=== PATIENT | female | born 1955 | race Hispanic/Latino ===

== ENCOUNTER 2019-11-13 19:33 | Inpatient (IN) | payer OTHER ==
[2019-11-13] MEDS ORDERED: Azithromycin 500 MG VIAL ONE (20:01)
[2019-11-13] MEDS ORDERED: cefTRIAXone\\ROCEPHIN 2 GM VIAL ONE (20:01)
[2019-11-13] MEDS ORDERED: Albuterol 200 PUFF (6.7GM INHALER) ONE (20:23)
--- NOTE | 2019-11-13 20:27 | RAD ---
Exam: Chest one view HISTORY:Cough. Positive COVID 19 patient. Comparison: 10/12/2017 FINDINGS: Cardiac silhouette:Cardiomegaly Aorta: Unremarkable Pulmonary vessels: Normal Costophrenic angles: Clear LUNGS: Diminished lung volumes. Diffuse interstitial and alveolar opacities. Pneumothorax: None Osseous abnormalities: None IMPRESSION: Multifocal interstitial and alveolar opacities. Evidence for multi lobar pneumonia due to COVID 19.
[2019-11-13 20:28] LABS: #Lymphocytes 1.6 thou/uL (1.20-3.40); #Monocytes 0.4 thou/uL (0.11-0.59); #Neutrophils 7.4 thou/uL (1.40-6.50); %Basophils 0.2 % (0.0-1.0); %Eosinophils 0.1 % (0.0-10.0); %Lymphocytes 16.9 % (21.0-51.0); %Monocytes 4.4 % (0.0-10.0); %Neutrophils 78.5 % (42.0-75.0); Hemoglobin 14.8 g/dL (12.0-16.0); Mean Corpuscular HGB CONC 32.1 g/dL (32.0-36.0); Mean Corpuscular Hemoglobin 29.1 pg (27.0-31.0); Mean Corpuscular Volume 90.6 fL (78.0-98.0); Mean Platelet Volume 9.4 fL (7.4-10.4); Platelet Count 221 thou/uL (130-400); RBC Distribution Width 13.2 % (11.5-14.5); Red Blood Cell (RBC) Count 5.08 mill/uL (4.20-5.40); White Blood Cell (WBC) Count 9.4 thou/uL (4.8-10.8)
[2019-11-13 20:55] LABS: ALT (SGPT) 37 U/L (8-55); AST (SGOT) 49 U/L (5-34); Albumin 3.9 g/dL (3.4-4.8); Alkaline Phosphatase 123 U/L (40-110); Anion Gap 18 mmol/L (10-20); BUN (Urea Nitrogen) 12 mg/dL (9.8-20.1); Bilirubin, Total 0.2 mg/dL (0.2-1.2); CK (CPK) 23 U/L (29-168); Calc. Creatinine Clearance 0 mL/min (70-130); Calcium 9.8 mg/dL (7.8-10.44); Carbon Dioxide 23 mmol/L (23-31); Chloride 99 mmol/L (98-107); Estimated GFR-MDRD 71; Globulin 4.2 g/dL (2.4-3.5); Glucose 374 mg/dL (80-115); Magnesium 1.9 mg/dL (1.6-2.6); Potassium 4.7 mmol/L (3.5-5.1); Protein, Total 8.1 g/dL (6.0-8.3); Sodium 135 mmol/L (136-145)
[2019-11-13] MEDS ORDERED: HYDROcodone/Acetaminophen 5/325 mg Tablet PO PRN (22:50)
[2019-11-13] MEDS ORDERED: Guaifenesin DM 100-10/5 ML UDCUP PO PRN (22:50)
[2019-11-13] MEDS ORDERED: Promethazine HCl 12.5 MG in Sodium Chloride 0.9% 50 ML IVPB PRN (22:50)
[2019-11-13] MEDS ORDERED: Labetalol HCl 100 MG/20 ML VIAL SLOW IVP PRN (22:50)
[2019-11-13] MEDS ORDERED: Ondansetron PF 4 MG/2 ML Vial IVP PRN (22:50)
[2019-11-13] MEDS ORDERED: cloNIDine 0.1 MG TAB PO PRN (22:50)
[2019-11-13] MEDS ORDERED: Dextrose 5% in Water 1,000 ML IV PRN (22:53)
[2019-11-13] MEDS ORDERED: HumaLOG 300 UNITS/3 ML VIAL SC PRN (22:53)
[2019-11-13] MEDS ORDERED: Dextrose 50% Abboject 50 ML SYRINGE SLOW IVP PRN (22:53)
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
[2019-11-13] MEDS ORDERED: Dexamethasone 4 mg/ml Vial SLOW IVP SCH (23:00)
[2019-11-13] MEDS ORDERED: Sodium Chloride 0.9% 1,000 ML IV SCH (23:00)
[2019-11-13] MEDS ORDERED: Dexamethasone 10 MG/ML VIAL ONE (23:05)
[2019-11-13 23:44] LABS: Lactic Acid 2.2 mmol/L (0.5-2.2)
[2019-11-14 01:07] LABS: Actual Bicarbonate (HCO3a) 21.5 mEq/L (22-28); Base Excess (BEa) -2.6 mEq/L (-2.0 to +3.0); CO2 Tension 35.5 mmHg (35.0-45.0); Calcium, Ionized (arterial) 1.18 mmol/L (1.12-1.30); Carboxyhemoglobin (COHb) 0.6 gm% (0.0-3.0); Hemoglobin (Hb) 14.4 g/dL (12.0-16.0); O2 Tension (PaO2), arterial 68.6 mmHg (> 80.0); Potassium - ABG Lab 3.89 mmol/L (3.70-5.30)
[2019-11-14 01:10] LABS: ALV-art Gradient 143.705 (0-20); Puncture Site L RADIAL
[2019-11-14] MEDS ORDERED: Dextrose 50% Abboject 50 ML SYRINGE SLOW IVP PRN (01:26)
[2019-11-14] MEDS ORDERED: Dextrose 5% in Water 1,000 ML IV PRN (01:26)
[2019-11-14] MEDS ORDERED: Insulin Glargine 5 UNITS in Pre-Filled Syringe 1 EACH SC SCH ×2 (01:30→21:00)
[2019-11-14] MEDS: Albuterol Sulfate 2.5 mg/3 ml Neb EZPAP SCH ×3 (02:43→11:45)
[2019-11-14] MEDS ORDERED: Lorazepam 2 MG/ML VIAL SLOW IVP SCH (03:00)
[2019-11-14] MEDS: HumaLOG 300 UNITS/3 ML VIAL SC PRN ×5 (03:08→22:44)
[2019-11-14 03:38] LABS: #Lymphocytes 1.2 thou/uL (1.20-3.40); #Monocytes 0.3 thou/uL (0.11-0.59); %Basophils 0.1 % (0.0-1.0); %Monocytes 3.1 % (0.0-10.0); %Neutrophils 82.7 % (42.0-75.0); Mean Corpuscular HGB CONC 30.6 g/dL (32.0-36.0); Mean Corpuscular Hemoglobin 27.7 pg (27.0-31.0); Mean Corpuscular Volume 90.5 fL (78.0-98.0); Mean Platelet Volume 9.2 fL (7.4-10.4); Platelet Count 237 thou/uL (130-400); RBC Distribution Width 13.2 % (11.5-14.5); Red Blood Cell (RBC) Count 5.03 mill/uL (4.20-5.40); White Blood Cell (WBC) Count 8.5 thou/uL (4.8-10.8)
[2019-11-14 03:46] LABS: Hemoglobin A1c 9.8 % (4.0-6.0)
[2019-11-14 03:58] LABS: Lactic Acid 1.8 mmol/L (0.5-2.2)
[2019-11-14 04:01] LABS: Anion Gap 15 mmol/L (10-20); BUN (Urea Nitrogen) 7 mg/dL (9.8-20.1); Calc. Creatinine Clearance 85 mL/min (70-130); Calcium 8.6 mg/dL (7.8-10.44); Carbon Dioxide 22 mmol/L (23-31); Chloride 105 mmol/L (98-107); Estimated GFR-MDRD Greater than 90; Glucose 275 mg/dL (80-115); Magnesium 1.6 mg/dL (1.6-2.6); Potassium 3.9 mmol/L (3.5-5.1); Sodium 138 mmol/L (136-145)
[2019-11-14] MEDS: Enoxaparin Sodium 40 MG/0.4 ML SYRINGE SC SCH (08:34)
[2019-11-14] MEDS ORDERED: Electrolyte Replacement Protoc 1 EACH EACH FS ONE (08:50)
[2019-11-14] MEDS ORDERED: Famotidine 20 MG TAB PO SCH (09:00)
[2019-11-14] MEDS ORDERED: Electrolyte Replacement Protocol FS PRN (09:45)
[2019-11-14] MEDS ORDERED: Magnesium 2 GM/50 ML 2 GM in Premix Bag 1 BAG IVPB SCH ×2 (09:45→13:00)
[2019-11-14] MEDS ORDERED: Lorazepam 2 MG/ML VIAL ONE ×2 (10:22→16:12)
[2019-11-14] MEDS ORDERED: Furosemide 40 MG/4 ML VIAL ONE (10:38)
[2019-11-14] MEDS: Famotidine/PF 20 mg/2ml Vial SLOW IVP SCH ×2 (10:50→21:13)
[2019-11-14] MEDS ORDERED: Dexamethasone 4 mg/ml Vial SLOW IVP SCH (11:15)
[2019-11-14 12:16] LABS: Actual Bicarbonate (HCO3a) 26.8 mEq/L (22-28); Base Excess (BEa) 1.9 mEq/L (-2.0 to +3.0); CO2 Tension 42.7 mmHg (35.0-45.0); Calcium, Ionized (arterial) 1.15 mmol/L (1.12-1.30); Carboxyhemoglobin (COHb) 0.4 gm% (0.0-3.0); Hemoglobin (Hb) 14.4 g/dL (12.0-16.0); Potassium - ABG Lab 3.49 mmol/L (3.70-5.30); pH, Arterial 7.42 (7.35-7.45)
[2019-11-14 12:18] LABS: ALV-art Gradient 321.125 (0-20); O2 Tension (PaO2), arterial 53.3 mmHg (> 80.0); Puncture Site LRA
[2019-11-14] MEDS ORDERED: Benzonatate 100 MG CAP PO PRN (12:21)
[2019-11-14] MEDS ORDERED: Loperamide HCl 2 MG CAP PO PRN (12:21)
[2019-11-14] MEDS ORDERED: Calcium Carbonate 500 MG ChewTAB PO PRN (12:21)
[2019-11-14] MEDS ORDERED: Diabetic Tussin 200 MG/10 ML UDCUP PO PRN (12:21)
[2019-11-14] MEDS ORDERED: Bisacodyl 10 MG SUPP PR PRN (12:21)
[2019-11-14] MEDS ORDERED: Sodium Chloride 0.65% Nasal 44 ML BOT EA NARE PRN (12:21)
[2019-11-14] MEDS ORDERED: Cepastat Lozenges 1 LOZ PO PRN (12:21)
[2019-11-14] MEDS ORDERED: Loratadine 10 MG TAB PO PRN (12:21)
--- NOTE | 2019-11-14 12:24 | PDOC.HOSPP ---
- Subjective Encounter Date: 11/14/19 Encounter Time: 10:00 Subjective: Patient is tachypneic, patient has anxiety, patient is on BiPAP, - Objective Vital Signs & Weight: Vital Signs (12 hours) Temp Pulse Pulse Ox 11/14/19 09:00 97.8 F 11/14/19 06:00 96.9 F L 11/14/19 02:43 92 L 11/14/19 02:40 96 11/14/19 02:30 98 11/14/19 02:00 98.0 F Weight Weight 120 lb 13.013 oz Most Recent Monitor Data Heart Rate from ECG 89 NIBP 110/71 NIBP BP-Mean 84 Respiration from ECG 21 SpO2 99 I&O: 11/13/19 11/14/19 11/15/19 06:59 06:59 06:59 Intake Total 337 Output Total 650 300 Balance -313 -300 Result Diagrams: 11/14/19 03:25 11/14/19 03:25 Additional Labs: Accuchecks 11/14/19 11/14/19 11/13/19 06:14 01:57 20:05 POC Glucose 255 H 226 H 337 H Radiology Reviewed by me: Yes EKG Reviewed by me: Yes Hospitalist ROS - Review of Systems Constitutional: reports: weakness, malaise. denies: fever, chills, sweats, other ENT: denies: ear pain, ear discharge, nose pain, nose discharge, nose congestion , mouth pain, mouth swelling, throat pain, throat swelling, other Respiratory: reports: cough, shortness of breath, SOB with excertion. denies: dry, hemoptysis, pleuritic pain, sputum, wheezing, other Cardiovascular: denies: chest pain, palpitations, orthopnea, paroxysmal noc. dyspnea, edema, light headedness, other Gastrointestinal: denies: nausea, vomiting, abdominal pain, diarrhea, constipation, melena, hematochezia, other Genitourinary: denies: dysuria, frequency, incontinence, hematuria, retention, other Musculoskeletal: denies: neck pain, shoulder pain, arm pain, back pain, hand pain, leg pain, foot pain, other - Medication Medications: Active Medications Generic Name Dose Route Start Last Admin Trade Name Freq PRN Reason Stop Dose Admin Albuterol Sulfate 2.5 mg 11/14/19 02:30 11/14/19 11:45 Ventolin EZPAP 2.5 mg [id number] MARK Administration Enoxaparin Sodium 40 mg 11/14/19 09:00 11/14/19 08:34 Lovenox SC 40 mg 0900 MARK Administration Famotidine 20 mg 11/14/19 09:00 11/14/19 10:50 Pepcid SLOW IVP 20 mg BID MARK Administration Insulin Human Lispro 0 units 11/14/19 01:26 11/14/19 06:32 Humalog SC 6 units .MODERATE SLIDING SC PRN Administration Moderate Correctional Scale Ondansetron HCl 4 mg 11/13/19 22:50 11/14/19 03:07 Zofran IVP 4 mg Q6H PRN Administration Nausea/Vomiting use 1st Sodium Chloride 10 ml 11/14/19 09:00 11/14/19 08:34 Flush - Normal Saline IVF Not Given Q12HR MARK - Exam General Appearance: NAD, awake alert Eye: PERRL, anicteric sclera ENT: normocephalic atraumatic, no oropharyngeal lesions Neck: supple, symmetric, no JVD Heart: no murmur, no gallops Respiratory: no wheezes, no rales, tachypneic Gastrointestinal: soft, non-tender, non-distended, normal bowel sounds Extremities: no cyanosis, no clubbing, no edema Skin: normal turgor, no lesions Neurological: no focal deficits Musculoskeletal: normal tone, normal strength Psychiatric: normal affect, normal behavior Hosp A/P - Plan old records reviewed/req, continue antibiotics, respiratory therapy, DVT proph w /lovenox Assessment Acute respiratory failure with hypoxia Bilateral interstitial pneumonia suspected for COVID-19 infection Suspected COVID-19 infection Diabetes type 2 Lactic acidosis Plan We will discontinue IV fluid which was ordered last night Give her Ativan 0.5 mg IV one-time dose for her anxiety and will give her Lasix 20 mg IV one-time dose Continue BiPAP as tolerated Add vitamin supplementation Follow-up on COVID-19 test result Based on test result COVID , evaluate for Remdesivir Continue Decadron Pulmonary has been consulted Closely monitor for any deterioration
[2019-11-14] MEDS ORDERED: Cefepime 1 GM in Sodium Chloride 0.9% 100 ML IVPB SCH (12:45)
--- NOTE | 2019-11-14 12:49 | PQF ---
Q53 2018 [facility] Updated: January 2019 CLINICAL DOCUMENTATION CLARIFICATION FORM: Dear Dr. Buenrostro Date 11/15/19 Please exercise your independent, professional judgment in responding to the clarification form. Clinical indicators are provided on the bottom of this form for your review. Please check appropriate box(es): [ ] Acute Respiratory Failure: [ ] with Hypoxia [ ] with Hypercapnia [ ] Acute On Chronic Respiratory Failure: [ ] with Hypoxia [ ] with Hypercapnia [ ] Acute Respiratory Failure due to: (etiology) [ ] ARDS (Acute Respiratory Distress Syndrome) [ ] Chronic Respiratory Failure only [ ] with Hypoxia [ ] with Hypercapnia [ ] Respiratory Insufficiency [ ] Hypoxia [ ] Other diagnosis [ ] Unable to determine In addition, please specify: Present on Admission (POA): [ ] Yes [ ] No [ ] Unable to determine For continuity of documentation, please document condition throughout progress notes and discharge summary. Thank You. NURSE'S NOTE: "GRUNTING RESPIRATIONS AT 65-70 MIN. RESP VERY SHALLOW, PT UNABLE TO SPEAK IN FULL SENTENCES." RISKS: COVID 19 + (H&P ATERNO) TREATMENT: ABGs IVP DECADRON (ORDERED 11/13 NOW) ALBUTEROL NEBS Q4 HR (STARTED 11/13) IV AZITHROMYCIN (ORDERED 11/13) IV ROCEPHIN (ORDERED 11/13 TRANSFER TO CCU 11/13 FOR BIPAP CDS/[employer] Furn[employer]er Signature: Thea Lambert RN Phone #: [phone] Date: 11/15/19 Acute Respiratory Failure: ABG pH < 7.35 or > 7.45; Decreased oxygen saturation (<90% room air or < 95% on oxygen); PCO2 > 50 mm Hg; PO2 < 60 mm Hg; Labored or rapid respirations ARDS: Dx Criteria [[place] ARDS]: Respiratory symptoms within one week of a known clinical insult (e.g. shock, infection, surgery, trauma) Bilateral opacities in CXR/Chest CT not due to CHF or fluid This is a permanent part of the Medical Record MTDD
[2019-11-14] MEDS ORDERED: Ketamine 50 MG/ML (10ML VIAL) ONE (15:03)
[2019-11-14] MEDS ORDERED: Rocuronium Bromide 50 MG/5 ML VIAL ONE (15:04)
[2019-11-14 16:14] LABS: Actual Bicarbonate (HCO3a) 24.5 mEq/L (22-28); Base Excess (BEa) 1.1 mEq/L (-2.0 to +3.0); CO2 Tension 35.5 mmHg (35.0-45.0); Calcium, Ionized (arterial) 1.14 mmol/L (1.12-1.30); Carboxyhemoglobin (COHb) 0.3 gm% (0.0-3.0); Hemoglobin (Hb) 14.9 g/dL (12.0-16.0); O2 Tension (PaO2), arterial 63.2 mmHg (> 80.0); pH, Arterial 7.46 (7.35-7.45)
[2019-11-14 16:16] LABS: ALV-art Gradient 320.225 (0-20); Puncture Site LRA
[2019-11-14] MEDS ORDERED: Propofol 1,000 MG/100 ML VIAL IV ONE (16:35)
[2019-11-14] MEDS ORDERED: Fentanyl BOLUS 250 ML IVPB PRN (17:05)
[2019-11-14] MEDS ORDERED: DISCONTINUE PREVIOUS NARCOTIC PAIN MEDICATIONS AND BENZODIAZEPINES FS SCH (17:05)
[2019-11-14] MEDS ORDERED: Propofol BOLUS 1,000 MG/100 ML VIAL IV PRN (17:05)
[2019-11-14] MEDS ORDERED: Morphine 2 MG/ML VIAL SLOW IVP PRN (17:05)
[2019-11-14] MEDS: fentaNYL Citrate/PF 2,000 MCG in Sodium Chloride 0.9% 60 ML IV SCH (17:36)
--- NOTE | 2019-11-14 17:46 | RAD ---
Exam: Chest one view HISTORY:Intubated patient. Respiratory distress. Comparison: 11/13/2019 at 8:20 PM FINDINGS: Cardiac silhouette:Stable cardiac silhouette. Lines and tubes: Interval placement of endotracheal and nasogastric tube. Nasogastric tube terminates in the left upper quadrant. Endotracheal tube appears to have a right mainstem bronchus intubation. Aorta: Unremarkable Pulmonary vessels: Normal Costophrenic angles: Small bilateral pleural effusions are suspected LUNGS: Persistent multi focal interstitial and alveolar opacities. Pneumothorax: None Osseous abnormalities: None IMPRESSION: 1. Persistent multi focal interstitial and alveolar opacities. 2. Nasogastric tube terminating in the epigastric region 3. Endotracheal tube terminating in the right mainstem bronchus. Repositioning is recommended. Result s of study discussed with Ashly higgins in the ICU 11/14/2019 at 5:46 PM Code CR Transcribed Date/Time: 11/14/2019 5:53 PM
[2019-11-14] MEDS: Budesonide 0.5 MG/2 ML NEB NEB SCH (18:18)
[2019-11-14] MEDS ORDERED: Norepinephrine 8 MG/0.9% NS 250 ML ONE (18:33)
[2019-11-14] MEDS ORDERED: cefTRIAXone\\ROCEPHIN 1 GM in Sodium Chloride 0.9% 100 ML IVPB SCH (21:00)
[2019-11-14] MEDS: Azithromycin 500 MG in Sodium Chloride 0.9% 250 ML 250 ML IVPB SCH (21:09)
[2019-11-14] MEDS: Cefepime 1 GM in Sodium Chloride 0.9% 100 ML IVPB SCH (21:10)
[2019-11-15 04:51] LABS: #Lymphocytes 0.9 thou/uL (1.20-3.40); #Monocytes 0.9 thou/uL (0.11-0.59); #Neutrophils 10.4 thou/uL (1.40-6.50); %Basophils 0.2 % (0.0-1.0); %Eosinophils 0.1 % (0.0-10.0); %Lymphocytes 7.2 % (21.0-51.0); %Monocytes 7.1 % (0.0-10.0); %Neutrophils 85.5 % (42.0-75.0); Hemoglobin 12.7 g/dL (12.0-16.0); Mean Corpuscular HGB CONC 31.3 g/dL (32.0-36.0); Mean Corpuscular Hemoglobin 27.8 pg (27.0-31.0); Mean Corpuscular Volume 88.7 fL (78.0-98.0); Mean Platelet Volume 8.3 fL (7.4-10.4); Platelet Count 296 thou/uL (130-400); RBC Distribution Width 12.9 % (11.5-14.5); Red Blood Cell (RBC) Count 4.58 mill/uL (4.20-5.40); White Blood Cell (WBC) Count 12.2 thou/uL (4.8-10.8)
[2019-11-15 05:10] LABS: ALT (SGPT) 24 U/L (8-55); AST (SGOT) 29 U/L (5-34); Albumin 3.5 g/dL (3.4-4.8); Alkaline Phosphatase 98 U/L (40-110); Anion Gap 19 mmol/L (10-20); BUN (Urea Nitrogen) 7 mg/dL (9.8-20.1); Bilirubin, Total 0.2 mg/dL (0.2-1.2); Calc. Creatinine Clearance 76 mL/min (70-130); Calcium 8.4 mg/dL (7.8-10.44); Carbon Dioxide 21 mmol/L (23-31); Chloride 102 mmol/L (98-107); Estimated GFR-MDRD 89; Globulin 3.4 g/dL (2.4-3.5); Glucose 372 mg/dL (80-115); Protein, Total 6.9 g/dL (6.0-8.3); Sodium 139 mmol/L (136-145)
[2019-11-15] MEDS: Propofol 1,000 MG/100 ML VIAL IV PRN (05:34)
[2019-11-15] MEDS: Norepinephrine 8 MG/0.9% NS 250 ML IVPB SCH (05:35)
[2019-11-15] MEDS: HumaLOG 300 UNITS/3 ML VIAL SC PRN ×2 (05:54→11:38)
[2019-11-15] MEDS ORDERED: Magnesium 2 GM/50 ML 2 GM in Premix Bag 1 BAG IVPB SCH (06:30)
[2019-11-15] MEDS ORDERED: Potassium Chloride 20 MEQ TAB PO SCH (06:30)
[2019-11-15] MEDS: Dexamethasone 4 mg/ml Vial SLOW IVP SCH (07:32)
[2019-11-15] MEDS: Enoxaparin Sodium 40 MG/0.4 ML SYRINGE SC SCH (07:32)
[2019-11-15] MEDS: Famotidine/PF 20 mg/2ml Vial SLOW IVP SCH ×2 (07:33→21:29)
[2019-11-15] MEDS: Zinc Sulfate 220 MG CAP PO SCH (07:33)
[2019-11-15] MEDS: Cefepime 1 GM in Sodium Chloride 0.9% 100 ML IVPB SCH ×2 (07:33→21:29)
[2019-11-15] MEDS: Ascorbic Acid 500 mg Chewable Tablet PO SCH (07:33)
--- NOTE | 2019-11-15 07:52 | RAD ---
EXAM: Single view of the chest HISTORY: Covid positive pneumonia COMPARISON: 11/14/2019 FINDINGS: Single view of the chest shows a normal sized cardiomediastinal silhouette. The endotrache al tube and NG tube are unchanged in position. There are stable multifocal next infiltrates in the lungs. The bones are unremarkable IMPRESSION: Stable exam
--- NOTE | 2019-11-15 08:05 | OP ---
DATE OF PROCEDURE: 11/14/2019 Reyna Frias was intubated by Anesthesia today. I was asked to place a central line. Right groin was prepped with chlorhexidine. Right femoral vein was easily cannulated with an introducer needle. J-wire was passed. Vein dilator was inserted. Triple-lumen catheter was sewn in place. After insertion, removal of the wire. Sterile dressing was applied. Catheter was flushed. Good blood return in all three ports. Job ID: [id number]
[2019-11-15] MEDS: Budesonide 0.5 MG/2 ML NEB NEB SCH ×2 (08:35→19:05)
[2019-11-15 08:48] LABS: Actual Bicarbonate (HCO3a) 22.6 mEq/L (22-28); Base Excess (BEa) 0.2 mEq/L (-2.0 to +3.0); CO2 Tension 30.3 mmHg (35.0-45.0); Calcium, Ionized (arterial) 1.07 mmol/L (1.12-1.30); Carboxyhemoglobin (COHb) 0.1 gm% (0.0-3.0); Hemoglobin (Hb) 13.4 g/dL (12.0-16.0); O2 Tension (PaO2), arterial 138.4 mmHg (> 80.0); Potassium - ABG Lab 3.03 mmol/L (3.70-5.30); pH, Arterial 7.49 (7.35-7.45)
[2019-11-15 16:03] LABS: Puncture Site L.R.
[2019-11-15 16:04] LABS: ALV-art Gradient 180.225 (0-20)
--- NOTE | 2019-11-15 16:28 | PDOC.HOSPP ---
- Subjective Encounter Date: 11/15/19 Subjective: Intubated and nonverbal - Objective Vital Signs & Weight: Vital Signs (12 hours) Pulse Resp BP Pulse Ox 11/15/19 16:00 16 11/15/19 14:26 72 20 100 11/15/19 14:19 78 154/79 H 11/15/19 14:00 16 11/15/19 12:00 20 11/15/19 11:20 82 16 100 11/15/19 10:00 23 H 11/15/19 08:35 69 23 H 100 11/15/19 08:00 24 H 100 11/15/19 06:00 16 Weight Admit Weight 120 lb 12.8 oz Weight 119 lb 14.903 oz Most Recent Monitor Data Heart Rate from ECG 81 NIBP 159/72 NIBP BP-Mean 101 Respiration from ECG 30 SpO2 100 I&O: 11/14/19 11/15/19 11/16/19 06:59 06:59 06:59 Intake Total 337 1324.0 60 Output Total 650 2185 930 Balance -313 -861.0 -870 Result Diagrams: 11/15/19 04:15 11/15/19 04:15 Additional Labs: Accuchecks 11/15/19 11/15/19 11/14/19 11:25 05:54 21:32 POC Glucose 269 H 325 H 294 H 11/14/19 18:02 POC Glucose 225 H Hospitalist ROS - Medication Medications: Active Medications Generic Name Dose Route Start Last Admin Trade Name Freq PRN Reason Stop Dose Admin Albuterol/Ipratropium 3 ml 11/14/19 14:30 11/15/19 14:26 Duoneb NEB 3 ml [id number] MARK Administration Ascorbic Acid 1,000 mg 11/15/19 09:00 11/15/19 07:33 Vitamin C PO 1,000 mg DAILY MARK Administration Budesonide 0.5 mg 11/14/19 18:30 11/15/19 08:35 Pulmicort Neb Solution NEB 0.5 mg BID-RT MARK Administration Dexamethasone 6 mg 11/15/19 09:00 11/15/19 07:32 Decadron SLOW IVP 6 mg 0900 MARK Administration Enoxaparin Sodium 40 mg 11/14/19 09:00 11/15/19 07:32 Lovenox SC 40 mg 0900 MARK Administration Famotidine 20 mg 11/14/19 09:00 11/15/19 07:33 Pepcid SLOW IVP 20 mg BID MARK Administration Azithromycin 500 mg/ Sodium 250 mls @ 250 mls/hr 11/14/19 21:00 11/14/19 21: 09 Chloride IVPB 250 mls 2100 MARK Administration Insulin Glargine 5 units/ 0.05 mls @ 0 mls/hr 11/14/19 21:00 11/14/19 21:10 Miscellaneous Medication SC 0.05 mls HS MARK Administration Cefepime HCl 1 gm/ Sodium 100 mls @ 200 mls/hr 11/14/19 21:00 11/15/19 07:33 Chloride IVPB 100 mls Q12HR MARK Administration Fentanyl Citrate 2,000 mcg/ 100 mls @ 0 mls/hr 11/14/19 17:05 11/14/19 17:36 Sodium Chloride IV 12/14/19 17:05 100 mls INF MARK Administration Protocol Per Protocol Norepinephrine Bitartrate 250 mls @ 0 mls/hr 11/14/19 18:43 11/15/19 05:35 Levophed IVPB 250 mls INF MARK Administration Protocol Titrate Insulin Human Lispro 0 units 11/14/19 01:26 11/15/19 11:38 Humalog SC 6 units .MODERATE SLIDING SC PRN Administration Moderate Correctional Scale Ondansetron HCl 4 mg 11/13/19 22:50 11/14/19 03:07 Zofran IVP 4 mg Q6H PRN Administration Nausea/Vomiting use 1st Propofol 1,000 mg 11/14/19 17:05 11/15/19 05:34 Diprivan IV 12/14/19 17:05 1,000 mg INF PRN Administration TO ACHIEVE GOAL RASS Protocol Sodium Chloride 10 ml 11/14/19 09:00 11/15/19 07:33 Flush - Normal Saline IVF 10 ml Q12HR MARK Administration Vitamin E 200 units 11/15/19 09:00 11/15/19 09:39 Vitamin E PO 200 units DAILY MARK Administration Zinc Sulfate 220 mg 11/15/19 09:00 11/15/19 07:33 Zinc Sulfate PO 220 mg DAILY MARK Administration - Exam General Appearance: NAD General - other findings: Intubated and sedated Heart: RRR, no murmur, no gallops, no rubs, normal peripheral pulses Respiratory: CTAB, no wheezes, no rales, no ronchi, normal chest expansion, no tachypnea, normal percussion Gastrointestinal: soft, non-distended, normal bowel sounds, no palpable masses, no hepatomegaly, no splenomegaly, no bruit Extremities: no cyanosis, no clubbing, no edema Skin: normal turgor Neurological - other findings: Sedated Musculoskeletal - other findings: Sedated Psychiatric - other findings: Sedated Hosp A/P (1) Acute respiratory failure with hypoxia Code(s): J96.01 - ACUTE RESPIRATORY FAILURE WITH HYPOXIA Status: Acute (2) COVID-19 virus infection Code(s): U07.1 - COVID-19 Status: Acute (3) Viral pneumonia Code(s): J12.9 - VIRAL PNEUMONIA, UNSPECIFIED Status: Acute (4) Diabetes mellitus Code(s): E11.9 - TYPE 2 DIABETES MELLITUS WITHOUT COMPLICATIONS Status: Acute (5) Lactic acidosis Code(s): E87.2 - ACIDOSIS Status: Acute - Plan DVT proph w/lovenox, GI proph (Pepcid) Acute hypoxic respiratory failure: Patient required intubation at some point. She is followed by pulmonology. Covered with broad-spectrum empiric antibiotics. COVID pneumonia: Patient is receiving IV Decadron. Pulmonology following. Will defer to pulmonology regarding use of antiviral therapy. Ferritin is 407. CRP is 7. Diabetes mellitus: Blood sugars are running high. Continue Accu-Cheks and adjust sliding scale insulin as needed. Lactic acidosis: Resolved.
[2019-11-15] MEDS: Azithromycin 500 MG in Sodium Chloride 0.9% 250 ML 250 ML IVPB SCH (21:29)
[2019-11-15] MEDS: Lorazepam 2 MG/ML VIAL SLOW IVP PRN (21:30)
[2019-11-15] MEDS: Insulin Glargine 12 UNITS in Pre-Filled Syringe 1 EACH SC SCH (21:31)
[2019-11-16] MEDS: HumaLOG 300 UNITS/3 ML VIAL SC PRN ×2 (00:30→06:20)
[2019-11-16] MEDS: fentaNYL Citrate/PF 2,000 MCG in Sodium Chloride 0.9% 60 ML IV SCH (01:15)
[2019-11-16 06:25] LABS: #Lymphocytes 1.3 thou/uL (1.20-3.40); #Monocytes 0.6 thou/uL (0.11-0.59); #Neutrophils 7.5 thou/uL (1.40-6.50); %Basophils 0.2 % (0.0-1.0); %Eosinophils 0.1 % (0.0-10.0); %Lymphocytes 13.7 % (21.0-51.0); %Monocytes 6.5 % (0.0-10.0); %Neutrophils 79.5 % (42.0-75.0); Hemoglobin 11.3 g/dL (12.0-16.0); Mean Corpuscular HGB CONC 33.4 g/dL (32.0-36.0); Mean Corpuscular Hemoglobin 29.4 pg (27.0-31.0); Mean Platelet Volume 8.5 fL (7.4-10.4); Platelet Count 257 thou/uL (130-400); Red Blood Cell (RBC) Count 3.86 mill/uL (4.20-5.40); White Blood Cell (WBC) Count 9.4 thou/uL (4.8-10.8)
[2019-11-16 06:46] LABS: ALT (SGPT) 19 U/L (8-55); AST (SGOT) 24 U/L (5-34); Alkaline Phosphatase 77 U/L (40-110); Anion Gap 12 mmol/L (10-20); BUN (Urea Nitrogen) 10 mg/dL (9.8-20.1); Bilirubin, Total 0.2 mg/dL (0.2-1.2); Calc. Creatinine Clearance 92 mL/min (70-130); Calcium 8.5 mg/dL (7.8-10.44); Carbon Dioxide 27 mmol/L (23-31); Chloride 105 mmol/L (98-107); Estimated GFR-MDRD Greater than 90; Glucose 169 mg/dL (80-115); Magnesium 2.1 mg/dL (1.6-2.6); Sodium 141 mmol/L (136-145)
[2019-11-16] MEDS: Budesonide 0.5 MG/2 ML NEB NEB SCH ×2 (07:13→18:30)
[2019-11-16] MEDS ORDERED: Potassium Chloride 40 MEQ in Premix Bag 1 BAG IVPB SCH (08:30)
[2019-11-16] MEDS: Enoxaparin Sodium 40 MG/0.4 ML SYRINGE SC SCH (09:52)
[2019-11-16] MEDS: Propofol 1,000 MG/100 ML VIAL IV PRN ×2 (09:52→17:48)
[2019-11-16] MEDS: Ascorbic Acid 500 mg Chewable Tablet PO SCH (09:53)
[2019-11-16] MEDS: Lorazepam 2 MG/ML VIAL SLOW IVP PRN (09:53)
[2019-11-16] MEDS: Zinc Sulfate 220 MG CAP PO SCH (09:53)
[2019-11-16] MEDS: Dexamethasone 4 mg/ml Vial SLOW IVP SCH (09:53)
[2019-11-16] MEDS: Famotidine/PF 20 mg/2ml Vial SLOW IVP SCH ×2 (09:53→20:50)
[2019-11-16] MEDS: Cefepime 1 GM in Sodium Chloride 0.9% 100 ML IVPB SCH ×2 (09:57→20:50)
--- NOTE | 2019-11-16 19:34 | PDOC.HOSPP ---
- Subjective Encounter Date: 11/16/19 non-verbal - Objective Vital Signs & Weight: Vital Signs (12 hours) Pulse Resp BP Pulse Ox 11/16/19 18:30 66 16 100 11/16/19 18:00 16 11/16/19 16:21 60 132/65 11/16/19 16:00 16 11/16/19 14:00 16 11/16/19 13:16 65 11/16/19 12:00 16 11/16/19 10:51 58 L 11/16/19 10:50 56 L 16 100 11/16/19 10:00 16 11/16/19 08:00 16 100 Weight Admit Weight 120 lb 12.8 oz Weight 1.711 oz Most Recent Monitor Data Heart Rate from ECG 68 NIBP 112/58 NIBP BP-Mean 76 Respiration from ECG 16 SpO2 100 I&O: 11/15/19 11/16/19 11/17/19 06:59 06:59 06:59 Intake Total 1324.0 1019.00 235 Output Total 2185 1565 460 Balance -861.0 -546.00 -225 Result Diagrams: 11/16/19 05:39 11/16/19 14:50 Additional Labs: Accuchecks 11/16/19 11/16/19 11/16/19 16:33 11:31 06:09 POC Glucose 197 H 126 H 165 H 11/16/19 00:11 POC Glucose 199 H Hospitalist ROS - Medication Medications: Active Medications Generic Name Dose Route Start Last Admin Trade Name Scarq PRN Reason Stop Dose Admin Albuterol/Ipratropium 3 ml 11/14/19 14:30 11/16/19 18:30 Duoneb NEB 3 ml [id number] MARK Administration Ascorbic Acid 1,000 mg 11/15/19 09:00 11/16/19 09:53 Vitamin C PO 1,000 mg DAILY MARK Administration Budesonide 0.5 mg 11/14/19 18:30 11/16/19 18:30 Pulmicort Neb Solution NEB 0.5 mg BID-RT MARK Administration Dexamethasone 6 mg 11/15/19 09:00 11/16/19 09:53 Decadron SLOW IVP 6 mg 0900 MARK Administration Enoxaparin Sodium 40 mg 11/14/19 09:00 11/16/19 09:52 Lovenox SC 40 mg 0900 MARK Administration Famotidine 20 mg 11/14/19 09:00 11/16/19 09:53 Pepcid SLOW IVP 20 mg BID MARK Administration Azithromycin 500 mg/ Sodium 250 mls @ 250 mls/hr 11/14/19 21:00 11/15/19 21: 29 Chloride IVPB 11/18/19 22:00 250 mls 2100 MARK Administration Cefepime HCl 1 gm/ Sodium 100 mls @ 200 mls/hr 11/14/19 21:00 11/16/19 09:57 Chloride IVPB 11/19/19 10:00 100 mls Q12HR MARK Administration Fentanyl Citrate 2,000 mcg/ 100 mls @ 0 mls/hr 11/14/19 17:05 11/16/19 01:15 Sodium Chloride IV 12/14/19 17:05 100 mls INF MARK Administration Protocol Per Protocol Norepinephrine Bitartrate 250 mls @ 0 mls/hr 11/14/19 18:43 11/15/19 05:35 Levophed IVPB 250 mls INF MARK Administration Protocol Titrate Insulin Glargine 12 units/ 0.12 mls @ 0 mls/hr 11/15/19 21:00 11/15/19 21:31 Miscellaneous Medication SC 0.12 mls HS MARK Administration Insulin Human Lispro 0 units 11/14/19 01:26 11/16/19 06:20 Humalog SC 2 units .MODERATE SLIDING SC PRN Administration Moderate Correctional Scale Lorazepam 2 mg 11/14/19 17:05 11/16/19 09:53 Ativan SLOW IVP 12/14/19 17:05 2 mg Q1H PRN Administration Breakthrough agitation Ondansetron HCl 4 mg 11/13/19 22:50 11/14/19 03:07 Zofran IVP 4 mg Q6H PRN Administration Nausea/Vomiting use 1st Propofol 1,000 mg 11/14/19 17:05 11/16/19 17:48 Diprivan IV 12/14/19 17:05 1,000 mg INF PRN Administration TO ACHIEVE GOAL RASS Protocol Sodium Chloride 10 ml 11/14/19 09:00 11/16/19 09:55 Flush - Normal Saline IVF 10 ml Q12HR MARK Administration Vitamin E 200 units 11/15/19 09:00 07/31/20 15:55 Vitamin E PO Not Given DAILY MARK Zinc Sulfate 220 mg 11/15/19 09:00 11/16/19 09:53 Zinc Sulfate PO 220 mg DAILY MARK Administration - Exam General Appearance: NAD General - other findings: Intubated, sedated Heart: RRR, no murmur, no gallops, no rubs, normal peripheral pulses Respiratory: CTAB, no wheezes, no rales, no ronchi, normal chest expansion, no tachypnea, normal percussion Gastrointestinal: soft, non-tender, non-distended, normal bowel sounds, no palpable masses, no hepatomegaly, no splenomegaly, no bruit Extremities: no cyanosis, no clubbing, no edema Skin: normal turgor Hosp A/P (1) Acute respiratory failure with hypoxia Code(s): J96.01 - ACUTE RESPIRATORY FAILURE WITH HYPOXIA Status: Acute (2) COVID-19 virus infection Code(s): U07.1 - COVID-19 Status: Acute (3) Viral pneumonia Code(s): J12.9 - VIRAL PNEUMONIA, UNSPECIFIED Status: Acute (4) Diabetes mellitus Code(s): E11.9 - TYPE 2 DIABETES MELLITUS WITHOUT COMPLICATIONS Status: Acute (5) Lactic acidosis Code(s): E87.2 - ACIDOSIS Status: Acute - Plan Acute hypoxic respiratory failure: Patient required intubation at some point. She is followed by pulmonology. Covered with broad-spectrum empiric antibiotics. COVID pneumonia: Patient is receiving IV Decadron. Pulmonology following. Will defer to pulmonology regarding use of antiviral therapy. Ferritin is 407. CRP is 7. Diabetes mellitus: Blood sugars are much improved. Continue Accu-Cheks and adjust sliding scale insulin as needed. Lactic acidosis: Resolved.
[2019-11-16] MEDS: Azithromycin 500 MG in Sodium Chloride 0.9% 250 ML 250 ML IVPB SCH (20:50)
[2019-11-16] MEDS: Insulin Glargine 12 UNITS in Pre-Filled Syringe 1 EACH SC SCH (20:51)
[2019-11-17] MEDS: HumaLOG 300 UNITS/3 ML VIAL SC PRN ×2 (01:00→06:31)
[2019-11-17] MEDS: fentaNYL Citrate/PF 2,000 MCG in Sodium Chloride 0.9% 60 ML IV SCH (04:05)
[2019-11-17 05:17] LABS: ALT (SGPT) 23 U/L (8-55); AST (SGOT) 27 U/L (5-34); Alkaline Phosphatase 77 U/L (40-110); Anion Gap 11 mmol/L (10-20); BUN (Urea Nitrogen) 10 mg/dL (9.8-20.1); Bilirubin, Total 0.3 mg/dL (0.2-1.2); CRP (Inflammatory) 3.09 mg/dL (= or < 0.5); Calc. Creatinine Clearance 81 mL/min (70-130); Calcium 8.4 mg/dL (7.8-10.44); Carbon Dioxide 25 mmol/L (23-31); Chloride 104 mmol/L (98-107); Estimated GFR-MDRD Greater than 90; Glucose 205 mg/dL (80-115); Potassium 3.4 mmol/L (3.5-5.1); Sodium 137 mmol/L (136-145)
[2019-11-17] MEDS: Budesonide 0.5 MG/2 ML NEB NEB SCH ×2 (08:22→18:35)
[2019-11-17] MEDS: Cefepime 1 GM in Sodium Chloride 0.9% 100 ML IVPB SCH ×2 (08:58→21:47)
[2019-11-17] MEDS: Ascorbic Acid 500 mg Chewable Tablet PO SCH (08:58)
[2019-11-17] MEDS: Enoxaparin Sodium 40 MG/0.4 ML SYRINGE SC SCH (08:59)
[2019-11-17] MEDS: Famotidine/PF 20 mg/2ml Vial SLOW IVP SCH ×2 (08:59→21:47)
[2019-11-17] MEDS: Dexamethasone 4 mg/ml Vial SLOW IVP SCH (08:59)
[2019-11-17] MEDS: Zinc Sulfate 220 MG CAP PO SCH (09:05)
[2019-11-17] MEDS ORDERED: Potassium Chloride 20 MEQ TAB PO SCH (10:15)
--- NOTE | 2019-11-17 11:50 | PDOC.HOSPP ---
- Subjective Encounter Date: 11/17/19 non-verbal - Objective Vital Signs & Weight: Vital Signs (12 hours) Pulse Resp BP Pulse Ox 11/17/19 10:08 65 16 100 11/17/19 10:05 65 108/59 L 11/17/19 10:00 16 11/17/19 08:22 60 16 100 11/17/19 08:14 54 L 152/65 H 11/17/19 08:00 16 11/17/19 06:00 16 11/17/19 04:00 16 11/17/19 03:00 61 16 100 11/17/19 02:00 16 11/17/19 00:00 16 Weight Admit Weight 120 lb 12.8 oz Weight 106 lb 4.205 oz Most Recent Monitor Data Heart Rate from ECG 72 NIBP 123/69 NIBP BP-Mean 87 Respiration from ECG 19 SpO2 100 I&O: 11/16/19 11/17/19 11/18/19 06:59 06:59 06:59 Intake Total 1019.00 688.80 Output Total 1565 1255 Balance -546.00 -566.20 Result Diagrams: 11/16/19 05:39 11/17/19 04:37 Additional Labs: Accuchecks 11/16/19 11/16/19 16:33 11:31 POC Glucose 197 H 126 H Hospitalist ROS - Medication Medications: Active Medications Generic Name Dose Route Start Last Admin Trade Name Freq PRN Reason Stop Dose Admin Albuterol/Ipratropium 3 ml 11/14/19 14:30 11/17/19 10:08 Duoneb NEB 3 ml [id number] MARK Administration Ascorbic Acid 1,000 mg 11/15/19 09:00 11/17/19 08:58 Vitamin C PO 1,000 mg DAILY MARK Administration Budesonide 0.5 mg 11/14/19 18:30 11/17/19 08:22 Pulmicort Neb Solution NEB 0.5 mg BID-RT MARK Administration Dexamethasone 6 mg 11/15/19 09:00 11/17/19 08:59 Decadron SLOW IVP 6 mg 0900 MARK Administration Enoxaparin Sodium 40 mg 11/14/19 09:00 11/17/19 08:59 Lovenox SC 40 mg 09 MARK Administration Famotidine 20 mg 11/14/19 09:00 11/17/19 08:59 Pepcid SLOW IVP 20 mg BID MARK Administration Azithromycin 500 mg/ Sodium 250 mls @ 250 mls/hr 11/14/19 21:00 11/16/19 20: 50 Chloride IVPB 11/18/19 22:00 250 mls 2100 MARK Administration Cefepime HCl 1 gm/ Sodium 100 mls @ 200 mls/hr 11/14/19 21:00 11/17/19 08:58 Chloride IVPB 11/19/19 10:00 100 mls Q12HR MARK Administration Fentanyl Citrate 2,000 mcg/ 100 mls @ 0 mls/hr 11/14/19 17:05 11/17/19 04:05 Sodium Chloride IV 12/14/19 17:05 100 mls INF MARK Administration Protocol Per Protocol Norepinephrine Bitartrate 250 mls @ 0 mls/hr 11/14/19 18:43 11/15/19 05:35 Levophed IVPB 250 mls INF MARK Administration Protocol Titrate Insulin Glargine 12 units/ 0.12 mls @ 0 mls/hr 11/15/19 21:00 11/16/19 20:51 Miscellaneous Medication SC 0.12 mls HS MARK Administration Insulin Human Lispro 0 units 11/14/19 01:26 11/17/19 06:31 Humalog SC 4 units .MODERATE SLIDING SC PRN Administration Moderate Correctional Scale Lorazepam 2 mg 11/14/19 17:05 11/16/19 09:53 Ativan SLOW IVP 12/14/19 17:05 2 mg Q1H PRN Administration Breakthrough agitation Ondansetron HCl 4 mg 11/13/19 22:50 11/14/19 03:07 Zofran IVP 4 mg Q6H PRN Administration Nausea/Vomiting use 1st Propofol 1,000 mg 11/14/19 17:05 11/16/19 17:48 Diprivan IV 12/14/19 17:05 1,000 mg INF PRN Administration TO ACHIEVE GOAL RASS Protocol Sodium Chloride 10 ml 11/14/19 09:00 11/17/19 09:05 Flush - Normal Saline IVF Not Given Q12HR MARK Vitamin E 200 units 11/15/19 09:00 11/17/19 08:59 Vitamin E PO 200 units DAILY MARK Administration Zinc Sulfate 220 mg 11/15/19 09:00 11/17/19 09:05 Zinc Sulfate PO 220 mg DAILY MARK Administration - Exam General Appearance: NAD General - other findings: Intubated and sedated. Does awaken with external stimuli. Heart: RRR, no murmur, no gallops, no rubs, normal peripheral pulses Respiratory: CTAB, no wheezes, no rales, no ronchi, normal chest expansion, no tachypnea, normal percussion Gastrointestinal: soft, non-tender, non-distended, normal bowel sounds, no palpable masses, no hepatomegaly, no splenomegaly, no bruit Extremities: no cyanosis, no clubbing, no edema Psychiatric - other findings: Sedated Hosp A/P (1) Acute respiratory failure with hypoxia Code(s): J96.01 - ACUTE RESPIRATORY FAILURE WITH HYPOXIA Status: Acute (2) COVID-19 virus infection Code(s): U07.1 - COVID-19 Status: Acute (3) Viral pneumonia Code(s): J12.9 - VIRAL PNEUMONIA, UNSPECIFIED Status: Acute (4) Diabetes mellitus Code(s): E11.9 - TYPE 2 DIABETES MELLITUS WITHOUT COMPLICATIONS Status: Acute (5) Lactic acidosis Code(s): E87.2 - ACIDOSIS Status: Acute - Plan Acute hypoxic respiratory failure: Patient required intubation at some point. She is followed by pulmonology. Covered with broad-spectrum empiric antibiotics. COVID pneumonia: Patient is receiving IV Decadron. Pulmonology following. Will defer to pulmonology regarding use of antiviral therapy. CRP is 3, ferritin is 500. Diabetes mellitus: Blood sugars are much improved. Continue Accu-Cheks and adjust sliding scale insulin as needed. Lactic acidosis: Resolved.
[2019-11-17] MEDS: Lorazepam 2 MG/ML VIAL SLOW IVP PRN ×2 (13:05→21:49)
--- NOTE | 2019-11-17 13:51 | PRG ---
DATE OF SERVICE: 11/17/2019 SUBJECTIVE: Ms. Frias remains hemodynamically stable. OBJECTIVE: VITAL SIGNS: Heart rates in the 60s, blood pressure is 112/64, respiratory rates in the 20s, and oximetry is 100%. LUNGS: Unchanged. HEART: Unchanged. ABDOMEN: Unchanged. LABORATORY DATA: White count 9.4 yesterday. There is no CBC today. Sodium 137, potassium 3.4, chloride 104, bicarb 25, BUN 10, creatinine 0.56. PH 7.9, CO2 of 30, pO2 of 138. Her IMV is set at 16. We will cut her back to a rate of 8. Her FiO2 set at 15%. PEEP set at 10, we will cut this back to 5. IMPRESSION: COVID-19 pneumonia with respiratory failure. She actually appears to be slowly improving. We will check a chest x-ray tomorrow. Hopefully, she will tolerate these decreases in ventilatory support. Maybe within a few days, we can consider extubation. CRITICAL CARE TIME: 30 minutes. Job ID: [id number]
[2019-11-17] MEDS: Azithromycin 500 MG in Sodium Chloride 0.9% 250 ML 250 ML IVPB SCH (20:00)
[2019-11-17] MEDS: Insulin Glargine 12 UNITS in Pre-Filled Syringe 1 EACH SC SCH (21:50)
[2019-11-18] MEDS: Propofol 1,000 MG/100 ML VIAL IV PRN ×2 (00:09→21:03)
[2019-11-18 06:02] LABS: ALT (SGPT) 37 U/L (8-55); AST (SGOT) 37 U/L (5-34); Alkaline Phosphatase 75 U/L (40-110); Anion Gap 10 mmol/L (10-20); BUN (Urea Nitrogen) 11 mg/dL (9.8-20.1); Bilirubin, Total 0.4 mg/dL (0.2-1.2); Calc. Creatinine Clearance 79 mL/min (70-130); Calcium 8.7 mg/dL (7.8-10.44); Carbon Dioxide 29 mmol/L (23-31); Chloride 104 mmol/L (98-107); Estimated GFR-MDRD Greater than 90; Glucose 140 mg/dL (80-115); Potassium 3.9 mmol/L (3.5-5.1); Sodium 139 mmol/L (136-145)
[2019-11-18] MEDS: HumaLOG 300 UNITS/3 ML VIAL SC PRN ×2 (06:09→18:20)
[2019-11-18] MEDS: Budesonide 0.5 MG/2 ML NEB NEB SCH ×2 (06:33→18:46)
[2019-11-18] MEDS: fentaNYL Citrate/PF 2,000 MCG in Sodium Chloride 0.9% 60 ML IV SCH (07:38)
--- NOTE | 2019-11-18 08:30 | RAD ---
XR Chest 1 View Portable History: Ventilated patient Comparison: Radiograph November 15, 2019 Findings: Endotracheal tube tip at level of clavicles. Extensive airspace consolidation appears relat ively similar. No pneumothorax. Enteric tube tip below diaphragm although out of field of view. Impression: Similar examination of chest without improved lung aeration.
[2019-11-18] MEDS: Dexamethasone 4 mg/ml Vial SLOW IVP SCH (10:30)
[2019-11-18] MEDS: Cefepime 1 GM in Sodium Chloride 0.9% 100 ML IVPB SCH ×2 (10:30→20:40)
[2019-11-18] MEDS: Famotidine/PF 20 mg/2ml Vial SLOW IVP SCH ×2 (10:31→20:41)
[2019-11-18] MEDS: Enoxaparin Sodium 40 MG/0.4 ML SYRINGE SC SCH ×2 (10:31→20:41)
[2019-11-18] MEDS: Zinc Sulfate 220 MG CAP PO SCH (10:31)
[2019-11-18] MEDS: Ascorbic Acid 500 mg Chewable Tablet PO SCH (10:31)
--- NOTE | 2019-11-18 15:00 | PDOC.HOSPP ---
- Subjective Encounter Date: 11/18/19 non-verbal - Objective Vital Signs & Weight: Vital Signs (12 hours) Pulse Resp BP Pulse Ox 11/18/19 14:52 66 13 93 L 11/18/19 14:49 67 117/65 11/18/19 14:00 12 11/18/19 12:00 12 11/18/19 11:58 74 11/18/19 10:00 13 11/18/19 08:00 12 11/18/19 06:32 78 24 H 100 11/18/19 06:29 87 137/85 11/18/19 06:00 18 11/18/19 04:00 20 11/18/19 03:13 83 Weight Admit Weight 120 lb 12.8 oz Weight 110 lb 3.698 oz Most Recent Monitor Data Heart Rate from ECG 64 NIBP 98/54 NIBP BP-Mean 68 Respiration from ECG 14 SpO2 99 I&O: 11/17/19 11/18/19 11/19/19 06:59 06:59 06:59 Intake Total 688.80 453.80 80 Output Total 1255 987 95 Balance -566.20 -533.20 -15 Result Diagrams: 11/16/19 05:39 11/18/19 05:28 Additional Labs: Accuchecks 11/18/19 11/18/19 11/17/19 05:36 00:21 18:31 POC Glucose 151 H 188 H 210 H Hospitalist ROS - Medication Medications: Active Medications Generic Name Dose Route Start Last Admin Trade Name Freq PRN Reason Stop Dose Admin Albuterol/Ipratropium 3 ml 11/14/19 14:30 11/18/19 14:52 Duoneb NEB 3 ml [id number] MARK Administration Ascorbic Acid 1,000 mg 11/15/19 09:00 11/18/19 10:31 Vitamin C PO 1,000 mg DAILY MARK Administration Budesonide 0.5 mg 11/14/19 18:30 11/18/19 06:33 Pulmicort Neb Solution NEB 0.5 mg BID-RT MARK Administration Famotidine 20 mg 11/14/19 09:00 11/18/19 10:31 Pepcid SLOW IVP 20 mg BID MARK Administration Azithromycin 500 mg/ Sodium 250 mls @ 250 mls/hr 11/14/19 21:00 11/17/19 20: 00 Chloride IVPB 11/18/19 22:00 250 mls 2100 MARK Administration Cefepime HCl 1 gm/ Sodium 100 mls @ 200 mls/hr 11/14/19 21:00 11/18/19 10:30 Chloride IVPB 11/19/19 10:00 100 mls Q12HR MARK Administration Fentanyl Citrate 2,000 mcg/ 100 mls @ 0 mls/hr 11/14/19 17:05 11/18/19 07:38 Sodium Chloride IV 12/14/19 17:05 100 mls INF MARK Administration Protocol Per Protocol Norepinephrine Bitartrate 250 mls @ 0 mls/hr 11/14/19 18:43 11/15/19 05:35 Levophed IVPB 250 mls INF MARK Administration Protocol Titrate Insulin Glargine 12 units/ 0.12 mls @ 0 mls/hr 11/15/19 21:00 11/17/19 21:50 Miscellaneous Medication SC 0.12 mls HS MARK Administration Insulin Human Lispro 0 units 11/14/19 01:26 11/18/19 06:09 Humalog SC 2 units .MODERATE SLIDING SC PRN Administration Moderate Correctional Scale Lorazepam 2 mg 11/14/19 17:05 11/17/19 21:49 Ativan SLOW IVP 12/14/19 17:05 2 mg Q1H PRN Administration Breakthrough agitation Ondansetron HCl 4 mg 11/13/19 22:50 11/14/19 03:07 Zofran IVP 4 mg Q6H PRN Administration Nausea/Vomiting use 1st Propofol 1,000 mg 11/14/19 17:05 11/18/19 00:09 Diprivan IV 12/14/19 17:05 1,000 mg INF PRN Administration TO ACHIEVE GOAL RASS Protocol Sodium Chloride 10 ml 11/14/19 09:00 11/18/19 10:16 Flush - Normal Saline IVF Not Given Q12HR MARK Zinc Sulfate 220 mg 11/15/19 09:00 11/18/19 10:31 Zinc Sulfate PO 220 mg DAILY MARK Administration - Exam General Appearance: NAD, awake alert Heart: RRR, no murmur, no gallops, no rubs, normal peripheral pulses Respiratory: CTAB, no wheezes, no rales, no ronchi, normal chest expansion, no tachypnea, normal percussion Gastrointestinal: soft, non-tender, non-distended, normal bowel sounds, no palpable masses, no hepatomegaly, no splenomegaly, no bruit Extremities: no cyanosis, no clubbing, no edema Skin: normal turgor Hosp A/P (1) Acute respiratory failure with hypoxia Code(s): J96.01 - ACUTE RESPIRATORY FAILURE WITH HYPOXIA Status: Acute (2) COVID-19 virus infection Code(s): U07.1 - COVID-19 Status: Acute (3) Viral pneumonia Code(s): J12.9 - VIRAL PNEUMONIA, UNSPECIFIED Status: Acute (4) Diabetes mellitus Code(s): E11.9 - TYPE 2 DIABETES MELLITUS WITHOUT COMPLICATIONS Status: Acute (5) Lactic acidosis Code(s): E87.2 - ACIDOSIS Status: Acute - Plan Acute hypoxic respiratory failure: Patient required intubation at some point. She is followed by pulmonology. Pressure support reduced today.. COVID pneumonia: Patient is receiving IV SoluMedrol. Empiric antibiotics with cefepime and azithromycin. Vitamin C, zinc. Inhaled budesonide. Pulmonology following. Given the severity of her infection she is not likely candidate for antiviral medications. Due to her relatively low inflammatory markers she is not likely a candidate for convalescent plasma. Diabetes mellitus: Blood sugars are much improved. Continue Accu-Cheks and adjust sliding scale insulin as needed. Lactic acidosis: Resolved. Disposition: Discussed with the patient's nurse and she says she has spoken to the patient's family and updated them.
[2019-11-18] MEDS: Lorazepam 2 MG/ML VIAL SLOW IVP PRN (16:46)
--- NOTE | 2019-11-18 18:57 | PRG ---
DATE OF SERVICE: 11/18/2019 OBJECTIVE: VITAL SIGNS: Ms. Frias has been afebrile. Respiratory rate is 12, heart rates in the 60s, blood pressure 90/60. LUNGS: Unchanged. HEART: Unchanged. ABDOMEN: Unchanged. We tried to turn down her PEEP today, but had turned it back up to 10. LABORATORY DATA: Electrolytes are normal. Renal functions normal. C-reactive protein done yesterday was 3.0. IMPRESSION: COVID-19 pneumonia with mechanical ventilation, mainly because of agitation and anxiety, more so than gas exchange. She is intubated several days back. Hopefully, she will stabilize. She may be a candidate for convalescent plasma, although her C-reactive protein being back to normal might argue against that. We will continue mechanical ventilation. CRITICAL CARE TIME: 30 minutes. Job ID: [id number]
[2019-11-18] MEDS: Azithromycin 500 MG in Sodium Chloride 0.9% 250 ML 250 ML IVPB SCH (20:44)
[2019-11-18] MEDS: methylPREDNISolone Sod Succ 40 MG VIAL IVP SCH (20:45)
[2019-11-18] MEDS: Insulin Glargine 12 UNITS in Pre-Filled Syringe 1 EACH SC SCH (20:49)
[2019-11-19] MEDS: HumaLOG 300 UNITS/3 ML VIAL SC PRN ×5 (01:15→23:47)
[2019-11-19 04:18] LABS: Band 10 % (5-11); Lymphocytes 1 % (21-51); MDiff Complete? YES; Mean Corpuscular HGB CONC 33.7 g/dL (32.0-36.0); Mean Corpuscular Hemoglobin 29.9 pg (27.0-31.0); Mean Corpuscular Volume 88.9 fL (78.0-98.0); Mean Platelet Volume 8.4 fL (7.4-10.4); Monocytes 6 % (0-10); Neutrophil 83 % (42-75); Platelet Count 262 thou/uL (130-400); Red Blood Cell (RBC) Count 3.67 mill/uL (4.20-5.40); White Blood Cell (WBC) Count 9.5 thou/uL (4.8-10.8)
[2019-11-19 04:22] LABS: Anion Gap 14 mmol/L (10-20); BUN (Urea Nitrogen) 10 mg/dL (9.8-20.1); Calc. Creatinine Clearance 75 mL/min (70-130); Calcium 8.7 mg/dL (7.8-10.44); Carbon Dioxide 26 mmol/L (23-31); Chloride 101 mmol/L (98-107); Estimated GFR-MDRD Greater than 90; Glucose 241 mg/dL (80-115); Potassium 3.7 mmol/L (3.5-5.1); Sodium 137 mmol/L (136-145)
[2019-11-19] MEDS: Budesonide 0.5 MG/2 ML NEB NEB SCH ×2 (06:39→20:03)
[2019-11-19] MEDS: fentaNYL Citrate/PF 2,000 MCG in Sodium Chloride 0.9% 60 ML IV SCH (08:11)
[2019-11-19 08:19] LABS: Actual Bicarbonate (HCO3a) 29.6 mEq/L (22-28); Base Excess (BEa) 4.2 mEq/L (-2.0 to +3.0); CO2 Tension 47.9 mmHg (35.0-45.0); Calcium, Ionized (arterial) 1.18 mmol/L (1.12-1.30); Carboxyhemoglobin (COHb) 0.3 gm% (0.0-3.0); Hemoglobin (Hb) 11.8 g/dL (12.0-16.0); pH, Arterial 7.41 (7.35-7.45)
[2019-11-19 08:58] LABS: O2 Tension (PaO2), arterial 49.4 mmHg (> 80.0); Puncture Site RR
[2019-11-19 08:59] LABS: ALV-art Gradient 282.875 (0-20)
--- NOTE | 2019-11-19 09:34 | RAD ---
CHEST 1 VIEW: Date: 11/19/2019 HISTORY: Respiratory insufficiency. COMPARISON: 11/18/2019. FINDINGS: NG tube and endotracheal tubes remain in place. Stable bilateral alveolar nodular and ground-glass op acity changes throughout both lungs, evidence for bilateral COVID pneumonia. No significant pleural e ffusion or cardiomegaly. IMPRESSION: Stable chest. Continue short-term follow-up. POS: OFF
[2019-11-19] MEDS: Aspirin 325 MG TAB PO SCH (09:39)
[2019-11-19] MEDS: Famotidine/PF 20 mg/2ml Vial SLOW IVP SCH ×2 (09:40→20:02)
[2019-11-19] MEDS: Ascorbic Acid 500 mg Chewable Tablet PO SCH (09:40)
[2019-11-19] MEDS: Cefepime 1 GM in Sodium Chloride 0.9% 100 ML IVPB SCH (09:40)
[2019-11-19] MEDS: Zinc Sulfate 220 MG CAP PO SCH (09:40)
[2019-11-19] MEDS: methylPREDNISolone Sod Succ 40 MG VIAL IVP SCH ×2 (09:41→20:02)
[2019-11-19] MEDS: Enoxaparin Sodium 40 MG/0.4 ML SYRINGE SC SCH ×2 (09:41→20:02)
[2019-11-19] MEDS: Lorazepam 2 MG/ML VIAL SLOW IVP PRN (10:46)
[2019-11-19] MEDS: Propofol 1,000 MG/100 ML VIAL IV PRN (13:55)
--- NOTE | 2019-11-19 14:11 | PRG ---
DATE OF SERVICE: 11/19/2019 SUBJECTIVE: Reyna Frias remains mechanically ventilated. OBJECTIVE: VITAL SIGNS: Respiratory rates in the teens, FiO2 is 55%, heart rates in the 120s, blood pressure is 101/52. LUNGS: Unchanged. HEART: Unchanged. ABDOMEN: Unchanged. LABORATORY DATA: White count 9.5, hemoglobin 11.0, platelets 262. Electrolytes are normal. Glucose is 241 this morning. C-reactive protein is 8. Ferritin is 528. IMPRESSION: 1. Respiratory failure associated with COVID-19 pneumonia. 2. Severe anxiety with all of this. PLAN: Continue sedation on mechanical ventilation and convalescent plasma if she qualifies. Critical care time 30 min. Job ID: [id number] MTDD
[2019-11-19] MEDS: Acetaminophen 325 MG TAB PO PRN (15:00)
--- NOTE | 2019-11-19 16:41 | PDOC.HOSPP ---
- Subjective Encounter Date: 11/19/19 Subjective: Intubated and sedated. Discussed with her nurse. No new major issues. - Objective Vital Signs & Weight: Vital Signs (12 hours) Pulse Resp BP Pulse Ox 11/19/19 16:00 14 11/19/19 15:00 104 H 109/60 11/19/19 14:59 103 H 16 96 11/19/19 14:00 16 11/19/19 12:00 17 11/19/19 10:59 124 H 20 96 11/19/19 10:55 124 H 115/68 11/19/19 10:00 19 11/19/19 08:00 17 98 11/19/19 06:38 65 12 95 11/19/19 06:34 71 125/67 11/19/19 06:00 12 Weight Admit Weight 120 lb 13.013 oz Weight 111 lb 8.862 oz Most Recent Monitor Data Heart Rate from ECG 103 NIBP 104/54 NIBP BP-Mean 70 Respiration from ECG 14 SpO2 95 I&O: 11/18/19 11/19/19 11/20/19 06:59 06:59 06:59 Intake Total 453.80 742.4 280 Output Total 987 1801 500 Balance -533.20 -1058.6 -220 Result Diagrams: 11/19/19 03:28 11/19/19 03:28 Additional Labs: Accuchecks 11/19/19 11/18/19 11/18/19 09:58 17:50 13:15 POC Glucose 249 H 197 H 123 H 11/17/19 00:59 POC Glucose 256 H Hospitalist ROS - Medication Medications: Active Medications Generic Name Dose Route Start Last Admin Trade Name Freq PRN Reason Stop Dose Admin Acetaminophen 650 mg 11/13/19 22:50 11/19/19 15:00 Tylenol PO 650 mg Q4H PRN Administration Headache/Fever/Mild Pain (1-3) Albuterol/Ipratropium 3 ml 11/14/19 14:30 11/19/19 14:59 Duoneb NEB 3 ml [id number] MARK Administration Ascorbic Acid 1,000 mg 11/15/19 09:00 11/19/19 09:40 Vitamin C PO 1,000 mg DAILY MARK Administration Aspirin 325 mg 11/19/19 09:00 08/03/20 09:39 Aspirin PO 325 mg DAILY MARK Administration Budesonide 0.5 mg 11/14/19 18:30 11/19/19 06:39 Pulmicort Neb Solution NEB 0.5 mg BID-RT MARK Administration Enoxaparin Sodium 40 mg 11/18/19 21:00 11/19/19 09:41 Lovenox SC 40 mg 0900,2100 MARK Administration Famotidine 20 mg 11/14/19 09:00 11/19/19 09:40 Pepcid SLOW IVP 20 mg BID MARK Administration Fentanyl Citrate 2,000 mcg/ 100 mls @ 0 mls/hr 11/14/19 17:05 11/19/19 08:11 Sodium Chloride IV 12/14/19 17:05 100 mls INF MARK Administration Protocol Per Protocol Norepinephrine Bitartrate 250 mls @ 0 mls/hr 11/14/19 18:43 11/15/19 05:35 Levophed IVPB 250 mls INF MARK Administration Protocol Titrate Insulin Glargine 12 units/ 0.12 mls @ 0 mls/hr 11/15/19 21:00 11/18/19 20:49 Miscellaneous Medication SC 0.12 mls HS MARK Administration Insulin Human Lispro 0 units 11/14/19 01:26 11/19/19 11:00 Humalog SC 4 units .MODERATE SLIDING SC PRN Administration Moderate Correctional Scale Lorazepam 2 mg 11/14/19 17:05 11/19/19 10:46 Ativan SLOW IVP 12/14/19 17:05 2 mg Q1H PRN Administration Breakthrough agitation Methylprednisolone Sodium Succinate 40 mg 11/18/19 21:00 11/19/19 09:41 Solu-Medrol IVP 40 mg Q12HR MARK Administration Ondansetron HCl 4 mg 11/13/19 22:50 11/14/19 03:07 Zofran IVP 4 mg Q6H PRN Administration Nausea/Vomiting use 1st Propofol 1,000 mg 11/14/19 17:05 11/19/19 13:55 Diprivan IV 12/14/19 17:05 1,000 mg INF PRN Administration TO ACHIEVE GOAL RASS Protocol Sodium Chloride 10 ml 11/14/19 09:00 11/19/19 09:41 Flush - Normal Saline IVF 10 ml Q12HR MARK Administration Zinc Sulfate 220 mg 11/15/19 09:00 11/19/19 09:40 Zinc Sulfate PO 220 mg DAILY MARK Administration - Exam General Appearance: NAD, awake alert General - other findings: Intubated Heart: RRR, no murmur, no gallops, no rubs, normal peripheral pulses Respiratory: CTAB, no wheezes, no rales, no ronchi, normal chest expansion, no tachypnea, normal percussion Gastrointestinal: soft, non-tender, non-distended, normal bowel sounds, no palpable masses, no hepatomegaly, no splenomegaly, no bruit Extremities: no cyanosis, no clubbing, no edema Skin: normal turgor Musculoskeletal: normal tone Hosp A/P (1) Acute respiratory failure with hypoxia Code(s): J96.01 - ACUTE RESPIRATORY FAILURE WITH HYPOXIA Status: Acute (2) COVID-19 virus infection Code(s): U07.1 - COVID-19 Status: Acute (3) Viral pneumonia Code(s): J12.9 - VIRAL PNEUMONIA, UNSPECIFIED Status: Acute (4) Diabetes mellitus Code(s): E11.9 - TYPE 2 DIABETES MELLITUS WITHOUT COMPLICATIONS Status: Acute (5) Lactic acidosis Code(s): E87.2 - ACIDOSIS Status: Acute - Plan Acute hypoxic respiratory failure: She is followed by pulmonology. Weaning vent as tolerated. COVID pneumonia: Patient is receiving IV SoluMedrol. Empiric antibiotics with cefepime and azithromycin. Vitamin C, zinc. Inhaled budesonide. Pulmonology following. Given the severity of her infection she is not likely candidate for antiviral medications. Due to her relatively low inflammatory markers she is not likely a candidate for convalescent plasma. Inflammatory markers of actually increased. Diabetes mellitus: Blood sugars are much improved. Continue Accu-Cheks and adjust sliding scale insulin as needed. Lactic acidosis: Resolved. Disposition: Discussed with the patient's nurse and she has spoken to the patient's family and updated them.
[2019-11-19] MEDS: Insulin Glargine 12 UNITS in Pre-Filled Syringe 1 EACH SC SCH (20:04)
[2019-11-20 04:48] LABS: Anion Gap 11 mmol/L (10-20); BUN (Urea Nitrogen) 10 mg/dL (9.8-20.1); Calc. Creatinine Clearance 80 mL/min (70-130); Carbon Dioxide 30 mmol/L (23-31); Chloride 100 mmol/L (98-107); Estimated GFR-MDRD Greater than 90; Glucose 293 mg/dL (80-115); Sodium 137 mmol/L (136-145)
[2019-11-20 05:00] LABS: Hemoglobin 10.7 g/dL (12.0-16.0); Mean Corpuscular HGB CONC 31.9 g/dL (32.0-36.0); Mean Corpuscular Hemoglobin 28.9 pg (27.0-31.0); Mean Corpuscular Volume 90.6 fL (78.0-98.0); Mean Platelet Volume 8.6 fL (7.4-10.4); Platelet Count 286 thou/uL (130-400); RBC Distribution Width 13.1 % (11.5-14.5)
[2019-11-20] MEDS: Propofol 1,000 MG/100 ML VIAL IV PRN (05:12)
[2019-11-20 05:20] LABS: Band 10 % (5-11); Lymphocytes 6 % (21-51); MDiff Complete? YES; Monocytes 3 % (0-10); Neutrophil 81 % (42-75); Platelet Morphology Comment Appears Adequate
[2019-11-20] MEDS: HumaLOG 300 UNITS/3 ML VIAL SC PRN ×2 (05:49→17:44)
[2019-11-20] MEDS: Budesonide 0.5 MG/2 ML NEB NEB SCH ×2 (06:50→18:51)
--- NOTE | 2019-11-20 07:55 | RAD ---
EXAM: Single view of the chest HISTORY: Ventilated patient with respiratory failure COMPARISON: 11/19/2019 FINDINGS: Single view of the chest shows a normal sized cardiomediastinal silhouette. The endotrache al tube and NG tube are unchanged in position. Stable multifocal mixed infiltrates are seen in the lungs. The bones are unremarkable IMPRESSION: Stable multifocal pneumonia
[2019-11-20] MEDS: Zinc Sulfate 220 MG CAP PO SCH (08:53)
[2019-11-20] MEDS: methylPREDNISolone Sod Succ 40 MG VIAL IVP SCH (08:53)
[2019-11-20] MEDS: Aspirin 325 MG TAB PO SCH (08:53)
[2019-11-20] MEDS: Ascorbic Acid 500 mg Chewable Tablet PO SCH (08:53)
[2019-11-20] MEDS: Famotidine/PF 20 mg/2ml Vial SLOW IVP SCH ×2 (08:54→20:58)
[2019-11-20] MEDS: fentaNYL Citrate/PF 2,000 MCG in Sodium Chloride 0.9% 60 ML IV SCH (08:54)
[2019-11-20] MEDS: Enoxaparin Sodium 40 MG/0.4 ML SYRINGE SC SCH (08:54)
[2019-11-20] MEDS ORDERED: Insulin Glargine 20 UNITS in Pre-Filled Syringe 1 EACH SC SCH (09:00)
--- NOTE | 2019-11-20 15:53 | PDOC.HOSPP ---
- Subjective Encounter Date: 11/20/19 Subjective: Intubated and sedated. Cussed with the patient's nurse. She has had some increasing difficulty with her O2 sats. Seems to be doing slightly more poorly today overall. - Objective Vital Signs & Weight: Vital Signs (12 hours) Pulse Resp BP Pulse Ox 11/20/19 14:31 72 11/20/19 14:00 14 11/20/19 12:00 15 11/20/19 11:11 76 14 94 L 11/20/19 11:10 76 99/60 11/20/19 10:00 16 11/20/19 08:00 16 94 L 11/20/19 06:49 73 11 L 94 L 11/20/19 06:47 75 95/57 L 11/20/19 06:00 14 11/20/19 04:00 13 Weight Admit Weight 120 lb 13.013 oz Weight 114 lb 10.246 oz Most Recent Monitor Data Heart Rate from ECG 70 NIBP 96/56 NIBP BP-Mean 69 Respiration from ECG 15 SpO2 92 I&O: 11/19/19 11/20/19 11/21/19 06:59 06:59 06:59 Intake Total 742.4 1629.2 60 Output Total 1801 1406 430 Balance -1058.6 223.2 -370 Result Diagrams: 11/20/19 03:25 11/20/19 03:25 Additional Labs: Accuchecks 11/20/19 11/20/19 11/19/19 11:59 05:28 23:45 POC Glucose 217 H 269 H 262 H 11/19/19 11/19/19 11/19/19 18:06 06:52 05:44 POC Glucose 302 H 130 H 219 H 11/19/19 00:42 POC Glucose 203 H Hospitalist ROS - Medication Medications: Active Medications Generic Name Dose Route Start Last Admin Trade Name Freq PRN Reason Stop Dose Admin Acetaminophen 650 mg 11/13/19 22:50 11/19/19 15:00 Tylenol PO 650 mg Q4H PRN Administration Headache/Fever/Mild Pain (1-3) Albuterol/Ipratropium 3 ml 11/14/19 14:30 11/20/19 14:31 Duoneb NEB 3 ml [id number] MARK Administration Ascorbic Acid 1,000 mg 11/15/19 09:00 11/20/19 08:53 Vitamin C PO 1,000 mg DAILY MARK Administration Aspirin 325 mg 11/19/19 09:00 11/20/19 08:53 Aspirin PO 325 mg DAILY MARK Administration Budesonide 0.5 mg 11/14/19 18:30 11/20/19 06:50 Pulmicort Neb Solution NEB 0.5 mg BID-RT MARK Administration Enoxaparin Sodium 40 mg 11/18/19 21:00 11/20/19 08:54 Lovenox SC 40 mg 0900,2100 MARK Administration Famotidine 20 mg 11/14/19 09:00 11/20/19 08:54 Pepcid SLOW IVP 20 mg BID MARK Administration Fentanyl Citrate 2,000 mcg/ 100 mls @ 0 mls/hr 11/14/19 17:05 11/20/19 08:54 Sodium Chloride IV 12/14/19 17:05 100 mls INF MARK Administration Protocol Per Protocol Norepinephrine Bitartrate 250 mls @ 0 mls/hr 11/14/19 18:43 11/15/19 05:35 Levophed IVPB 250 mls INF MARK Administration Protocol Titrate Insulin Human Lispro 0 units 11/14/19 01:26 11/20/19 05:49 Humalog SC 6 units .MODERATE SLIDING SC PRN Administration Moderate Correctional Scale Lorazepam 2 mg 11/14/19 17:05 11/19/19 10:46 Ativan SLOW IVP 12/14/19 17:05 2 mg Q1H PRN Administration Breakthrough agitation Ondansetron HCl 4 mg 11/13/19 22:50 11/14/19 03:07 Zofran IVP 4 mg Q6H PRN Administration Nausea/Vomiting use 1st Propofol 1,000 mg 11/14/19 17:05 11/20/19 05:12 Diprivan IV 12/14/19 17:05 1,000 mg INF PRN Administration TO ACHIEVE GOAL RASS Protocol Sodium Chloride 10 ml 11/14/19 09:00 11/20/19 10:24 Flush - Normal Saline IVF 10 ml Q12HR MARK Administration Zinc Sulfate 220 mg 11/15/19 09:00 11/20/19 08:53 Zinc Sulfate PO 220 mg DAILY MARK Administration - Exam General Appearance: NAD General - other findings: Intubated Heart: RRR, no murmur, no gallops, no rubs, normal peripheral pulses Respiratory: CTAB, no wheezes, no rales, no ronchi, normal chest expansion, no tachypnea, normal percussion Gastrointestinal: soft, non-tender, non-distended, normal bowel sounds, no palpable masses, no hepatomegaly, no splenomegaly, no bruit Extremities: no cyanosis, no clubbing, no edema Skin: normal turgor Psychiatric - other findings: Sedated Hosp A/P (1) Acute respiratory failure with hypoxia Code(s): J96.01 - ACUTE RESPIRATORY FAILURE WITH HYPOXIA Status: Acute (2) COVID-19 virus infection Code(s): U07.1 - COVID-19 Status: Acute (3) Viral pneumonia Code(s): J12.9 - VIRAL PNEUMONIA, UNSPECIFIED Status: Acute (4) Diabetes mellitus Code(s): E11.9 - TYPE 2 DIABETES MELLITUS WITHOUT COMPLICATIONS Status: Acute (5) Lactic acidosis Code(s): E87.2 - ACIDOSIS Status: Acute - Plan Acute hypoxic respiratory failure: She is followed by pulmonology. Weaning vent as tolerated. Sats been little more difficult today. COVID pneumonia: Patient is receiving IV SoluMedrol. Empiric antibiotics with cefepime and azithromycin. Vitamin C, zinc. Inhaled budesonide. Pulmonology following. Given the severity of her infection she is not likely candidate for antiviral medications. Received convalescent plasma 2 days ago. Repeated her inflammatory markers today and her CRP has gone up substantially. Discussed with Dr. Frost. We will increase the Solu-Medrol to 80 mg IV twice daily. Diabetes mellitus: Blood sugars are worse. Likely due to the steroids. Increased her Lantus dose this morning but she is continued to have some higher readings throughout the day today. Given the increased dose of the Solu-Medrol we will go ahead and increase the Lantus dose as well for tomorrow. Lactic acidosis: Resolved. Disposition: Fortunately the patient's prognosis is still very guarded.
--- NOTE | 2019-11-20 18:25 | PRG ---
DATE OF SERVICE: 11/20/2019 SUBJECTIVE: Reyna Frias has really not improved. OBJECTIVE: VITAL SIGNS: Heart rate 70, blood pressure 96/55, respiratory rate is in the teens, oximetry is 94%. LUNGS: Unchanged. HEART: Unchanged. ABDOMEN: Unchanged. EXTREMITIES: Unchanged. LABORATORY DATA: White count 10, hemoglobin 10.7, and platelets 286. Sodium 137, potassium 4, chloride 100, bicarb 30, BUN 10, and creatinine 0.58. C-reactive protein is 20. Ferritin 638. She is now eight days into her hospitalization. Her steroids have been increased. She is anticoagulated. She is on anti-platelet drugs. Convalescent plasma has been ordered. to help. We will continue supportive care. Critical care time was 30 min. Job ID: [id number] MTDD
[2019-11-21] MEDS: Propofol 1,000 MG/100 ML VIAL IV PRN ×2 (00:20→16:51)
[2019-11-21] MEDS: HumaLOG 300 UNITS/3 ML VIAL SC PRN ×4 (00:35→21:19)
[2019-11-21] MEDS: Acetaminophen 325 MG TAB PO PRN ×2 (00:59→05:51)
[2019-11-21 04:53] LABS: Anion Gap 10 mmol/L (10-20); BUN (Urea Nitrogen) 13 mg/dL (9.8-20.1); CRP (Inflammatory) 16.58 mg/dL (= or < 0.5); Calc. Creatinine Clearance 94 mL/min (70-130); Calcium 8.7 mg/dL (7.8-10.44); Carbon Dioxide 32 mmol/L (23-31); Chloride 99 mmol/L (98-107); Estimated GFR-MDRD Greater than 90; Glucose 168 mg/dL (80-115); Potassium 3.4 mmol/L (3.5-5.1); Sodium 138 mmol/L (136-145)
[2019-11-21] MEDS: Sodium Chloride 0.9% 1,000 ML IV SCH ×2 (05:03→16:51)
[2019-11-21] MEDS: methylPREDNISolone Sod Succ/PF 125 MG/2 ML VIAL IVP SCH ×2 (05:03→16:50)
[2019-11-21] MEDS: fentaNYL Citrate/PF 2,000 MCG in Sodium Chloride 0.9% 60 ML IV SCH ×2 (05:20→22:50)
[2019-11-21 05:48] LABS: Band 13 % (5-11); Hemoglobin 10.4 g/dL (12.0-16.0); Lymphocytes 12 % (21-51); MDiff Complete? YES; Mean Corpuscular HGB CONC 31.6 g/dL (32.0-36.0); Mean Corpuscular Hemoglobin 28.7 pg (27.0-31.0); Mean Corpuscular Volume 90.9 fL (78.0-98.0); Mean Platelet Volume 8.8 fL (7.4-10.4); Monocytes 3 % (0-10); Neutrophil 72 % (42-75); Platelet Count 301 thou/uL (130-400); RBC Distribution Width 13.2 % (11.5-14.5); Red Blood Cell (RBC) Count 3.63 mill/uL (4.20-5.40); White Blood Cell (WBC) Count 11.6 thou/uL (4.8-10.8)
[2019-11-21] MEDS ORDERED: Potassium Chloride 20 MEQ TAB PO SCH (06:30)
[2019-11-21] MEDS: Budesonide 0.5 MG/2 ML NEB NEB SCH ×2 (06:34→19:20)
[2019-11-21 07:31] LABS: Actual Bicarbonate (HCO3a) 29.9 mEq/L (22-28); Base Excess (BEa) 5.3 mEq/L (-2.0 to +3.0); CO2 Tension 43.9 mmHg (35.0-45.0); Calcium, Ionized (arterial) 1.15 mmol/L (1.12-1.30); Carboxyhemoglobin (COHb) 0.3 gm% (0.0-3.0); Hemoglobin (Hb) 10.6 g/dL (12.0-16.0); Potassium - ABG Lab 3.38 mmol/L (3.70-5.30); pH, Arterial 7.45 (7.35-7.45)
[2019-11-21 07:38] LABS: O2 Tension (PaO2), arterial 47.8 mmHg (> 80.0); Puncture Site RRAD
[2019-11-21 07:39] LABS: ALV-art Gradient 396.425 (0-20)
--- NOTE | 2019-11-21 07:52 | RAD ---
EXAM: Single view of the chest HISTORY: Ventilated patient with respiratory failure. COMPARISON: 11/20/2019 FINDINGS: Single view of the chest shows a normal sized cardiomediastinal silhouette. The lines and tubes are unchanged in position. Stable multifocal airspace opacities are seen in the lungs. The bones are unremarkable IMPRESSION: Stable multifocal pneumonia
[2019-11-21] MEDS: Ascorbic Acid 500 mg Chewable Tablet PO SCH (08:04)
[2019-11-21] MEDS: Zinc Sulfate 220 MG CAP PO SCH (08:05)
[2019-11-21] MEDS: Aspirin 325 MG TAB PO SCH (08:05)
[2019-11-21] MEDS: Famotidine/PF 20 mg/2ml Vial SLOW IVP SCH ×2 (08:05→21:09)
[2019-11-21] MEDS: Insulin Glargine 24 UNITS in Pre-Filled Syringe 1 EACH SC SCH (08:08)
[2019-11-21] MEDS ORDERED: Enoxaparin Sodium 40 MG/0.4 ML SYRINGE SC SCH (09:00)
[2019-11-21] MEDS ORDERED: Vecuronium 10 MG VIAL ONE ×3 (09:54→15:34)
[2019-11-21] MEDS: Lorazepam 2 MG/ML VIAL SLOW IVP PRN (09:55)
[2019-11-21] MEDS ORDERED: Enoxaparin Sodium 60 MG/0.6 ML SYRINGE SC SCH (10:00)
[2019-11-21] MEDS ORDERED: Sterile Water 10 ML ONE ×2 (14:17→21:06)
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
[2019-11-21] MEDS: Vecuronium 10 MG VIAL IV PRN (21:09)
[2019-11-21] MEDS: Enoxaparin Sodium 60 MG/0.6 ML SYRINGE SC SCH (21:10)
--- NOTE | 2019-11-21 22:03 | PRG ---
DATE OF SERVICE: 11/21/2019 SUBJECTIVE: Reyna Frias is not improved. She required proning today. OBJECTIVE: Heart rate is in 60s, blood pressure is 134/64, respiratory rate 97 on 40%, whereas prior to proning she was on 100% oxygen. LUNGS: Unchanged. ABDOMEN: Unchanged. LABORATORY DATA: Sodium 138, potassium 3.4, chloride 99, bicarb 32, BUN 30, creatinine 0.5. White count 11.6, hemoglobin 10.4, platelets 301,000. PH 7.45, CO2 of 43, PO2 of 47 this morning prior to proning. IMPRESSION: COVID-19 pneumonia still critically ill. Critical care time 30 min. Job ID: [id number] MTDD
[2019-11-22] MEDS: Vecuronium 10 MG VIAL IV PRN ×3 (03:39→09:59)
[2019-11-22] MEDS: Bacteriostatic Water 30 ML VIAL FS PRN (03:39)
[2019-11-22 04:05] LABS: Anion Gap 12 mmol/L (10-20); BUN (Urea Nitrogen) 9 mg/dL (9.8-20.1); Calc. Creatinine Clearance 102 mL/min (70-130); Carbon Dioxide 30 mmol/L (23-31); Chloride 101 mmol/L (98-107); Estimated GFR-MDRD Greater than 90; Glucose 124 mg/dL (80-115); Potassium 3.6 mmol/L (3.5-5.1); Sodium 139 mmol/L (136-145)
[2019-11-22 04:59] LABS: Band 9 % (5-11); Hemoglobin 10.5 g/dL (12.0-16.0); Lymphocytes 8 % (21-51); MDiff Complete? YES; Mean Corpuscular HGB CONC 32.2 g/dL (32.0-36.0); Mean Corpuscular Hemoglobin 28.8 pg (27.0-31.0); Mean Corpuscular Volume 89.5 fL (78.0-98.0); Mean Platelet Volume 8.4 fL (7.4-10.4); Monocytes 7 % (0-10); Neutrophil 76 % (42-75); Nucleated RBC 1 % (0); Platelet Count 279 thou/uL (130-400); RBC Distribution Width 12.9 % (11.5-14.5); Red Blood Cell (RBC) Count 3.65 mill/uL (4.20-5.40); White Blood Cell (WBC) Count 14.5 thou/uL (4.8-10.8)
[2019-11-22] MEDS: methylPREDNISolone Sod Succ/PF 125 MG/2 ML VIAL IVP SCH ×2 (06:09→17:42)
[2019-11-22] MEDS: Propofol 1,000 MG/100 ML VIAL IV PRN ×2 (06:19→17:44)
[2019-11-22] MEDS: Budesonide 0.5 MG/2 ML NEB NEB SCH ×2 (07:09→19:31)
[2019-11-22] MEDS ORDERED: Sterile Water 10 ML ONE ×2 (07:36→09:57)
[2019-11-22 08:00] LABS: Analyzer IN Cardio OR; Base Excess (BEa) 2.6 mEq/L (-2.0 to +3.0); Calcium, Ionized (arterial) 1.15 mmol/L (1.12-1.30); Carboxyhemoglobin (COHb) 0.9 gm% (0.0-3.0); Hemoglobin (Hb) 11.3 g/dL (12.0-16.0); O2 Tension (PaO2), arterial 80.2 mmHg (> 80.0); Potassium - ABG Lab 3.45 mmol/L (3.70-5.30); pH, Arterial 7.52 (7.35-7.45)
--- NOTE | 2019-11-22 08:26 | RAD ---
PORTABLE CHEST: HISTORY: Respiratory distress. COMPARISON: Prior day's exam. FINDINGS: The endotracheal tube is in the right mainstem bronchus. It needs to be retracted approximately 3 in ches. Parenchymal lung changes are similar to the prior exam. NG tube is present within the tip in the stomach. IMPRESSION: Endotracheal tube in the right mainstem bronchus. POS: OFF
[2019-11-22] MEDS: Insulin Glargine 24 UNITS in Pre-Filled Syringe 1 EACH SC SCH (09:01)
[2019-11-22] MEDS: Enoxaparin Sodium 60 MG/0.6 ML SYRINGE SC SCH ×2 (09:01→20:06)
[2019-11-22] MEDS: Aspirin 325 MG TAB PO SCH (09:01)
[2019-11-22] MEDS: Zinc Sulfate 220 MG CAP PO SCH (09:01)
[2019-11-22] MEDS: Ascorbic Acid 500 mg Chewable Tablet PO SCH (09:01)
[2019-11-22] MEDS: Famotidine/PF 20 mg/2ml Vial SLOW IVP SCH ×2 (09:01→20:06)
--- NOTE | 2019-11-22 15:06 | PDOC.HOSPP ---
- Subjective Encounter Date: 11/22/19 Subjective: Intubated and sedated. - Objective Vital Signs & Weight: Vital Signs (12 hours) Temp Pulse Resp BP Pulse Ox 11/22/19 14:06 94 126/62 11/22/19 14:05 72 15 99 11/22/19 14:00 15 11/22/19 12:00 97.8 F 15 11/22/19 10:43 112 H 127/66 11/22/19 10:42 109 H 15 99 11/22/19 10:00 15 11/22/19 08:00 15 11/22/19 07:54 100 11/22/19 07:10 113 H 121/59 L 11/22/19 07:09 79 15 97 11/22/19 07:00 98.1 F 11/22/19 06:00 15 11/22/19 04:00 98.2 F 15 Weight Admit Weight 120 lb 13.013 oz Weight 117 lb 1.047 oz Most Recent Monitor Data Heart Rate from ECG 92 NIBP 132/65 NIBP BP-Mean 87 Respiration from ECG 15 SpO2 97 I&O: 11/21/19 11/22/19 11/23/19 06:59 06:59 06:59 Intake Total 1769.3 1766.5 Output Total 1073 2340 240 Balance 696.3 -573.5 -240 Result Diagrams: 11/22/19 03:15 11/22/19 03:15 Additional Labs: Accuchecks 11/22/19 11/22/19 11/22/19 11:40 09:10 06:20 POC Glucose 158 H 128 H 116 H 11/22/19 11/21/19 11/21/19 00:17 21:23 18:15 POC Glucose 159 H 181 H 225 H 11/21/19 11/21/19 11:54 05:18 POC Glucose 236 H 152 H Hospitalist ROS - Medication Medications: Active Medications Generic Name Dose Route Start Last Admin Trade Name Freq PRN Reason Stop Dose Admin Acetaminophen 650 mg 11/13/19 22:50 11/21/19 05:51 Tylenol PO 650 mg Q4H PRN Administration Headache/Fever/Mild Pain (1-3) Albuterol/Ipratropium 3 ml 11/14/19 14:30 11/22/19 14:05 Duoneb NEB 3 ml [id number] MARK Administration Ascorbic Acid 1,000 mg 11/15/19 09:00 11/22/19 09:01 Vitamin C PO 1,000 mg DAILY MARK Administration Aspirin 325 mg 11/19/19 09:00 11/22/19 09:01 Aspirin PO 325 mg DAILY MARK Administration Budesonide 0.5 mg 11/14/19 18:30 11/22/19 07:09 Pulmicort Neb Solution NEB 0.5 mg BID-RT MARK Administration Enoxaparin Sodium 50 mg 11/21/19 21:00 11/22/19 09:01 Lovenox SC 50 mg 0900,2100 MARK Administration Famotidine 20 mg 11/14/19 09:00 11/22/19 09:01 Pepcid SLOW IVP 20 mg BID MARK Administration Fentanyl Citrate 2,000 mcg/ 100 mls @ 0 mls/hr 11/14/19 17:05 11/21/19 22:50 Sodium Chloride IV 12/14/19 17:05 100 mls INF MARK Administration Protocol Per Protocol Norepinephrine Bitartrate 250 mls @ 0 mls/hr 11/14/19 18:43 11/15/19 05:35 Levophed IVPB 250 mls INF MARK Administration Protocol Titrate Insulin Glargine 24 units/ 0.24 mls @ 0 mls/hr 11/20/19 15:49 11/22/19 09:01 Miscellaneous Medication SC 0.24 mls QAM MARK Administration As Directed Sodium Chloride 1,000 mls @ 50 mls/hr 11/21/19 04:15 11/21/19 16:51 Normal Saline 0.9% IV 1,000 mls .Q20H MARK Administration Insulin Human Lispro 0 units 11/14/19 01:26 11/21/19 21:19 Humalog SC 2 units .MODERATE SLIDING SC PRN Administration Moderate Correctional Scale Lorazepam 2 mg 11/14/19 17:05 11/21/19 09:55 Ativan SLOW IVP 12/14/19 17:05 2 mg Q1H PRN Administration Breakthrough agitation Methylprednisolone Sodium Succinate 80 mg 11/21/19 06:00 11/22/19 06:09 Solu-Medrol IVP 80 mg 0600,1800 MARK Administration Ondansetron HCl 4 mg 11/13/19 22:50 11/14/19 03:07 Zofran IVP 4 mg Q6H PRN Administration Nausea/Vomiting use 1st Propofol 1,000 mg 11/14/19 17:05 11/22/19 06:19 Diprivan IV 12/14/19 17:05 1,000 mg INF PRN Administration TO ACHIEVE GOAL RASS Protocol Sodium Chloride 10 ml 11/14/19 09:00 11/22/19 09:02 Flush - Normal Saline IVF 10 ml Q12HR MARK Administration Sterile Water 1 ml 11/18/19 11:56 11/22/19 03:39 Bacteriostatic Water FS 1 ml PRN PRN Administration RECONSTITUTION Vecuronium [place] 10 mg 11/21/19 15:48 11/22/19 09:59 Norcuron IV 10 mg Q1H PRN Administration SEDATION/MOVEMENT Zinc Sulfate 220 mg 11/15/19 09:00 11/22/19 09:01 Zinc Sulfate PO 220 mg DAILY MARK Administration - Exam General Appearance: NAD, awake alert Heart: RRR, no murmur, no gallops, no rubs, normal peripheral pulses Respiratory: CTAB, no wheezes, no rales, no ronchi, normal chest expansion, no tachypnea, normal percussion Gastrointestinal: soft, non-tender, non-distended, normal bowel sounds, no palpable masses, no hepatomegaly, no splenomegaly, no bruit Extremities: no cyanosis, no clubbing, no edema Skin: normal turgor Musculoskeletal - other findings: Sedated Hosp A/P (1) Acute respiratory failure with hypoxia Code(s): J96.01 - ACUTE RESPIRATORY FAILURE WITH HYPOXIA Status: Acute (2) COVID-19 virus infection Code(s): U07.1 - COVID-19 Status: Acute (3) Viral pneumonia Code(s): J12.9 - VIRAL PNEUMONIA, UNSPECIFIED Status: Acute (4) Diabetes mellitus Code(s): E11.9 - TYPE 2 DIABETES MELLITUS WITHOUT COMPLICATIONS Status: Acute (5) Lactic acidosis Code(s): E87.2 - ACIDOSIS Status: Acute - Plan Acute hypoxic respiratory failure: She is followed by pulmonology. Continue ventilator support on bilevel. Doing better today after being in prone position yesterday. Increase steroids may have been helpful to. COVID pneumonia: Patient is receiving IV SoluMedrol. Dose was increased. Empiric antibiotics with cefepime and azithromycin. Vitamin C, zinc. Inhaled budesonide. Pulmonology following. Given the severity of her infection she is not likely candidate for antiviral medications. Received convalescent plasma 2 days ago. Discussed with Dr. Frost. Diabetes mellitus: Blood sugars are worse. Likely due to the steroids. Increased her Lantus. Lactic acidosis: Resolved. Disposition: Fortunately the patient's prognosis is still very guarded.
[2019-11-22] MEDS: fentaNYL Citrate/PF 2,000 MCG in Sodium Chloride 0.9% 60 ML IV SCH (16:00)
[2019-11-22] MEDS: HumaLOG 300 UNITS/3 ML VIAL SC PRN (18:03)
--- NOTE | 2019-11-22 19:55 | PRG ---
DATE OF SERVICE: 11/22/2019 SUBJECTIVE: Reyna Frias remains mechanically ventilating. Respiratory rate 15, FiO2 is down to 40% after being proned yesterday. OBJECTIVE: VITAL SIGNS: Heart rate is in the 60s, blood pressure is 138/60. Intake and outputs, negative 573. LUNGS: Remarkable for coarse equal breath sounds. HEART: Regular rhythm. ABDOMEN: Soft. EXTREMITIES: Without asymmetry. LABORATORY DATA: White count 14.5, hemoglobin 10.5, platelets 279. Electrolytes are normal. BUN 9, creatinine 0.98. PH 7.52, CO2 of 31 PO2 of 80, on bilevel 40/11, rate of 15, FiO2 is at 40. Pressure support 10. IMPRESSION: COVID-19 pneumonia, respiratory failure, requiring proned ventilation. She is anticoagulated on Pepcid. She has received convalescent plasma. She is on higher dose steroids now and clinically seems to be improving. Antiviral drugs I agree would not make a difference in her care and the IL-6 inhibitor probably would not as well. We will check C-reactive protein again tomorrow. Critical care time 30 min. Job ID: [id number] MTDD
[2019-11-22] MEDS: Sodium Chloride 0.9% 1,000 ML IV SCH (20:07)
[2019-11-22] MEDS: Lorazepam 2 MG/ML VIAL SLOW IVP PRN (23:38)
[2019-11-23] MEDS: HumaLOG 300 UNITS/3 ML VIAL SC PRN ×4 (00:44→18:22)
[2019-11-23] MEDS: Propofol 1,000 MG/100 ML VIAL IV PRN ×2 (03:20→19:51)
[2019-11-23 04:53] LABS: Anion Gap 14 mmol/L (10-20); BUN (Urea Nitrogen) 14 mg/dL (9.8-20.1); Calc. Creatinine Clearance 87 mL/min (70-130); Carbon Dioxide 26 mmol/L (23-31); Chloride 101 mmol/L (98-107); Estimated GFR-MDRD Greater than 90; Glucose 286 mg/dL (80-115); Potassium 3.8 mmol/L (3.5-5.1); Sodium 137 mmol/L (136-145)
[2019-11-23 04:55] LABS: Band 3 % (5-11); Hemoglobin 10.4 g/dL (12.0-16.0); Hypochromia SLIGHT = 6-15 cells (100X) (0-5/hpf); Lymphocytes 3 % (21-51); MDiff Complete? YES; Mean Corpuscular HGB CONC 31.7 g/dL (32.0-36.0); Mean Corpuscular Hemoglobin 28.6 pg (27.0-31.0); Mean Corpuscular Volume 90.3 fL (78.0-98.0); Mean Platelet Volume 8.8 fL (7.4-10.4); Monocytes 4 % (0-10); Neutrophil 90 % (42-75); Platelet Count 298 thou/uL (130-400); Platelet Morphology Comment Appears Adequate; RBC Distribution Width 13.2 % (11.5-14.5); Red Blood Cell (RBC) Count 3.63 mill/uL (4.20-5.40); White Blood Cell (WBC) Count 13.3 thou/uL (4.8-10.8)
[2019-11-23] MEDS: methylPREDNISolone Sod Succ/PF 125 MG/2 ML VIAL IVP SCH ×2 (05:35→18:00)
[2019-11-23] MEDS: Sodium Chloride 0.9% 1,000 ML IV SCH ×2 (06:31→17:47)
[2019-11-23] MEDS: Budesonide 0.5 MG/2 ML NEB NEB SCH ×2 (07:05→18:30)
[2019-11-23 07:15] LABS: Actual Bicarbonate (HCO3a) 27.5 mEq/L (22-28); Analyzer IN Cardio ER; Base Excess (BEa) 3.1 mEq/L (-2.0 to +3.0); CO2 Tension 41.2 mmHg (35.0-45.0); Calcium, Ionized (arterial) 1.21 mmol/L (1.12-1.30); Carboxyhemoglobin (COHb) 0.1 gm% (0.0-3.0); Hemoglobin (Hb) 14.4 g/dL (12.0-16.0); Potassium - ABG Lab 3.67 mmol/L (3.70-5.30); pH, Arterial 7.44 (7.35-7.45)
[2019-11-23 07:19] LABS: Puncture Site RRA
--- NOTE | 2019-11-23 07:45 | RAD ---
EXAM: Single view of the chest HISTORY: Ventilated patient with respiratory failure COMPARISON: 11/22/2019 FINDINGS: Single view of the chest shows a normal sized cardiomediastinal silhouette. The endotrache al tube has been withdrawn with its tip in better position at the lower edge of the clavicles. An NG tube is seen in the stomach. Multifocal infiltrates are seen in the lungs. The bones are unremark able IMPRESSION: Multifocal pneumonia
--- NOTE | 2019-11-23 09:09 | PRG ---
DATE OF SERVICE: 11/23/2019 SUBJECTIVE: Ms. Frias transiently had to have a decrease in her FiO2, but she is back down to 40% two days ago. Respiratory rates in the teens, FiO2 is currently at 50. She is on bilevel ventilation. OBJECTIVE: VITAL SIGNS: She is afebrile. Blood pressure 104/55. Intake and output are positive 1306. LUNGS: Unchanged. HEART: Unchanged. ABDOMEN: Unchanged. LABORATORY DATA: White count 13.3, hemoglobin 10.4, platelets 298. Sodium 137, potassium 3.8, chloride 101, bicarb 26, BUN 14, and creatinine 0.57. A pH 7.44, CO2 of 41, and pO2 of 55. Chest x-ray still shows diffuse infiltrates. IMPRESSION: COVID-19 pneumonia, status post proning. She is anticoagulated on steroids, on aspirin. She has received convalescent plasma. This will continue to be a slow process. It is unlikely that she will be weanable this weekend, given how she was clinically 48 hours ago. We will continue to follow. CRITICAL CARE TIME: 30 minutes. Job ID: [id number]
[2019-11-23] MEDS: Famotidine/PF 20 mg/2ml Vial SLOW IVP SCH ×2 (09:12→19:50)
[2019-11-23] MEDS: Enoxaparin Sodium 60 MG/0.6 ML SYRINGE SC SCH ×2 (09:13→19:50)
[2019-11-23] MEDS: Ascorbic Acid 500 mg Chewable Tablet PO SCH (09:13)
[2019-11-23] MEDS: Zinc Sulfate 220 MG CAP PO SCH (09:13)
[2019-11-23] MEDS: Aspirin 325 MG TAB PO SCH (09:13)
[2019-11-23] MEDS: Insulin Glargine 24 UNITS in Pre-Filled Syringe 1 EACH SC SCH (09:13)
[2019-11-23] MEDS: fentaNYL Citrate/PF 2,000 MCG in Sodium Chloride 0.9% 60 ML IV SCH (12:09)
--- NOTE | 2019-11-23 13:54 | PDOC.HOSPP ---
- Subjective Encounter Date: 11/23/19 Encounter Time: 09:00 Subjective: on vent, awake - Objective Vital Signs & Weight: Vital Signs (12 hours) Temp Pulse Resp BP Pulse Ox 11/23/19 12:00 15 11/23/19 11:08 54 L 122/70 11/23/19 10:00 15 11/23/19 08:00 97.4 F L 15 96 11/23/19 07:05 84 15 95 11/23/19 06:41 66 91/54 L 11/23/19 06:00 15 11/23/19 04:00 98.7 F 15 11/23/19 03:17 83 11/23/19 03:16 82 15 95 11/23/19 02:00 15 Weight Admit Weight 120 lb 13.013 oz Weight 119 lb 14.903 oz Most Recent Monitor Data Heart Rate from ECG 67 NIBP 113/65 NIBP BP-Mean 81 Respiration from ECG 15 SpO2 91 I&O: 11/22/19 11/23/19 11/24/19 06:59 06:59 06:59 Intake Total 1766.5 2471.3 130 Output Total 2340 1165 255 Balance -573.5 1306.3 -125 Result Diagrams: 11/23/19 03:30 11/23/19 03:30 Additional Labs: Accuchecks 11/23/19 11/23/19 11/23/19 12:19 09:23 05:45 POC Glucose 305 H 280 H 263 H 11/23/19 11/22/19 00:41 17:52 POC Glucose 288 H 254 H Hospitalist ROS - Medication Medications: Active Medications Generic Name Dose Route Start Last Admin Trade Name Freq PRN Reason Stop Dose Admin Acetaminophen 650 mg 11/13/19 22:50 11/21/19 05:51 Tylenol PO 650 mg Q4H PRN Administration Headache/Fever/Mild Pain (1-3) Albuterol/Ipratropium 3 ml 11/14/19 14:30 11/23/19 11:17 Duoneb NEB 3 ml [id number] MARK Administration Ascorbic Acid 1,000 mg 11/15/19 09:00 11/23/19 09:13 Vitamin C PO 1,000 mg DAILY MARK Administration Aspirin 325 mg 11/19/19 09:00 11/23/19 09:13 Aspirin PO 325 mg DAILY MARK Administration Budesonide 0.5 mg 11/14/19 18:30 11/23/19 07:05 Pulmicort Neb Solution NEB 0.5 mg BID-RT MARK Administration Enoxaparin Sodium 50 mg 11/21/19 21:00 11/23/19 09:13 Lovenox SC 50 mg 0900,2100 MARK Administration Famotidine 20 mg 11/14/19 09:00 11/23/19 09:12 Pepcid SLOW IVP 20 mg BID MARK Administration Fentanyl Citrate 2,000 mcg/ 100 mls @ 0 mls/hr 11/14/19 17:05 11/23/19 12:09 Sodium Chloride IV 12/14/19 17:05 100 mls INF MARK Administration Protocol Per Protocol Norepinephrine Bitartrate 250 mls @ 0 mls/hr 11/14/19 18:43 11/15/19 05:35 Levophed IVPB 250 mls INF MARK Administration Protocol Titrate Insulin Glargine 24 units/ 0.24 mls @ 0 mls/hr 11/20/19 15:49 11/23/19 09:13 Miscellaneous Medication SC 0.24 mls QAM MARK Administration As Directed Sodium Chloride 1,000 mls @ 50 mls/hr 11/21/19 04:15 11/23/19 06:31 Normal Saline 0.9% IV 1,000 mls .Q20H MARK Administration Insulin Human Lispro 0 units 11/14/19 01:26 11/23/19 12:40 Humalog SC 8 units .MODERATE SLIDING SC PRN Administration Moderate Correctional Scale Lorazepam 2 mg 11/14/19 17:05 11/22/19 23:38 Ativan SLOW IVP 12/14/19 17:05 2 mg Q1H PRN Administration Breakthrough agitation Methylprednisolone Sodium Succinate 80 mg 11/21/19 06:00 11/23/19 05:35 Solu-Medrol IVP 80 mg 0600,1800 MARK Administration Ondansetron HCl 4 mg 11/13/19 22:50 11/14/19 03:07 Zofran IVP 4 mg Q6H PRN Administration Nausea/Vomiting use 1st Propofol 1,000 mg 11/14/19 17:05 11/23/19 03:20 Diprivan IV 12/14/19 17:05 1,000 mg INF PRN Administration TO ACHIEVE GOAL RASS Protocol Sodium Chloride 10 ml 11/14/19 09:00 11/23/19 09:13 Flush - Normal Saline IVF 10 ml Q12HR MARK Administration Sterile Water 1 ml 11/18/19 11:56 11/22/19 03:39 Bacteriostatic Water FS 1 ml PRN PRN Administration RECONSTITUTION Vecuronium [place] 10 mg 11/21/19 15:48 11/22/19 09:59 Norcuron IV 10 mg Q1H PRN Administration SEDATION/MOVEMENT Zinc Sulfate 220 mg 11/15/19 09:00 11/23/19 09:13 Zinc Sulfate PO 220 mg DAILY MARK Administration - Exam General Appearance: ill appearing Eye: anicteric sclera ENT: normocephalic atraumatic, dry oral mucosa Neck: supple, no JVD Heart: RRR, no murmur Respiratory: normal chest expansion, no tachypnea Gastrointestinal: soft, non-distended Extremities: no cyanosis, no edema Neurological: cranial nerve grossly intact, no focal deficits Hosp A/P (1) Pneumonia due to COVID-19 virus Code(s): U07.1 - COVID-19; J12.89 - OTHER VIRAL PNEUMONIA Status: Acute (2) Acute respiratory failure with hypoxia Code(s): J96.01 - ACUTE RESPIRATORY FAILURE WITH HYPOXIA Status: Acute (3) Diabetes mellitus Code(s): E11.9 - TYPE 2 DIABETES MELLITUS WITHOUT COMPLICATIONS Status: Chronic Qualifiers: Diabetes mellitus type: type 2 Diabetes mellitus 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 (4) Sepsis Code(s): A41.9 - SEPSIS, UNSPECIFIED ORGANISM Status: Acute Qualifiers: Sepsis type: sepsis due to unspecified organism Sepsis acute organ dysfunction status: with acute organ dysfunction Severe sepsis acute organ dysfunction type: acute respiratory failure Acute respiratory failure type: with hypoxia Severe sepsis shock status: without septic shock Qualified Code (s): A41.9 - Sepsis, unspecified organism; R65.20 - Severe sepsis without septic shock; J96.01 - Acute respiratory failure with hypoxia - Plan weaning per pulm advice recieved convalescent plasma is on dexamethasone, low dose levophed prognosis guarded
[2019-11-24] MEDS: HumaLOG 300 UNITS/3 ML VIAL SC PRN ×5 (00:25→22:21)
[2019-11-24] MEDS: Sodium Chloride 0.9% 1,000 ML IV SCH (02:33)
[2019-11-24 04:36] LABS: Band 1 % (5-11); Hemoglobin 10.8 g/dL (12.0-16.0); Lymphocytes 4 % (21-51); MDiff Complete? YES; Mean Corpuscular HGB CONC 32.5 g/dL (32.0-36.0); Mean Corpuscular Hemoglobin 29.1 pg (27.0-31.0); Mean Corpuscular Volume 89.5 fL (78.0-98.0); Mean Platelet Volume 9.3 fL (7.4-10.4); Metamyelocyte 1 % (0-0); Monocytes 1 % (0-10); Neutrophil 93 % (42-75); Platelet Count 289 thou/uL (130-400); Platelet Morphology Comment Appears Adequate; RBC Distribution Width 13.1 % (11.5-14.5); RBC Morphology Normal; White Blood Cell (WBC) Count 14.8 thou/uL (4.8-10.8)
[2019-11-24 04:47] LABS: Anion Gap 13 mmol/L (10-20); BUN (Urea Nitrogen) 15 mg/dL (9.8-20.1); Calc. Creatinine Clearance 91 mL/min (70-130); Calcium 8.9 mg/dL (7.8-10.44); Carbon Dioxide 27 mmol/L (23-31); Chloride 101 mmol/L (98-107); Estimated GFR-MDRD Greater than 90; Glucose 252 mg/dL (80-115); Sodium 137 mmol/L (136-145)
[2019-11-24] MEDS: Propofol 1,000 MG/100 ML VIAL IV PRN ×3 (05:49→23:36)
[2019-11-24] MEDS: methylPREDNISolone Sod Succ/PF 125 MG/2 ML VIAL IVP SCH ×2 (05:49→18:10)
[2019-11-24] MEDS: Bacteriostatic Water 30 ML VIAL FS PRN ×2 (05:51→18:11)
[2019-11-24] MEDS: Budesonide 0.5 MG/2 ML NEB NEB SCH ×2 (07:05→18:16)
--- NOTE | 2019-11-24 07:54 | RAD ---
Chest one view HISTORY: Pneumonia. Intubated. Follow-up. COMPARISON: 11/23/2019. FINDINGS: Cardiac silhouette is magnified by projection. Pulmonary vasculature remains engorged. Mediastinum is shifted rightward with patient rotation. Lines and tubes are unchanged in position. Ill-defined patchy areas of parenchymal infiltrate throughout each lung are similar in appearance to the prior study. Gas within the right side of the neck has decreased since the most recent study. Pneumomediastinum reddy s been present on recent exams but is no longer visible within the chest. No evidence of pneumothorax. IMPRESSION : Multifocal bilateral infiltrates appear stable. Interval resolution of pneumomediastinum. Small amount of right neck soft tissue gas persists.
[2019-11-24] MEDS: Ascorbic Acid 500 mg Chewable Tablet PO SCH (08:27)
[2019-11-24] MEDS: Aspirin 325 MG TAB PO SCH (08:27)
[2019-11-24] MEDS: Famotidine/PF 20 mg/2ml Vial SLOW IVP SCH ×2 (08:28→19:59)
[2019-11-24] MEDS: Zinc Sulfate 220 MG CAP PO SCH (08:28)
[2019-11-24] MEDS: Enoxaparin Sodium 60 MG/0.6 ML SYRINGE SC SCH ×2 (08:28→20:00)
[2019-11-24] MEDS: Insulin Glargine 24 UNITS in Pre-Filled Syringe 1 EACH SC SCH (08:29)
[2019-11-24] MEDS: fentaNYL Citrate/PF 2,000 MCG in Sodium Chloride 0.9% 60 ML IV SCH (08:29)
--- NOTE | 2019-11-24 09:56 | PRG ---
DATE OF SERVICE: 11/24/2019 SUBJECTIVE: Ms. Frias remains intubated receiving ventilatory support. She is on BiPAP with pressures of 30/10, a rate of 15. She remains on high FiO2 of 50%. There has been no significant weaning in the past 24 to 48 hours. She is sedated. She is tolerating feedings. No new issues have arisen. OBJECTIVE: VITAL SIGNS: Blood pressure is 110/56, heart rate 84, and saturation 96. GENERAL: She is orally intubated. She minimally responsive to stimuli. Fluid analysis has been reviewed. LUNGS: Show rhonchi without wheezing. She is breathing at the back of ventilator, rate of 15. HEART: Regular rate and rhythm. I do not hear a murmur. ABDOMEN: Soft. There is no organomegaly. Bowel sounds are normal. EXTREMITIES: She has no edema. LABORATORY DATA: White count today 14,800, hemoglobin is 10.8 with hematocrit of 33.2, and platelet count 289,000. Chemistries include sodium 137, potassium 4.0, chloride 101, CO2 of 27, BUN 15, creatinine 0.5, and point of care glucose is running between 220 and 300. X-ray for today demonstrates lines and tubes in appropriate positions. There are bilateral patchy consolidations consistent with her underlying COVID infection. There is no pneumothorax. Her subcutaneous air and pneumomediastinum have improved. IMPRESSION: COVID pneumonia with respiratory failure. She has received appropriate therapies. She is not currently requiring prone positioning. There does not appear to be significant change in pulmonary hemodynamics and ventilator status at least in the past 48 hours. We will continue to follow. She may ultimately be a candidate for tracheostomy and transfer to a long-term care facility. PLAN: We will continue current therapies. She has received appropriate treatment for her COVID pneumonia, but unfortunately does not show a rapid recovery. We will continue current therapies and re-discuss with the family the possibility of trach next week. Critical care time, 32 minutes. Job ID: [id number]
--- NOTE | 2019-11-24 12:31 | PDOC.HOSPP ---
- Subjective Encounter Date: 11/24/19 Encounter Time: 08:40 Subjective: sedated, is on vent not in distress - Objective Vital Signs & Weight: Vital Signs (12 hours) Temp Pulse Resp BP Pulse Ox 11/24/19 10:43 99 92/48 L 11/24/19 10:00 15 11/24/19 08:00 15 96 11/24/19 07:09 70 85/54 L 11/24/19 07:00 99.0 F 11/24/19 06:00 15 11/24/19 04:00 97.7 F 21 H 11/24/19 02:28 66 15 98 11/24/19 02:19 57 L 113/59 L 11/24/19 02:00 15 Weight Admit Weight 120 lb 13.013 oz Weight 121 lb 4.068 oz Most Recent Monitor Data Heart Rate from ECG 80 NIBP 107/62 NIBP BP-Mean 77 Respiration from ECG 15 SpO2 96 I&O: 11/23/19 11/24/19 11/25/19 06:59 06:59 06:59 Intake Total 2471.3 2405.9 90 Output Total 1165 1575 185 Balance 1306.3 830.9 -95 Result Diagrams: 11/24/19 03:43 11/24/19 03:43 Additional Labs: Accuchecks 11/24/19 11/24/19 11/24/19 11:27 06:01 00:28 POC Glucose 186 H 222 H 245 H 11/23/19 18:06 POC Glucose 239 H Hospitalist ROS - Medication Medications: Active Medications Generic Name Dose Route Start Last Admin Trade Name Baljit PRN Reason Stop Dose Admin Acetaminophen 650 mg 11/13/19 22:50 11/21/19 05:51 Tylenol PO 650 mg Q4H PRN Administration Headache/Fever/Mild Pain (1-3) Albuterol/Ipratropium 3 ml 11/14/19 14:30 11/24/19 10:41 Duoneb NEB 3 ml [id number] MARK Administration Ascorbic Acid 1,000 mg 11/15/19 09:00 11/24/19 08:27 Vitamin C PO 1,000 mg DAILY MARK Administration Aspirin 325 mg 11/19/19 09:00 11/24/19 08:27 Aspirin PO 325 mg DAILY MARK Administration Budesonide 0.5 mg 11/14/19 18:30 11/24/19 07:05 Pulmicort Neb Solution NEB 0.5 mg BID-RT MARK Administration Enoxaparin Sodium 50 mg 11/21/19 21:00 11/24/19 08:28 Lovenox SC 50 mg 0900,2100 MARK Administration Famotidine 20 mg 11/14/19 09:00 11/24/19 08:28 Pepcid SLOW IVP 20 mg BID MARK Administration Fentanyl Citrate 2,000 mcg/ 100 mls @ 0 mls/hr 11/14/19 17:05 11/24/19 08:29 Sodium Chloride IV 12/14/19 17:05 100 mls INF MARK Administration Protocol Per Protocol Norepinephrine Bitartrate 250 mls @ 0 mls/hr 11/14/19 18:43 11/15/19 05:35 Levophed IVPB 250 mls INF MARK Administration Protocol Titrate Insulin Glargine 24 units/ 0.24 mls @ 0 mls/hr 11/20/19 15:49 11/24/19 08:29 Miscellaneous Medication SC 0.24 mls QAM MARK Administration As Directed Sodium Chloride 1,000 mls @ 50 mls/hr 11/21/19 04:15 11/24/19 02:33 Normal Saline 0.9% IV 1,000 mls .Q20H MARK Administration Insulin Human Lispro 0 units 11/14/19 01:26 11/24/19 11:56 Humalog SC 2 units .MODERATE SLIDING SC PRN Administration Moderate Correctional Scale Lorazepam 2 mg 11/14/19 17:05 11/22/19 23:38 Ativan SLOW IVP 12/14/19 17:05 2 mg Q1H PRN Administration Breakthrough agitation Methylprednisolone Sodium Succinate 80 mg 11/21/19 06:00 11/24/19 05:49 Solu-Medrol IVP 80 mg 0600,1800 MARK Administration Ondansetron HCl 4 mg 11/13/19 22:50 11/14/19 03:07 Zofran IVP 4 mg Q6H PRN Administration Nausea/Vomiting use 1st Propofol 1,000 mg 11/14/19 17:05 11/24/19 05:49 Diprivan IV 12/14/19 17:05 1,000 mg INF PRN Administration TO ACHIEVE GOAL RASS Protocol Sodium Chloride 10 ml 11/14/19 09:00 11/24/19 08:29 Flush - Normal Saline IVF 10 ml Q12HR MARK Administration Sterile Water 1 ml 11/18/19 11:56 11/24/19 05:51 Bacteriostatic Water FS 1 ml PRN PRN Administration RECONSTITUTION Vecuronium [place] 10 mg 11/21/19 15:48 11/22/19 09:59 Norcuron IV 10 mg Q1H PRN Administration SEDATION/MOVEMENT Zinc Sulfate 220 mg 11/15/19 09:00 11/24/19 08:28 Zinc Sulfate PO 220 mg DAILY MARK Administration - Exam General Appearance: ill appearing Eye: PERRL, anicteric sclera ENT: no oropharyngeal lesions, dry oral mucosa Neck: supple, no JVD Heart: RRR, no murmur Respiratory: no wheezes, rhonchi Gastrointestinal: soft, non-tender, non-distended, normal bowel sounds Extremities: no cyanosis, 1+ LE edema Neurological: cranial nerve grossly intact, no focal deficits Hosp A/P (1) Pneumonia due to COVID-19 virus Code(s): U07.1 - COVID-19; J12.89 - OTHER VIRAL PNEUMONIA Status: Acute (2) Acute respiratory failure with hypoxia Code(s): J96.01 - ACUTE RESPIRATORY FAILURE WITH HYPOXIA Status: Acute (3) Diabetes mellitus Code(s): E11.9 - TYPE 2 DIABETES MELLITUS WITHOUT COMPLICATIONS Status: Chronic Qualifiers: Diabetes mellitus type: type 2 Diabetes mellitus superintendent terminal insulin use: without mcc use (4) Sepsis Code(s): A41.9 - SEPSIS, UNSPECIFIED ORGANISM Status: Acute Qualifiers: Sepsis type: sepsis due to unspecified organism Sepsis acute organ dysfunction status: with acute organ dysfunction Severe sepsis acute organ dysfunction type: acute respiratory failure Acute respiratory failure type: with hypoxia Severe sepsis shock status: without septic shock Qualified Code (s): A41.9 - Sepsis, unspecified organism; R65.20 - Severe sepsis without septic shock; J96.01 - Acute respiratory failure with hypoxia - Plan weaning per pulm advice recieved convalescent plasma is on dexamethasone, low dose levophed prognosis guarded is not weanable per pulm no new changes from yesterday
[2019-11-24] MEDS: Lorazepam 2 MG/ML VIAL SLOW IVP PRN (16:37)
[2019-11-24] MEDS ORDERED: Morphine 2 MG/ML VIAL SLOW IVP PRN ×2 (17:23→17:24)
[2019-11-24] MEDS ORDERED: Fentanyl BOLUS 250 ML IVPB PRN (17:25)
[2019-11-25] MEDS: fentaNYL Citrate/PF 2,000 MCG in Sodium Chloride 0.9% 60 ML IV SCH ×2 (01:59→17:25)
[2019-11-25] MEDS: Lorazepam 2 MG/ML VIAL SLOW IVP PRN ×3 (03:43→18:56)
[2019-11-25 04:17] LABS: Band 3 % (5-11); Hemoglobin 10.9 g/dL (12.0-16.0); Hypochromia SLIGHT = 6-15 cells (100X) (0-5/hpf); Lymphocytes 6 % (21-51); MDiff Complete? YES; Mean Corpuscular HGB CONC 31.3 g/dL (32.0-36.0); Mean Corpuscular Hemoglobin 28.7 pg (27.0-31.0); Mean Corpuscular Volume 91.5 fL (78.0-98.0); Mean Platelet Volume 9.1 fL (7.4-10.4); Monocytes 9 % (0-10); Neutrophil 82 % (42-75); Platelet Count 289 thou/uL (130-400); Platelet Morphology Comment Appears Adequate; RBC Distribution Width 13.1 % (11.5-14.5); Red Blood Cell (RBC) Count 3.81 mill/uL (4.20-5.40); White Blood Cell (WBC) Count 14.7 thou/uL (4.8-10.8)
[2019-11-25 04:18] LABS: Anion Gap 14 mmol/L (10-20); BUN (Urea Nitrogen) 14 mg/dL (9.8-20.1); CRP (Inflammatory) 6.28 mg/dL (= or < 0.5); Calc. Creatinine Clearance 94 mL/min (70-130); Calcium 8.9 mg/dL (7.8-10.44); Carbon Dioxide 28 mmol/L (23-31); Chloride 101 mmol/L (98-107); Estimated GFR-MDRD Greater than 90; Glucose 237 mg/dL (80-115); Potassium 4.1 mmol/L (3.5-5.1); Sodium 139 mmol/L (136-145)
[2019-11-25] MEDS: Propofol 1,000 MG/100 ML VIAL IV PRN ×3 (05:52→21:48)
[2019-11-25] MEDS: methylPREDNISolone Sod Succ/PF 125 MG/2 ML VIAL IVP SCH ×2 (05:52→17:25)
[2019-11-25] MEDS: HumaLOG 300 UNITS/3 ML VIAL SC PRN ×4 (05:53→21:59)
[2019-11-25 07:04] LABS: Actual Bicarbonate (HCO3a) 28.6 mEq/L (22-28); Base Excess (BEa) 4.4 mEq/L (-2.0 to +3.0); CO2 Tension 41.3 mmHg (35.0-45.0); Calcium, Ionized (arterial) 1.17 mmol/L (1.12-1.30); Carboxyhemoglobin (COHb) 0.3 gm% (0.0-3.0); Hemoglobin (Hb) 10.7 g/dL (12.0-16.0); Potassium - ABG Lab 3.65 mmol/L (3.70-5.30); pH, Arterial 7.46 (7.35-7.45)
--- NOTE | 2019-11-25 08:02 | RAD ---
Chest one view HISTORY: Pneumonia. Intubated. Follow-up. COMPARISON: 11/24/2019. FINDINGS: Cardiac silhouette is magnified by projection. Pulmonary vasculature remains engorged. Mediastinum is midline. Lines and tubes are unchanged in position. Ill-defined patchy areas of parenchymal infiltrate throughout each lung are similar in appearance to the prior study. Gas within the right side of the has resolved. Lucency along the left side of the mediastinum adjacen t to the aorticopulmonary window may represent minimal residual pneumomediastinum. No evidence of pneumothorax. IMPRESSION : Multifocal bilateral infiltrates are stable.
[2019-11-25] MEDS: Ascorbic Acid 500 mg Chewable Tablet PO SCH (08:03)
[2019-11-25] MEDS: Zinc Sulfate 220 MG CAP PO SCH (08:03)
[2019-11-25] MEDS: Aspirin 325 MG TAB PO SCH (08:03)
[2019-11-25] MEDS: Famotidine/PF 20 mg/2ml Vial SLOW IVP SCH ×2 (08:03→19:37)
[2019-11-25] MEDS: Enoxaparin Sodium 60 MG/0.6 ML SYRINGE SC SCH ×2 (08:04→19:37)
[2019-11-25] MEDS: Insulin Glargine 24 UNITS in Pre-Filled Syringe 1 EACH SC SCH (08:05)
[2019-11-25 08:21] LABS: O2 Tension (PaO2), arterial 53.6 mmHg (> 80.0); Puncture Site L.R.
[2019-11-25 08:22] LABS: ALV-art Gradient 251.275 (0-20)
--- NOTE | 2019-11-25 08:57 | PRG ---
DATE OF SERVICE: 11/25/2019 SUBJECTIVE: Ms. Frias seems to be a bit more hemodynamically stable. She remains on BiPAP ventilation at pressure of 30/10 with FiO2 of 0.5. Spontaneous tidal volumes range from 300 to 420. PHYSICAL EXAMINATION: VITAL SIGNS: Blood pressure 108/56, heart rate is 59, and saturation 93%. She is afebrile. GENERAL: Intubated. No palpable subcutaneous air is felt in the upper neck or anterior chest wall. NECK: There is no JVD. LUNGS: Show rhonchi diffusely, but no wheezing. HEART: Regular rate and rhythm with sinus bradycardia is a quiet murmur. ABDOMEN: Soft. There is no organomegaly. Bowel sounds normal. EXTREMITIES: There is trace edema. There is no cyanosis or clubbing. LABORATORY DATA: Chest x-ray shows no evidence of recurrence of the pneumomediastinum or subcutaneous air. Bilateral patchy consolidations are seen. White count 14,700, hemoglobin 10.9 with hematocrit 34.9, and platelet count 289,000. Electrolytes normal including BUN 14, creatinine 0.5. Blood gas this morning includes pH 7.44, CO2 41, PO2 55, and bicarbonate 27. IMPRESSION: COVID-19 pneumonia with respiratory failure. She was treated with convalescent plasma, steroids, as well as a period of prone ventilation. Now, she is gradually improving. We will make further attempts at weaning, although anticipate very slow course. PLAN: Bilevel ventilation is reduced from 29/10 to 25/10 and possibly a bit further this afternoon. We can also try to reduce FiO2 with a goal of keeping saturation greater than 90. No additional COVID specific therapy is indicated at this time. Prognosis remains guarded. Critical care time 30 minutes. Job ID: [id number]
[2019-11-25] MEDS: Budesonide 0.5 MG/2 ML NEB NEB SCH ×2 (09:00→18:12)
[2019-11-25] MEDS: Sodium Chloride 0.9% 1,000 ML IV SCH (12:04)
--- NOTE | 2019-11-25 12:07 | PDOC.HOSPP ---
- Subjective Encounter Date: 11/25/19 Encounter Time: 08:30 Subjective: on vent, is sedated - Objective Vital Signs & Weight: Vital Signs (12 hours) Temp Pulse Resp BP Pulse Ox 11/25/19 11:31 75 111/54 L 11/25/19 11:20 76 17 94 L 11/25/19 10:00 17 11/25/19 09:00 67 13 93 L 11/25/19 08:30 17 11/25/19 08:00 19 96 11/25/19 06:45 67 13 99/55 L 93 L 11/25/19 06:00 13 11/25/19 04:00 97.4 F L 13 11/25/19 02:44 79 13 97 11/25/19 02:43 79 102/58 L 11/25/19 02:00 13 Weight Admit Weight 120 lb 13.013 oz Weight 120 lb 2.431 oz Most Recent Monitor Data Heart Rate from ECG 59 NIBP 111/62 NIBP BP-Mean 78 Respiration from ECG 15 SpO2 95 I&O: 11/24/19 11/25/19 11/26/19 06:59 06:59 06:59 Intake Total 2405.9 2277.7 Output Total 1575 2170 260 Balance 830.9 107.7 -260 Result Diagrams: 11/25/19 03:11 11/25/19 03:11 Additional Labs: Accuchecks 11/25/19 11/24/19 11/24/19 09:33 22:13 15:43 POC Glucose 189 H 194 H 184 H Hospitalist ROS - Medication Medications: Active Medications Generic Name Dose Route Start Last Admin Trade Name Baljit PRN Reason Stop Dose Admin Acetaminophen 650 mg 11/13/19 22:50 11/21/19 05:51 Tylenol PO 650 mg Q4H PRN Administration Headache/Fever/Mild Pain (1-3) Albuterol/Ipratropium 3 ml 11/14/19 14:30 11/25/19 11:20 Duoneb NEB 3 ml [id number] MARK Administration Ascorbic Acid 1,000 mg 11/15/19 09:00 11/25/19 08:03 Vitamin C PO 1,000 mg DAILY MARK Administration Aspirin 325 mg 11/19/19 09:00 11/25/19 08:03 Aspirin PO 325 mg DAILY MARK Administration Budesonide 0.5 mg 11/14/19 18:30 11/25/19 09:00 Pulmicort Neb Solution NEB 0.5 mg BID-RT MARK Administration Enoxaparin Sodium 50 mg 11/21/19 21:00 11/25/19 08:04 Lovenox SC 50 mg 0900,2100 MARK Administration Famotidine 20 mg 11/14/19 09:00 11/25/19 08:03 Pepcid SLOW IVP 20 mg BID MARK Administration Norepinephrine Bitartrate 250 mls @ 0 mls/hr 11/14/19 18:43 11/15/19 05:35 Levophed IVPB 250 mls INF MARK Administration Protocol Titrate Insulin Glargine 24 units/ 0.24 mls @ 0 mls/hr 11/20/19 15:49 11/25/19 08:05 Miscellaneous Medication SC 0.24 mls QAM MARK Administration As Directed Sodium Chloride 1,000 mls @ 50 mls/hr 11/21/19 04:15 11/25/19 12:04 Normal Saline 0.9% IV 1,000 mls .Q20H MARK Administration Fentanyl Citrate 2,000 mcg/ 100 mls @ 0 mls/hr 11/24/19 17:30 11/25/19 01:59 Sodium Chloride IV 11/26/19 17:31 100 mls INF MARK Administration Protocol Per Protocol Insulin Human Lispro 0 units 11/14/19 01:26 11/25/19 09:40 Humalog SC 2 units .MODERATE SLIDING SC PRN Administration Moderate Correctional Scale Lorazepam 2 mg 11/24/19 17:24 11/25/19 03:43 Ativan SLOW IVP 11/26/19 17:25 2 mg Q1H PRN Administration Breakthrough agitation Methylprednisolone Sodium Succinate 80 mg 11/21/19 06:00 11/25/19 05:52 Solu-Medrol IVP 80 mg 0600,1800 MARK Administration Ondansetron HCl 4 mg 11/13/19 22:50 11/14/19 03:07 Zofran IVP 4 mg Q6H PRN Administration Nausea/Vomiting use 1st Propofol 1,000 mg 11/14/19 17:05 11/25/19 12:04 Diprivan IV 12/14/19 17:05 1,000 mg INF PRN Administration TO ACHIEVE GOAL RASS Protocol Sodium Chloride 10 ml 11/14/19 09:00 11/25/19 08:07 Flush - Normal Saline IVF 10 ml Q12HR MARK Administration Sterile Water 1 ml 11/18/19 11:56 11/24/19 18:11 Bacteriostatic Water FS 1 ml PRN PRN Administration RECONSTITUTION Vecuronium [place] 10 mg 11/21/19 15:48 11/22/19 09:59 Norcuron IV 10 mg Q1H PRN Administration SEDATION/MOVEMENT Zinc Sulfate 220 mg 11/15/19 09:00 11/25/19 08:03 Zinc Sulfate PO 220 mg DAILY MARK Administration - Exam General Appearance: ill appearing Eye: PERRL, anicteric sclera ENT: normocephalic atraumatic, dry oral mucosa Neck: supple, no JVD Heart: RRR Respiratory: normal chest expansion, no tachypnea Gastrointestinal: soft, non-distended Extremities: 1+ LE edema Neurological: no new deficit Hosp A/P (1) Pneumonia due to COVID-19 virus Code(s): U07.1 - COVID-19; J12.89 - OTHER VIRAL PNEUMONIA Status: Acute (2) Acute respiratory failure with hypoxia Code(s): J96.01 - ACUTE RESPIRATORY FAILURE WITH HYPOXIA Status: Acute (3) Diabetes mellitus Code(s): E11.9 - TYPE 2 DIABETES MELLITUS WITHOUT COMPLICATIONS Status: Chronic Qualifiers: Diabetes mellitus type: type 2 Diabetes mellitus longwall headgate operator insulin use: without prison use (4) Sepsis Code(s): A41.9 - SEPSIS, UNSPECIFIED ORGANISM Status: Acute Qualifiers: Sepsis type: sepsis due to unspecified organism Sepsis acute organ dysfunction status: with acute organ dysfunction Severe sepsis acute organ dysfunction type: acute respiratory failure Acute respiratory failure type: with hypoxia Severe sepsis shock status: without septic shock Qualified Code (s): A41.9 - Sepsis, unspecified organism; R65.20 - Severe sepsis without septic shock; J96.01 - Acute respiratory failure with hypoxia - Plan weaning per pulm advice recieved convalescent plasma is on dexamethasone, low dose levophed prognosis guarded is not weanable per pulm no new changes, likely trach in am? if one can be done with being covid +ve
[2019-11-26] MEDS: Lorazepam 2 MG/ML VIAL SLOW IVP PRN (03:02)
[2019-11-26] MEDS: Propofol 1,000 MG/100 ML VIAL IV PRN ×3 (03:02→18:29)
[2019-11-26 03:39] LABS: Band 11 % (5-11); Hemoglobin 11.1 g/dL (12.0-16.0); Lymphocytes 11 % (21-51); MDiff Complete? YES; Mean Corpuscular HGB CONC 32.7 g/dL (32.0-36.0); Mean Corpuscular Hemoglobin 29.5 pg (27.0-31.0); Mean Corpuscular Volume 90.3 fL (78.0-98.0); Mean Platelet Volume 8.8 fL (7.4-10.4); Monocytes 5 % (0-10); Neutrophil 73 % (42-75); Platelet Count 263 thou/uL (130-400); Platelet Morphology Comment Appears Adequate; RBC Distribution Width 13.1 % (11.5-14.5); Red Blood Cell (RBC) Count 3.76 mill/uL (4.20-5.40); White Blood Cell (WBC) Count 17.2 thou/uL (4.8-10.8)
[2019-11-26 03:44] LABS: Anion Gap 12 mmol/L (10-20); BUN (Urea Nitrogen) 13 mg/dL (9.8-20.1); Calc. Creatinine Clearance 97 mL/min (70-130); Calcium 8.9 mg/dL (7.8-10.44); Carbon Dioxide 30 mmol/L (23-31); Chloride 101 mmol/L (98-107); Estimated GFR-MDRD Greater than 90; Glucose 167 mg/dL (80-115); Potassium 3.7 mmol/L (3.5-5.1); Sodium 139 mmol/L (136-145)
[2019-11-26] MEDS: Sodium Chloride 0.9% 1,000 ML IV SCH (05:42)
[2019-11-26] MEDS: methylPREDNISolone Sod Succ/PF 125 MG/2 ML VIAL IVP SCH ×2 (05:42→18:30)
[2019-11-26] MEDS: Budesonide 0.5 MG/2 ML NEB NEB SCH ×2 (06:33→18:18)
[2019-11-26 06:55] LABS: Actual Bicarbonate (HCO3a) 27.5 mEq/L (22-28); Base Excess (BEa) 3.7 mEq/L (-2.0 to +3.0); CO2 Tension 38.8 mmHg (35.0-45.0); Calcium, Ionized (arterial) 1.17 mmol/L (1.12-1.30); Carboxyhemoglobin (COHb) 0.3 gm% (0.0-3.0); Hemoglobin (Hb) 10.5 g/dL (12.0-16.0); pH, Arterial 7.47 (7.35-7.45)
[2019-11-26 07:24] LABS: O2 Tension (PaO2), arterial 51.3 mmHg (> 80.0); Puncture Site RRA
--- NOTE | 2019-11-26 07:57 | RAD ---
XR Chest 1 View Portable History: Ventilated patient Comparison: Radiograph prior day Findings: Endotracheal tube tip sits above the sean 1 cm, similar to the prior exam. Enteric tube t ip below diaphragm although out of field of view. No change in the multifocal airspace opacities. No pneumothorax. No significant effusion. Impression: Similar examination of the chest. No improvement in lung aeration.
[2019-11-26] MEDS: Enoxaparin Sodium 60 MG/0.6 ML SYRINGE SC SCH ×2 (08:28→20:03)
[2019-11-26] MEDS: Zinc Sulfate 220 MG CAP PO SCH (08:28)
[2019-11-26] MEDS: Ascorbic Acid 500 mg Chewable Tablet PO SCH (08:28)
[2019-11-26] MEDS: Insulin Glargine 24 UNITS in Pre-Filled Syringe 1 EACH SC SCH (08:29)
[2019-11-26] MEDS: Aspirin 325 MG TAB PO SCH (08:29)
[2019-11-26] MEDS: Famotidine/PF 20 mg/2ml Vial SLOW IVP SCH ×2 (08:29→20:03)
[2019-11-26] MEDS: fentaNYL Citrate/PF 2,000 MCG in Sodium Chloride 0.9% 60 ML IV SCH (10:08)
--- NOTE | 2019-11-26 10:19 | PDOC.PALCO ---
Palliative Care Consult - Consult Details Requesting Physician: Dr Andrews Reason for Consult: goals of care, family support Family Members Present: Spoke with son Davis by phone - Pertinent HPI 63 year old female who prior to current admission lived independently at home with her spouse Kennedy, 30+years. She had a history of diabetes but otherwise healthy. Onset of shortness of breath with Covid 19. She had symptoms in the home setting for 9 days prior to presentation to the emergency room. Tachypnea in the emergency room, admitted to Covid unit, but subsequently transferred to CCU for higher level of care. Through course of stay Ms Frias has developed multifocal pneumonia and required subsequent intubation. - Pertinent PMH DM, otherwise healthy - Social History Smoking Status: Never smoker Smoking: no tobacco exposure Alcohol Use: none Drug Use History: none Living Situation: (Kennedy, sinhala speaking) - Medications MAR Reviewed: Yes - Allergies Allergies/Adverse Reactions: Allergies Allergy/AdvReac Type Severity Reaction Status Date / Time No Known Drug Allergies Allergy Verified 11/14/19 00:25 - Subjective Intubated, mechanical ventilation. Nutritional support via OG, sedated. - ROS Non Response: due to endotracheal tube, due to mental status - Objective Vital Signs: Vital Signs - Most Recent Temp Pulse Resp BP Pulse Ox 97.7 F 92 14 99/56 L 99 11/26/19 04:00 11/26/19 06:47 11/26/19 06:32 11/26/19 06:47 11/26/19 06:32 Palliative Performance Scale: 20 - Physical Exam Constitutional: encephalitic, ill appearing HEENT: moist MMs, sclera anicteric Respiratory: diminished lung sound Deviation from normal: mechanical ventilation Gastrointestinal: soft, positive bowel sounds, incontinent Genitourinary: serna catheter Musculoskeletal: no cyanosis, no clubbing, diffuse muscle atrophy Deviation from normal: sedated, Skin: cap refill <2 seconds, no lesions, no rash Deviation from normal: encephalopathic, sedated - Problem List (1) Palliative care encounter Code(s): Z51.5 - ENCOUNTER FOR PALLIATIVE CARE Current Visit: Yes Status: Acute (2) Acute respiratory failure with hypoxia Code(s): J96.01 - ACUTE RESPIRATORY FAILURE WITH HYPOXIA Current Visit: Yes Status: Acute (3) COVID-19 virus infection Code(s): U07.1 - COVID-19 Current Visit: Yes Status: Acute (4) Pneumonia due to COVID-19 virus Code(s): U07.1 - COVID-19; J12.89 - OTHER VIRAL PNEUMONIA Current Visit: Yes Status: Acute (5) Sepsis Code(s): A41.9 - SEPSIS, UNSPECIFIED ORGANISM Current Visit: Yes Status: Acute Qualifiers: Sepsis type: sepsis due to unspecified organism Sepsis acute organ dysfunction status: with acute organ dysfunction Severe sepsis acute organ dysfunction type: acute respiratory failure Acute respiratory failure type: with hypoxia Severe sepsis shock status: without septic shock Qualified Code (s): A41.9 - Sepsis, unspecified organism; R65.20 - Severe sepsis without septic shock; J96.01 - Acute respiratory failure with hypoxia (6) Diabetes mellitus Code(s): E11.9 - TYPE 2 DIABETES MELLITUS WITHOUT COMPLICATIONS Current Visit : Yes Status: Chronic Qualifiers: Diabetes mellitus type: type 2 Diabetes mellitus termite technician insulin use: without termite technician use - Plan/Recommendations Plan: Communicated with patient son Davis. Reviewed his mothers current status. Reviewed her current health condition, prognosis and discussed "Hope for the best plan for the worst". Initiated conversation that in the event we are not able to wean his mother from the vent would his father and his siblings believe his mother would desire a Trach and Peg. Davis is reaching out to his father and sister to discuss a time for a family meeting to review his mothers status and plan of care, discussing possible goals of care. Will communicate with Dr Frost and Dr Andrews once family meeting time is arranged. Will utilize the translating service to communicate with patient Kennedy as he is Kinyarwanda speaking only. Communicated with PARTH. [50] minutes spent on this encounter with >50% of the time in counseling and coordination of care. Thank you for this very appropriate consult.
[2019-11-26] MEDS: HumaLOG 300 UNITS/3 ML VIAL SC PRN ×2 (11:13→16:55)
--- NOTE | 2019-11-26 13:27 | PDOC.HOSPP ---
- Subjective Encounter Date: 11/26/19 Encounter Time: 12:15 Subjective: on vent, sedated not in distress - Objective Vital Signs & Weight: Vital Signs (12 hours) Temp Pulse Resp BP Pulse Ox 11/26/19 10:56 92 24 H 142/63 H 95 11/26/19 06:47 92 99/56 L 11/26/19 06:32 72 14 99 11/26/19 06:00 13 11/26/19 04:00 97.7 F 13 11/26/19 02:31 61 22 H 96 11/26/19 02:28 61 111/64 11/26/19 02:00 18 Weight Admit Weight 120 lb 13.013 oz Weight 123 lb 7.342 oz Most Recent Monitor Data Heart Rate from ECG 100 NIBP 117/72 NIBP BP-Mean 87 Respiration from ECG 14 SpO2 88 I&O: 11/25/19 11/26/19 11/27/19 06:59 06:59 06:59 Intake Total 2277.7 2052.9 Output Total 2170 2330 Balance 107.7 -277.1 Result Diagrams: 11/26/19 03:10 11/26/19 03:10 Additional Labs: Accuchecks 11/26/19 11/25/19 11/25/19 03:13 21:56 15:42 POC Glucose 150 H 161 H 209 H Hospitalist ROS - Medication Medications: Active Medications Generic Name Dose Route Start Last Admin Trade Name Freq PRN Reason Stop Dose Admin Acetaminophen 650 mg 11/13/19 22:50 11/21/19 05:51 Tylenol PO 650 mg Q4H PRN Administration Headache/Fever/Mild Pain (1-3) Albuterol/Ipratropium 3 ml 11/14/19 14:30 11/26/19 10:56 Duoneb NEB 3 ml [id number] MARK Administration Ascorbic Acid 1,000 mg 11/15/19 09:00 11/26/19 08:28 Vitamin C PO 1,000 mg DAILY MARK Administration Aspirin 325 mg 11/19/19 09:00 11/26/19 08:29 Aspirin PO 325 mg DAILY MARK Administration Budesonide 0.5 mg 11/14/19 18:30 11/26/19 06:33 Pulmicort Neb Solution NEB 0.5 mg BID-RT MARK Administration Enoxaparin Sodium 50 mg 11/21/19 21:00 11/26/19 08:28 Lovenox SC 50 mg 0900,2100 MARK Administration Famotidine 20 mg 11/14/19 09:00 11/26/19 08:29 Pepcid SLOW IVP 20 mg BID MARK Administration Norepinephrine Bitartrate 250 mls @ 0 mls/hr 11/14/19 18:43 11/15/19 05:35 Levophed IVPB 250 mls INF MARK Administration Protocol Titrate Insulin Glargine 24 units/ 0.24 mls @ 0 mls/hr 11/20/19 15:49 11/26/19 08:29 Miscellaneous Medication SC 0.24 mls QAM MARK Administration As Directed Sodium Chloride 1,000 mls @ 50 mls/hr 11/21/19 04:15 11/26/19 05:42 Normal Saline 0.9% IV 1,000 mls .Q20H MARK Administration Fentanyl Citrate 2,000 mcg/ 100 mls @ 0 mls/hr 11/24/19 17:30 11/26/19 10:08 Sodium Chloride IV 11/26/19 17:31 100 mls INF MARK Administration Protocol Per Protocol Insulin Human Lispro 0 units 11/14/19 01:26 11/26/19 11:13 Humalog SC 2 units .MODERATE SLIDING SC PRN Administration Moderate Correctional Scale Lorazepam 2 mg 11/24/19 17:24 11/26/19 03:02 Ativan SLOW IVP 11/26/19 17:25 2 mg Q1H PRN Administration Breakthrough agitation Methylprednisolone Sodium Succinate 80 mg 11/21/19 06:00 11/26/19 05:42 Solu-Medrol IVP 80 mg 0600,1800 MARK Administration Ondansetron HCl 4 mg 11/13/19 22:50 11/14/19 03:07 Zofran IVP 4 mg Q6H PRN Administration Nausea/Vomiting use 1st Propofol 1,000 mg 11/14/19 17:05 11/26/19 11:09 Diprivan IV 12/14/19 17:05 1,000 mg INF PRN Administration TO ACHIEVE GOAL RASS Protocol Sodium Chloride 10 ml 11/14/19 09:00 11/26/19 08:30 Flush - Normal Saline IVF 10 ml Q12HR MARK Administration Sterile Water 1 ml 11/18/19 11:56 11/24/19 18:11 Bacteriostatic Water FS 1 ml PRN PRN Administration RECONSTITUTION Vecuronium [place] 10 mg 11/21/19 15:48 11/22/19 09:59 Norcuron IV 10 mg Q1H PRN Administration SEDATION/MOVEMENT Zinc Sulfate 220 mg 11/15/19 09:00 11/26/19 08:28 Zinc Sulfate PO 220 mg DAILY MARK Administration - Exam General Appearance: ill appearing Eye: PERRL, anicteric sclera ENT: no oropharyngeal lesions, moist mucosa Neck: supple, no JVD Heart: RRR Respiratory: normal chest expansion, tachypneic Gastrointestinal: soft, non-distended Extremities: no cyanosis, no edema Neurological: no focal deficits Hosp A/P (1) Pneumonia due to COVID-19 virus Code(s): U07.1 - COVID-19; J12.89 - OTHER VIRAL PNEUMONIA Status: Acute (2) Acute respiratory failure with hypoxia Code(s): J96.01 - ACUTE RESPIRATORY FAILURE WITH HYPOXIA Status: Acute (3) Diabetes mellitus Code(s): E11.9 - TYPE 2 DIABETES MELLITUS WITHOUT COMPLICATIONS Status: Chronic Qualifiers: Diabetes mellitus type: type 2 Diabetes mellitus terminal operator insulin use: without terminal operator use (4) Sepsis Code(s): A41.9 - SEPSIS, UNSPECIFIED ORGANISM Status: Acute Qualifiers: Sepsis type: sepsis due to unspecified organism Sepsis acute organ dysfunction status: with acute organ dysfunction Severe sepsis acute organ dysfunction type: acute respiratory failure Acute respiratory failure type: with hypoxia Severe sepsis shock status: without septic shock Qualified Code (s): A41.9 - Sepsis, unspecified organism; R65.20 - Severe sepsis without septic shock; J96.01 - Acute respiratory failure with hypoxia - Plan weaning per pulm advice recieved convalescent plasma is on steroids, full dose lovenox, low dose levophed prognosis guarded, has had progressive worsening is not weanable per pulm d/w daughter over phone, is aware of poor prognosis, wants to see her around 2pm code status was d/w her, she will talk to her 2 brothers and step dad and let us know
[2019-11-26] MEDS ORDERED: Propofol BOLUS 1,000 MG/100 ML VIAL IV PRN (18:25)
[2019-11-26] MEDS ORDERED: Morphine 2 MG/ML VIAL SLOW IVP PRN (18:25)
[2019-11-26] MEDS ORDERED: DISCONTINUE PREVIOUS NARCOTIC PAIN MEDICATIONS AND BENZODIAZEPINES FS SCH (18:25)
[2019-11-26] MEDS ORDERED: Fentanyl BOLUS 250 ML IVPB PRN (18:25)
--- NOTE | 2019-11-26 21:16 | PRG ---
DATE OF SERVICE: 11/26/2019 SUBJECTIVE: Ms. Frias did not require any ventilation over the weekend. OBJECTIVE: VITAL SIGNS: Blood pressure 120/58, heart rate is in the 50s, respiratory rate is in the teens, and oximetry is 92%. LUNGS: Unchanged. HEART: Unchanged. ABDOMEN: Unchanged. LABORATORY DATA: White count 17.2, hemoglobin 11.1, and platelets 263. The pH 7.47, CO2 of 38, PO2 of 51. Electrolytes are normal. Creatinine is 0.5. She is still on bilevel mechanical ventilation with low PEEP of 10 and a high PEEP of 25. IMPRESSION: COVID pneumonia. She is almost 2 weeks into this, but it is hard to know whether or not she can survive. My gut feeling at this time is as if she can, but will likely require tracheostomy. Critical care time 30 min. Job ID: [id number] MTDD
[2019-11-27] MEDS: fentaNYL Citrate/PF 2,000 MCG in Sodium Chloride 0.9% 60 ML IV SCH ×2 (00:11→15:30)
[2019-11-27] MEDS: Sodium Chloride 0.9% 1,000 ML IV SCH ×2 (00:34→15:21)
[2019-11-27] MEDS: Propofol 1,000 MG/100 ML VIAL IV PRN ×2 (03:51→15:20)
[2019-11-27 05:00] LABS: Anion Gap 11 mmol/L (10-20); BUN (Urea Nitrogen) 13 mg/dL (9.8-20.1); CRP (Inflammatory) 7.23 mg/dL (= or < 0.5); Calc. Creatinine Clearance 99 mL/min (70-130); Calcium 8.7 mg/dL (7.8-10.44); Carbon Dioxide 31 mmol/L (23-31); Chloride 99 mmol/L (98-107); Estimated GFR-MDRD Greater than 90; Glucose 211 mg/dL (80-115); Potassium 4.1 mmol/L (3.5-5.1); Sodium 137 mmol/L (136-145)
[2019-11-27] MEDS: methylPREDNISolone Sod Succ/PF 125 MG/2 ML VIAL IVP SCH ×2 (05:07→18:25)
[2019-11-27 05:08] LABS: Band 3 % (5-11); Eosinophils 1 % (0-10); Hypochromia SLIGHT = 6-15 cells (100X) (0-5/hpf); Lymphocytes 2 % (21-51); MDiff Complete? YES; Mean Corpuscular HGB CONC 33.1 g/dL (32.0-36.0); Mean Corpuscular Hemoglobin 29.9 pg (27.0-31.0); Mean Corpuscular Volume 90.2 fL (78.0-98.0); Mean Platelet Volume 9.4 fL (7.4-10.4); Monocytes 1 % (0-10); Neutrophil 93 % (42-75); Nucleated RBC 1 % (0); Platelet Count 229 thou/uL (130-400); Platelet Morphology Comment Appears Adequate; RBC Distribution Width 13.3 % (11.5-14.5); Red Blood Cell (RBC) Count 3.69 mill/uL (4.20-5.40); White Blood Cell (WBC) Count 17.9 thou/uL (4.8-10.8)
[2019-11-27] MEDS: HumaLOG 300 UNITS/3 ML VIAL SC PRN (06:19)
--- NOTE | 2019-11-27 08:11 | RAD ---
XR Chest 1 View Portable History: Ventilated patient Comparison: Radiograph prior day Findings: Endotracheal tube tip just within the right mainstem bronchus approximately 1 cm. Multifoca l airspace opacities are similar. No pneumothorax. No significant effusion. Impression: 1. Right mainstem bronchus intubation approximately 1 cm. Recommend retracting. 2. Multifocal airspace opacities are similar. Nurse PARTH was notified of findings via telephone at 8:09 AM.
[2019-11-27] MEDS: Insulin Glargine 24 UNITS in Pre-Filled Syringe 1 EACH SC SCH (08:25)
[2019-11-27] MEDS: Enoxaparin Sodium 60 MG/0.6 ML SYRINGE SC SCH ×2 (08:26→21:10)
[2019-11-27] MEDS: Zinc Sulfate 220 MG CAP PO SCH (08:27)
[2019-11-27] MEDS: Ascorbic Acid 500 mg Chewable Tablet PO SCH (08:27)
[2019-11-27] MEDS: Aspirin 325 MG TAB PO SCH (08:27)
[2019-11-27] MEDS: Famotidine/PF 20 mg/2ml Vial SLOW IVP SCH ×2 (08:27→21:10)
[2019-11-27 08:50] LABS: Actual Bicarbonate (HCO3a) 31.1 mEq/L (22-28); Base Excess (BEa) 7.4 mEq/L (-2.0 to +3.0); CO2 Tension 40.3 mmHg (35.0-45.0); Calcium, Ionized (arterial) 1.15 mmol/L (1.12-1.30); Carboxyhemoglobin (COHb) 0.5 gm% (0.0-3.0); Potassium - ABG Lab 3.81 mmol/L (3.70-5.30); pH, Arterial 7.51 (7.35-7.45)
[2019-11-27 08:55] LABS: ALV-art Gradient 371.575 (0-20); O2 Tension (PaO2), arterial 41.5 mmHg (> 80.0); Puncture Site RRA
[2019-11-27] MEDS: Budesonide 0.5 MG/2 ML NEB NEB SCH ×2 (08:57→19:02)
--- NOTE | 2019-11-27 12:01 | PDOC.HOSPP ---
- Subjective Encounter Date: 11/27/19 Encounter Time: 10:10 Subjective: is on vent, sedated not in distress - Objective Vital Signs & Weight: Vital Signs (12 hours) Pulse Resp BP Pulse Ox 11/27/19 10:28 94 137/80 11/27/19 08:53 127 H 11/27/19 06:00 13 11/27/19 04:00 13 11/27/19 02:14 68 13 96 11/27/19 02:12 68 95/55 L 11/27/19 02:00 13 11/27/19 00:00 13 Weight Admit Weight 120 lb 13.013 oz Weight 125 lb 14.143 oz Most Recent Monitor Data Heart Rate from ECG 117 NIBP 121/73 NIBP BP-Mean 89 Respiration from ECG 26 SpO2 94 I&O: 11/26/19 11/27/19 11/28/19 06:59 06:59 06:59 Intake Total 2052.9 2129.8 Output Total 2330 2690 Balance -277.1 -560.2 Result Diagrams: 11/27/19 04:00 11/27/19 04:00 Additional Labs: Accuchecks 11/26/19 11/26/19 11/26/19 21:25 16:48 10:27 POC Glucose 149 H 188 H 184 H Hospitalist ROS - Medication Medications: Active Medications Generic Name Dose Route Start Last Admin Trade Name Freq PRN Reason Stop Dose Admin Acetaminophen 650 mg 11/13/19 22:50 11/21/19 05:51 Tylenol PO 650 mg Q4H PRN Administration Headache/Fever/Mild Pain (1-3) Albuterol/Ipratropium 3 ml 11/14/19 14:30 11/27/19 10:28 Duoneb NEB 3 ml [id number] MARK Administration Ascorbic Acid 1,000 mg 11/15/19 09:00 11/27/19 08:27 Vitamin C PO 1,000 mg DAILY MARK Administration Aspirin 325 mg 11/19/19 09:00 11/27/19 08:27 Aspirin PO 325 mg DAILY MARK Administration Budesonide 0.5 mg 11/14/19 18:30 11/27/19 08:57 Pulmicort Neb Solution NEB 0.5 mg BID-RT MARK Administration Enoxaparin Sodium 50 mg 11/21/19 21:00 11/27/19 08:26 Lovenox SC 50 mg 0900,2100 MARK Administration Famotidine 20 mg 11/14/19 09:00 11/27/19 08:27 Pepcid SLOW IVP 20 mg BID MARK Administration Norepinephrine Bitartrate 250 mls @ 0 mls/hr 11/14/19 18:43 11/15/19 05:35 Levophed IVPB 250 mls INF MARK Administration Protocol Titrate Insulin Glargine 24 units/ 0.24 mls @ 0 mls/hr 11/20/19 15:49 11/27/19 08:25 Miscellaneous Medication SC 0.24 mls QAM MARK Administration As Directed Sodium Chloride 1,000 mls @ 50 mls/hr 11/21/19 04:15 11/27/19 00:34 Normal Saline 0.9% IV 1,000 mls .Q20H MARK Administration Fentanyl Citrate 2,000 mcg/ 100 mls @ 0 mls/hr 11/26/19 18:25 11/27/19 00:11 Sodium Chloride IV 12/26/19 18:25 100 mls INF MARK Administration Protocol Per Protocol Insulin Human Lispro 0 units 11/14/19 01:26 11/27/19 06:19 Humalog SC 4 units .MODERATE SLIDING SC PRN Administration Moderate Correctional Scale Methylprednisolone Sodium Succinate 80 mg 11/21/19 06:00 11/27/19 05:07 Solu-Medrol IVP 80 mg 0600,1800 MARK Administration Ondansetron HCl 4 mg 11/13/19 22:50 11/14/19 03:07 Zofran IVP 4 mg Q6H PRN Administration Nausea/Vomiting use 1st Propofol 1,000 mg 11/26/19 18:25 11/27/19 03:51 Diprivan IV 12/26/19 18:25 1,000 mg INF PRN Administration TO ACHIEVE GOAL RASS Protocol Sodium Chloride 10 ml 11/14/19 09:00 11/27/19 08:27 Flush - Normal Saline IVF 10 ml Q12HR MARK Administration Sterile Water 1 ml 11/18/19 11:56 11/24/19 18:11 Bacteriostatic Water FS 1 ml PRN PRN Administration RECONSTITUTION Vecuronium [place] 10 mg 11/21/19 15:48 11/22/19 09:59 Norcuron IV 10 mg Q1H PRN Administration SEDATION/MOVEMENT Zinc Sulfate 220 mg 11/15/19 09:00 11/27/19 08:27 Zinc Sulfate PO 220 mg DAILY MARK Administration - Exam General Appearance: ill appearing Neck: symmetric, no JVD Heart: RRR Respiratory: normal chest expansion, tachypneic Gastrointestinal: non-distended Neurological: no focal deficits Hosp A/P (1) Pneumonia due to COVID-19 virus Code(s): U07.1 - COVID-19; J12.89 - OTHER VIRAL PNEUMONIA Status: Acute (2) Acute respiratory failure with hypoxia Code(s): J96.01 - ACUTE RESPIRATORY FAILURE WITH HYPOXIA Status: Acute (3) Diabetes mellitus Code(s): E11.9 - TYPE 2 DIABETES MELLITUS WITHOUT COMPLICATIONS Status: Chronic Qualifiers: Diabetes mellitus type: type 2 Diabetes mellitus termite helper insulin use: without termite helper use (4) Sepsis Code(s): A41.9 - SEPSIS, UNSPECIFIED ORGANISM Status: Acute Qualifiers: Sepsis type: sepsis due to unspecified organism Sepsis acute organ dysfunction status: with acute organ dysfunction Severe sepsis acute organ dysfunction type: acute respiratory failure Acute respiratory failure type: with hypoxia Severe sepsis shock status: without septic shock Qualified Code (s): A41.9 - Sepsis, unspecified organism; R65.20 - Severe sepsis without septic shock; J96.01 - Acute respiratory failure with hypoxia - Plan weaning per pulm advice recieved convalescent plasma is on steroids, full dose lovenox, low dose levophed prognosis guarded, has had progressive worsening is not weanable per pulm d/w daughter and son at bedside on 11/26/19, they are aware of poor prognosis code status was d/w her, she will talk to her other brother who is outside the country and step dad and let us know
[2019-11-27] MEDS: Lorazepam 2 MG/ML VIAL SLOW IVP PRN (14:04)
--- NOTE | 2019-11-27 15:46 | PRG ---
DATE OF SERVICE: 11/27/2019 SUBJECTIVE: Ms. Frias remains mechanically ventilated. OBJECTIVE: VITAL SIGNS: Heart rates in the 90s, blood pressure 133/80. She is afebrile. Oximetry is in the mid 90s. LUNGS: Unchanged. HEART: Unchanged. ABDOMEN: Unchanged. LABORATORY DATA: Electrolytes are normal. Creatinine is 0.5. There has not been CBC in several days. We will order this for tomorrow. PH of 7.51, CO2 of 40, pO2 of 41. IMPRESSION: Respiratory failure with COVID pneumonia, status post prone ventilation last week, still on bilevel ventilation. We will continue supportive care. She was admitted on November 12, so she is now two weeks into this. She will likely need a tracheostomy or feeding tube at some point. Critical care time 30 min. Job ID: [id number] MTDD
[2019-11-28] MEDS: Lorazepam 2 MG/ML VIAL SLOW IVP PRN ×4 (00:42→21:07)
[2019-11-28] MEDS: Acetaminophen 325 MG TAB PO PRN (00:56)
[2019-11-28] MEDS: Propofol 1,000 MG/100 ML VIAL IV PRN (00:56)
[2019-11-28 04:14] LABS: Band 3 % (5-11); Eosinophils 1 % (0-10); Hemoglobin 11.1 g/dL (12.0-16.0); Lymphocytes 9 % (21-51); MDiff Complete? YES; Mean Corpuscular HGB CONC 32.6 g/dL (32.0-36.0); Mean Corpuscular Hemoglobin 29.4 pg (27.0-31.0); Mean Corpuscular Volume 90.2 fL (78.0-98.0); Mean Platelet Volume 9.5 fL (7.4-10.4); Metamyelocyte 1 % (0-0); Neutrophil 86 % (42-75); Platelet Count 249 thou/uL (130-400); Platelet Morphology Comment Appears Adequate; RBC Distribution Width 13.5 % (11.5-14.5); Red Blood Cell (RBC) Count 3.79 mill/uL (4.20-5.40); White Blood Cell (WBC) Count 16.5 thou/uL (4.8-10.8)
[2019-11-28 04:26] LABS: Anion Gap 12 mmol/L (10-20); BUN (Urea Nitrogen) 14 mg/dL (9.8-20.1); Calc. Creatinine Clearance 105 mL/min (70-130); Calcium 8.7 mg/dL (7.8-10.44); Carbon Dioxide 30 mmol/L (23-31); Chloride 99 mmol/L (98-107); Estimated GFR-MDRD Greater than 90; Glucose 190 mg/dL (80-115); Potassium 4.2 mmol/L (3.5-5.1); Sodium 137 mmol/L (136-145)
[2019-11-28] MEDS: HumaLOG 300 UNITS/3 ML VIAL SC PRN ×2 (05:05→10:37)
[2019-11-28] MEDS: methylPREDNISolone Sod Succ/PF 125 MG/2 ML VIAL IVP SCH ×2 (05:05→19:33)
[2019-11-28] MEDS: Budesonide 0.5 MG/2 ML NEB NEB SCH ×2 (06:45→18:44)
[2019-11-28 07:42] LABS: Actual Bicarbonate (HCO3a) 31.3 mEq/L (22-28); Base Excess (BEa) 6.7 mEq/L (-2.0 to +3.0); Calcium, Ionized (arterial) 1.16 mmol/L (1.12-1.30); Carboxyhemoglobin (COHb) 0.3 gm% (0.0-3.0); Hemoglobin (Hb) 11.5 g/dL (12.0-16.0); Potassium - ABG Lab 4.24 mmol/L (3.70-5.30); pH, Arterial 7.46 (7.35-7.45)
[2019-11-28] MEDS: Sodium Chloride 0.9% 1,000 ML IV SCH (07:51)
[2019-11-28 08:13] LABS: O2 Tension (PaO2), arterial 47.2 mmHg (> 80.0); Puncture Site L.R.
[2019-11-28] MEDS: Ascorbic Acid 500 mg Chewable Tablet PO SCH (09:03)
[2019-11-28] MEDS: Zinc Sulfate 220 MG CAP PO SCH (09:03)
[2019-11-28] MEDS: Aspirin 325 MG TAB PO SCH (09:03)
[2019-11-28] MEDS: Famotidine/PF 20 mg/2ml Vial SLOW IVP SCH ×2 (09:04→19:34)
[2019-11-28] MEDS: Insulin Glargine 24 UNITS in Pre-Filled Syringe 1 EACH SC SCH (09:04)
[2019-11-28] MEDS: Enoxaparin Sodium 60 MG/0.6 ML SYRINGE SC SCH ×2 (09:04→19:35)
--- NOTE | 2019-11-28 09:59 | RAD ---
FRONTAL RADIOGRAPH OF CHEST: Date: 11/28/2019 COMPARISON: 11/27/2019. HISTORY: Intubated patient. FINDINGS: Endotracheal tube and nasogastric tube in proper position. There is extensive ground-glass opacity th roughout the right lung, within the left perihilar region, and within the left lung base, with a basi lar predominance. IMPRESSION: Extensive bilateral air space disease, not significantly changed. Endotracheal tube and nasogastric t ube in proper position. POS: [facility]
--- NOTE | 2019-11-28 13:06 | PDOC.HOSPP ---
- Subjective Encounter Date: 11/28/19 Encounter Time: 11:00 Subjective: on vent, mild sedation - Objective Vital Signs & Weight: Vital Signs (12 hours) Temp Pulse Resp BP Pulse Ox 11/28/19 10:15 95 31 H 94 L 11/28/19 10:13 97 138/79 11/28/19 10:00 33 H 11/28/19 08:00 31 H 93 L 11/28/19 07:00 97.8 F 11/28/19 06:45 88 28 H 142/100 H 90 L 11/28/19 06:00 30 H 11/28/19 04:00 23 H 11/28/19 03:20 78 11/28/19 03:19 98 11/28/19 02:00 16 Weight Admit Weight 120 lb 13.013 oz Weight 125 lb 7.088 oz Most Recent Monitor Data Heart Rate from ECG 104 NIBP 135/73 NIBP BP-Mean 93 Respiration from ECG 39 SpO2 94 I&O: 11/27/19 11/28/19 11/29/19 06:59 06:59 06:59 Intake Total 2129.8 2471 60 Output Total 2690 3045 1000 Balance -560.2 -574 -940 Result Diagrams: 11/28/19 03:50 11/28/19 03:50 Additional Labs: Accuchecks 11/28/19 11/27/19 11/27/19 10:21 23:12 15:44 POC Glucose 228 H 148 H 163 H 11/27/19 09:19 POC Glucose 137 H Hospitalist ROS - Medication Medications: Active Medications Generic Name Dose Route Start Last Admin Trade Name Scarq PRN Reason Stop Dose Admin Acetaminophen 650 mg 11/13/19 22:50 11/28/19 00:56 Tylenol PO 650 mg Q4H PRN Administration Headache/Fever/Mild Pain (1-3) Albuterol/Ipratropium 3 ml 11/14/19 14:30 11/28/19 10:15 Duoneb NEB 3 ml [id number] MARK Administration Ascorbic Acid 1,000 mg 11/15/19 09:00 11/28/19 09:03 Vitamin C PO 1,000 mg DAILY MARK Administration Aspirin 325 mg 11/19/19 09:00 11/28/19 09:03 Aspirin PO 325 mg DAILY MARK Administration Budesonide 0.5 mg 11/14/19 18:30 11/28/19 06:45 Pulmicort Neb Solution NEB 0.5 mg BID-RT MARK Administration Enoxaparin Sodium 50 mg 11/21/19 21:00 11/28/19 09:04 Lovenox SC 50 mg 0900,2100 MARK Administration Famotidine 20 mg 11/14/19 09:00 11/28/19 09:04 Pepcid SLOW IVP 20 mg BID MARK Administration Norepinephrine Bitartrate 250 mls @ 0 mls/hr 11/14/19 18:43 11/15/19 05:35 Levophed IVPB 250 mls INF MARK Administration Protocol Titrate Insulin Glargine 24 units/ 0.24 mls @ 0 mls/hr 11/20/19 15:49 11/28/19 09:04 Miscellaneous Medication SC 0.24 mls QAM MARK Administration As Directed Sodium Chloride 1,000 mls @ 50 mls/hr 11/21/19 04:15 11/28/19 07:51 Normal Saline 0.9% IV 1,000 mls .Q20H MARK Administration Fentanyl Citrate 2,000 mcg/ 100 mls @ 0 mls/hr 11/26/19 18:25 11/27/19 15:30 Sodium Chloride IV 12/26/19 18:25 100 mls INF MARK Administration Protocol Per Protocol Insulin Human Lispro 0 units 11/14/19 01:26 11/28/19 10:37 Humalog SC 4 units .MODERATE SLIDING SC PRN Administration Moderate Correctional Scale Lorazepam 2 mg 11/26/19 18:25 11/28/19 00:42 Ativan SLOW IVP 12/26/19 18:25 2 mg Q1H PRN Administration Breakthrough agitation Methylprednisolone Sodium Succinate 80 mg 11/21/19 06:00 11/28/19 05:05 Solu-Medrol IVP 80 mg 0600,1800 MARK Administration Ondansetron HCl 4 mg 11/13/19 22:50 11/14/19 03:07 Zofran IVP 4 mg Q6H PRN Administration Nausea/Vomiting use 1st Propofol 1,000 mg 11/26/19 18:25 11/28/19 00:56 Diprivan IV 12/26/19 18:25 1,000 mg INF PRN Administration TO ACHIEVE GOAL RASS Protocol Sodium Chloride 10 ml 11/14/19 09:00 11/28/19 09:05 Flush - Normal Saline IVF 10 ml Q12HR MARK Administration Sterile Water 1 ml 11/18/19 11:56 11/24/19 18:11 Bacteriostatic Water FS 1 ml PRN PRN Administration RECONSTITUTION Vecuronium [place] 10 mg 11/21/19 15:48 11/22/19 09:59 Norcuron IV 10 mg Q1H PRN Administration SEDATION/MOVEMENT Zinc Sulfate 220 mg 11/15/19 09:00 11/28/19 09:03 Zinc Sulfate PO 220 mg DAILY MARK Administration - Exam General Appearance: ill appearing ENT: dry oral mucosa Neck: no JVD Heart: RRR Respiratory: normal chest expansion, no tachypnea Gastrointestinal: non-distended Extremities: no cyanosis, 1+ LE edema Neurological: cranial nerve grossly intact Hosp A/P (1) Pneumonia due to COVID-19 virus Code(s): U07.1 - COVID-19; J12.89 - OTHER VIRAL PNEUMONIA Status: Acute (2) Acute respiratory failure with hypoxia Code(s): J96.01 - ACUTE RESPIRATORY FAILURE WITH HYPOXIA Status: Acute (3) Diabetes mellitus Code(s): E11.9 - TYPE 2 DIABETES MELLITUS WITHOUT COMPLICATIONS Status: Chronic Qualifiers: Diabetes mellitus type: type 2 Diabetes mellitus chcf insulin use: without chcf use (4) Sepsis Code(s): A41.9 - SEPSIS, UNSPECIFIED ORGANISM Status: Acute Qualifiers: Sepsis type: sepsis due to unspecified organism Sepsis acute organ dysfunction status: with acute organ dysfunction Severe sepsis acute organ dysfunction type: acute respiratory failure Acute respiratory failure type: with hypoxia Severe sepsis shock status: without septic shock Qualified Code (s): A41.9 - Sepsis, unspecified organism; R65.20 - Severe sepsis without septic shock; J96.01 - Acute respiratory failure with hypoxia - Plan weaning per pulm advice recieved convalescent plasma is on steroids, full dose lovenox, low dose levophed prognosis guarded, has had progressive worsening is not weanable per pulm d/w daughter and son at bedside on 11/26/19, they are aware of poor prognosis code status was d/w her, she will talk to her other brother who is outside the country and step dad and let us know tracheostomy and peg are being planned
[2019-11-28] MEDS: fentaNYL Citrate/PF 2,000 MCG in Sodium Chloride 0.9% 60 ML IV SCH (14:26)
--- NOTE | 2019-11-28 19:46 | PRG ---
DATE OF SERVICE: 11/28/2019 SUBJECTIVE: Ms. Frias remains ventilated. I talked to her son and daughter in [facility] today and updated them on her condition. She is not at a point where I would withdraw care. She is still quite ill. OBJECTIVE: VITAL SIGNS: Blood pressure 135/71, heart rates in the 90s, respiratory rates in the high 20s to low 30s. LUNGS: Remarkable for coarse equal breath sounds. HEART: Regular rhythm. ABDOMEN: Soft. EXTREMITIES: Without edema. LABORATORY DATA: White count 16.5, hemoglobin 11.1, platelets 249. Sodium 137, potassium 4.2, chloride 99, bicarb 30, BUN 14, and creatinine 0.5. Blood gas; pH 7.46, CO2 is 45, PO2 is 47. Low PEEP was turned from 10 to 12 today. IMPRESSION: COVID pneumonia. PLAN: Continue supportive care. Critical care time, 30 minutes. Job ID: [id number]
[2019-11-28] MEDS: Haloperidol Lactate 5 MG/ML VIAL IM SCH (20:05)
[2019-11-28] MEDS: Vecuronium 10 MG VIAL IV PRN ×2 (20:39→22:26)
[2019-11-28 22:09] LABS: Actual Bicarbonate (HCO3a) 28.1 mEq/L (22-28); Base Excess (BEa) 2.3 mEq/L (-2.0 to +3.0); CO2 Tension 48.9 mmHg (35.0-45.0); Calcium, Ionized (arterial) 1.13 mmol/L (1.12-1.30); Potassium - ABG Lab 3.61 mmol/L (3.70-5.30); pH, Arterial 7.38 (7.35-7.45)
[2019-11-28 22:11] LABS: ALV-art Gradient 388.975 (0-20); Puncture Site R BRACHIAL
[2019-11-28] MEDS: Bacteriostatic Water 30 ML VIAL FS PRN (22:26)
[2019-11-29] MEDS: Vecuronium 10 MG VIAL IV PRN ×8 (00:03→22:55)
[2019-11-29] MEDS: Bacteriostatic Water 30 ML VIAL FS PRN ×3 (00:03→22:56)
[2019-11-29] MEDS: Propofol 1,000 MG/100 ML VIAL IV PRN ×3 (00:10→13:54)
[2019-11-29] MEDS: HumaLOG 300 UNITS/3 ML VIAL SC PRN (04:24)
[2019-11-29 04:46] LABS: Band 7 % (5-11); Hemoglobin 10.1 g/dL (12.0-16.0); Hypochromia SLIGHT = 6-15 cells (100X) (0-5/hpf); Lymphocytes 9 % (21-51); MDiff Complete? YES; Mean Corpuscular HGB CONC 32.5 g/dL (32.0-36.0); Mean Corpuscular Hemoglobin 29.5 pg (27.0-31.0); Mean Corpuscular Volume 90.8 fL (78.0-98.0); Mean Platelet Volume 9.2 fL (7.4-10.4); Neutrophil 84 % (42-75); Platelet Count 235 thou/uL (130-400); Platelet Morphology Comment Appears Adequate; RBC Distribution Width 13.3 % (11.5-14.5); Red Blood Cell (RBC) Count 3.42 mill/uL (4.20-5.40); White Blood Cell (WBC) Count 17.9 thou/uL (4.8-10.8)
[2019-11-29 04:49] LABS: Anion Gap 11 mmol/L (10-20); BUN (Urea Nitrogen) 15 mg/dL (9.8-20.1); Calc. Creatinine Clearance 107 mL/min (70-130); Calcium 8.3 mg/dL (7.8-10.44); Carbon Dioxide 29 mmol/L (23-31); Chloride 98 mmol/L (98-107); Estimated GFR-MDRD Greater than 90; Glucose 190 mg/dL (80-115); Sodium 134 mmol/L (136-145)
[2019-11-29] MEDS: methylPREDNISolone Sod Succ/PF 125 MG/2 ML VIAL IVP SCH ×2 (06:11→17:23)
[2019-11-29] MEDS: Sodium Chloride 0.9% 1,000 ML IV SCH ×2 (06:12→11:46)
[2019-11-29] MEDS: Budesonide 0.5 MG/2 ML NEB NEB SCH ×2 (06:55→18:47)
[2019-11-29] MEDS ORDERED: Propofol 1,000 MG/100 ML VIAL IV ONE (07:18)
[2019-11-29 07:33] LABS: Actual Bicarbonate (HCO3a) 29.1 mEq/L (22-28); Base Excess (BEa) 4.4 mEq/L (-2.0 to +3.0); Calcium, Ionized (arterial) 1.18 mmol/L (1.12-1.30); Carboxyhemoglobin (COHb) 0.2 gm% (0.0-3.0); Hemoglobin (Hb) 12.7 g/dL (12.0-16.0); O2 Tension (PaO2), arterial 65.9 mmHg (> 80.0); Potassium - ABG Lab 4.14 mmol/L (3.70-5.30); pH, Arterial 7.44 (7.35-7.45)
--- NOTE | 2019-11-29 07:52 | RAD ---
Exam: Chest one view HISTORY:Ventilated patient. Respiratory distress. Comparison: 11/28/2019 FINDINGS: Cardiac silhouette:Normal cardiac silhouette Lines and tubes: Redemonstration of endotracheal and nasogastric tube Aorta: Unremarkable Pulmonary vessels: Normal Costophrenic angles: Clear LUNGS: No masses or consolidation. Pneumothorax: No pneumothorax. However, there is extensive subcutaneous emphysema. There also appears to be mediastinal and retroperitoneal air. Osseous abnormalities: None IMPRESSION: 1. Interval development of mediastinal, retroperitoneal air and subcutaneous emphysema 2. Results of study discussed with Marcus, patient's nurse 11/29/2019 at 7:50 AM Code CR
[2019-11-29 08:03] LABS: Puncture Site L.R.
[2019-11-29] MEDS: Ascorbic Acid 500 mg Chewable Tablet PO SCH (08:13)
[2019-11-29] MEDS: Haloperidol Lactate 5 MG/ML VIAL IM SCH ×2 (08:13→21:20)
[2019-11-29] MEDS: Enoxaparin Sodium 60 MG/0.6 ML SYRINGE SC SCH ×2 (08:13→21:20)
[2019-11-29] MEDS: Aspirin 325 MG TAB PO SCH (08:13)
[2019-11-29] MEDS: Famotidine/PF 20 mg/2ml Vial SLOW IVP SCH ×2 (08:14→21:21)
[2019-11-29] MEDS: Zinc Sulfate 220 MG CAP PO SCH (08:14)
[2019-11-29] MEDS: Insulin Glargine 24 UNITS in Pre-Filled Syringe 1 EACH SC SCH (08:15)
--- NOTE | 2019-11-29 09:18 | PRG ---
DATE OF SERVICE: 11/29/2019 SUBJECTIVE: Ms. Frias' temperature max is 100.6. She had to be proned again last night. She has had a significant improvement in her gas exchange of proning. OBJECTIVE: VITAL SIGNS: Heart rate is 90, blood pressure 133/70, respiratory rate is 28. LUNGS: Unchanged. HEART: Unchanged. ABDOMEN: Unchanged. LABORATORY DATA: White count , platelets 235. Sodium 134, potassium 4, chloride 98, bicarb 29, BUN 15, creatinine 0.4. PH 7.44, CO2 44, pO2 65. IMPRESSION: COVID pneumonia requiring proning again. I am less optimistic that she can survive this. We will continue with full supportive care. Critical care time 30 min. Job ID: [id number] MTDD
[2019-11-29] MEDS: fentaNYL Citrate/PF 2,000 MCG in Sodium Chloride 0.9% 60 ML IV SCH (10:37)
--- NOTE | 2019-11-29 14:58 | PDOC.HOSPP ---
- Subjective Encounter Date: 11/29/19 Encounter Time: 12:20 Subjective: is on vent in prone position, sedated - Objective Vital Signs & Weight: Vital Signs (12 hours) Temp Pulse Resp BP Pulse Ox 11/29/19 14:00 28 H 11/29/19 12:00 28 H 11/29/19 10:57 92 28 H 145/74 H 99 11/29/19 10:00 28 H 11/29/19 08:00 28 H 11/29/19 07:34 99 11/29/19 06:55 87 28 H 75/43 L 99 11/29/19 06:00 31 H 11/29/19 04:00 97.7 F 31 H 11/29/19 03:35 86 96 Weight Admit Weight 120 lb 13.013 oz Weight 125 lb 10.616 oz Most Recent Monitor Data Heart Rate from ECG 81 NIBP 97/57 NIBP BP-Mean 70 Respiration from ECG 28 SpO2 97 I&O: 11/28/19 11/29/19 11/30/19 06:59 06:59 06:59 Intake Total 2471 2073.4 60 Output Total 3045 2970 695 [facility]574 -896.6 -635 Result Diagrams: 11/29/19 04:00 11/29/19 04:00 Additional Labs: Accuchecks 11/28/19 11/28/19 22:11 16:26 POC Glucose 148 H 130 H Hospitalist ROS - Medication Medications: Active Medications Generic Name Dose Route Start Last Admin Trade Name Freq PRN Reason Stop Dose Admin Acetaminophen 650 mg 11/13/19 22:50 11/28/19 00:56 Tylenol PO 650 mg Q4H PRN Administration Headache/Fever/Mild Pain (1-3) Albuterol/Ipratropium 3 ml 11/14/19 14:30 11/29/19 10:57 Duoneb NEB 3 ml [id number] MARK Administration Ascorbic Acid 1,000 mg 11/15/19 09:00 11/29/19 08:13 Vitamin C PO 1,000 mg DAILY MARK Administration Aspirin 325 mg 11/19/19 09:00 11/29/19 08:13 Aspirin PO 325 mg DAILY MARK Administration Budesonide 0.5 mg 11/14/19 18:30 11/29/19 06:55 Pulmicort Neb Solution NEB 0.5 mg BID-RT MARK Administration Enoxaparin Sodium 50 mg 11/21/19 21:00 11/29/19 08:13 Lovenox SC 50 mg 0900,2100 MARK Administration Famotidine 20 mg 11/14/19 09:00 11/29/19 08:14 Pepcid SLOW IVP 20 mg BID MARK Administration Haloperidol Lactate 10 mg 11/28/19 21:00 11/29/19 08:13 Haldol IM 10 mg Q12HR MARK Administration Norepinephrine Bitartrate 250 mls @ 0 mls/hr 11/14/19 18:43 11/15/19 05:35 Levophed IVPB 250 mls INF MARK Administration Protocol Titrate Insulin Glargine 24 units/ 0.24 mls @ 0 mls/hr 11/20/19 15:49 11/29/19 08:15 Miscellaneous Medication SC 0.24 mls QAM MARK Administration As Directed Sodium Chloride 1,000 mls @ 50 mls/hr 11/21/19 04:15 11/29/19 11:46 Normal Saline 0.9% IV Not Given .Q20H MARK Fentanyl Citrate 2,000 mcg/ 100 mls @ 0 mls/hr 11/26/19 18:25 11/29/19 10:37 Sodium Chloride IV 12/26/19 18:25 100 mls INF MARK Administration Protocol Per Protocol Insulin Human Lispro 0 units 11/14/19 01:26 11/29/19 04:24 Humalog SC 2 units .MODERATE SLIDING SC PRN Administration Moderate Correctional Scale Lorazepam 2 mg 11/26/19 18:25 11/28/19 21:07 Ativan SLOW IVP 12/26/19 18:25 2 mg Q1H PRN Administration Breakthrough agitation Methylprednisolone Sodium Succinate 80 mg 11/21/19 06:00 11/29/19 06:11 Solu-Medrol IVP 80 mg 0600,1800 MARK Administration Ondansetron HCl 4 mg 11/13/19 22:50 11/14/19 03:07 Zofran IVP 4 mg Q6H PRN Administration Nausea/Vomiting use 1st Propofol 1,000 mg 11/26/19 18:25 11/29/19 13:54 Diprivan IV 12/26/19 18:25 1,000 mg INF PRN Administration TO ACHIEVE GOAL RASS Protocol Sodium Chloride 10 ml 11/14/19 09:00 11/29/19 08:15 Flush - Normal Saline IVF 10 ml Q12HR MARK Administration Sterile Water 1 ml 11/18/19 11:56 11/29/19 02:04 Bacteriostatic Water FS 1 ml PRN PRN Administration RECONSTITUTION Vecuronium [place] 10 mg 11/21/19 15:48 11/29/19 13:54 Norcuron IV 10 mg Q1H PRN Administration SEDATION/MOVEMENT Zinc Sulfate 220 mg 11/15/19 09:00 11/29/19 08:14 Zinc Sulfate PO 220 mg DAILY MARK Administration - Exam General Appearance: ill appearing Eye: anicteric sclera ENT: dry oral mucosa Neck: supple Heart: RRR Respiratory: tachypneic Gastrointestinal: non-distended Extremities: 1+ LE edema Neurological: cranial nerve grossly intact Hosp A/P (1) Pneumonia due to COVID-19 virus Code(s): U07.1 - COVID-19; J12.89 - OTHER VIRAL PNEUMONIA Status: Acute (2) Acute respiratory failure with hypoxia Code(s): J96.01 - ACUTE RESPIRATORY FAILURE WITH HYPOXIA Status: Acute (3) Diabetes mellitus Code(s): E11.9 - TYPE 2 DIABETES MELLITUS WITHOUT COMPLICATIONS Status: Chronic Qualifiers: Diabetes mellitus type: type 2 Diabetes mellitus long-term insulin use: without long-term use (4) Sepsis Code(s): A41.9 - SEPSIS, UNSPECIFIED ORGANISM Status: Acute Qualifiers: Sepsis type: sepsis due to unspecified organism Sepsis acute organ dysfunction status: with acute organ dysfunction Severe sepsis acute organ dysfunction type: acute respiratory failure Acute respiratory failure type: with hypoxia Severe sepsis shock status: without septic shock Qualified Code (s): A41.9 - Sepsis, unspecified organism; R65.20 - Severe sepsis without septic shock; J96.01 - Acute respiratory failure with hypoxia - Plan weaning per pulm advice recieved convalescent plasma this admission at the beginning is on steroids, full dose lovenox, low dose levophed prognosis guarded, has had progressive worsening is not weanable per pulm d/w daughter and son at bedside on 11/26/19, they are aware of poor prognosis code status was d/w them, is full code for now. tracheostomy and peg are being planned, ?tuesday
--- NOTE | 2019-11-29 16:07 | EKG ---
Test Reason : ER Blood Pressure : / mmHG Vent. Rate : 092 BPM Atrial Rate : 092 BPM P-R Int : 112 ms QRS Dur : 074 ms QT Int : 334 ms P-R-T Axes : 009 -31 015 degrees QTc Int : 413 ms Normal sinus rhythm Possible Left atrial enlargement Left axis deviation Abnormal ECG Confirmed by KATELIN Jauregui, JONATHON ([id number]), news video editor REKHA MONROY ([id number]) on 11/29/2019 4:06:36 PM Referred By: Confirmed By:JONATHON THOMASON M.D.
[2019-11-29] MEDS: Senokot S 8.6-50 MG TAB PO PRN (21:20)
[2019-11-30] MEDS: Vecuronium 10 MG VIAL IV PRN ×7 (01:03→23:59)
[2019-11-30] MEDS: Lorazepam 2 MG/ML VIAL SLOW IVP PRN ×3 (02:38→16:45)
[2019-11-30] MEDS: Propofol 1,000 MG/100 ML VIAL IV PRN ×2 (02:58→15:00)
[2019-11-30 03:35] LABS: Anion Gap 13 mmol/L (10-20); BUN (Urea Nitrogen) 16 mg/dL (9.8-20.1); Band 6 % (5-11); Calc. Creatinine Clearance 103 mL/min (70-130); Calcium 8.5 mg/dL (7.8-10.44); Carbon Dioxide 27 mmol/L (23-31); Chloride 100 mmol/L (98-107); Estimated GFR-MDRD Greater than 90; Glucose 222 mg/dL (80-115); Lymphocytes 4 % (21-51); MDiff Complete? YES; Mean Corpuscular HGB CONC 33.3 g/dL (32.0-36.0); Mean Corpuscular Hemoglobin 30.1 pg (27.0-31.0); Mean Corpuscular Volume 90.3 fL (78.0-98.0); Mean Platelet Volume 8.8 fL (7.4-10.4); Monocytes 1 % (0-10); Neutrophil 89 % (42-75); Platelet Count 178 thou/uL (130-400); Potassium 3.7 mmol/L (3.5-5.1); RBC Distribution Width 13.4 % (11.5-14.5); Red Blood Cell (RBC) Count 3.65 mill/uL (4.20-5.40); Sodium 136 mmol/L (136-145); White Blood Cell (WBC) Count 15.8 thou/uL (4.8-10.8)
[2019-11-30] MEDS: Sodium Chloride 0.9% 1,000 ML IV SCH ×3 (04:37→14:36)
[2019-11-30] MEDS: methylPREDNISolone Sod Succ/PF 125 MG/2 ML VIAL IVP SCH (04:48)
[2019-11-30] MEDS: HumaLOG 300 UNITS/3 ML VIAL SC PRN ×4 (05:14→21:38)
[2019-11-30] MEDS: fentaNYL Citrate/PF 2,000 MCG in Sodium Chloride 0.9% 60 ML IV SCH ×2 (05:14→22:36)
[2019-11-30] MEDS: Budesonide 0.5 MG/2 ML NEB NEB SCH ×2 (06:42→18:48)
--- NOTE | 2019-11-30 08:01 | RAD ---
EXAM: CHEST ONE VIEW HISTORY: On ventilator. Follow-up evaluation. Covid positive. COMPARISON: 11/29/2019 FINDINGS: Endotracheal tube and nasogastric tubes remain in place. Cardiac silhouette is within normal limits. Increased increased airspace opacities are seen throughout the lungs bilaterally similar to prior study. Extensive subcutaneous emphysema as well as pneumomediastinum gas is again seen. Pneumomediast inal gas extends into the retroperitoneal space, but there is now prominent gas overlying the left lateral upper quadrant which may be attributable to overlying subcutaneous gas. Pneumoperitoneum coul d not be entirely excluded. Curvilinear gas density also overlies the medial right upper quadrant which does appear to be beneath the level of the hemidiaphragm. Additional gas densities are seen in the left upper quadrant could be related to pneumonia mediastinal gas as well.. These findings could be related to gas within the abdomen which again could be related to The osseous structures are intact. IMPRESSION: 1. Extensive subcutaneous emphysema and pneumomediastinal gas with curvilinear gas density medial asp ect right upper quadrant as well as a lobulated area of gas density overlying the left upper quadrant. Gas densities in the upper abdomen could be related to overlying subcutaneous emphysema as well as mediastinal gas tracking into the upper abdomen, but free intraperitoneal gas cannot be excluded based on this exam. CT abdomen would be helpful for further evaluation. 2. Airspace opacities bilaterally may related to atypical infectious process or viral pneumonitis. 3. Above findings discussed with nurse Mary in the CCU on 11/30/2019 at 0756 hours.
[2019-11-30] MEDS: Aspirin 325 MG TAB PO SCH (08:16)
[2019-11-30] MEDS: Ascorbic Acid 500 mg Chewable Tablet PO SCH (08:16)
[2019-11-30] MEDS: Enoxaparin Sodium 60 MG/0.6 ML SYRINGE SC SCH ×2 (08:16→20:58)
[2019-11-30] MEDS: Famotidine/PF 20 mg/2ml Vial SLOW IVP SCH (08:16)
[2019-11-30] MEDS: Zinc Sulfate 220 MG CAP PO SCH (08:17)
[2019-11-30] MEDS: methylPREDNISolone Sod Succ 40 MG VIAL IVP SCH ×2 (08:17→20:59)
[2019-11-30] MEDS: Insulin Glargine 24 UNITS in Pre-Filled Syringe 1 EACH SC SCH (09:41)
[2019-11-30] MEDS: Haloperidol Lactate 5 MG/ML VIAL IM SCH ×2 (09:41→20:58)
--- NOTE | 2019-11-30 12:31 | PDOC.HOSPP ---
- Subjective Encounter Date: 11/30/19 Encounter Time: 10:00 Subjective: is on vent, sedated - Objective Vital Signs & Weight: Vital Signs (12 hours) Temp Pulse Resp BP Pulse Ox 11/30/19 11:00 79 28 H 92 L 11/30/19 10:58 79 100/58 L 11/30/19 10:00 28 H 11/30/19 08:00 98.1 F 28 H 96 11/30/19 06:42 86 28 H 91 L 11/30/19 06:41 85 28 H 91 L 11/30/19 06:31 75 107/66 11/30/19 06:00 28 H 11/30/19 05:00 97.9 F 11/30/19 04:00 28 H 11/30/19 03:50 86 68/46 L 11/30/19 03:42 88 L 11/30/19 02:00 28 H 11/30/19 01:00 96.8 F L Weight Admit Weight 120 lb 13.013 oz Weight 119 lb 0.794 oz Most Recent Monitor Data Heart Rate from ECG 79 NIBP 84/52 NIBP BP-Mean 62 Respiration from ECG 28 SpO2 92 I&O: 11/29/19 11/30/19 12/01/19 06:59 06:59 06:59 Intake Total 2073.4 2284.6 100 Output Total 2970 1695 265 Balance -896.6 589.6 -165 Result Diagrams: 11/30/19 02:45 11/30/19 02:45 Additional Labs: Accuchecks 11/30/19 11/29/19 11/29/19 09:49 23:05 22:24 POC Glucose 234 H 157 H 193 H 11/29/19 11/29/19 11/29/19 15:17 10:23 04:05 POC Glucose 148 H 132 H 200 H Hospitalist ROS - Medication Medications: Active Medications Generic Name Dose Route Start Last Admin Trade Name Freq PRN Reason Stop Dose Admin Acetaminophen 650 mg 11/13/19 22:50 11/28/19 00:56 Tylenol PO 650 mg Q4H PRN Administration Headache/Fever/Mild Pain (1-3) Albuterol/Ipratropium 3 ml 11/14/19 14:30 11/30/19 11:00 Duoneb NEB 3 ml [id number] MARK Administration Ascorbic Acid 1,000 mg 11/15/19 09:00 11/30/19 08:16 Vitamin C PO 1,000 mg DAILY MARK Administration Aspirin 325 mg 11/19/19 09:00 11/30/19 08:16 Aspirin PO 325 mg DAILY MARK Administration Budesonide 0.5 mg 11/14/19 18:30 11/30/19 06:42 Pulmicort Neb Solution NEB 0.5 mg BID-RT MARK Administration Enoxaparin Sodium 50 mg 11/21/19 21:00 11/30/19 08:16 Lovenox SC 50 mg 899,2099 MARK Administration Haloperidol Lactate 10 mg 11/28/19 21:00 11/30/19 09:41 Haldol IM 10 mg Q12HR MARK Administration Norepinephrine Bitartrate 250 mls @ 0 mls/hr 11/14/19 18:43 11/15/19 05:35 Levophed IVPB 250 mls INF MARK Administration Protocol Titrate Insulin Glargine 24 units/ 0.24 mls @ 0 mls/hr 11/20/19 15:49 11/30/19 09:41 Miscellaneous Medication SC 0.24 mls QAM MARK Administration As Directed Sodium Chloride 1,000 mls @ 50 mls/hr 11/21/19 04:15 11/30/19 08:18 Normal Saline 0.9% IV Not Given .Q20H MARK Fentanyl Citrate 2,000 mcg/ 100 mls @ 0 mls/hr 11/26/19 18:25 11/30/19 05:14 Sodium Chloride IV 12/26/19 18:25 100 mls INF MARK Administration Protocol Per Protocol Insulin Human Lispro 0 units 11/14/19 01:26 11/30/19 09:54 Humalog SC 4 units .MODERATE SLIDING SC PRN Administration Moderate Correctional Scale Lorazepam 2 mg 11/26/19 18:25 11/30/19 10:23 Ativan SLOW IVP 12/26/19 18:25 2 mg Q1H PRN Administration Breakthrough agitation Methylprednisolone Sodium Succinate 80 mg 11/30/19 09:00 11/30/19 08:17 Solu-Medrol IVP 80 mg 899,2099 MARK Administration Ondansetron HCl 4 mg 11/13/19 22:50 11/14/19 03:07 Zofran IVP 4 mg Q6H PRN Administration Nausea/Vomiting use 1st Propofol 1,000 mg 11/26/19 18:25 11/30/19 02:58 Diprivan IV 12/26/19 18:25 1,000 mg INF PRN Administration TO ACHIEVE GOAL RASS Protocol Senna/Docusate Sodium 2 tab 11/14/19 12:21 11/29/19 21:20 Senokot S PO 2 tab BIDPRN PRN Administration Constipation Sodium Chloride 10 ml 11/14/19 09:00 11/30/19 08:17 Flush - Normal Saline IVF 10 ml Q12HR MARK Administration Sterile Water 1 ml 11/18/19 11:56 11/29/19 22:56 Bacteriostatic Water FS 1 ml PRN PRN Administration RECONSTITUTION Vecuronium [place] 10 mg 11/21/19 15:48 11/30/19 08:59 Norcuron IV 10 mg Q1H PRN Administration SEDATION/MOVEMENT Zinc Sulfate 220 mg 11/15/19 09:00 11/30/19 08:17 Zinc Sulfate PO 220 mg DAILY MARK Administration - Exam General Appearance: ill appearing Respiratory: tachypneic Hosp A/P (1) Pneumonia due to COVID-19 virus Code(s): U07.1 - COVID-19; J12.89 - OTHER VIRAL PNEUMONIA Status: Acute (2) Acute respiratory failure with hypoxia Code(s): J96.01 - ACUTE RESPIRATORY FAILURE WITH HYPOXIA Status: Acute (3) Diabetes mellitus Code(s): E11.9 - TYPE 2 DIABETES MELLITUS WITHOUT COMPLICATIONS Status: Chronic Qualifiers: Diabetes mellitus type: type 2 Diabetes mellitus senior care insulin use: without bed bug exterminator use (4) Sepsis Code(s): A41.9 - SEPSIS, UNSPECIFIED ORGANISM Status: Acute Qualifiers: Sepsis type: sepsis due to unspecified organism Sepsis acute organ dysfunction status: with acute organ dysfunction Severe sepsis acute organ dysfunction type: acute respiratory failure Acute respiratory failure type: with hypoxia Severe sepsis shock status: without septic shock Qualified Code (s): A41.9 - Sepsis, unspecified organism; R65.20 - Severe sepsis without septic shock; J96.01 - Acute respiratory failure with hypoxia - Plan cxr shows extensive subcut emphysema with mediastinal air and free air in the abd weaning per pulm advice recieved convalescent plasma this admission at the beginning is on steroids, full dose lovenox prognosis guarded, has had progressive worsening is not weanable per pulm d/w daughter and son at bedside on 11/26/19, they are aware of poor prognosis code status was d/w them, is full code for now. tracheostomy and peg are being planned, ?tuesday
[2019-11-30] MEDS ORDERED: EPINEPHrine 4 MG in Dextrose 5% in Water 250 ML IV SCH (14:30)
--- NOTE | 2019-11-30 15:30 | PRG ---
DATE OF SERVICE: 11/30/2019 OBJECTIVE: VITAL SIGNS: Respiratory rate is in the 20s, FiO2 is down to 60 this morning. She is still on bilevel, . A low dose epinephrine drip will be started today. LUNGS: Unchanged. HEART: Unchanged. ABDOMEN: Unchanged. LABORATORY DATA: White count 15.8, hemoglobin 11.0, and platelets 178. Electrolytes are normal. No blood gas today. IMPRESSION: COVID pneumonia at a critical, but stable point. Hopefully, she does not deteriorate anymore. We will continue current supportive care measures. Prone ventilating seems to have helped. Critical care time 30 min. Job ID: [id number] MTDD
[2019-11-30] MEDS ORDERED: methylPREDNISolone Sod Succ 40 MG VIAL IVP SCH (18:00)
[2019-11-30] MEDS: Bacteriostatic Water 30 ML VIAL FS PRN ×3 (19:17→23:59)
[2019-11-30] MEDS: Famotidine 20 MG TAB PO SCH (20:58)
[2019-11-30] MEDS: Senokot S 8.6-50 MG TAB PO PRN (21:04)
[2019-12-01] MEDS: Vecuronium 10 MG VIAL IV PRN ×9 (02:59→23:39)
[2019-12-01] MEDS: Bacteriostatic Water 30 ML VIAL FS PRN ×2 (03:00→12:01)
[2019-12-01] MEDS: Propofol 1,000 MG/100 ML VIAL IV PRN ×3 (03:10→22:21)
[2019-12-01 04:06] LABS: Anion Gap 12 mmol/L (10-20); BUN (Urea Nitrogen) 20 mg/dL (9.8-20.1); Calc. Creatinine Clearance 97 mL/min (70-130); Carbon Dioxide 26 mmol/L (23-31); Chloride 103 mmol/L (98-107); Estimated GFR-MDRD Greater than 90; Glucose 271 mg/dL (80-115); Potassium 3.8 mmol/L (3.5-5.1); Sodium 137 mmol/L (136-145)
[2019-12-01 05:04] LABS: Band 11 % (5-11); Eosinophils 1 % (0-10); Hemoglobin 10.1 g/dL (12.0-16.0); Lymphocytes 7 % (21-51); MDiff Complete? YES; Mean Corpuscular HGB CONC 33.3 g/dL (32.0-36.0); Mean Corpuscular Hemoglobin 29.9 pg (27.0-31.0); Mean Corpuscular Volume 89.9 fL (78.0-98.0); Mean Platelet Volume 9.6 fL (7.4-10.4); Monocytes 2 % (0-10); Neutrophil 79 % (42-75); Platelet Count 165 thou/uL (130-400); Platelet Morphology Comment Appears Adequate; RBC Distribution Width 13.5 % (11.5-14.5); Red Blood Cell (RBC) Count 3.38 mill/uL (4.20-5.40); White Blood Cell (WBC) Count 15.1 thou/uL (4.8-10.8)
[2019-12-01] MEDS: HumaLOG 300 UNITS/3 ML VIAL SC PRN ×4 (06:26→21:34)
[2019-12-01] MEDS: Budesonide 0.5 MG/2 ML NEB NEB SCH ×2 (06:40→18:32)
[2019-12-01 07:40] LABS: Actual Bicarbonate (HCO3a) 27.3 mEq/L (22-28); Base Excess (BEa) 2.6 mEq/L (-2.0 to +3.0); CO2 Tension 42.2 mmHg (35.0-45.0); Calcium, Ionized (arterial) 1.15 mmol/L (1.12-1.30); Carboxyhemoglobin (COHb) 0.3 gm% (0.0-3.0); Hemoglobin (Hb) 10.6 g/dL (12.0-16.0); Potassium - ABG Lab 3.82 mmol/L (3.70-5.30); pH, Arterial 7.43 (7.35-7.45)
[2019-12-01 08:04] LABS: O2 Tension (PaO2), arterial 50.7 mmHg (> 80.0)
[2019-12-01 08:05] LABS: Puncture Site LB
[2019-12-01] MEDS: Aspirin 325 MG TAB PO SCH (09:28)
[2019-12-01] MEDS: Zinc Sulfate 220 MG CAP PO SCH (09:28)
[2019-12-01] MEDS: Ascorbic Acid 500 mg Chewable Tablet PO SCH (09:28)
[2019-12-01] MEDS: Haloperidol Lactate 5 MG/ML VIAL IM SCH ×2 (09:29→20:50)
[2019-12-01] MEDS: Famotidine 20 MG TAB PO SCH ×2 (09:29→20:50)
[2019-12-01] MEDS: Enoxaparin Sodium 60 MG/0.6 ML SYRINGE SC SCH ×2 (09:30→20:50)
[2019-12-01] MEDS: methylPREDNISolone Sod Succ 40 MG VIAL IVP SCH ×2 (09:30→20:51)
[2019-12-01] MEDS: Insulin Glargine 24 UNITS in Pre-Filled Syringe 1 EACH SC SCH (09:32)
[2019-12-01] MEDS: Sodium Chloride 0.9% 1,000 ML IV SCH (09:34)
--- NOTE | 2019-12-01 11:03 | RAD ---
CHEST 1 VIEW: Date: 12/01/2019 HISTORY: Respiratory insufficiency. COMPARISON: 11/30/2019. FINDINGS: Again noted is extensive bilateral subcutaneous emphysema with some gas within the mediastinum, evide nce for pneumomediastinum. Bilateral alveolar and ground-glass opacity changes are again noted. IMPRESSION: Overall stable extensive bilateral alveolar and ground-glass opacity changes with extensive subcutane ous emphysema, as well as pneumomediastinum. Continue short-term follow-up. POS: OFF
--- NOTE | 2019-12-01 13:38 | PDOC.HOSPP ---
- Subjective Encounter Date: 12/01/19 (f/u resp failure) Encounter Time: 13:36 Subjective: Pt remains on vent - requiring paralytics to improve oxygen sats and ability to tolerate vent. No o/n events noted. - Objective Vital Signs & Weight: Vital Signs (12 hours) Temp Pulse Resp BP Pulse Ox 12/01/19 12:00 28 H 12/01/19 10:28 92 28 H 97 12/01/19 10:24 91 124/75 12/01/19 10:00 28 H 12/01/19 08:00 28 H 99 12/01/19 06:40 73 105/53 L 12/01/19 06:38 70 28 H 95 12/01/19 06:00 28 H 12/01/19 04:00 98.8 F 28 H 12/01/19 02:47 92 28 H 93 L 12/01/19 02:00 28 H Weight Admit Weight 120 lb 13.013 oz Weight 121 lb 0.54 oz Most Recent Monitor Data Heart Rate from ECG 101 NIBP 141/76 NIBP BP-Mean 97 Respiration from ECG 22 SpO2 95 I&O: 11/30/19 12/01/19 12/02/19 06:59 06:59 06:59 Intake Total 2284.6 2886.0 110 Output Total 1695 1725 835 Balance 589.6 1161.0 -725 Result Diagrams: 12/01/19 03:00 12/01/19 03:00 Additional Labs: Accuchecks 12/01/19 11/30/19 11/30/19 09:52 21:24 16:32 POC Glucose 236 H 231 H 272 H EKG Reviewed by me: Yes (tele - sinus 80's, episodes of tachycardia) Hospitalist ROS - Medication Medications: Active Medications Generic Name Dose Route Start Last Admin Trade Name Freq PRN Reason Stop Dose Admin Acetaminophen 650 mg 11/13/19 22:50 11/28/19 00:56 Tylenol PO 650 mg Q4H PRN Administration Headache/Fever/Mild Pain (1-3) Albuterol/Ipratropium 3 ml 11/14/19 14:30 12/01/19 10:28 Duoneb NEB 3 ml [id number] MARK Administration Ascorbic Acid 1,000 mg 11/15/19 09:00 12/01/19 09:28 Vitamin C PO 1,000 mg DAILY MARK Administration Aspirin 325 mg 11/19/19 09:00 12/01/19 09:28 Aspirin PO 325 mg DAILY MARK Administration Budesonide 0.5 mg 11/14/19 18:30 12/01/19 06:40 Pulmicort Neb Solution NEB 0.5 mg BID-RT MARK Administration Enoxaparin Sodium 50 mg 11/21/19 21:00 12/01/19 09:30 Lovenox SC 50 mg 0900,2100 MARK Administration Famotidine 20 mg 11/30/19 21:00 12/01/19 09:29 Pepcid PO 20 mg BID MARK Administration Haloperidol Lactate 10 mg 11/28/19 21:00 12/01/19 09:29 Haldol IM 10 mg Q12HR MARK Administration Norepinephrine Bitartrate 250 mls @ 0 mls/hr 11/14/19 18:43 11/15/19 05:35 Levophed IVPB 250 mls INF MARK Administration Protocol Titrate Insulin Glargine 24 units/ 0.24 mls @ 0 mls/hr 11/20/19 15:49 12/01/19 09:32 Miscellaneous Medication SC 0.24 mls QAM MARK Administration As Directed Sodium Chloride 1,000 mls @ 50 mls/hr 11/21/19 04:15 12/01/19 09:34 Normal Saline 0.9% IV 1,000 mls .Q20H MARK Administration Fentanyl Citrate 2,000 mcg/ 100 mls @ 0 mls/hr 11/26/19 18:25 11/30/19 22:36 Sodium Chloride IV 12/26/19 18:25 100 mls INF MARK Administration Protocol Per Protocol Epinephrine 4 mg/ Dextrose/ 254 mls @ 0 mls/hr 11/30/19 14:30 11/30/19 14:36 Water IV 254 mls INF MARK Administration Protocol Titrate Insulin Human Lispro 0 units 11/14/19 01:26 12/01/19 10:30 Humalog SC 4 units .MODERATE SLIDING SC PRN Administration Moderate Correctional Scale Lorazepam 2 mg 11/26/19 18:25 11/30/19 16:45 Ativan SLOW IVP 12/26/19 18:25 2 mg Q1H PRN Administration Breakthrough agitation Methylprednisolone Sodium Succinate 80 mg 11/30/19 09:00 12/01/19 09:30 Solu-Medrol IVP 80 mg 0900,2100 MARK Administration Ondansetron HCl 4 mg 11/13/19 22:50 11/14/19 03:07 Zofran IVP 4 mg Q6H PRN Administration Nausea/Vomiting use 1st Propofol 1,000 mg 11/26/19 18:25 12/01/19 13:36 Diprivan IV 12/26/19 18:25 1,000 mg INF PRN Administration TO ACHIEVE GOAL RASS Protocol Senna/Docusate Sodium 2 tab 11/14/19 12:21 11/30/19 21:04 Senokot S PO 2 tab BIDPRN PRN Administration Constipation Sodium Chloride 10 ml 11/14/19 09:00 12/01/19 09:33 Flush - Normal Saline IVF 10 ml Q12HR MARK Administration Sterile Water 1 ml 11/18/19 11:56 12/01/19 12:01 Bacteriostatic Water FS 1 ml PRN PRN Administration RECONSTITUTION Vecuronium [place] 10 mg 11/21/19 15:48 12/01/19 12:01 Norcuron IV 10 mg Q1H PRN Administration SEDATION/MOVEMENT Zinc Sulfate 220 mg 11/15/19 09:00 12/01/19 09:28 Zinc Sulfate PO 220 mg DAILY MARK Administration - Exam General Appearance: NAD General - other findings: room not entered/pt not examined Hosp A/P (1) Acute respiratory failure with hypoxia Code(s): J96.01 - ACUTE RESPIRATORY FAILURE WITH HYPOXIA Status: Acute (2) COVID-19 virus infection Code(s): U07.1 - COVID-19 Status: Acute (3) Pneumonia due to COVID-19 virus Code(s): U07.1 - COVID-19; J12.89 - OTHER VIRAL PNEUMONIA Status: Acute (4) Diabetes mellitus Code(s): E11.9 - TYPE 2 DIABETES MELLITUS WITHOUT COMPLICATIONS Status: Chronic Qualifiers: Diabetes mellitus type: type 2 Diabetes mellitus termite treater helper insulin use: without group home use - Plan appreciate Pulmonology directing care Following along as Hospitalist Pt on vent, steroids, s/p convalescent plasma tube feeds DM - uncontrolled - on AM lantus, will add HS dose starting at 10 units On full anticoagulation - will lower aspirin to 81 mg daily gi prophy - famotidine per tube code status full overall guarded prognosis
--- NOTE | 2019-12-01 14:21 | PRG ---
DATE OF SERVICE: 12/01/2019 SUBJECTIVE: Ms. Frias is in no distress. Heart rates in the 90s, respiratory rates in the 20s. She is sedated for mechanical ventilation. Her sats are in the high 90s. We managed to turn down her FiO2 little bit today to 50%. OBJECTIVE: LUNGS: Otherwise unchanged. HEART: Otherwise unchanged. ABDOMEN: Otherwise unchanged. LABORATORY DATA: White count 15.1, hemoglobin 10.1, platelets 165. Electrolytes are normal. Creatinine 0.51. IMPRESSION AND PLAN: COVID pneumonia, respiratory failure. She is now 18 days into her illness. It is highly likely that she is no longer infectious. She may require tracheostomy. Wean from mechanical ventilation. We will make this decision early next week if she remains stable. Critical care time 35 min. Job ID: [id number] MTDD
[2019-12-01] MEDS: fentaNYL Citrate/PF 2,000 MCG in Sodium Chloride 0.9% 60 ML IV SCH (15:43)
[2019-12-01] MEDS: Senokot S 8.6-50 MG TAB PO PRN (20:51)
[2019-12-01] MEDS ORDERED: Insulin Glargine 10 UNITS in Pre-Filled Syringe 1 EACH SC SCH (21:00)
[2019-12-02] MEDS: Vecuronium 10 MG VIAL IV PRN ×7 (02:17→23:41)
[2019-12-02] MEDS: HumaLOG 300 UNITS/3 ML VIAL SC PRN ×3 (04:01→21:56)
[2019-12-02 04:23] LABS: Anion Gap 13 mmol/L (10-20); BUN (Urea Nitrogen) 13 mg/dL (9.8-20.1); Calc. Creatinine Clearance 94 mL/min (70-130); Calcium 8.6 mg/dL (7.8-10.44); Carbon Dioxide 31 mmol/L (23-31); Chloride 98 mmol/L (98-107); Estimated GFR-MDRD Greater than 90; Glucose 287 mg/dL (80-115); Potassium 3.9 mmol/L (3.5-5.1); Sodium 138 mmol/L (136-145)
[2019-12-02 04:50] LABS: Band 10 % (5-11); Eosinophils 1 % (0-10); Hemoglobin 11.5 g/dL (12.0-16.0); Lymphocytes 10 % (21-51); MDiff Complete? YES; Mean Corpuscular HGB CONC 32.9 g/dL (32.0-36.0); Mean Corpuscular Hemoglobin 29.5 pg (27.0-31.0); Mean Corpuscular Volume 89.7 fL (78.0-98.0); Mean Platelet Volume 8.8 fL (7.4-10.4); Monocytes 3 % (0-10); Neutrophil 76 % (42-75); Platelet Count 198 thou/uL (130-400); Platelet Morphology Comment Appears Adequate; Polychromasia SLIGHT = 2-3 cells (100X) (0-2/hpf); RBC Distribution Width 13.6 % (11.5-14.5); Red Blood Cell (RBC) Count 3.89 mill/uL (4.20-5.40)
[2019-12-02] MEDS ORDERED: Sterile Water 10 ML ONE (07:06)
[2019-12-02] MEDS: Budesonide 0.5 MG/2 ML NEB NEB SCH ×2 (07:37→18:43)
[2019-12-02] MEDS: Lorazepam 2 MG/ML VIAL SLOW IVP PRN ×3 (07:43→17:34)
[2019-12-02] MEDS: Haloperidol Lactate 5 MG/ML VIAL IM SCH ×2 (07:46→21:04)
[2019-12-02] MEDS: methylPREDNISolone Sod Succ 40 MG VIAL IVP SCH ×2 (07:46→21:05)
[2019-12-02] MEDS: Zinc Sulfate 220 MG CAP PO SCH (07:47)
[2019-12-02] MEDS: Enoxaparin Sodium 60 MG/0.6 ML SYRINGE SC SCH ×2 (07:47→21:03)
[2019-12-02] MEDS: Insulin Glargine 24 UNITS in Pre-Filled Syringe 1 EACH SC SCH (07:47)
[2019-12-02] MEDS: Ascorbic Acid 500 mg Chewable Tablet PO SCH (07:47)
[2019-12-02] MEDS: Famotidine 20 MG TAB PO SCH ×2 (07:47→21:04)
[2019-12-02] MEDS: Aspirin Chewable 81 MG TAB PER TUBE SCH (07:48)
[2019-12-02] MEDS: fentaNYL Citrate/PF 2,000 MCG in Sodium Chloride 0.9% 60 ML IV SCH (08:54)
--- NOTE | 2019-12-02 09:01 | RAD ---
Exam: Chest one view HISTORY:Respiratory insufficiency. Comparison: 12/01/2019, 11/30/2019 FINDINGS: Lines and tubes: Redemonstration of endotracheal and nasogastric tube. Cardiac silhouette: Normal Aorta: Unremarkable Pulmonary vessels: Normal Costophrenic angles: Clear LUNGS: Diffuse interstitial and alveolar opacities are redemonstrated. Pneumothorax: No pneumothorax. Redemonstration of extensive bilateral subcutaneous emphysema with pne umomediastinum and retroperitoneal air. Osseous abnormalities: None IMPRESSION: 1. No significant interval change. Stable extensive subcutaneous emphysema, new mediastinum and retro peritoneal air 2. Stable extensive bilateral interstitial and alveolar opacities.
[2019-12-02] MEDS: Propofol 1,000 MG/100 ML VIAL IV PRN (14:10)
--- NOTE | 2019-12-02 14:26 | PDOC.HOSPP ---
- Subjective Encounter Date: 12/02/19 (f/u resp failure) Encounter Time: 14:24 Subjective: Pt remains on the vent. Overnight required 5 doses of paralytic, today only 1 so far. No other events noted. - Objective Vital Signs & Weight: Vital Signs (12 hours) Pulse Resp Pulse Ox 12/02/19 14:21 108 H 12/02/19 14:00 28 H 12/02/19 10:06 85 12/02/19 07:40 87 12/02/19 07:35 28 H 97 12/02/19 06:00 28 H 12/02/19 04:00 28 H 12/02/19 02:32 98 28 H 97 Weight Admit Weight 120 lb 13.013 oz Weight 120 lb 5.958 oz Most Recent Monitor Data Heart Rate from ECG 119 NIBP 153/81 NIBP BP-Mean 105 Respiration from ECG 14 SpO2 94 I&O: 12/01/19 12/02/19 12/03/19 06:59 06:59 06:59 Intake Total 2886.0 2366.6 0 Output Total 1725 3545 825 Balance 1161.0 -1178.4 -825 Result Diagrams: 12/02/19 03:43 12/02/19 03:43 Additional Labs: Accuchecks 12/02/19 12/02/19 12/01/19 09:15 03:53 21:05 POC Glucose 207 H 272 H 211 H 12/01/19 15:55 POC Glucose 248 H EKG Reviewed by me: Yes (tele - sinus 100-110's, pvc's) Hospitalist ROS - Medication Medications: Active Medications Generic Name Dose Route Start Last Admin Trade Name Freq PRN Reason Stop Dose Admin Acetaminophen 650 mg 11/13/19 22:50 11/28/19 00:56 Tylenol PO 650 mg Q4H PRN Administration Headache/Fever/Mild Pain (1-3) Albuterol/Ipratropium 3 ml 11/14/19 14:30 12/02/19 14:21 Duoneb NEB 3 ml [id number] MARK Administration Ascorbic Acid 1,000 mg 11/15/19 09:00 12/02/19 07:47 Vitamin C PO 1,000 mg DAILY MARK Administration Aspirin 81 mg 12/02/19 09:00 12/02/19 07:48 Aspirin Chewable PER TUBE 81 mg DAILY MARK Administration Budesonide 0.5 mg 11/14/19 18:30 12/02/19 07:37 Pulmicort Neb Solution NEB 0.5 mg BID-RT MARK Administration Enoxaparin Sodium 50 mg 11/21/19 21:00 12/02/19 07:47 Lovenox SC 50 mg 0900,2100 MARK Administration Famotidine 20 mg 11/30/19 21:00 12/02/19 07:47 Pepcid PO 20 mg BID MARK Administration Haloperidol Lactate 10 mg 11/28/19 21:00 12/02/19 07:46 Haldol IM 10 mg Q12HR MARK Administration Norepinephrine Bitartrate 250 mls @ 0 mls/hr 11/14/19 18:43 11/15/19 05:35 Levophed IVPB 250 mls INF MARK Administration Protocol Titrate Insulin Glargine 24 units/ 0.24 mls @ 0 mls/hr 11/20/19 15:49 12/02/19 07:47 Miscellaneous Medication SC 0.24 mls QAM MARK Administration As Directed Sodium Chloride 1,000 mls @ 50 mls/hr 11/21/19 04:15 12/01/19 09:34 Normal Saline 0.9% IV 1,000 mls .Q20H MARK Administration Fentanyl Citrate 2,000 mcg/ 100 mls @ 0 mls/hr 11/26/19 18:25 12/02/19 08:54 Sodium Chloride IV 12/26/19 18:25 100 mls INF MARK Administration Protocol Per Protocol Epinephrine 4 mg/ Dextrose/ 254 mls @ 0 mls/hr 11/30/19 14:30 11/30/19 14:36 Water IV 254 mls INF MARK Administration Protocol Titrate Insulin Glargine 10 units/ 0.1 mls @ 0 mls/hr 12/01/19 21:00 12/01/19 20:51 Miscellaneous Medication SC 0.1 mls HS MARK Administration Insulin Human Lispro 0 units 11/14/19 01:26 12/02/19 04:01 Humalog SC 6 units .MODERATE SLIDING SC PRN Administration Moderate Correctional Scale Lorazepam 2 mg 11/26/19 18:25 12/02/19 13:56 Ativan SLOW IVP 12/26/19 18:25 2 mg Q1H PRN Administration Breakthrough agitation Methylprednisolone Sodium Succinate 80 mg 11/30/19 09:00 12/02/19 07:46 Solu-Medrol IVP 80 mg 0900,2100 MARK Administration Ondansetron HCl 4 mg 11/13/19 22:50 11/14/19 03:07 Zofran IVP 4 mg Q6H PRN Administration Nausea/Vomiting use 1st Propofol 1,000 mg 11/26/19 18:25 12/02/19 14:10 Diprivan IV 12/26/19 18:25 1,000 mg INF PRN Administration TO ACHIEVE GOAL RASS Protocol Senna/Docusate Sodium 2 tab 11/14/19 12:21 12/01/19 20:51 Senokot S PO 2 tab BIDPRN PRN Administration Constipation Sodium Chloride 10 ml 11/14/19 09:00 12/02/19 07:48 Flush - Normal Saline IVF 10 ml Q12HR MARK Administration Sterile Water 1 ml 11/18/19 11:56 12/01/19 12:01 Bacteriostatic Water FS 1 ml PRN PRN Administration RECONSTITUTION Vecuronium [place] 10 mg 11/21/19 15:48 12/02/19 11:11 Norcuron IV 10 mg Q1H PRN Administration SEDATION/MOVEMENT Zinc Sulfate 220 mg 11/15/19 09:00 12/02/19 07:47 Zinc Sulfate PO 220 mg DAILY MARK Administration - Exam General Appearance: NAD General - other findings: room not entered Hosp A/P (1) Acute respiratory failure with hypoxia Code(s): J96.01 - ACUTE RESPIRATORY FAILURE WITH HYPOXIA Status: Acute (2) COVID-19 virus infection Code(s): U07.1 - COVID-19 Status: Acute (3) Pneumonia due to COVID-19 virus Code(s): U07.1 - COVID-19; J12.89 - OTHER VIRAL PNEUMONIA Status: Acute (4) Diabetes mellitus Code(s): E11.9 - TYPE 2 DIABETES MELLITUS WITHOUT COMPLICATIONS Status: Chronic Qualifiers: Diabetes mellitus type: type 2 Diabetes mellitus mcfp insulin use: without terminal computer operator use - Plan appreciate Pulmonology directing care Following along as Hospitalist Pt on vent, steroids, s/p convalescent plasma tube feeds DM - uncontrolled - on AM lantus 24 unites, will increase HS dose to 20 units ( initiated last night at 10 units) and continue to titrate On full anticoagulation and low dose aspirin gi prophy - famotidine per tube code status full overall guarded prognosis
[2019-12-02] MEDS ORDERED: Insulin Glargine 20 UNITS in Pre-Filled Syringe 1 EACH SC SCH (21:00)
[2019-12-02] MEDS: Sodium Chloride 0.9% 1,000 ML IV SCH (21:03)
[2019-12-03] MEDS: Lorazepam 2 MG/ML VIAL SLOW IVP PRN (00:58)
[2019-12-03] MEDS: Propofol 1,000 MG/100 ML VIAL IV PRN ×3 (01:07→22:06)
[2019-12-03] MEDS: Vecuronium 10 MG VIAL IV PRN ×8 (02:32→20:06)
[2019-12-03] MEDS: fentaNYL Citrate/PF 2,000 MCG in Sodium Chloride 0.9% 60 ML IV SCH ×2 (03:21→21:25)
[2019-12-03 04:28] LABS: Anion Gap 12 mmol/L (10-20); BUN (Urea Nitrogen) 13 mg/dL (9.8-20.1); Calc. Creatinine Clearance 97 mL/min (70-130); Calcium 8.2 mg/dL (7.8-10.44); Carbon Dioxide 31 mmol/L (23-31); Chloride 100 mmol/L (98-107); Estimated GFR-MDRD Greater than 90; Glucose 287 mg/dL (80-115); Potassium 3.8 mmol/L (3.5-5.1); Sodium 139 mmol/L (136-145)
[2019-12-03 04:40] LABS: Band 9 % (5-11); Hemoglobin 10.3 g/dL (12.0-16.0); Lymphocytes 3 % (21-51); MDiff Complete? YES; Mean Corpuscular HGB CONC 32.6 g/dL (32.0-36.0); Mean Corpuscular Hemoglobin 29.4 pg (27.0-31.0); Mean Corpuscular Volume 90.1 fL (78.0-98.0); Monocytes 2 % (0-10); Neutrophil 86 % (42-75); Nucleated RBC 1 % (0); Platelet Count 204 thou/uL (130-400); RBC Distribution Width 13.8 % (11.5-14.5); Red Blood Cell (RBC) Count 3.52 mill/uL (4.20-5.40); White Blood Cell (WBC) Count 17.6 thou/uL (4.8-10.8)
[2019-12-03] MEDS: HumaLOG 300 UNITS/3 ML VIAL SC PRN ×4 (04:46→22:15)
--- NOTE | 2019-12-03 06:44 | PRG ---
DATE OF SERVICE: 12/02/2019 SUBJECTIVE: Ms. Frias remains mechanically ventilated. Hemodynamics remained stable. OBJECTIVE: VITAL SIGNS: Respiratory rate is in the , FiO2 is at 60%, blood pressure 153/81, respiratory rate is in the , oximetry is in the low 90s. LUNGS: Unchanged. HEART: Unchanged. ABDOMEN: Unchanged. LABORATORY DATA: Electrolytes are normal. Creatinine is normal. White count 16, hemoglobin 11.5, platelets 198. ASSESSMENT AND PLAN: She is 19 days into this hospitalization, and in theory, she no longer would be able to transmit the virus. We will continue with support. She is not a candidate for tracheostomy yet, especially with her pulmonary ventilation requirements. We will continue current care. CRITICAL CARE TIME: 30 minutes. Job ID: [id number]
[2019-12-03] MEDS: Budesonide 0.5 MG/2 ML NEB NEB SCH ×2 (06:47→18:17)
--- NOTE | 2019-12-03 08:01 | RAD ---
XR Chest 1 View Portable History: Ventilated patient Comparison: Radiograph prior day Findings: Endotracheal tube tip above the sean 2 cm, similar. Subcutaneous emphysema is similar. Enteric tube tip at the gastric antrum. Pneumomediastinum is similar. Concern for possible right basilar and left basilar pneumothorax. Biapical small pneumothoraces. Extensive airspace opacities have progressed. Impression: 1. Concern for small bilateral pneumothoraces with similar pneumomediastinum. 2. Similar location of the enteric and endotracheal tubes. 3. Slight worsened lung aeration.
--- NOTE | 2019-12-03 08:20 | PRG ---
DATE OF SERVICE: 12/03/2019 OBJECTIVE: VITAL SIGNS: Ms. Tanner heart rate is 104, respiratory rate is in the 20s, oximetry is 93%, blood pressure 107/58. LUNGS: Unchanged. HEART: Unchanged. ABDOMEN: Unchanged. LABORATORY DATA: White count 17.6, hemoglobin 10.3, platelets 204. Electrolytes are normal. Creatinine is 0.5. IMPRESSION: COVID pneumonia, respiratory failure. She has 20 days in. Toward the end of the week, we may be able to consider tracheostomy and percutaneous endoscopic gastrostomy. Critical care time 30 min. Job ID: [id number] MTDD
[2019-12-03 08:25] LABS: Actual Bicarbonate (HCO3a) 29.8 mEq/L (22-28); Analyzer IN Cardio ER; Base Excess (BEa) 5.4 mEq/L (-2.0 to +3.0); CO2 Tension 42.5 mmHg (35.0-45.0); Calcium, Ionized (arterial) 1.12 mmol/L (1.12-1.30); Potassium - ABG Lab 4.21 mmol/L (3.70-5.30); pH, Arterial 7.46 (7.35-7.45)
[2019-12-03 09:02] LABS: O2 Tension (PaO2), arterial 48.6 mmHg (> 80.0); Puncture Site LB
[2019-12-03 09:04] LABS: ALV-art Gradient 290.425 (0-20)
[2019-12-03] MEDS: Insulin Glargine 24 UNITS in Pre-Filled Syringe 1 EACH SC SCH (09:24)
[2019-12-03] MEDS: Haloperidol Lactate 5 MG/ML VIAL IM SCH ×2 (09:25→20:02)
[2019-12-03] MEDS: methylPREDNISolone Sod Succ 40 MG VIAL IVP SCH ×2 (09:25→20:03)
[2019-12-03] MEDS: Ascorbic Acid 500 mg Chewable Tablet PO SCH (09:25)
[2019-12-03] MEDS: Enoxaparin Sodium 60 MG/0.6 ML SYRINGE SC SCH ×2 (09:25→20:02)
[2019-12-03] MEDS: Aspirin Chewable 81 MG TAB PER TUBE SCH (09:25)
[2019-12-03] MEDS: Famotidine 20 MG TAB PO SCH ×2 (09:25→20:00)
[2019-12-03] MEDS: Zinc Sulfate 220 MG CAP PO SCH (09:26)
[2019-12-03] MEDS: Sodium Chloride 0.9% 1,000 ML IV SCH (15:03)
--- NOTE | 2019-12-03 18:06 | PDOC.HOSPP ---
- Subjective Encounter Date: 12/03/19 (f/u resp failure) Encounter Time: 18:04 Subjective: 64 y/o female with DM admitted for COVID pneumonia with ARDS who remains on the ventilator. Pt reviewed with her nurse. Episodes of hypotension today requiring intermittent dosing of epinephrine - which has led to hypertension and tachycardia. Last bm unknown. - Objective Vital Signs & Weight: Vital Signs (12 hours) Pulse Resp BP Pulse Ox 12/03/19 16:00 28 H 12/03/19 14:18 99 28 H 97 12/03/19 14:16 99 138/73 12/03/19 14:00 28 H 12/03/19 12:00 28 H 12/03/19 10:35 98 28 H 95 12/03/19 10:33 98 148/86 H 12/03/19 10:00 28 H 12/03/19 08:00 28 H 100 12/03/19 06:46 104 H 28 H 93 L 12/03/19 06:37 104 H 161/87 H Weight Admit Weight 120 lb 13.013 oz Weight 116 lb 13.52 oz Most Recent Monitor Data Heart Rate from ECG 118 NIBP 168/98 NIBP BP-Mean 121 Respiration from ECG 28 SpO2 99 I&O: 12/02/19 12/03/19 12/04/19 06:59 06:59 06:59 Intake Total 2366.6 2172.8 260 Output Total 3545 2255 720 Balance -1178.4 -82.2 -460 Result Diagrams: 12/03/19 03:45 12/03/19 03:45 Additional Labs: Accuchecks 12/03/19 12/03/19 12/02/19 15:11 09:39 21:41 POC Glucose 206 H 213 H 265 H EKG Reviewed by me: Yes (tele - sinus 110's) Hospitalist ROS - Medication Medications: Active Medications Generic Name Dose Route Start Last Admin Trade Name Freq PRN Reason Stop Dose Admin Acetaminophen 650 mg 11/13/19 22:50 11/28/19 00:56 Tylenol PO 650 mg Q4H PRN Administration Headache/Fever/Mild Pain (1-3) Albuterol/Ipratropium 3 ml 11/14/19 14:30 12/03/19 14:18 Duoneb NEB 3 ml [id number] MARK Administration Ascorbic Acid 1,000 mg 11/15/19 09:00 12/03/19 09:25 Vitamin C PO 1,000 mg DAILY MARK Administration Aspirin 81 mg 12/02/19 09:00 12/03/19 09:25 Aspirin Chewable PER TUBE 81 mg DAILY MARK Administration Budesonide 0.5 mg 11/14/19 18:30 12/03/19 06:47 Pulmicort Neb Solution NEB 0.5 mg BID-RT MARK Administration Enoxaparin Sodium 50 mg 11/21/19 21:00 12/03/19 09:25 Lovenox SC 50 mg 09,2099 MARK Administration Famotidine 20 mg 11/30/19 21:00 12/03/19 09:25 Pepcid PO 20 mg BID MARK Administration Haloperidol Lactate 10 mg 11/28/19 21:00 12/03/19 09:25 Haldol IM 10 mg Q12HR MARK Administration Norepinephrine Bitartrate 250 mls @ 0 mls/hr 11/14/19 18:43 11/15/19 05:35 Levophed IVPB 250 mls INF MARK Administration Protocol Titrate Insulin Glargine 24 units/ 0.24 mls @ 0 mls/hr 11/20/19 15:49 12/03/19 09:24 Miscellaneous Medication SC 0.24 mls QAM MARK Administration As Directed Sodium Chloride 1,000 mls @ 50 mls/hr 11/21/19 04:15 12/03/19 15:03 Normal Saline 0.9% IV 1,000 mls .Q20H MARK Administration Fentanyl Citrate 2,000 mcg/ 100 mls @ 0 mls/hr 11/26/19 18:25 12/03/19 03:21 Sodium Chloride IV 12/26/19 18:25 100 mls INF MARK Administration Protocol Per Protocol Epinephrine 4 mg/ Dextrose/ 254 mls @ 0 mls/hr 11/30/19 14:30 11/30/19 14:36 Water IV 254 mls INF MARK Administration Protocol Titrate Insulin Glargine 20 units/ 0.2 mls @ 0 mls/hr 12/02/19 21:00 12/02/19 21:07 Miscellaneous Medication SC 0.2 mls HS MARK Administration Insulin Human Lispro 0 units 11/14/19 01:26 12/03/19 15:25 Humalog SC 4 units .MODERATE SLIDING SC PRN Administration Moderate Correctional Scale Lorazepam 2 mg 11/26/19 18:25 12/03/19 00:58 Ativan SLOW IVP 12/26/19 18:25 2 mg Q1H PRN Administration Breakthrough agitation Methylprednisolone Sodium Succinate 80 mg 11/30/19 09:00 12/03/19 09:25 Solu-Medrol IVP 80 mg 0900,2100 MARK Administration Ondansetron HCl 4 mg 11/13/19 22:50 11/14/19 03:07 Zofran IVP 4 mg Q6H PRN Administration Nausea/Vomiting use 1st Propofol 1,000 mg 11/26/19 18:25 12/03/19 11:44 Diprivan IV 12/26/19 18:25 1,000 mg INF PRN Administration TO ACHIEVE GOAL RASS Protocol Senna/Docusate Sodium 2 tab 11/14/19 12:21 12/01/19 20:51 Senokot S PO 2 tab BIDPRN PRN Administration Constipation Sodium Chloride 10 ml 11/14/19 09:00 12/03/19 09:26 Flush - Normal Saline IVF 10 ml Q12HR MARK Administration Sterile Water 1 ml 11/18/19 11:56 12/01/19 12:01 Bacteriostatic Water FS 1 ml PRN PRN Administration RECONSTITUTION Vecuronium [place] 10 mg 11/21/19 15:48 12/03/19 17:30 Norcuron IV 10 mg Q1H PRN Administration SEDATION/MOVEMENT Zinc Sulfate 220 mg 11/15/19 09:00 12/03/19 09:26 Zinc Sulfate PO 220 mg DAILY MARK Administration - Exam General Appearance: NAD General - other findings: room not entered Hosp A/P (1) Acute respiratory failure with hypoxia Code(s): J96.01 - ACUTE RESPIRATORY FAILURE WITH HYPOXIA Status: Acute (2) COVID-19 virus infection Code(s): U07.1 - COVID-19 Status: Acute (3) Pneumonia due to COVID-19 virus Code(s): U07.1 - COVID-19; J12.89 - OTHER VIRAL PNEUMONIA Status: Acute (4) Diabetes mellitus Code(s): E11.9 - TYPE 2 DIABETES MELLITUS WITHOUT COMPLICATIONS Status: Chronic Qualifiers: Diabetes mellitus type: type 2 Diabetes mellitus jail insulin use: without jail use - Plan appreciate Pulmonology directing care Following along as Hospitalist For episodes of hypotension - start IV albumin q6h x 4 doses and re-evaluate. on review of prior lft's, albumin level was low. Uncertain last bm - add miralax Blood sugars remain in the 200's despite initiation of BID lantus and adjustment - increase night dose to 25 units. Pt on vent, steroids, s/p convalescent plasma tube feeds On full anticoagulation and low dose aspirin gi prophy - famotidine per tube code status full overall guarded prognosis
[2019-12-03] MEDS ORDERED: Bacteriostatic Normal Saline 30 ML VIAL ONE (19:57)
[2019-12-03] MEDS: Insulin Glargine 25 UNITS in Pre-Filled Syringe 1 EACH SC SCH (20:01)
[2019-12-03] MEDS: Polyethylene Glycol 3350 17 GM Packet PER TUBE SCH (20:03)
[2019-12-03] MEDS: Albumin 25% 25 GM/100 ML BOT IVPB SCH (20:34)
[2019-12-04] MEDS: Vecuronium 10 MG VIAL IV PRN ×7 (03:21→20:51)
[2019-12-04 05:35] LABS: Anion Gap 12 mmol/L (10-20); BUN (Urea Nitrogen) 12 mg/dL (9.8-20.1); Band 11 % (5-11); Calc. Creatinine Clearance 100 mL/min (70-130); Calcium 8.9 mg/dL (7.8-10.44); Carbon Dioxide 32 mmol/L (23-31); Chloride 99 mmol/L (98-107); Estimated GFR-MDRD Greater than 90; Glucose 162 mg/dL (80-115); Hemoglobin 9.7 g/dL (12.0-16.0); Lymphocytes 8 % (21-51); MDiff Complete? YES; Mean Corpuscular Volume 90.5 fL (78.0-98.0); Mean Platelet Volume 10.9 fL (7.4-10.4); Monocytes 4 % (0-10); Neutrophil 77 % (42-75); Platelet Count 126 thou/uL (130-400); Potassium 4.1 mmol/L (3.5-5.1); RBC Distribution Width 14.1 % (11.5-14.5); Red Blood Cell (RBC) Count 3.34 mill/uL (4.20-5.40); Sodium 139 mmol/L (136-145); White Blood Cell (WBC) Count 14.5 thou/uL (4.8-10.8)
[2019-12-04] MEDS: Budesonide 0.5 MG/2 ML NEB NEB SCH ×2 (06:52→19:06)
[2019-12-04 07:06] LABS: Actual Bicarbonate (HCO3a) 32.6 mEq/L (22-28); Base Excess (BEa) 7.7 mEq/L (-2.0 to +3.0); Calcium, Ionized (arterial) 1.18 mmol/L (1.12-1.30); Carboxyhemoglobin (COHb) 0.5 gm% (0.0-3.0); Hemoglobin (Hb) 12.5 g/dL (12.0-16.0); Potassium - ABG Lab 3.61 mmol/L (3.70-5.30); pH, Arterial 7.46 (7.35-7.45)
--- NOTE | 2019-12-04 07:15 | RAD ---
CHEST 1 VIEW: Date: 12/04/2019 INDICATION: History of intubation. COMPARISON: Prior exam dated 12/03/2019. IMPRESSION: Prominent chest wall emphysema is similar. The patient remains intubated with gastric catheter placem ent. Diffuse air space opacity is similar appearing. Small bilateral pneumothoraces persist. Pneumome diastinum is similar. Osseous structures unchanged. POS: BH
[2019-12-04 08:01] LABS: O2 Tension (PaO2), arterial 57.3 mmHg (> 80.0)
[2019-12-04 08:02] LABS: Puncture Site RRA
[2019-12-04] MEDS: Famotidine 20 MG TAB PO SCH ×2 (08:29→20:27)
[2019-12-04] MEDS: methylPREDNISolone Sod Succ 40 MG VIAL IVP SCH ×2 (08:29→20:29)
[2019-12-04] MEDS: Haloperidol Lactate 5 MG/ML VIAL IM SCH ×2 (08:30→20:27)
[2019-12-04] MEDS: Propofol 1,000 MG/100 ML VIAL IV PRN ×2 (08:30→15:35)
[2019-12-04] MEDS: Ascorbic Acid 500 mg Chewable Tablet PO SCH (08:30)
[2019-12-04] MEDS: Enoxaparin Sodium 60 MG/0.6 ML SYRINGE SC SCH ×2 (08:30→20:26)
[2019-12-04] MEDS: Aspirin Chewable 81 MG TAB PER TUBE SCH (08:30)
[2019-12-04] MEDS: Zinc Sulfate 220 MG CAP PO SCH (08:30)
[2019-12-04] MEDS: Insulin Glargine 24 UNITS in Pre-Filled Syringe 1 EACH SC SCH (08:33)
[2019-12-04] MEDS: Sodium Chloride 0.9% 1,000 ML IV SCH (10:00)
[2019-12-04] MEDS: hydrALAZINE 20 MG/ML VIAL SLOW IVP PRN (10:16)
[2019-12-04] MEDS: fentaNYL Citrate/PF 2,000 MCG in Sodium Chloride 0.9% 60 ML IV SCH (12:22)
[2019-12-04] MEDS: Albumin 25% 25 GM/100 ML BOT IVPB SCH ×2 (12:53→16:18)
--- NOTE | 2019-12-04 16:43 | PRG ---
DATE OF SERVICE: 12/04/2019 SUBJECTIVE: Ms. Frias remains hemodynamically stable, which she is still on bilevel. We are very slowly decreasing her FiO2 down to 50% this afternoon. OBJECTIVE: VITAL SIGNS: Heart rate is 107, blood pressure is 156/78. She is still on bilevel. Intake and outputs -496. LUNGS: Unchanged. HEART: Unchanged. ABDOMEN: Unchanged. LABORATORY DATA: White count 14.5, hemoglobin 9.7, platelets 126. Electrolytes are unremarkable. Creatinine 0.49. PH of 7.46, CO2 of 47, pO2 of 57. IMPRESSION AND PLAN: Respiratory failure associated with coronavirus disease pneumonia. We will likely discontinue her isolation tomorrow. She will be a candidate for tracheostomy in the near future. Her gas exchange needs to be a little better, and her lung compliance needs to be better before we proceed with a trach. With bilevel 34/12, her exhaled tidal volume is 250 to 280, which suggested there are still significant lung compliance problems. CRITICAL CARE TIME: 30 minutes. Job ID: [id number]
--- NOTE | 2019-12-04 16:45 | PDOC.HOSPP ---
- Subjective Encounter Date: 12/04/19 non-verbal - Objective Vital Signs & Weight: Vital Signs (12 hours) Pulse Resp BP Pulse Ox 12/04/19 16:00 28 H 12/04/19 14:26 107 H 156/78 H 12/04/19 14:25 102 H 28 H 99 12/04/19 14:00 28 H 12/04/19 12:00 28 H 12/04/19 11:35 106 H 12/04/19 11:34 106 H 28 H 91 L 12/04/19 10:16 94 174/106 H 12/04/19 10:00 28 H 12/04/19 08:33 177/99 H 12/04/19 08:00 28 H 93 L 12/04/19 06:52 102 H 181/60 H 12/04/19 06:51 102 H 28 H 99 12/04/19 06:00 28 H Weight Admit Weight 120 lb 13.013 oz Weight 117 lb 4.575 oz Most Recent Monitor Data Heart Rate from ECG 99 NIBP 94/52 NIBP BP-Mean 66 Respiration from ECG 28 SpO2 98 I&O: 12/03/19 12/04/19 12/05/19 06:59 06:59 06:59 Intake Total 2172.8 2544 260 Output Total 2255 3040 1155 Balance -82.2 -496 -895 Result Diagrams: 12/04/19 03:15 12/04/19 03:15 Additional Labs: Accuchecks 12/04/19 12/04/19 12/04/19 15:46 10:26 03:33 POC Glucose 222 H 148 H 154 H 12/03/19 22:15 POC Glucose 214 H Hospitalist ROS - Medication Medications: Active Medications Generic Name Dose Route Start Last Admin Trade Name Freq PRN Reason Stop Dose Admin Acetaminophen 650 mg 11/13/19 22:50 11/28/19 00:56 Tylenol PO 650 mg Q4H PRN Administration Headache/Fever/Mild Pain (1-3) Albuterol/Ipratropium 3 ml 11/14/19 14:30 12/04/19 14:25 Duoneb NEB 3 ml [id number] MARK Administration Ascorbic Acid 1,000 mg 11/15/19 09:00 12/04/19 08:30 Vitamin C PO 1,000 mg DAILY MARK Administration Aspirin 81 mg 12/02/19 09:00 12/04/19 08:30 Aspirin Chewable PER TUBE 81 mg DAILY MARK Administration Budesonide 0.5 mg 11/14/19 18:30 12/04/19 06:52 Pulmicort Neb Solution NEB 0.5 mg BID-RT MARK Administration Clonidine 0.1 mg 11/13/19 22:50 12/04/19 08:33 Catapres PO 0.1 mg BID PRN Administration SBP > 160 use second Enoxaparin Sodium 50 mg 11/21/19 21:00 12/04/19 08:30 Lovenox SC 50 mg 0900,2099 MARK Administration Famotidine 20 mg 11/30/19 21:00 12/04/19 08:29 Pepcid PO 20 mg BID MARK Administration Haloperidol Lactate 10 mg 11/28/19 21:00 12/04/19 08:30 Haldol IM 10 mg Q12HR MARK Administration Hydralazine HCl 10 mg 11/13/19 22:50 12/04/19 10:16 Apresoline SLOW IVP 10 mg Q6H PRN Administration SBP GREATER THAN 160 Norepinephrine Bitartrate 250 mls @ 0 mls/hr 11/14/19 18:43 11/15/19 05:35 Levophed IVPB 250 mls INF MARK Administration Protocol Titrate Insulin Glargine 24 units/ 0.24 mls @ 0 mls/hr 11/20/19 15:49 12/04/19 08:33 Miscellaneous Medication SC 0.24 mls QAM MARK Administration As Directed Sodium Chloride 1,000 mls @ 50 mls/hr 11/21/19 04:15 12/04/19 10:00 Normal Saline 0.9% IV 1,000 mls .Q20H MARK Administration Fentanyl Citrate 2,000 mcg/ 100 mls @ 0 mls/hr 11/26/19 18:25 12/04/19 12:22 Sodium Chloride IV 12/26/19 18:25 100 mls INF MARK Administration Protocol Per Protocol Epinephrine 4 mg/ Dextrose/ 254 mls @ 0 mls/hr 11/30/19 14:30 11/30/19 14:36 Water IV 254 mls INF MARK Administration Protocol Titrate Insulin Glargine 25 units/ 0.25 mls @ 0 mls/hr 12/03/19 21:00 08/17/20 20:01 Miscellaneous Medication SC 0.25 mls HS MARK Administration Insulin Human Lispro 0 units 11/14/19 01:26 12/03/19 22:15 Humalog SC 4 units .MODERATE SLIDING SC PRN Administration Moderate Correctional Scale Lorazepam 2 mg 11/26/19 18:25 12/03/19 00:58 Ativan SLOW IVP 12/26/19 18:25 2 mg Q1H PRN Administration Breakthrough agitation Methylprednisolone Sodium Succinate 80 mg 11/30/19 09:00 12/04/19 08:29 Solu-Medrol IVP 80 mg 0900,2100 MARK Administration Ondansetron HCl 4 mg 11/13/19 22:50 11/14/19 03:07 Zofran IVP 4 mg Q6H PRN Administration Nausea/Vomiting use 1st Polyethylene Glycol 17 gm 12/03/19 21:00 12/03/19 20:03 Miralax PER TUBE 17 gm HS MARK Administration Propofol 1,000 mg 11/26/19 18:25 12/04/19 15:35 Diprivan IV 12/26/19 18:25 1,000 mg INF PRN Administration TO ACHIEVE GOAL RASS Protocol Senna/Docusate Sodium 2 tab 11/14/19 12:21 12/01/19 20:51 Senokot S PO 2 tab BIDPRN PRN Administration Constipation Sodium Chloride 10 ml 11/14/19 09:00 12/04/19 08:35 Flush - Normal Saline IVF 10 ml Q12HR MARK Administration Sterile Water 1 ml 11/18/19 11:56 12/01/19 12:01 Bacteriostatic Water FS 1 ml PRN PRN Administration RECONSTITUTION Vecuronium [place] 10 mg 11/21/19 15:48 12/04/19 15:35 Norcuron IV 10 mg Q1H PRN Administration SEDATION/MOVEMENT Zinc Sulfate 220 mg 11/15/19 09:00 12/04/19 08:30 Zinc Sulfate PO 220 mg DAILY MARK Administration - Exam General Appearance: NAD Heart: RRR, no murmur, no gallops, no rubs, normal peripheral pulses Respiratory: CTAB, no wheezes, no rales, no ronchi, normal chest expansion, no tachypnea, normal percussion Gastrointestinal: soft, non-tender, non-distended, normal bowel sounds, no palpable masses, no hepatomegaly, no splenomegaly, no bruit Extremities: no cyanosis, no clubbing Extremities - other findings: Cutaneous emphysema to the hands and fingers. Skin - other findings: Cutaneous emphysema over the entire upper torso and arms. Neurological - other findings: Sedated Hosp A/P (1) Acute respiratory failure with hypoxia Code(s): J96.01 - ACUTE RESPIRATORY FAILURE WITH HYPOXIA Status: Acute (2) COVID-19 virus infection Code(s): U07.1 - COVID-19 Status: Acute (3) Viral pneumonia Code(s): J12.9 - VIRAL PNEUMONIA, UNSPECIFIED Status: Acute (4) Diabetes mellitus Code(s): E11.9 - TYPE 2 DIABETES MELLITUS WITHOUT COMPLICATIONS Status: Chronic Qualifiers: Diabetes mellitus type: type 2 Diabetes mellitus senior living insulin use: without superintendent terminal use (5) Lactic acidosis Code(s): E87.2 - ACIDOSIS Status: Acute - Plan Acute hypoxic respiratory failure: She is followed by pulmonology. Continue ventilator support on bilevel. She does not appear to show signs of coming off anytime soon. Will likely need tracheostomy and PEG tube placement. COVID pneumonia: Patient is receiving high-dose IV SoluMedrol. Vitamin C, zinc. Inhaled budesonide. Pulmonology following. Received convalescent plasma. Diabetes mellitus: Blood sugars are generally well controlled. Lactic acidosis: Resolved. Disposition: Unfortunately the patient's prognosis is still very guarded.
[2019-12-04] MEDS: Norepinephrine 8 MG/0.9% NS 250 ML IVPB SCH (17:21)
[2019-12-04] MEDS: Polyethylene Glycol 3350 17 GM Packet PER TUBE SCH (20:29)
[2019-12-04] MEDS: Insulin Glargine 25 UNITS in Pre-Filled Syringe 1 EACH SC SCH (20:31)
[2019-12-05] MEDS: Vecuronium 10 MG VIAL IV PRN ×6 (00:45→22:43)
[2019-12-05] MEDS: hydrALAZINE 20 MG/ML VIAL SLOW IVP PRN (02:50)
[2019-12-05] MEDS: Sodium Chloride 0.9% 1,000 ML IV SCH ×2 (03:14→22:37)
[2019-12-05] MEDS: Propofol 1,000 MG/100 ML VIAL IV PRN ×3 (03:16→18:11)
[2019-12-05] MEDS: fentaNYL Citrate/PF 2,000 MCG in Sodium Chloride 0.9% 60 ML IV SCH (04:15)
[2019-12-05 05:08] LABS: Band 13 % (5-11); Eosinophils 1 % (0-10); Hemoglobin 9.8 g/dL (12.0-16.0); Lymphocytes 8 % (21-51); MDiff Complete? YES; Mean Corpuscular HGB CONC 32.1 g/dL (32.0-36.0); Mean Corpuscular Hemoglobin 29.2 pg (27.0-31.0); Mean Corpuscular Volume 90.9 fL (78.0-98.0); Mean Platelet Volume 10.2 fL (7.4-10.4); Monocytes 1 % (0-10); Neutrophil 77 % (42-75); Platelet Count 132 thou/uL (130-400); RBC Distribution Width 14.2 % (11.5-14.5); Red Blood Cell (RBC) Count 3.36 mill/uL (4.20-5.40); White Blood Cell (WBC) Count 15.1 thou/uL (4.8-10.8)
[2019-12-05 05:35] LABS: Anion Gap 11 mmol/L (10-20); BUN (Urea Nitrogen) 13 mg/dL (9.8-20.1); Calc. Creatinine Clearance 96 mL/min (70-130); Calcium 8.8 mg/dL (7.8-10.44); Carbon Dioxide 32 mmol/L (23-31); Chloride 90 mmol/L (98-107); Estimated GFR-MDRD Greater than 90; Glucose 210 mg/dL (80-115); Potassium 3.9 mmol/L (3.5-5.1); Sodium 129 mmol/L (136-145)
[2019-12-05] MEDS: Budesonide 0.5 MG/2 ML NEB NEB SCH ×2 (07:23→18:45)
[2019-12-05 07:44] LABS: Actual Bicarbonate (HCO3a) 32.7 mEq/L (22-28); CO2 Tension 45.9 mmHg (35.0-45.0); Calcium, Ionized (arterial) 1.15 mmol/L (1.12-1.30); Carboxyhemoglobin (COHb) 0.2 gm% (0.0-3.0); Hemoglobin (Hb) 11.6 g/dL (12.0-16.0); Potassium - ABG Lab 3.62 mmol/L (3.70-5.30); pH, Arterial 7.47 (7.35-7.45)
--- NOTE | 2019-12-05 08:00 | RAD ---
EXAM: Single view of the chest HISTORY: Ventilated patient with respiratory failure COMPARISON: 12/04/2019 FINDINGS: Single view of the chest shows a normal sized cardiomediastinal silhouette. The lines and tubes are unchanged in position. There is extensive subcutaneous air in the chest wall. No large pneumothorax is seen but tiny apical pneumothoraces cannot be excluded. Multifocal scattered opaciti es are seen in the lungs. The bones are unremarkable IMPRESSION: Stable exam
[2019-12-05] MEDS: Zinc Sulfate 220 MG CAP PO SCH (08:31)
[2019-12-05] MEDS: Ascorbic Acid 500 mg Chewable Tablet PO SCH (08:31)
[2019-12-05] MEDS: Famotidine 20 MG TAB PO SCH ×2 (08:31→21:30)
[2019-12-05] MEDS: Aspirin Chewable 81 MG TAB PER TUBE SCH (08:31)
[2019-12-05] MEDS: methylPREDNISolone Sod Succ 40 MG VIAL IVP SCH ×2 (08:32→21:30)
[2019-12-05] MEDS: Enoxaparin Sodium 60 MG/0.6 ML SYRINGE SC SCH ×2 (08:32→21:30)
[2019-12-05] MEDS: Insulin Glargine 24 UNITS in Pre-Filled Syringe 1 EACH SC SCH (08:33)
[2019-12-05] MEDS: Haloperidol Lactate 5 MG/ML VIAL IM SCH ×2 (08:33→21:30)
[2019-12-05 10:39] LABS: ALV-art Gradient 313.225 (0-20); O2 Tension (PaO2), arterial 57.2 mmHg (> 80.0); Puncture Site RRA
[2019-12-05] MEDS: Lorazepam 2 MG/ML VIAL SLOW IVP PRN ×2 (10:41→14:43)
--- NOTE | 2019-12-05 15:19 | PDOC.HOSPP ---
- Subjective Encounter Date: 12/05/19 non-verbal - Objective Vital Signs & Weight: Vital Signs (12 hours) Pulse Resp BP Pulse Ox 12/05/19 15:00 106 H 145/81 H 12/05/19 14:59 106 H 28 H 99 12/05/19 14:00 28 H 12/05/19 12:00 28 H 12/05/19 10:28 101 H 12/05/19 10:26 101 H 28 H 96 12/05/19 10:00 28 H 12/05/19 08:00 28 H 12/05/19 07:24 96 127/66 12/05/19 07:23 98 28 H 96 Weight Admit Weight 120 lb 13.013 oz Weight 114 lb 10.246 oz Most Recent Monitor Data Heart Rate from ECG 107 NIBP 144/66 NIBP BP-Mean 92 Respiration from ECG 28 SpO2 89 I&O: 12/04/19 12/05/19 12/06/19 06:59 06:59 06:59 Intake Total 2544 2550.4 240 Output Total 3040 2835 755 Balance -496 -284.6 -515 Result Diagrams: 12/05/19 03:15 12/05/19 03:15 Additional Labs: Accuchecks 12/05/19 12/04/19 12/04/19 04:20 21:39 15:46 POC Glucose 214 H 182 H 222 H Hospitalist ROS - Medication Medications: Active Medications Generic Name Dose Route Start Last Admin Trade Name Freq PRN Reason Stop Dose Admin Acetaminophen 650 mg 11/13/19 22:50 11/28/19 00:56 Tylenol PO 650 mg Q4H PRN Administration Headache/Fever/Mild Pain (1-3) Albuterol/Ipratropium 3 ml 11/14/19 14:30 12/05/19 14:59 Duoneb NEB 3 ml [id number] MARK Administration Ascorbic Acid 1,000 mg 11/15/19 09:00 12/05/19 08:31 Vitamin C PO 1,000 mg DAILY MARK Administration Aspirin 81 mg 12/02/19 09:00 12/05/19 08:31 Aspirin Chewable PER TUBE 81 mg DAILY MARK Administration Budesonide 0.5 mg 11/14/19 18:30 12/05/19 07:23 Pulmicort Neb Solution NEB 0.5 mg BID-RT MARK Administration Clonidine 0.1 mg 11/13/19 22:50 12/04/19 08:33 Catapres PO 0.1 mg BID PRN Administration SBP > 160 use second Enoxaparin Sodium 50 mg 11/21/19 21:00 12/05/19 08:32 Lovenox SC 50 mg 0900,2100 MARK Administration Famotidine 20 mg 11/30/19 21:00 12/05/19 08:31 Pepcid PO 20 mg BID MARK Administration Haloperidol Lactate 10 mg 11/28/19 21:00 12/05/19 08:33 Haldol IM 10 mg Q12HR MARK Administration Hydralazine HCl 10 mg 11/13/19 22:50 12/05/19 02:50 Apresoline SLOW IVP 10 mg Q6H PRN Administration SBP GREATER THAN 160 Norepinephrine Bitartrate 250 mls @ 0 mls/hr 11/14/19 18:43 12/04/19 17:21 Levophed IVPB 250 mls INF MARK Administration Protocol Titrate Insulin Glargine 24 units/ 0.24 mls @ 0 mls/hr 11/20/19 15:49 12/05/19 08:33 Miscellaneous Medication SC 0.24 mls QAM MARK Administration As Directed Sodium Chloride 1,000 mls @ 50 mls/hr 11/21/19 04:15 12/05/19 03:14 Normal Saline 0.9% IV 1,000 mls .Q20H MARK Administration Fentanyl Citrate 2,000 mcg/ 100 mls @ 0 mls/hr 11/26/19 18:25 12/05/19 04:15 Sodium Chloride IV 12/26/19 18:25 100 mls INF MARK Administration Protocol Per Protocol Epinephrine 4 mg/ Dextrose/ 254 mls @ 0 mls/hr 11/30/19 14:30 11/30/19 14:36 Water IV 254 mls INF MARK Administration Protocol Titrate Insulin Glargine 25 units/ 0.25 mls @ 0 mls/hr 12/03/19 21:00 12/04/19 20:31 Miscellaneous Medication SC 0.25 mls HS MARK Administration Insulin Human Lispro 0 units 11/14/19 01:26 12/03/19 22:15 Humalog SC 4 units .MODERATE SLIDING SC PRN Administration Moderate Correctional Scale Lorazepam 2 mg 11/26/19 18:25 12/05/19 14:43 Ativan SLOW IVP 12/26/19 18:25 2 mg Q1H PRN Administration Breakthrough agitation Methylprednisolone Sodium Succinate 80 mg 11/30/19 09:00 12/05/19 08:32 Solu-Medrol IVP 80 mg 0900,2100 MARK Administration Ondansetron HCl 4 mg 11/13/19 22:50 11/14/19 03:07 Zofran IVP 4 mg Q6H PRN Administration Nausea/Vomiting use 1st Polyethylene Glycol 17 gm 12/03/19 21:00 12/04/19 20:29 Miralax PER TUBE 17 gm HS MARK Administration Propofol 1,000 mg 11/26/19 18:25 12/05/19 10:41 Diprivan IV 12/26/19 18:25 1,000 mg INF PRN Administration TO ACHIEVE GOAL RASS Protocol Senna/Docusate Sodium 2 tab 11/14/19 12:21 12/01/19 20:51 Senokot S PO 2 tab BIDPRN PRN Administration Constipation Sodium Chloride 10 ml 11/14/19 09:00 12/05/19 08:33 Flush - Normal Saline IVF 10 ml Q12HR MARK Administration Sterile Water 1 ml 11/18/19 11:56 12/01/19 12:01 Bacteriostatic Water FS 1 ml PRN PRN Administration RECONSTITUTION Vecuronium [place] 10 mg 11/21/19 15:48 12/05/19 14:43 Norcuron IV 10 mg Q1H PRN Administration SEDATION/MOVEMENT Zinc Sulfate 220 mg 11/15/19 09:00 12/05/19 08:31 Zinc Sulfate PO 220 mg DAILY MARK Administration - Exam General Appearance: NAD General - other findings: Sedated, intubated. Heart: RRR, no murmur, no gallops, no rubs, normal peripheral pulses Respiratory: CTAB, no wheezes, no rales, no ronchi, normal chest expansion, no tachypnea, normal percussion Gastrointestinal: soft, non-tender, non-distended, normal bowel sounds, no palpable masses, no hepatomegaly, no splenomegaly, no bruit Extremities: no cyanosis, no clubbing Extremities - other findings: Diffuse edema of the upper extremities secondary to emphysema. Skin: normal turgor Musculoskeletal: generalized weakness Psychiatric - other findings: Sedated Hosp A/P (1) Acute respiratory failure with hypoxia Code(s): J96.01 - ACUTE RESPIRATORY FAILURE WITH HYPOXIA Status: Acute (2) COVID-19 virus infection Code(s): U07.1 - COVID-19 Status: Acute (3) Viral pneumonia Code(s): J12.9 - VIRAL PNEUMONIA, UNSPECIFIED Status: Acute (4) Diabetes mellitus Code(s): E11.9 - TYPE 2 DIABETES MELLITUS WITHOUT COMPLICATIONS Status: Chronic Qualifiers: Diabetes mellitus type: type 2 Diabetes mellitus custodial insulin use: without local company intermodal truck driver use (5) Lactic acidosis Code(s): E87.2 - ACIDOSIS Status: Acute - Plan Acute hypoxic respiratory failure: She is followed by pulmonology. Continue ventilator support on bilevel. She does not appear to show signs of coming off anytime soon. Will likely need tracheostomy and PEG tube placement. COVID pneumonia: Patient is receiving high-dose IV SoluMedrol. Vitamin C, zinc. Inhaled budesonide. Pulmonology following. Received convalescent plasma. Probably can come out of isolation at this time. Diabetes mellitus: Blood sugars are generally well controlled. Lactic acidosis: Resolved. Disposition: Unfortunately the patient's prognosis is still very guarded.
[2019-12-05] MEDS: HumaLOG 300 UNITS/3 ML VIAL SC PRN (17:00)
--- NOTE | 2019-12-05 18:22 | PRG ---
DATE OF SERVICE: 12/05/2019 SUBJECTIVE: Ms. Frias heart rate is 105, blood pressure 150/80, respiratory rates in the 20s, oximetry is in the low 90s to mid 90s. She is still on bilevel ventilation. She is slowly making very small changes each day. She is still on a point where I would consider tracheostomy, given her ventilator pressure requirements. OBJECTIVE: LUNGS: Clear. HEART: Regular rhythm. ABDOMEN: Soft. LABORATORY DATA: White count 15.1, hemoglobin 9.8, platelets 132. Sodium 129, potassium 3.9, chloride 90, bicarb 32, BUN 13, creatinine 0.5. IMPRESSION: COVID pneumonia, now 22 days into hospitalization. Isolation can be discontinued. She will continue with vitamin C, aspirin, empiric anticoagulation, mechanical ventilation, sedation, and steroids. Probably within a few days, we can start decreasing her steroid dosing. She is stable for now, but not completely out of the [place]. Job ID: [id number]
[2019-12-05] MEDS: Polyethylene Glycol 3350 17 GM Packet PER TUBE SCH (21:30)
[2019-12-05] MEDS: Insulin Glargine 25 UNITS in Pre-Filled Syringe 1 EACH SC SCH (21:30)
[2019-12-06] MEDS: fentaNYL Citrate/PF 2,000 MCG in Sodium Chloride 0.9% 60 ML IV SCH ×2 (02:00→22:01)
[2019-12-06 04:32] LABS: Anion Gap 10 mmol/L (10-20); BUN (Urea Nitrogen) 18 mg/dL (9.8-20.1); Calc. Creatinine Clearance 114 mL/min (70-130); Calcium 8.4 mg/dL (7.8-10.44); Carbon Dioxide 33 mmol/L (23-31); Chloride 97 mmol/L (98-107); Estimated GFR-MDRD Greater than 90; Glucose 72 mg/dL (80-115); Potassium 3.4 mmol/L (3.5-5.1); Sodium 137 mmol/L (136-145)
[2019-12-06 04:44] LABS: Band 11 % (5-11); Hemoglobin 9.4 g/dL (12.0-16.0); Lymphocytes 2 % (21-51); MDiff Complete? YES; Mean Corpuscular HGB CONC 33.3 g/dL (32.0-36.0); Mean Corpuscular Hemoglobin 30.1 pg (27.0-31.0); Mean Corpuscular Volume 90.2 fL (78.0-98.0); Mean Platelet Volume 8.9 fL (7.4-10.4); Monocytes 2 % (0-10); Neutrophil 85 % (42-75); Platelet Count 156 thou/uL (130-400); RBC Distribution Width 14.2 % (11.5-14.5); Red Blood Cell (RBC) Count 3.12 mill/uL (4.20-5.40); White Blood Cell (WBC) Count 14.6 thou/uL (4.8-10.8)
[2019-12-06] MEDS: Vecuronium 10 MG VIAL IV PRN ×5 (05:31→21:25)
[2019-12-06] MEDS ORDERED: Potassium Chloride 40 MEQ in Premix Bag 1 BAG IVPB SCH (06:00)
[2019-12-06] MEDS: Budesonide 0.5 MG/2 ML NEB NEB SCH ×2 (07:42→18:42)
[2019-12-06 07:51] LABS: Actual Bicarbonate (HCO3a) 28.3 mEq/L (22-28); CO2 Tension 41.3 mmHg (35.0-45.0); Calcium, Ionized (arterial) 1.12 mmol/L (1.12-1.30); Carboxyhemoglobin (COHb) 0.1 gm% (0.0-3.0); Hemoglobin (Hb) 11.2 g/dL (12.0-16.0); Potassium - ABG Lab 3.14 mmol/L (3.70-5.30); pH, Arterial 7.45 (7.35-7.45)
[2019-12-06] MEDS: Haloperidol Lactate 5 MG/ML VIAL IM SCH ×2 (07:55→20:06)
[2019-12-06] MEDS: methylPREDNISolone Sod Succ 40 MG VIAL IVP SCH ×2 (07:56→20:06)
[2019-12-06] MEDS: Ascorbic Acid 500 mg Chewable Tablet PO SCH (07:57)
[2019-12-06] MEDS: Zinc Sulfate 220 MG CAP PO SCH (07:58)
[2019-12-06] MEDS: Famotidine 20 MG TAB PO SCH ×2 (07:58→20:06)
[2019-12-06] MEDS: Aspirin Chewable 81 MG TAB PER TUBE SCH (07:58)
[2019-12-06] MEDS: Enoxaparin Sodium 60 MG/0.6 ML SYRINGE SC SCH ×2 (07:58→20:05)
[2019-12-06] MEDS: Insulin Glargine 24 UNITS in Pre-Filled Syringe 1 EACH SC SCH ×2 (07:59→14:28)
[2019-12-06] MEDS: Propofol 1,000 MG/100 ML VIAL IV PRN (08:02)
--- NOTE | 2019-12-06 08:16 | RAD ---
Exam: Chest one view HISTORY:Respiratory failure. Ventilated patient. Comparison: 12/05/2019 FINDINGS: Lines and tubes: Redemonstration of endotracheal and nasogastric tube. Cardiac silhouette:Stable cardiac silhouette Aorta: Unremarkable Pulmonary vessels: Normal Costophrenic angles: Clear LUNGS: Chronic lung parenchymal changes are suspected. Pneumothorax: There does appear to be bilateral pneumothoraces along with extensive subcutaneous emph ysema throughout the chest soft tissues. Additionally, there appears to be free air in the abdomen as well as retroperitoneal and probable mediastinal air. Osseous abnormalities: None IMPRESSION: 1. Extensive air attenuation in multiple spaces as described above. There does appear to be pneumomed iastinum, subcutaneous emphysema, pneumothorax and pneumoperitoneum. Results study discussed with Dr. Frost 12/06/2019 at 8:14 PM Code CR
[2019-12-06 08:20] LABS: ALV-art Gradient 356.925 (0-20); O2 Tension (PaO2), arterial 54.9 mmHg (> 80.0); Puncture Site RRA
[2019-12-06] MEDS: Lorazepam 2 MG/ML VIAL SLOW IVP PRN (08:52)
--- NOTE | 2019-12-06 15:40 | PDOC.HOSPP ---
- Subjective Encounter Date: 12/06/19 non-verbal - Objective Vital Signs & Weight: Vital Signs (12 hours) Pulse Resp BP Pulse Ox 12/06/19 14:45 114 H 174/96 H 12/06/19 14:44 113 H 28 H 97 12/06/19 14:00 28 H 12/06/19 12:00 34 H 12/06/19 11:13 95 93/52 L 12/06/19 11:12 93 28 H 95 12/06/19 10:00 28 H 12/06/19 08:00 28 H 93 L 12/06/19 07:26 112 H 167/53 H 12/06/19 07:25 117 H 117 H 99 Weight Admit Weight 120 lb 13.013 oz Weight 113 lb 12.136 oz Most Recent Monitor Data Heart Rate from ECG 112 NIBP 125/77 NIBP BP-Mean 93 Respiration from ECG 29 SpO2 86 I&O: 12/05/19 12/06/19 12/07/19 06:59 06:59 06:59 Intake Total 2550.4 2367.35 Output Total 2835 1955 1115 Balance -284.6 412.35 -1115 Result Diagrams: 12/06/19 03:50 12/06/19 03:50 Additional Labs: Accuchecks 12/06/19 12/06/19 12/06/19 12:14 11:26 08:12 POC Glucose 86 63 L 77 12/06/19 12/05/19 12/05/19 03:56 21:48 17:02 POC Glucose 78 110 172 H 12/05/19 12:39 POC Glucose 161 H Hospitalist ROS - Medication Medications: Active Medications Generic Name Dose Route Start Last Admin Trade Name Freq PRN Reason Stop Dose Admin Acetaminophen 650 mg 11/13/19 22:50 11/28/19 00:56 Tylenol PO 650 mg Q4H PRN Administration Headache/Fever/Mild Pain (1-3) Albuterol/Ipratropium 3 ml 11/14/19 14:30 12/06/19 14:44 Duoneb NEB 3 ml [id number] MARK Administration Ascorbic Acid 1,000 mg 11/15/19 09:00 12/06/19 07:57 Vitamin C PO 1,000 mg DAILY MARK Administration Aspirin 81 mg 12/02/19 09:00 12/06/19 07:58 Aspirin Chewable PER TUBE 81 mg DAILY MARK Administration Budesonide 0.5 mg 11/14/19 18:30 12/06/19 07:42 Pulmicort Neb Solution NEB 0.5 mg BID-RT MARK Administration Clonidine 0.1 mg 11/13/19 22:50 12/04/19 08:33 Catapres PO 0.1 mg BID PRN Administration SBP > 160 use second Enoxaparin Sodium 50 mg 11/21/19 21:00 12/06/19 07:58 Lovenox SC 50 mg 0900,2100 MARK Administration Famotidine 20 mg 11/30/19 21:00 12/06/19 07:58 Pepcid PO 20 mg BID MARK Administration Haloperidol Lactate 10 mg 11/28/19 21:00 12/06/19 07:55 Haldol IM 10 mg Q12HR MARK Administration Hydralazine HCl 10 mg 11/13/19 22:50 12/05/19 02:50 Apresoline SLOW IVP 10 mg Q6H PRN Administration SBP GREATER THAN 160 Norepinephrine Bitartrate 250 mls @ 0 mls/hr 11/14/19 18:43 12/04/19 17:21 Levophed IVPB 250 mls INF MARK Administration Protocol Titrate Insulin Glargine 24 units/ 0.24 mls @ 0 mls/hr 11/20/19 15:49 12/06/19 14:28 Miscellaneous Medication SC Not Given QAM MARK As Directed Sodium Chloride 1,000 mls @ 50 mls/hr 11/21/19 04:15 12/05/19 22:37 Normal Saline 0.9% IV 1,000 mls .Q20H MARK Administration Fentanyl Citrate 2,000 mcg/ 100 mls @ 0 mls/hr 11/26/19 18:25 12/06/19 02:00 Sodium Chloride IV 12/26/19 18:25 100 mls INF MARK Administration Protocol Per Protocol Epinephrine 4 mg/ Dextrose/ 254 mls @ 0 mls/hr 11/30/19 14:30 11/30/19 14:36 Water IV 254 mls INF MARK Administration Protocol Titrate Insulin Human Lispro 0 units 11/14/19 01:26 12/05/19 17:00 Humalog SC 2 units .MODERATE SLIDING SC PRN Administration Moderate Correctional Scale Lorazepam 2 mg 11/26/19 18:25 12/06/19 08:52 Ativan SLOW IVP 12/26/19 18:25 2 mg Q1H PRN Administration Breakthrough agitation Methylprednisolone Sodium Succinate 80 mg 11/30/19 09:00 12/06/19 07:56 Solu-Medrol IVP 80 mg 0900,2100 MARK Administration Ondansetron HCl 4 mg 11/13/19 22:50 11/14/19 03:07 Zofran IVP 4 mg Q6H PRN Administration Nausea/Vomiting use 1st Polyethylene Glycol 17 gm 12/03/19 21:00 12/05/19 21:30 Miralax PER TUBE 17 gm HS MARK Administration Propofol 1,000 mg 11/26/19 18:25 12/06/19 08:02 Diprivan IV 12/26/19 18:25 1,000 mg INF PRN Administration TO ACHIEVE GOAL RASS Protocol Senna/Docusate Sodium 2 tab 11/14/19 12:21 12/01/19 20:51 Senokot S PO 2 tab BIDPRN PRN Administration Constipation Sodium Chloride 10 ml 11/14/19 09:00 12/06/19 08:02 Flush - Normal Saline IVF 10 ml Q12HR MARK Administration Sterile Water 1 ml 11/18/19 11:56 12/01/19 12:01 Bacteriostatic Water FS 1 ml PRN PRN Administration RECONSTITUTION Vecuronium [place] 10 mg 11/21/19 15:48 12/06/19 13:12 Norcuron IV 10 mg Q1H PRN Administration SEDATION/MOVEMENT Zinc Sulfate 220 mg 11/15/19 09:00 12/06/19 07:58 Zinc Sulfate PO 220 mg DAILY MARK Administration - Exam General Appearance: NAD General - other findings: Intubated, sedated Heart: RRR, no murmur, no gallops, no rubs, normal peripheral pulses Respiratory: CTAB, no wheezes, no rales, no ronchi, normal chest expansion, no tachypnea, normal percussion Gastrointestinal: soft, non-tender, non-distended, normal bowel sounds, no palpable masses, no hepatomegaly, no splenomegaly, no bruit Extremities: no cyanosis, no clubbing, no edema Extremities - other findings: Severe subcutaneous emphysema over torso and upper extremity Skin - other findings: Subcutaneous emphysema Hosp A/P (1) Acute respiratory failure with hypoxia Code(s): J96.01 - ACUTE RESPIRATORY FAILURE WITH HYPOXIA Status: Acute (2) COVID-19 virus infection Code(s): U07.1 - COVID-19 Status: Acute (3) Viral pneumonia Code(s): J12.9 - VIRAL PNEUMONIA, UNSPECIFIED Status: Acute (4) Diabetes mellitus Code(s): E11.9 - TYPE 2 DIABETES MELLITUS WITHOUT COMPLICATIONS Status: Chronic Qualifiers: Diabetes mellitus type: type 2 Diabetes mellitus care home insulin use: without care home use (5) Lactic acidosis Code(s): E87.2 - ACIDOSIS Status: Acute (6) Pneumomediastinum Code(s): J98.2 - INTERSTITIAL EMPHYSEMA Status: Acute (7) Subcutaneous emphysema Code(s): T79.7XXA - TRAUMATIC SUBCUTANEOUS EMPHYSEMA, INITIAL ENCOUNTER Status : Acute (8) Pneumoperitoneum Code(s): K66.8 - OTHER SPECIFIED DISORDERS OF PERITONEUM Status: Acute - Plan Acute hypoxic respiratory failure: She is followed by pulmonology. Continue ventilator support on bilevel. Discussed with pulmonology. Patient continues to have very stiff lungs with poor compliance. She is on high pressure settings with poor tidal volumes. Continue ventilator support for now. Over the next week the patient will likely declare whether her lungs will become more compliance or not. If so then we could pursue trach. If not the prognosis will be very poor at that time. With the high pressures she has developed significant subcutaneous emphysema as well as a pneumo mediastinum and pneumoperitoneum. COVID pneumonia: Patient is receiving high-dose IV SoluMedrol. Vitamin C, zinc. Inhaled budesonide. Pulmonology following. Received convalescent plasma. Given the timeframe she is no longer in isolation. Diabetes mellitus: Blood sugars are generally well controlled. Lactic acidosis: Resolved. Disposition: Unfortunately the patient's prognosis is still very guarded. As above. Case management did speak with the patient's family and they have been amenable to consideration for LTAC placement. I had a long conversation with the patient's and son at the bedside with her daughter on a video call. Explained the situation and plan. Other questions were answered.
--- NOTE | 2019-12-06 17:11 | PRG ---
DATE OF SERVICE: 12/06/2019 SUBJECTIVE: Ms. Frias remains mechanically ventilated. Her lung compliance is still poor in her bilevel. Exhaled volumes are still around or less than 300 mL. OBJECTIVE: VITAL SIGNS: Blood pressure is 125/77, heart rate is 112, respiratory rates in the 20s. LUNGS: Remarkable for coarse equal breath sounds. HEART: Regular rhythm. ABDOMEN: Soft. EXTREMITIES: Without edema. LABORATORY DATA: White count 14.6, hemoglobin 9.4, platelets 156. Sodium 137, potassium 3.4, chloride 97, bicarb 33, BUN 18, creatinine 0.4. PH 7.45, CO2 41 , pO2 of 54. FiO2 is 55 now. IMPRESSION: Respiratory failure secondary to COVID. PLAN: Continue supportive care at this point in time. She is not weanable. The hospital will set a family meeting today. I do not think it is appropriate at this point to withdraw care, but she obviously has to improve significantly before we can consider tracheostomy or extubation. Critical care time 30 min. Job ID: [id number] MTDD
[2019-12-06] MEDS ORDERED: Fentanyl BOLUS 250 ML IVPB PRN (19:21)
[2019-12-06] MEDS: Polyethylene Glycol 3350 17 GM Packet PER TUBE SCH (20:07)
[2019-12-06] MEDS: Insulin Glargine 15 UNITS in Pre-Filled Syringe 1 EACH SC SCH (20:07)
[2019-12-06] MEDS: Sodium Chloride 0.9% 1,000 ML IV SCH (20:09)
[2019-12-07] MEDS: Vecuronium 10 MG VIAL IV PRN ×5 (01:05→21:39)
[2019-12-07] MEDS: Propofol 1,000 MG/100 ML VIAL IV PRN ×2 (01:54→17:38)
[2019-12-07 05:33] LABS: Band 15 % (5-11); Hemoglobin 10.3 g/dL (12.0-16.0); Lymphocytes 8 % (21-51); MDiff Complete? YES; Mean Corpuscular HGB CONC 31.6 g/dL (32.0-36.0); Mean Corpuscular Hemoglobin 28.7 pg (27.0-31.0); Mean Platelet Volume 9.2 fL (7.4-10.4); Metamyelocyte 1 % (0-0); Monocytes 4 % (0-10); Neutrophil 72 % (42-75); Platelet Count 206 thou/uL (130-400); Platelet Morphology Comment Appears Adequate; RBC Distribution Width 14.6 % (11.5-14.5); Red Blood Cell (RBC) Count 3.59 mill/uL (4.20-5.40); White Blood Cell (WBC) Count 14.6 thou/uL (4.8-10.8)
[2019-12-07 05:41] LABS: Anion Gap 13 mmol/L (10-20); BUN (Urea Nitrogen) 17 mg/dL (9.8-20.1); Calc. Creatinine Clearance 101 mL/min (70-130); Calcium 8.9 mg/dL (7.8-10.44); Carbon Dioxide 31 mmol/L (23-31); Chloride 94 mmol/L (98-107); Estimated GFR-MDRD Greater than 90; Glucose 157 mg/dL (80-115); Sodium 134 mmol/L (136-145)
[2019-12-07] MEDS: HumaLOG 300 UNITS/3 ML VIAL SC PRN ×2 (05:45→11:49)
[2019-12-07] MEDS: Budesonide 0.5 MG/2 ML NEB NEB SCH ×2 (06:39→18:34)
[2019-12-07 06:49] LABS: Actual Bicarbonate (HCO3a) 30.6 mEq/L (22-28); Base Excess (BEa) 4.9 mEq/L (-2.0 to +3.0); CO2 Tension 50.3 mmHg (35.0-45.0); Calcium, Ionized (arterial) 1.16 mmol/L (1.12-1.30); Carboxyhemoglobin (COHb) 0.3 gm% (0.0-3.0); Hemoglobin (Hb) 11.3 g/dL (12.0-16.0); O2 Tension (PaO2), arterial 72.8 mmHg (> 80.0); Potassium - ABG Lab 3.83 mmol/L (3.70-5.30)
--- NOTE | 2019-12-07 07:13 | PRG ---
DATE OF SERVICE: 12/07/2019 SUBJECTIVE: Reyna Frias remains mechanically ventilated. Her sedation is decreased. She becomes extremely tachypneic and desaturates. OBJECTIVE: VITAL SIGNS: Blood pressure 152/93, heart rate is 115, respiratory rate is 28. LUNGS: Remarkable for coarse equal breath sounds. HEART: Regular rhythm. ABDOMEN: Soft. LABORATORY DATA: White count 14.6, hemoglobin 10.3, platelets 206. Sodium 134, potassium 4, chloride 94, bicarb 31, BUN 17, creatinine 0.4. Blood gas is pending. IMPRESSION: Respiratory failure secondary to coronavirus disease pneumonia, making slow progress. She is 25 days into this hospitalization. Her isolation could be discontinued. Her anxiety and tachypnea are the reasons she was intubated. If this continues to be a problem, she is not at a point where she could undergo a tracheostomy. She was actually symptomatic 9 days prior to her admission, so she is really probably over 30 days into this. We will continue supportive care. Job ID: [id number]
[2019-12-07 07:51] LABS: Puncture Site LRA
--- NOTE | 2019-12-07 07:54 | RAD ---
XR Chest 1 View Portable History: Ventilated patient Comparison: Radiograph prior day Findings: Endotracheal tube tip sits above the sean. Enteric tube tip below diaphragm although out of field of view. Similar extensive multifocal airspace opacities. Likely pneumomediastinum and small left basilar pneu mothorax. Severe subcutaneous emphysema has slightly progressed. Impression: Interval progression of subcutaneous emphysema. Likely pneumomediastinum and small left b asilar pneumothorax.
[2019-12-07 07:56] LABS: ALV-art Gradient 256.475 (0-20)
[2019-12-07] MEDS: Aspirin Chewable 81 MG TAB PER TUBE SCH (08:02)
[2019-12-07] MEDS: Zinc Sulfate 220 MG CAP PO SCH (08:02)
[2019-12-07] MEDS: Famotidine 20 MG TAB PO SCH ×2 (08:02→20:57)
[2019-12-07] MEDS: Ascorbic Acid 500 mg Chewable Tablet PO SCH (08:02)
[2019-12-07] MEDS: Enoxaparin Sodium 60 MG/0.6 ML SYRINGE SC SCH ×2 (08:03→20:56)
[2019-12-07] MEDS: Haloperidol Lactate 5 MG/ML VIAL IM SCH ×2 (08:03→20:56)
[2019-12-07] MEDS: methylPREDNISolone Sod Succ 40 MG VIAL IVP SCH ×2 (08:03→20:58)
[2019-12-07] MEDS: Insulin Glargine 24 UNITS in Pre-Filled Syringe 1 EACH SC SCH (08:04)
[2019-12-07] MEDS: Morphine 2 MG/ML VIAL SLOW IVP PRN ×2 (10:43→21:37)
[2019-12-07] MEDS: Senokot S 8.6-50 MG TAB PO PRN (10:45)
[2019-12-07] MEDS: Lorazepam 2 MG/ML VIAL SLOW IVP PRN (11:44)
[2019-12-07] MEDS: fentaNYL Citrate/PF 2,000 MCG in Sodium Chloride 0.9% 60 ML IV SCH (12:29)
[2019-12-07] MEDS: Norepinephrine 8 MG/0.9% NS 250 ML IVPB SCH (13:15)
--- NOTE | 2019-12-07 13:53 | PDOC.HOSPP ---
- Subjective Encounter Date: 12/07/19 non-verbal - Objective Vital Signs & Weight: Vital Signs (12 hours) Pulse Resp BP Pulse Ox 12/07/19 10:11 116 H 152/86 H 12/07/19 10:00 28 H 12/07/19 08:00 28 H 12/07/19 06:39 115 H 152/93 H 12/07/19 06:00 28 H 12/07/19 04:00 28 H 12/07/19 02:42 122 H 12/07/19 02:39 94 L 12/07/19 02:00 28 H Weight Admit Weight 120 lb 13.013 oz Weight 114 lb 6.719 oz Most Recent Monitor Data Heart Rate from ECG 131 NIBP 100/63 NIBP BP-Mean 75 Respiration from ECG 28 SpO2 92 I&O: 12/06/19 12/07/19 12/08/19 06:59 06:59 06:59 Intake Total 2367.35 2617.30 440.9 Output Total 1955 2130 280 Balance 412.35 487.30 160.9 Result Diagrams: 12/07/19 05:00 12/07/19 05:00 Additional Labs: Accuchecks 12/07/19 12/07/19 12/06/19 11:54 05:17 21:36 POC Glucose 192 H 151 H 118 H 12/06/19 12/06/19 12/06/19 15:56 12:14 11:26 POC Glucose 112 H 86 63 L 12/06/19 08:12 POC Glucose 77 Hospitalist ROS - Medication Medications: Active Medications Generic Name Dose Route Start Last Admin Trade Name Baljit PRN Reason Stop Dose Admin Acetaminophen 650 mg 11/13/19 22:50 11/28/19 00:56 Tylenol PO 650 mg Q4H PRN Administration Headache/Fever/Mild Pain (1-3) Albuterol/Ipratropium 3 ml 11/14/19 14:30 12/07/19 10:08 Duoneb NEB 3 ml [id number] MARK Administration Ascorbic Acid 1,000 mg 11/15/19 09:00 12/07/19 08:02 Vitamin C PO 1,000 mg DAILY MARK Administration Aspirin 81 mg 12/02/19 09:00 12/07/19 08:02 Aspirin Chewable PER TUBE 81 mg DAILY MARK Administration Budesonide 0.5 mg 11/14/19 18:30 12/07/19 06:39 Pulmicort Neb Solution NEB 0.5 mg BID-RT MARK Administration Clonidine 0.1 mg 11/13/19 22:50 12/04/19 08:33 Catapres PO 0.1 mg BID PRN Administration SBP > 160 use second Enoxaparin Sodium 50 mg 11/21/19 21:00 12/07/19 08:03 Lovenox SC 50 mg 0900,2100 MARK Administration Famotidine 20 mg 11/30/19 21:00 12/07/19 08:02 Pepcid PO 20 mg BID MARK Administration Haloperidol Lactate 10 mg 11/28/19 21:00 12/07/19 08:03 Haldol IM 10 mg Q12HR MARK Administration Hydralazine HCl 10 mg 11/13/19 22:50 12/05/19 02:50 Apresoline SLOW IVP 10 mg Q6H PRN Administration SBP GREATER THAN 160 Norepinephrine Bitartrate 250 mls @ 0 mls/hr 11/14/19 18:43 12/04/19 17:21 Levophed IVPB 250 mls INF MARK Administration Protocol Titrate Insulin Glargine 24 units/ 0.24 mls @ 0 mls/hr 11/20/19 15:49 12/07/19 08:04 Miscellaneous Medication SC 0.24 mls QAM MARK Administration As Directed Sodium Chloride 1,000 mls @ 50 mls/hr 11/21/19 04:15 12/06/19 20:09 Normal Saline 0.9% IV 1,000 mls .Q20H MARK Administration Epinephrine 4 mg/ Dextrose/ 254 mls @ 0 mls/hr 11/30/19 14:30 11/30/19 14:36 Water IV 254 mls INF MARK Administration Protocol Titrate Insulin Glargine 15 units/ 0.15 mls @ 0 mls/hr 12/06/19 21:00 12/06/19 20:07 Miscellaneous Medication SC 0.15 mls HS MARK Administration Per Protocol Fentanyl Citrate 2,000 mcg/ 100 mls @ 0 mls/hr 12/06/19 19:30 12/07/19 12:29 Sodium Chloride IV 100 mls INF MARK Administration Protocol Per Protocol Insulin Human Lispro 0 units 11/14/19 01:26 12/07/19 11:49 Humalog SC 2 units .MODERATE SLIDING SC PRN Administration Moderate Correctional Scale Lorazepam 2 mg 12/06/19 19:21 12/07/19 11:44 Ativan SLOW IVP 2 mg Q1H PRN Administration Breakthrough agitation Methylprednisolone Sodium Succinate 80 mg 11/30/19 09:00 12/07/19 08:03 Solu-Medrol IVP 80 mg 0900,2100 MARK Administration Morphine Sulfate 2 mg 12/06/19 19:21 12/07/19 10:43 Morphine SLOW IVP 2 mg Q1H PRN Administration Breakthrough Pain/Agitation Ondansetron HCl 4 mg 11/13/19 22:50 11/14/19 03:07 Zofran IVP 4 mg Q6H PRN Administration Nausea/Vomiting use 1st Polyethylene Glycol 17 gm 12/03/19 21:00 12/06/19 20:07 Miralax PER TUBE 17 gm HS MARK Administration Propofol 1,000 mg 11/26/19 18:25 12/07/19 01:54 Diprivan IV 12/26/19 18:25 1,000 mg INF PRN Administration TO ACHIEVE GOAL RASS Protocol Senna/Docusate Sodium 2 tab 11/14/19 12:21 12/07/19 10:45 Senokot S PO 2 tab BIDPRN PRN Administration Constipation Sodium Chloride 10 ml 11/14/19 09:00 12/07/19 08:02 Flush - Normal Saline IVF 10 ml Q12HR MARK Administration Sterile Water 1 ml 11/18/19 11:56 12/01/19 12:01 Bacteriostatic Water FS 1 ml PRN PRN Administration RECONSTITUTION Vecuronium [place] 10 mg 11/21/19 15:48 12/07/19 10:43 Norcuron IV 10 mg Q1H PRN Administration SEDATION/MOVEMENT Zinc Sulfate 220 mg 11/15/19 09:00 12/07/19 08:02 Zinc Sulfate PO 220 mg DAILY MARK Administration - Exam General Appearance: NAD, awake alert Heart: RRR, no murmur, no gallops, no rubs, normal peripheral pulses Respiratory: CTAB, no wheezes, no rales, no ronchi Respiratory - other findings: Diminished Gastrointestinal: soft, non-distended, normal bowel sounds, no palpable masses, no hepatomegaly, no splenomegaly Extremities - other findings: Subcutaneous emphysema of the upper extremities Skin - other findings: Severe subcutaneous emphysema Psychiatric - other findings: Intubated Hosp A/P (1) Acute respiratory failure with hypoxia Code(s): J96.01 - ACUTE RESPIRATORY FAILURE WITH HYPOXIA Status: Acute (2) COVID-19 virus infection Code(s): U07.1 - COVID-19 Status: Acute (3) Viral pneumonia Code(s): J12.9 - VIRAL PNEUMONIA, UNSPECIFIED Status: Acute (4) Diabetes mellitus Code(s): E11.9 - TYPE 2 DIABETES MELLITUS WITHOUT COMPLICATIONS Status: Chronic Qualifiers: Diabetes mellitus type: type 2 Diabetes mellitus fci insulin use: without extermination supervisor use (5) Lactic acidosis Code(s): E87.2 - ACIDOSIS Status: Acute (6) Pneumomediastinum Code(s): J98.2 - INTERSTITIAL EMPHYSEMA Status: Acute (7) Subcutaneous emphysema Code(s): T79.7XXA - TRAUMATIC SUBCUTANEOUS EMPHYSEMA, INITIAL ENCOUNTER Status : Acute (8) Pneumoperitoneum Code(s): K66.8 - OTHER SPECIFIED DISORDERS OF PERITONEUM Status: Acute - Plan Acute hypoxic respiratory failure: She is followed by pulmonology. Continue ventilator support on bilevel. Patient continues to have very stiff lungs with poor compliance. She is on high pressure settings with poor tidal volumes. Continue ventilator support for now. Over the next week the patient will likely declare whether her lungs will become more compliance or not. If so then we could pursue trach. If not the prognosis will be very poor at that time. With the high pressures she has developed significant subcutaneous emphysema as well as a pneumo mediastinum and pneumoperitoneum. COVID pneumonia: Patient is receiving high-dose IV SoluMedrol. Vitamin C, zinc. Inhaled budesonide. Pulmonology following. Received convalescent plasma. Given the timeframe she is no longer in isolation. Diabetes mellitus: Blood sugars are generally well controlled. Lactic acidosis: Resolved. Disposition: Unfortunately the patient's prognosis is still very guarded. Case management did speak with the patient's family and they have been amenable to consideration for LTAC placement.
[2019-12-07] MEDS: Sodium Chloride 0.9% 1,000 ML IV SCH ×2 (17:43→21:00)
[2019-12-07] MEDS: Polyethylene Glycol 3350 17 GM Packet PER TUBE SCH (20:57)
[2019-12-07] MEDS: Insulin Glargine 15 UNITS in Pre-Filled Syringe 1 EACH SC SCH (20:57)
[2019-12-08] MEDS: Vecuronium 10 MG VIAL IV PRN ×6 (00:45→21:47)
[2019-12-08] MEDS: Morphine 2 MG/ML VIAL SLOW IVP PRN (02:30)
[2019-12-08] MEDS: fentaNYL Citrate/PF 2,000 MCG in Sodium Chloride 0.9% 60 ML IV SCH ×2 (03:37→19:27)
[2019-12-08 06:13] LABS: Anion Gap 10 mmol/L (10-20); BUN (Urea Nitrogen) 15 mg/dL (9.8-20.1); Calc. Creatinine Clearance 111 mL/min (70-130); Calcium 8.5 mg/dL (7.8-10.44); Carbon Dioxide 31 mmol/L (23-31); Chloride 99 mmol/L (98-107); Estimated GFR-MDRD Greater than 90; Glucose 139 mg/dL (80-115); Potassium 3.7 mmol/L (3.5-5.1); Sodium 136 mmol/L (136-145)
[2019-12-08 06:16] LABS: Band 5 % (5-11); Hemoglobin 10.2 g/dL (12.0-16.0); Lymphocytes 11 % (21-51); MDiff Complete? YES; Mean Corpuscular HGB CONC 31.5 g/dL (32.0-36.0); Mean Corpuscular Hemoglobin 28.5 pg (27.0-31.0); Mean Corpuscular Volume 90.6 fL (78.0-98.0); Mean Platelet Volume 8.7 fL (7.4-10.4); Monocytes 6 % (0-10); Neutrophil 78 % (42-75); Platelet Count 201 thou/uL (130-400); Platelet Morphology Comment Appears Adequate; RBC Distribution Width 14.5 % (11.5-14.5); RBC Morphology Normal; Red Blood Cell (RBC) Count 3.58 mill/uL (4.20-5.40); White Blood Cell (WBC) Count 16.6 thou/uL (4.8-10.8)
[2019-12-08] MEDS: methylPREDNISolone Sod Succ 40 MG VIAL IVP SCH ×2 (07:35→20:00)
[2019-12-08] MEDS: Zinc Sulfate 220 MG CAP PO SCH (07:35)
[2019-12-08] MEDS: Famotidine 20 MG TAB PO SCH ×2 (07:35→20:00)
[2019-12-08] MEDS: Lorazepam 2 MG/ML VIAL SLOW IVP PRN ×2 (07:35→21:02)
[2019-12-08] MEDS: Ascorbic Acid 500 mg Chewable Tablet PO SCH (07:36)
[2019-12-08] MEDS: Aspirin Chewable 81 MG TAB PER TUBE SCH (07:36)
[2019-12-08] MEDS: Haloperidol Lactate 5 MG/ML VIAL IM SCH ×2 (07:36→20:00)
[2019-12-08] MEDS: Budesonide 0.5 MG/2 ML NEB NEB SCH ×2 (07:39→18:26)
--- NOTE | 2019-12-08 07:53 | PRG ---
DATE OF SERVICE: 12/08/2019 TIME SPENT: 35 minutes of critical care time. SUBJECTIVE: This patient remains intubated, on mechanical ventilation. She is deeply sedated. OBJECTIVE: VITAL SIGNS: Temperature 97.9, pulse 112, blood pressure 166/89. 24-hour intake 3042, output 1990. She is currently sedated on fentanyl and propofol. HEENT: Unremarkable. NECK: No adenopathy or JVD. LUNGS: Crackles bilaterally. CARDIOVASCULAR: S1, S2. Regular. CHEST: Extensive subcutaneous emphysema. ABDOMEN: Soft and nontender. She has bruising from her Lovenox injections. EXTREMITIES: Right femoral central line in place. No cyanosis. Generalized edema throughout. LABORATORY DATA: White blood cell count 16.6, hematocrit 32.4, and platelet count 201. ABG is pending. Sodium 136, potassium 3.7, chloride 99, CO2 of 31, BUN 15, creatinine 0.4, glucose 139. X-ray shows extensive subcutaneous air bilaterally. ASSESSMENT: 1. COVID-19 pneumonia. 2. Acute hypoxic respiratory failure, requiring mechanical ventilation. 3. Pneumomediastinum, possible left basilar pneumothorax. PLAN: The patient is not weanable at this point. She has very poor compliance with ventilator mechanics at this time. Eventually, she will need tracheostomy, but she is probably requiring too much ventilatory support to undergo that procedure at this time. We will continue to follow. I will review her MAR and make necessary changes. Job ID: [id number]
[2019-12-08] MEDS: Enoxaparin Sodium 60 MG/0.6 ML SYRINGE SC SCH ×2 (08:07→20:00)
[2019-12-08] MEDS: Propofol 1,000 MG/100 ML VIAL IV PRN (08:18)
[2019-12-08] MEDS: Insulin Glargine 24 UNITS in Pre-Filled Syringe 1 EACH SC SCH (10:20)
[2019-12-08] MEDS: HumaLOG 300 UNITS/3 ML VIAL SC PRN (12:53)
[2019-12-08] MEDS: Sodium Chloride 0.9% 1,000 ML IV SCH ×2 (12:57→19:47)
--- NOTE | 2019-12-08 14:27 | PDOC.HOSPP ---
- Subjective Encounter Date: 12/08/19 Subjective: Intubated. - Objective Vital Signs & Weight: Vital Signs (12 hours) Pulse Resp BP Pulse Ox 12/08/19 12:00 36 H 12/08/19 10:40 112 H 106/63 12/08/19 10:00 28 H 12/08/19 08:00 31 H 12/08/19 07:40 111 H 12/08/19 07:39 111 H 37 H 94 L 12/08/19 06:00 28 H 12/08/19 04:00 28 H 12/08/19 03:01 120 H 176/99 H 12/08/19 03:00 120 H 28 H 96 Weight Admit Weight 120 lb 13.013 oz Weight 112 lb 14.027 oz Most Recent Monitor Data Heart Rate from ECG 114 NIBP 95/68 NIBP BP-Mean 77 Respiration from ECG 29 SpO2 89 I&O: 12/07/19 12/08/19 12/09/19 06:59 06:59 06:59 Intake Total 2617.30 3042.60 240 Output Total 2130 1990 400 Balance 487.30 1052.60 -160 Result Diagrams: 12/08/19 05:30 12/08/19 05:30 Additional Labs: Accuchecks 12/08/19 12/08/19 12/07/19 12:56 05:45 21:15 POC Glucose 164 H 138 H 112 H 12/07/19 17:31 POC Glucose 151 H Hospitalist ROS - Medication Medications: Active Medications Generic Name Dose Route Start Last Admin Trade Name Freq PRN Reason Stop Dose Admin Acetaminophen 650 mg 11/13/19 22:50 11/28/19 00:56 Tylenol PO 650 mg Q4H PRN Administration Headache/Fever/Mild Pain (1-3) Albuterol/Ipratropium 3 ml 11/14/19 14:30 12/08/19 14:23 Duoneb NEB 3 ml [id number] MARK Administration Ascorbic Acid 1,000 mg 11/15/19 09:00 12/08/19 07:36 Vitamin C PO 1,000 mg DAILY MARK Administration Aspirin 81 mg 12/02/19 09:00 12/08/19 07:36 Aspirin Chewable PER TUBE 81 mg DAILY MARK Administration Budesonide 0.5 mg 11/14/19 18:30 12/08/19 07:39 Pulmicort Neb Solution NEB 0.5 mg BID-RT MARK Administration Clonidine 0.1 mg 11/13/19 22:50 12/04/19 08:33 Catapres PO 0.1 mg BID PRN Administration SBP > 160 use second Enoxaparin Sodium 50 mg 11/21/19 21:00 12/08/19 08:07 Lovenox SC 50 mg 0900,2100 MARK Administration Famotidine 20 mg 11/30/19 21:00 12/08/19 07:35 Pepcid PO 20 mg BID MARK Administration Haloperidol Lactate 10 mg 11/28/19 21:00 12/08/19 07:36 Haldol IM 10 mg Q12HR MARK Administration Hydralazine HCl 10 mg 11/13/19 22:50 12/05/19 02:50 Apresoline SLOW IVP 10 mg Q6H PRN Administration SBP GREATER THAN 160 Norepinephrine Bitartrate 250 mls @ 0 mls/hr 11/14/19 18:43 12/07/19 13:15 Levophed IVPB 250 mls INF MARK Administration Protocol Titrate Insulin Glargine 24 units/ 0.24 mls @ 0 mls/hr 11/20/19 15:49 12/08/19 10:20 Miscellaneous Medication SC Not Given QAM MARK As Directed Sodium Chloride 1,000 mls @ 50 mls/hr 11/21/19 04:15 12/08/19 12:57 Normal Saline 0.9% IV 1,000 mls .Q20H MARK Administration Insulin Glargine 15 units/ 0.15 mls @ 0 mls/hr 12/06/19 21:00 12/07/19 20:57 Miscellaneous Medication SC 0.15 mls HS MARK Administration Per Protocol Fentanyl Citrate 2,000 mcg/ 100 mls @ 0 mls/hr 12/06/19 19:30 12/08/19 03:37 Sodium Chloride IV 100 mls INF MARK Administration Protocol Per Protocol Insulin Human Lispro 0 units 11/14/19 01:26 12/08/19 12:53 Humalog SC 2 units .MODERATE SLIDING SC PRN Administration Moderate Correctional Scale Lorazepam 2 mg 12/06/19 19:21 12/08/19 07:35 Ativan SLOW IVP 2 mg Q1H PRN Administration Breakthrough agitation Methylprednisolone Sodium Succinate 80 mg 11/30/19 09:00 12/08/19 07:35 Solu-Medrol IVP 80 mg 0900,2100 MARK Administration Morphine Sulfate 2 mg 12/06/19 19:21 12/08/19 02:30 Morphine SLOW IVP 2 mg Q1H PRN Administration Breakthrough Pain/Agitation Ondansetron HCl 4 mg 11/13/19 22:50 11/14/19 03:07 Zofran IVP 4 mg Q6H PRN Administration Nausea/Vomiting use 1st Polyethylene Glycol 17 gm 12/03/19 21:00 12/07/19 20:57 Miralax PER TUBE 17 gm HS MARK Administration Propofol 1,000 mg 11/26/19 18:25 12/08/19 08:18 Diprivan IV 12/26/19 18:25 1,000 mg INF PRN Administration TO ACHIEVE GOAL RASS Protocol Senna/Docusate Sodium 2 tab 11/14/19 12:21 12/07/19 10:45 Senokot S PO 2 tab BIDPRN PRN Administration Constipation Sodium Chloride 10 ml 11/14/19 09:00 12/08/19 07:36 Flush - Normal Saline IVF 10 ml Q12HR MARK Administration Sterile Water 1 ml 11/18/19 11:56 12/01/19 12:01 Bacteriostatic Water FS 1 ml PRN PRN Administration RECONSTITUTION Vecuronium [place] 10 mg 11/21/19 15:48 12/08/19 13:38 Norcuron IV 10 mg Q1H PRN Administration SEDATION/MOVEMENT Zinc Sulfate 220 mg 11/15/19 09:00 12/08/19 07:35 Zinc Sulfate PO 220 mg DAILY MARK Administration - Exam General Appearance: NAD, awake alert Heart: RRR, no murmur, no gallops, no rubs, normal peripheral pulses Heart - other findings: Tachycardic Respiratory: CTAB, no wheezes, no rales, no ronchi, normal chest expansion, no tachypnea, normal percussion Gastrointestinal: soft, non-distended, normal bowel sounds, no palpable masses Extremities - other findings: Upper extremity edema and due to emphysema Skin - other findings: Severe subcutaneous emphysema of the upper body Hosp A/P (1) Acute respiratory failure with hypoxia Code(s): J96.01 - ACUTE RESPIRATORY FAILURE WITH HYPOXIA Status: Acute (2) COVID-19 virus infection Code(s): U07.1 - COVID-19 Status: Acute (3) Viral pneumonia Code(s): J12.9 - VIRAL PNEUMONIA, UNSPECIFIED Status: Acute (4) Diabetes mellitus Code(s): E11.9 - TYPE 2 DIABETES MELLITUS WITHOUT COMPLICATIONS Status: Chronic Qualifiers: Diabetes mellitus type: type 2 Diabetes mellitus jail insulin use: without jail use (5) Lactic acidosis Code(s): E87.2 - ACIDOSIS Status: Acute (6) Pneumomediastinum Code(s): J98.2 - INTERSTITIAL EMPHYSEMA Status: Acute (7) Subcutaneous emphysema Code(s): T79.7XXA - TRAUMATIC SUBCUTANEOUS EMPHYSEMA, INITIAL ENCOUNTER Status : Acute (8) Pneumoperitoneum Code(s): K66.8 - OTHER SPECIFIED DISORDERS OF PERITONEUM Status: Acute - Plan Acute hypoxic respiratory failure: She is followed by pulmonology. Continue ventilator support on bilevel. Patient continues to have very stiff lungs with poor compliance. She is on high pressure settings with poor tidal volumes. Continue ventilator support for now. Over the next few days the patient will likely declare whether her lungs will become more compliance or not. If so then we could pursue trach. If not the prognosis will be very poor at that time. With the high pressures she has developed significant subcutaneous emphysema as well as a pneumo mediastinum and pneumoperitoneum. COVID pneumonia: Patient is receiving IV SoluMedrol at 80 mg twice daily. Vitamin C, zinc. Inhaled budesonide. Pulmonology following. Received convalescent plasma. Given the timeframe she is no longer in isolation. Diabetes mellitus: Blood sugars are generally well controlled. Lactic acidosis: Resolved. Disposition: Unfortunately the patient's prognosis is still very guarded.
[2019-12-08] MEDS ORDERED: Budesonide 0.25 MG/2 ML NEB ONE (19:52)
[2019-12-08] MEDS: Polyethylene Glycol 3350 17 GM Packet PER TUBE SCH (20:01)
[2019-12-08] MEDS: Insulin Glargine 15 UNITS in Pre-Filled Syringe 1 EACH SC SCH (20:06)
[2019-12-09] MEDS: Morphine 2 MG/ML VIAL SLOW IVP PRN ×2 (00:15→18:24)
[2019-12-09] MEDS: Vecuronium 10 MG VIAL IV PRN ×6 (00:46→20:29)
[2019-12-09] MEDS: Propofol 1,000 MG/100 ML VIAL IV PRN ×2 (00:47→16:25)
[2019-12-09 05:34] LABS: Hemoglobin 9.7 g/dL (12.0-16.0); Mean Corpuscular Hemoglobin 29.5 pg (27.0-31.0); Mean Corpuscular Volume 92.1 fL (78.0-98.0); Mean Platelet Volume 8.6 fL (7.4-10.4); Platelet Count 244 thou/uL (130-400); RBC Distribution Width 14.7 % (11.5-14.5); Red Blood Cell (RBC) Count 3.28 mill/uL (4.20-5.40); White Blood Cell (WBC) Count 14.3 thou/uL (4.8-10.8)
[2019-12-09 05:42] LABS: Anion Gap 12 mmol/L (10-20); BUN (Urea Nitrogen) 12 mg/dL (9.8-20.1); Calc. Creatinine Clearance 107 mL/min (70-130); Calcium 8.4 mg/dL (7.8-10.44); Carbon Dioxide 32 mmol/L (23-31); Chloride 97 mmol/L (98-107); Estimated GFR-MDRD Greater than 90; Glucose 172 mg/dL (80-115); Potassium 4.1 mmol/L (3.5-5.1); Sodium 137 mmol/L (136-145)
[2019-12-09 05:44] LABS: Band 11 % (5-11); Lymphocytes 8 % (21-51); MDiff Complete? YES; Monocytes 6 % (0-10); Myelocyte 1 % (0-0); Neutrophil 74 % (42-75)
[2019-12-09] MEDS: HumaLOG 300 UNITS/3 ML VIAL SC PRN ×3 (05:46→20:30)
[2019-12-09] MEDS: Budesonide 0.5 MG/2 ML NEB NEB SCH ×2 (06:26→18:22)
--- NOTE | 2019-12-09 06:33 | RAD ---
CHEST ONE VIEW: INDICATIONS: A 64-year-old female with pneumonia. COMPARISON: Prior exam dated 12/07/2019. IMPRESSION: Diffuse pneumonia is similar. Gastric catheter and endotracheal tube are unchanged. Extensive chest w all emphysema is similar. No definite pneumothorax is demonstrated. POS: BH
[2019-12-09 06:43] LABS: Actual Bicarbonate (HCO3a) 34.1 mEq/L (22-28); Base Excess (BEa) 6.8 mEq/L (-2.0 to +3.0); Calcium, Ionized (arterial) 1.15 mmol/L (1.12-1.30); Carboxyhemoglobin (COHb) 0.6 gm% (0.0-3.0); Hemoglobin (Hb) 11.5 g/dL (12.0-16.0); O2 Tension (PaO2), arterial 67.8 mmHg (> 80.0); Potassium - ABG Lab 4.05 mmol/L (3.70-5.30); pH, Arterial 7.35 (7.35-7.45)
[2019-12-09 07:06] LABS: CO2 Tension 63.2 mmHg (35.0-45.0); Puncture Site RRA
[2019-12-09] MEDS: Aspirin Chewable 81 MG TAB PER TUBE SCH (07:39)
[2019-12-09] MEDS: Ascorbic Acid 500 mg Chewable Tablet PO SCH (07:39)
[2019-12-09] MEDS: Enoxaparin Sodium 60 MG/0.6 ML SYRINGE SC SCH ×2 (07:39→20:29)
[2019-12-09] MEDS: Famotidine 20 MG TAB PO SCH ×2 (07:39→20:29)
[2019-12-09] MEDS: methylPREDNISolone Sod Succ 40 MG VIAL IVP SCH ×2 (07:39→20:30)
[2019-12-09] MEDS: Haloperidol Lactate 5 MG/ML VIAL IM SCH ×2 (07:40→20:29)
[2019-12-09] MEDS: Zinc Sulfate 220 MG CAP PO SCH (07:40)
[2019-12-09] MEDS: Insulin Glargine 24 UNITS in Pre-Filled Syringe 1 EACH SC SCH (07:43)
[2019-12-09] MEDS: Sodium Chloride 0.9% 1,000 ML IV SCH (08:18)
[2019-12-09] MEDS ORDERED: Furosemide 40 MG/4 ML VIAL SLOW IVP SCH (10:00)
--- NOTE | 2019-12-09 10:14 | PRG ---
DATE OF SERVICE: 35 minutes critical care time. SUBJECTIVE: This patient remains intubated on mechanical ventilation for COVID-19 pneumonia. There has been no acute changes overnight. OBJECTIVE: VITAL SIGNS: Temperature 98.2, pulse 114, blood pressure 122/78, O2 saturation generally in the 90s, 24-hour intake 3317, output 1785. Weight 116 pounds. HEENT: Unremarkable. NECK: No JVD. She has crepitus in her neck going down both arms. LUNGS: Diminished breath sounds. CARDIAC: S1, S2. Regular. ABDOMEN: Soft. EXTREMITIES: No edema. LABORATORY DATA: White blood cell count 14.3, hematocrit 30, and platelet count 244, pH 7.35, pCO2 of 63, pO2 of 67 on bilevel 38/11 with a rate of 28. Sodium 137, potassium 4.1, chloride 97, CO2 of 32, BUN 12, creatinine 0.4, glucose 172. Chest x-ray shows bilateral subcutaneous air. ASSESSMENT: 1. Coronavirus disease-19 pneumonia. 2. Acute respiratory failure requiring mechanical ventilation. 3. Pneumomediastinum. PLAN: 1. The patient is not weanable at this time secondary to severe hypoxemia. She is continuing deep sedation, enteral tube feeds. We can go ahead and stop her continuous IV fluids and give her a small dose of diuretic. 2. Continue steroids and anticoagulation. PROGNOSIS: Very poor. Job ID: [id number]
[2019-12-09] MEDS: Lorazepam 2 MG/ML VIAL SLOW IVP PRN ×2 (11:22→23:13)
[2019-12-09] MEDS: fentaNYL Citrate/PF 2,000 MCG in Sodium Chloride 0.9% 60 ML IV SCH (11:52)
--- NOTE | 2019-12-09 12:35 | PDOC.HOSPP ---
- Subjective Encounter Date: 12/09/19 (f/u resp failure) Encounter Time: 12:33 Subjective: 64 y/o female with prolonged hospitalization secondary to COVID pneumonia and acute respiratory failure requiring mechanical ventilation. Pt remains on intubated on vent. - Objective Vital Signs & Weight: Vital Signs (12 hours) Pulse Resp BP Pulse Ox 12/09/19 10:34 103 H 145/77 H 12/09/19 10:00 28 H 12/09/19 08:00 28 H 12/09/19 06:26 116 H 164/98 H 12/09/19 06:00 28 H 12/09/19 04:00 28 H 12/09/19 02:21 105 H 115/58 L 12/09/19 02:20 104 H 28 H 95 12/09/19 02:00 28 H Weight Admit Weight 120 lb 13.013 oz Weight 116 lb 6.465 oz Most Recent Monitor Data Heart Rate from ECG 110 NIBP 165/92 NIBP BP-Mean 116 Respiration from ECG 28 SpO2 94 I&O: 12/08/19 12/09/19 12/10/19 06:59 06:59 06:59 Intake Total 3042.60 3317.3 720 Output Total 1989 1785 360 Balance 1052.60 1532.3 360 Result Diagrams: 12/09/19 05:05 12/09/19 05:05 Additional Labs: Accuchecks 12/08/19 12/08/19 17:07 12:56 POC Glucose 132 H 164 H EKG Reviewed by me: Yes (tele - sinus 110's) Hospitalist ROS - Medication Medications: Active Medications Generic Name Dose Route Start Last Admin Trade Name Freq PRN Reason Stop Dose Admin Acetaminophen 650 mg 11/13/19 22:50 11/28/19 00:56 Tylenol PO 650 mg Q4H PRN Administration Headache/Fever/Mild Pain (1-3) Albuterol/Ipratropium 3 ml 11/14/19 14:30 12/09/19 10:34 Duoneb NEB 3 ml [id number] MARK Administration Ascorbic Acid 1,000 mg 11/15/19 09:00 12/09/19 07:39 Vitamin C PO 1,000 mg DAILY MARK Administration Aspirin 81 mg 12/02/19 09:00 12/09/19 07:39 Aspirin Chewable PER TUBE 81 mg DAILY MARK Administration Budesonide 0.5 mg 11/14/19 18:30 12/09/19 06:26 Pulmicort Neb Solution NEB 0.5 mg BID-RT MARK Administration Clonidine 0.1 mg 11/13/19 22:50 12/04/19 08:33 Catapres PO 0.1 mg BID PRN Administration SBP > 160 use second Enoxaparin Sodium 50 mg 11/21/19 21:00 12/09/19 07:39 Lovenox SC 50 mg 0900,2100 MARK Administration Famotidine 20 mg 11/30/19 21:00 12/09/19 07:39 Pepcid PO 20 mg BID MARK Administration Haloperidol Lactate 10 mg 11/28/19 21:00 12/09/19 07:40 Haldol IM 10 mg Q12HR MARK Administration Hydralazine HCl 10 mg 11/13/19 22:50 12/05/19 02:50 Apresoline SLOW IVP 10 mg Q6H PRN Administration SBP GREATER THAN 160 Norepinephrine Bitartrate 250 mls @ 0 mls/hr 11/14/19 18:43 12/07/19 13:15 Levophed IVPB 250 mls INF MARK Administration Protocol Titrate Insulin Glargine 24 units/ 0.24 mls @ 0 mls/hr 11/20/19 15:49 12/09/19 07:43 Miscellaneous Medication SC 0.24 mls QAM MARK Administration As Directed Insulin Glargine 15 units/ 0.15 mls @ 0 mls/hr 12/06/19 21:00 12/08/19 20:06 Miscellaneous Medication SC 0.15 mls HS MARK Administration Per Protocol Fentanyl Citrate 2,000 mcg/ 100 mls @ 0 mls/hr 12/06/19 19:30 12/09/19 11:52 Sodium Chloride IV 100 mls INF MARK Administration Protocol Per Protocol Insulin Human Lispro 0 units 11/14/19 01:26 12/09/19 05:46 Humalog SC 2 units .MODERATE SLIDING SC PRN Administration Moderate Correctional Scale Lorazepam 2 mg 12/06/19 19:21 12/09/19 11:22 Ativan SLOW IVP 2 mg Q1H PRN Administration Breakthrough agitation Methylprednisolone Sodium Succinate 80 mg 11/30/19 09:00 12/09/19 07:39 Solu-Medrol IVP 80 mg 0900,2100 MARK Administration Morphine Sulfate 2 mg 12/06/19 19:21 12/09/19 00:15 Morphine SLOW IVP 2 mg Q1H PRN Administration Breakthrough Pain/Agitation Ondansetron HCl 4 mg 11/13/19 22:50 11/14/19 03:07 Zofran IVP 4 mg Q6H PRN Administration Nausea/Vomiting use 1st Polyethylene Glycol 17 gm 12/03/19 21:00 12/08/19 20:01 Miralax PER TUBE 17 gm HS MARK Administration Propofol 1,000 mg 11/26/19 18:25 12/09/19 00:47 Diprivan IV 12/26/19 18:25 1,000 mg INF PRN Administration TO ACHIEVE GOAL RASS Protocol Senna/Docusate Sodium 2 tab 11/14/19 12:21 12/07/19 10:45 Senokot S PO 2 tab BIDPRN PRN Administration Constipation Sodium Chloride 10 ml 11/14/19 09:00 12/09/19 07:40 Flush - Normal Saline IVF 10 ml Q12HR MARK Administration Sterile Water 1 ml 11/18/19 11:56 12/01/19 12:01 Bacteriostatic Water FS 1 ml PRN PRN Administration RECONSTITUTION Vecuronium [place] 10 mg 11/21/19 15:48 12/09/19 05:21 Norcuron IV 10 mg Q1H PRN Administration SEDATION/MOVEMENT Zinc Sulfate 220 mg 11/15/19 09:00 12/09/19 07:40 Zinc Sulfate PO 220 mg DAILY MARK Administration - Exam General Appearance: NAD Heart - other findings: distant heart sounds secondary to vent - no audible murmurs Respiratory: no wheezes, no rales, no ronchi Gastrointestinal: soft, non-distended, normal bowel sounds Extremities: no cyanosis, no clubbing, no edema Neurological - other findings: intubated - unable to assess Psychiatric - other findings: intubated - unable to assess Hosp A/P (1) Acute respiratory failure with hypoxia Code(s): J96.01 - ACUTE RESPIRATORY FAILURE WITH HYPOXIA Status: Acute (2) COVID-19 virus infection Code(s): U07.1 - COVID-19 Status: Acute (3) Pneumonia due to COVID-19 virus Code(s): U07.1 - COVID-19; J12.89 - OTHER VIRAL PNEUMONIA Status: Acute (4) Diabetes mellitus Code(s): E11.9 - TYPE 2 DIABETES MELLITUS WITHOUT COMPLICATIONS Status: Chronic Qualifiers: Diabetes mellitus type: type 2 Diabetes mellitus intermediate insulin use: without intermediate use - Plan Acute resp failure - appreciate Pulmonology directing care - not weanable from the vent - on bilevel support with stiff lungs/poor compliance - significant subcutaneous emphysema, and likely pneumonmediastinum and left small basilar pneumothorax secondary to vent/pressures required to support oxygenation - IVF d/c and 1 dose of lasix ordered COVID pneumonia - s/p convalescent plasma - remains on IV and inhaled steroids, scheduled nebs, and vent - no longer requires isolation Diabetes mellitus - well controlled with long-acting insulin - on tube feeds dvt prophy - full dose lovenox gi prophy - famotidine per tube code status full overall guarded prognosis
[2019-12-09] MEDS: Insulin Glargine 15 UNITS in Pre-Filled Syringe 1 EACH SC SCH (20:29)
[2019-12-09] MEDS: Polyethylene Glycol 3350 17 GM Packet PER TUBE SCH (20:30)
[2019-12-10] MEDS: Vecuronium 10 MG VIAL IV PRN ×3 (01:08→08:59)
[2019-12-10] MEDS: fentaNYL Citrate/PF 2,000 MCG in Sodium Chloride 0.9% 60 ML IV SCH ×2 (04:10→19:18)
[2019-12-10] MEDS: Acetaminophen 325 MG TAB PO PRN (05:18)
[2019-12-10 05:37] LABS: Band 3 % (5-11); Hemoglobin 9.1 g/dL (12.0-16.0); Hypochromia SLIGHT = 6-15 cells (100X) (0-5/hpf); Lymphocytes 3 % (21-51); MDiff Complete? YES; Mean Corpuscular HGB CONC 31.2 g/dL (32.0-36.0); Mean Corpuscular Hemoglobin 28.9 pg (27.0-31.0); Mean Corpuscular Volume 92.6 fL (78.0-98.0); Mean Platelet Volume 8.4 fL (7.4-10.4); Monocytes 9 % (0-10); Neutrophil 85 % (42-75); Platelet Count 306 thou/uL (130-400); Platelet Morphology Comment Appears Adequate; RBC Distribution Width 14.8 % (11.5-14.5); Red Blood Cell (RBC) Count 3.17 mill/uL (4.20-5.40); White Blood Cell (WBC) Count 14.3 thou/uL (4.8-10.8)
[2019-12-10 05:39] LABS: Anion Gap 11 mmol/L (10-20); BUN (Urea Nitrogen) 15 mg/dL (9.8-20.1); Calc. Creatinine Clearance 120 mL/min (70-130); Calcium 8.6 mg/dL (7.8-10.44); Carbon Dioxide 36 mmol/L (23-31); Chloride 95 mmol/L (98-107); Estimated GFR-MDRD Greater than 90; Glucose 128 mg/dL (80-115); Potassium 3.8 mmol/L (3.5-5.1); Sodium 138 mmol/L (136-145)
[2019-12-10] MEDS: Budesonide 0.5 MG/2 ML NEB NEB SCH ×2 (07:25→18:19)
[2019-12-10 07:41] LABS: Actual Bicarbonate (HCO3a) 31.9 mEq/L (22-28); Base Excess (BEa) 8.4 mEq/L (-2.0 to +3.0); CO2 Tension 40.2 mmHg (35.0-45.0); Calcium, Ionized (arterial) 1.12 mmol/L (1.12-1.30); Carboxyhemoglobin (COHb) 0.7 gm% (0.0-3.0); Hemoglobin (Hb) 9.6 g/dL (12.0-16.0); Potassium - ABG Lab 3.61 mmol/L (3.70-5.30); pH, Arterial 7.52 (7.35-7.45)
[2019-12-10 07:43] LABS: O2 Tension (PaO2), arterial 47.5 mmHg (> 80.0); Puncture Site RRA
[2019-12-10] MEDS: Ascorbic Acid 500 mg Chewable Tablet PO SCH (08:36)
[2019-12-10] MEDS: Famotidine 20 MG TAB PO SCH ×2 (08:36→20:25)
[2019-12-10] MEDS: Aspirin Chewable 81 MG TAB PER TUBE SCH (08:37)
[2019-12-10] MEDS: Haloperidol Lactate 5 MG/ML VIAL IM SCH ×2 (08:37→20:25)
[2019-12-10] MEDS: Enoxaparin Sodium 60 MG/0.6 ML SYRINGE SC SCH ×2 (08:37→20:25)
[2019-12-10] MEDS: Insulin Glargine 24 UNITS in Pre-Filled Syringe 1 EACH SC SCH (08:38)
[2019-12-10] MEDS: methylPREDNISolone Sod Succ 40 MG VIAL IVP SCH ×2 (08:38→20:25)
[2019-12-10] MEDS: Zinc Sulfate 220 MG CAP PO SCH (08:39)
--- NOTE | 2019-12-10 09:15 | PDOC.HOSPP ---
- Subjective Encounter Date: 12/10/19 Encounter Time: 11:00 Subjective: Patient remains intubated and ventilated. Got very tachycardic this AM. Given some Ativan which dropped pressures so Levophed restarted. - Objective Vital Signs & Weight: Vital Signs (12 hours) Pulse Resp BP Pulse Ox 12/10/19 07:29 112 H 12/10/19 06:00 28 H 12/10/19 04:00 28 H 12/10/19 02:20 103 H 92/51 L 12/10/19 02:19 104 H 28 H 95 12/10/19 02:00 28 H 12/10/19 00:00 28 H 12/09/19 22:25 117 H 97/55 L 12/09/19 22:24 117 H 28 H 93 L 12/09/19 22:00 28 H Weight Admit Weight 120 lb 13.013 oz Weight 118 lb 2.684 oz Most Recent Monitor Data Heart Rate from ECG 121 NIBP 131/73 NIBP BP-Mean 92 Respiration from ECG 29 SpO2 97 I&O: 12/09/19 12/10/19 12/11/19 06:59 06:59 06:59 Intake Total 3317.3 2063.4 Output Total 1785 2950 Balance 1532.3 -886.6 Result Diagrams: 12/10/19 05:05 12/10/19 05:05 Additional Labs: Accuchecks 12/09/19 12/09/19 20:34 17:03 POC Glucose 209 H 261 H Hospitalist ROS - Review of Systems ROS unobtainable: due to endotracheal tube - Medication Medications: Active Medications Generic Name Dose Route Start Last Admin Trade Name Freq PRN Reason Stop Dose Admin Acetaminophen 650 mg 11/13/19 22:50 12/10/19 05:18 Tylenol PO 650 mg Q4H PRN Administration Headache/Fever/Mild Pain (1-3) Albuterol/Ipratropium 3 ml 11/14/19 14:30 12/10/19 07:25 Duoneb NEB 3 ml [id number] MARK Administration Ascorbic Acid 1,000 mg 11/15/19 09:00 12/10/19 08:36 Vitamin C PO 1,000 mg DAILY MARK Administration Aspirin 81 mg 12/02/19 09:00 12/10/19 08:37 Aspirin Chewable PER TUBE 81 mg DAILY MARK Administration Budesonide 0.5 mg 11/14/19 18:30 12/10/19 07:25 Pulmicort Neb Solution NEB 0.5 mg BID-RT MARK Administration Clonidine 0.1 mg 11/13/19 22:50 12/04/19 08:33 Catapres PO 0.1 mg BID PRN Administration SBP > 160 use second Enoxaparin Sodium 50 mg 11/21/19 21:00 12/10/19 08:37 Lovenox SC 50 mg 09,2099 MARK Administration Famotidine 20 mg 11/30/19 21:00 12/10/19 08:36 Pepcid PO 20 mg BID MARK Administration Haloperidol Lactate 10 mg 11/28/19 21:00 12/10/19 08:37 Haldol IM 10 mg Q12HR MARK Administration Hydralazine HCl 10 mg 11/13/19 22:50 12/05/19 02:50 Apresoline SLOW IVP 10 mg Q6H PRN Administration SBP GREATER THAN 160 Norepinephrine Bitartrate 250 mls @ 0 mls/hr 11/14/19 18:43 12/07/19 13:15 Levophed IVPB 250 mls INF MARK Administration Protocol Titrate Insulin Glargine 24 units/ 0.24 mls @ 0 mls/hr 11/20/19 15:49 12/10/19 08:38 Miscellaneous Medication SC 0.24 mls QAM MARK Administration As Directed Insulin Glargine 15 units/ 0.15 mls @ 0 mls/hr 12/06/19 21:00 12/09/19 20:29 Miscellaneous Medication SC 0.15 mls HS MARK Administration Per Protocol Fentanyl Citrate 2,000 mcg/ 100 mls @ 0 mls/hr 12/06/19 19:30 12/10/19 04:10 Sodium Chloride IV 100 mls INF MARK Administration Protocol Per Protocol Insulin Human Lispro 0 units 11/14/19 01:26 12/09/19 20:30 Humalog SC 4 units .MODERATE SLIDING SC PRN Administration Moderate Correctional Scale Lorazepam 2 mg 12/06/19 19:21 12/09/19 23:13 Ativan SLOW IVP 2 mg Q1H PRN Administration Breakthrough agitation Methylprednisolone Sodium Succinate 80 mg 11/30/19 09:00 12/10/19 08:38 Solu-Medrol IVP 80 mg 0900,2100 MARK Administration Morphine Sulfate 2 mg 12/06/19 19:21 12/09/19 18:24 Morphine SLOW IVP 2 mg Q1H PRN Administration Breakthrough Pain/Agitation Ondansetron HCl 4 mg 11/13/19 22:50 11/14/19 03:07 Zofran IVP 4 mg Q6H PRN Administration Nausea/Vomiting use 1st Polyethylene Glycol 17 gm 12/03/19 21:00 12/09/19 20:30 Miralax PER TUBE Not Given HS [facility] Propofol 1,000 mg 11/26/19 18:25 12/09/19 16:25 Diprivan IV 12/26/19 18:25 1,000 mg INF PRN Administration TO ACHIEVE GOAL RASS Protocol Senna/Docusate Sodium 2 tab 11/14/19 12:21 12/07/19 10:45 Senokot S PO 2 tab BIDPRN PRN Administration Constipation Sodium Chloride 10 ml 11/14/19 09:00 12/10/19 08:38 Flush - Normal Saline IVF 10 ml Q12HR MARK Administration Sterile Water 1 ml 11/18/19 11:56 12/01/19 12:01 Bacteriostatic Water FS 1 ml PRN PRN Administration RECONSTITUTION Vecuronium [place] 10 mg 11/21/19 15:48 12/10/19 08:59 Norcuron IV 10 mg Q1H PRN Administration SEDATION/MOVEMENT Zinc Sulfate 220 mg 11/15/19 09:00 12/10/19 08:39 Zinc Sulfate PO 220 mg DAILY MARK Administration - Exam General Appearance: ill appearing ENT: moist mucosa Heart: no murmur, no gallops, no rubs, irregular Heart - other findings: tachycardic Respiratory: CTAB, no wheezes, no rales, no ronchi Respiratory - other findings: on vent, shallow ventilatory breaths due to poor lung compliance Gastrointestinal: soft, non-tender, non-distended, normal bowel sounds Psychiatric - other findings: unresponsive on vent currently Hosp A/P (1) Acute respiratory failure with hypoxia Code(s): J96.01 - ACUTE RESPIRATORY FAILURE WITH HYPOXIA Status: Acute (2) Pneumonia due to COVID-19 virus Code(s): U07.1 - COVID-19; J12.89 - OTHER VIRAL PNEUMONIA Status: Acute (3) Pneumomediastinum Code(s): J98.2 - INTERSTITIAL EMPHYSEMA Status: Acute (4) Subcutaneous emphysema Code(s): T79.7XXA - TRAUMATIC SUBCUTANEOUS EMPHYSEMA, INITIAL ENCOUNTER Status : Acute (5) Diabetes mellitus Code(s): E11.9 - TYPE 2 DIABETES MELLITUS WITHOUT COMPLICATIONS Status: Chronic Qualifiers: Diabetes mellitus type: type 2 Diabetes mellitus superintendent [employer] insulin use: without senior living use - Plan Acute resp failure - appreciate Pulmonology directing care - not weanable from the vent - on bilevel support with stiff lungs/poor compliance - significant subcutaneous emphysema, and pneumonmediastinum (with possible left small basilar pneumothorax not seen on repeat CXR) secondary to vent/ pressures required to support oxygenation - IVF d/c'd, was given dose of Lasix yesterday - Consider Trach when stable enough for procedure COVID pneumonia - s/p convalescent plasma - remains on IV and inhaled steroids, scheduled nebs, Lovenox, and vent - no longer requires isolation Diabetes mellitus - well controlled with long-acting insulin - on tube feeds dvt prophy - full dose lovenox gi prophy - famotidine per tube code status full overall guarded prognosis
--- NOTE | 2019-12-10 09:34 | PRG ---
DATE OF SERVICE: 12/10/2019 SUBJECTIVE: Reyna Frias is a 64-year-old female, who has been intubated in the vent, sedated, paralyzed. OBJECTIVE: VITAL SIGNS: Breathing _45/min times a minute, saturations 88, pulse 112, blood pressure 130/73. CHEST: Rhonchi, crackles. CARDIAC: Sinus tach. ABDOMEN: Soft. LABORATORY DATA: White count 14,000, platelet count 306. PO2 is 47, pCO2 of 40, pH 7.52, on a bilevel, 55% FiO2 and low PEEP of 11. Lytes are normal. ASSESSMENT AND PLAN: Respiratory failure, verduzco positive pneumonia, severe acute respiratory distress syndrome, encephalopathy. She is not weanable at this stage. I am going to re-swab her. If she ever improves, may consider doing a trach and a PEG. Discussed with family. Ongoing prognosis is grave. One-half hour of critical time. Job ID: [id number] MTDD
[2019-12-10] MEDS: Lorazepam 2 MG/ML VIAL SLOW IVP PRN (10:25)
--- NOTE | 2019-12-10 13:45 | PDOC.PALPN ---
Palliative Progress Note - Subjective Continues to be intubated on mechanical ventilation. Sedated - Objective Vital Signs: Vital Signs - Most Recent Temp Pulse Resp BP Pulse Ox 97.9 F 124 H 28 H 92/51 L 95 12/10/19 12:00 12/10/19 13:03 12/10/19 06:00 12/10/19 02:20 12/10/19 02:19 - Physical Exam Constitutional: encephalitic, ill appearing HEENT: moist MMs Respiratory: diminished lung sound Deviation from normal: Mechanical ventilation, Adventicious lung sounds Cardiovascular: RRR Deviation from normal: Distant heart sounds Gastrointestinal: soft, non-tender Genitourinary: serna catheter Musculoskeletal: diffuse muscle atrophy Deviation from normal: sedated Skin: fragile Deviation from normal: sedated, encephalopathic - Assessment (1) Palliative care encounter Code(s): Z51.5 - ENCOUNTER FOR PALLIATIVE CARE Current Visit: Yes Status: Acute (2) Acute respiratory failure with hypoxia Code(s): J96.01 - ACUTE RESPIRATORY FAILURE WITH HYPOXIA Current Visit: Yes Status: Acute (3) COVID-19 virus infection Code(s): U07.1 - COVID-19 Current Visit: Yes Status: Acute (4) Pneumonia due to COVID-19 virus Code(s): U07.1 - COVID-19; J12.89 - OTHER VIRAL PNEUMONIA Current Visit: Yes Status: Acute (5) Sepsis Code(s): A41.9 - SEPSIS, UNSPECIFIED ORGANISM Current Visit: Yes Status: Acute Qualifiers: Sepsis type: sepsis due to unspecified organism Sepsis acute organ dysfunction status: with acute organ dysfunction Severe sepsis acute organ dysfunction type: acute respiratory failure Acute respiratory failure type: with hypoxia Severe sepsis shock status: without septic shock Qualified Code (s): A41.9 - Sepsis, unspecified organism; R65.20 - Severe sepsis without septic shock; J96.01 - Acute respiratory failure with hypoxia (6) Diabetes mellitus Code(s): E11.9 - TYPE 2 DIABETES MELLITUS WITHOUT COMPLICATIONS Current Visit : Yes Status: Chronic Qualifiers: Diabetes mellitus type: type 2 Diabetes mellitus manager intermediate insulin use: without skilled nursing use - Plan Plan: Assessed patient, Lengthy conversation via phone with patient two children and spouse. Discussed her poor recovery and guarded prognosis. Continues to not be a canidate for Trach/Peg today. Revisited resuscitation status. and children agree to transition to DNAR. Family to come to bedside 12/10 9am to revisit Goal of Care and speak with hospitalist and sifter and miller. Communicated with Dr Flores and Dr Rojas. DNAR complete [35] minutes spent on this encounter with >50% of the time in counseling and coordination of care. - ROS Non Response: due to endotracheal tube, due to mental status
[2019-12-10] MEDS: HumaLOG 300 UNITS/3 ML VIAL SC PRN (17:22)
[2019-12-10] MEDS: Propofol 1,000 MG/100 ML VIAL IV PRN (17:23)
[2019-12-10] MEDS: Norepinephrine 8 MG/0.9% NS 250 ML IVPB SCH (17:24)
[2019-12-10] MEDS: Insulin Glargine 15 UNITS in Pre-Filled Syringe 1 EACH SC SCH (20:26)
[2019-12-10] MEDS: Polyethylene Glycol 3350 17 GM Packet PER TUBE SCH (20:26)
[2019-12-11 04:54] LABS: Band 21 % (5-11); Hemoglobin 8.4 g/dL (12.0-16.0); Lymphocytes 11 % (21-51); MDiff Complete? YES; Mean Corpuscular HGB CONC 30.8 g/dL (32.0-36.0); Mean Corpuscular Volume 94.1 fL (78.0-98.0); Mean Platelet Volume 8.8 fL (7.4-10.4); Metamyelocyte 1 % (0-0); Monocytes 5 % (0-10); Neutrophil 62 % (42-75); Platelet Count 274 thou/uL (130-400); Platelet Morphology Comment Appears Adequate; RBC Distribution Width 14.9 % (11.5-14.5); White Blood Cell (WBC) Count 9.8 thou/uL (4.8-10.8)
[2019-12-11 05:01] LABS: BUN (Urea Nitrogen) 14 mg/dL (9.8-20.1); Calc. Creatinine Clearance 118 mL/min (70-130); Calcium 8.4 mg/dL (7.8-10.44); Estimated GFR-MDRD Greater than 90; Glucose 153 mg/dL (80-115)
[2019-12-11 05:12] LABS: Chloride 97 mmol/L (98-107); Sodium 141 mmol/L (136-145)
[2019-12-11 05:15] LABS: Anion Gap 13 mmol/L (10-20); Carbon Dioxide 35 mmol/L (23-31)
[2019-12-11] MEDS: Propofol 1,000 MG/100 ML VIAL IV PRN ×3 (05:39→20:12)
[2019-12-11] MEDS: Budesonide 0.5 MG/2 ML NEB NEB SCH ×2 (07:19→18:25)
[2019-12-11 07:40] LABS: Actual Bicarbonate (HCO3a) 41.2 mEq/L (22-28); Base Excess (BEa) 15.1 mEq/L (-2.0 to +3.0); Calcium, Ionized (arterial) 1.13 mmol/L (1.12-1.30); Carboxyhemoglobin (COHb) 0.2 gm% (0.0-3.0); Hemoglobin (Hb) 9.5 g/dL (12.0-16.0); Potassium - ABG Lab 3.89 mmol/L (3.70-5.30); pH, Arterial 7.45 (7.35-7.45)
[2019-12-11 07:45] LABS: CO2 Tension 60.9 mmHg (35.0-45.0); O2 Tension (PaO2), arterial 51.5 mmHg (> 80.0); Puncture Site RRA
[2019-12-11 07:46] LABS: ALV-art Gradient 335.825 (0-20)
--- NOTE | 2019-12-11 07:52 | PDOC.HOSPP ---
- Subjective Encounter Date: 12/11/19 Encounter Time: 12:30 non-verbal - Objective Vital Signs & Weight: Vital Signs (12 hours) Temp Pulse Resp BP Pulse Ox 12/11/19 07:23 108 H 12/11/19 06:00 18 12/11/19 04:00 98.9 F 18 12/11/19 02:23 116 H 146/84 H 12/11/19 02:22 116 H 29 H 94 L 12/11/19 02:00 18 12/11/19 00:00 99.8 F H 20 12/10/19 22:22 127 H 113/49 L 12/10/19 22:20 129 H 19 93 L 12/10/19 22:00 22 H 12/10/19 20:00 99.2 F 22 H 92 L Weight Admit Weight 120 lb 13.013 oz Weight 116 lb 13.52 oz Most Recent Monitor Data Heart Rate from ECG 106 NIBP 125/71 NIBP BP-Mean 89 Respiration from ECG 20 SpO2 99 I&O: 12/10/19 12/11/19 12/12/19 06:59 06:59 06:59 Intake Total 2063.4 1899.6 Output Total 2950 1520 Balance -886.6 379.6 Result Diagrams: 12/11/19 04:16 12/11/19 04:16 Additional Labs: Accuchecks 12/10/19 12/10/19 12/10/19 20:30 17:13 10:33 POC Glucose 199 H 313 H 115 H 12/09/19 11:20 POC Glucose 168 H Hospitalist ROS - Review of Systems ROS unobtainable: due to endotracheal tube - Medication Medications: Active Medications Generic Name Dose Route Start Last Admin Trade Name Freq PRN Reason Stop Dose Admin Acetaminophen 650 mg 11/13/19 22:50 12/10/19 05:18 Tylenol PO 650 mg Q4H PRN Administration Headache/Fever/Mild Pain (1-3) Albuterol/Ipratropium 3 ml 11/14/19 14:30 12/11/19 07:18 Duoneb NEB 3 ml [id number] MARK Administration Ascorbic Acid 1,000 mg 11/15/19 09:00 12/10/19 08:36 Vitamin C PO 1,000 mg DAILY MARK Administration Aspirin 81 mg 12/02/19 09:00 12/10/19 08:37 Aspirin Chewable PER TUBE 81 mg DAILY MARK Administration Budesonide 0.5 mg 11/14/19 18:30 12/11/19 07:19 Pulmicort Neb Solution NEB 0.5 mg BID-RT MARK Administration Clonidine 0.1 mg 11/13/19 22:50 12/04/19 08:33 Catapres PO 0.1 mg BID PRN Administration SBP > 160 use second Enoxaparin Sodium 50 mg 11/21/19 21:00 12/10/19 20:25 Lovenox SC 50 mg 0900,2099 MARK Administration Famotidine 20 mg 11/30/19 21:00 12/10/19 20:25 Pepcid PO 20 mg BID MARK Administration Haloperidol Lactate 10 mg 11/28/19 21:00 12/10/19 20:25 Haldol IM 10 mg Q12HR MARK Administration Hydralazine HCl 10 mg 11/13/19 22:50 12/05/19 02:50 Apresoline SLOW IVP 10 mg Q6H PRN Administration SBP GREATER THAN 160 Norepinephrine Bitartrate 250 mls @ 0 mls/hr 11/14/19 18:43 12/10/19 17:24 Levophed IVPB 250 mls INF MARK Administration Protocol Titrate Insulin Glargine 24 units/ 0.24 mls @ 0 mls/hr 11/20/19 15:49 12/10/19 08:38 Miscellaneous Medication SC 0.24 mls QAM MARK Administration As Directed Insulin Glargine 15 units/ 0.15 mls @ 0 mls/hr 12/06/19 21:00 12/10/19 20:26 Miscellaneous Medication SC 0.15 mls HS MARK Administration Per Protocol Fentanyl Citrate 2,000 mcg/ 100 mls @ 0 mls/hr 12/06/19 19:30 12/10/19 19:18 Sodium Chloride IV 100 mls INF MARK Administration Protocol Per Protocol Insulin Human Lispro 0 units 11/14/19 01:26 12/10/19 17:22 Humalog SC 8 units .MODERATE SLIDING SC PRN Administration Moderate Correctional Scale Lorazepam 2 mg 12/06/19 19:21 12/10/19 10:25 Ativan SLOW IVP 2 mg Q1H PRN Administration Breakthrough agitation Methylprednisolone Sodium Succinate 80 mg 11/30/19 09:00 12/10/19 20:25 Solu-Medrol IVP 80 mg 0900,2100 MARK Administration Morphine Sulfate 2 mg 12/06/19 19:21 12/09/19 18:24 Morphine SLOW IVP 2 mg Q1H PRN Administration Breakthrough Pain/Agitation Ondansetron HCl 4 mg 11/13/19 22:50 11/14/19 03:07 Zofran IVP 4 mg Q6H PRN Administration Nausea/Vomiting use 1st Polyethylene Glycol 17 gm 12/03/19 21:00 12/10/19 20:26 Miralax PER TUBE Not Given HS MARK Propofol 1,000 mg 11/26/19 18:25 12/11/19 05:39 Diprivan IV 12/26/19 18:25 1,000 mg INF PRN Administration TO ACHIEVE GOAL RASS Protocol Senna/Docusate Sodium 2 tab 11/14/19 12:21 12/07/19 10:45 Senokot S PO 2 tab BIDPRN PRN Administration Constipation Sodium Chloride 10 ml 11/14/19 09:00 12/10/19 20:26 Flush - Normal Saline IVF 10 ml Q12HR MARK Administration Sterile Water 1 ml 11/18/19 11:56 12/01/19 12:01 Bacteriostatic Water FS 1 ml PRN PRN Administration RECONSTITUTION Vecuronium [place] 10 mg 11/21/19 15:48 12/10/19 08:59 Norcuron IV 10 mg Q1H PRN Administration SEDATION/MOVEMENT Zinc Sulfate 220 mg 11/15/19 09:00 12/10/19 08:39 Zinc Sulfate PO 220 mg DAILY MARK Administration - Exam General - other findings: unresponsive on the vent ENT: moist mucosa Heart - other findings: tachycardia Respiratory - other findings: shallow fast vent rate, poor air movement Gastrointestinal: soft, normal bowel sounds Extremities: no edema Skin: normal turgor, no lesions, no rashes Psychiatric - other findings: unresponsive on the vent Hosp A/P (1) Acute respiratory failure with hypoxia Code(s): J96.01 - ACUTE RESPIRATORY FAILURE WITH HYPOXIA Status: Acute (2) Pneumonia due to COVID-19 virus Code(s): U07.1 - COVID-19; J12.89 - OTHER VIRAL PNEUMONIA Status: Acute (3) Pneumomediastinum Code(s): J98.2 - INTERSTITIAL EMPHYSEMA Status: Acute (4) Subcutaneous emphysema Code(s): T79.7XXA - TRAUMATIC SUBCUTANEOUS EMPHYSEMA, INITIAL ENCOUNTER Status : Acute (5) Diabetes mellitus Code(s): E11.9 - TYPE 2 DIABETES MELLITUS WITHOUT COMPLICATIONS Status: Chronic Qualifiers: Diabetes mellitus type: type 2 Diabetes mellitus terminal system operator insulin use: without terminal system operator use - Plan Acute resp failure - appreciate Pulmonology directing care - not weanable from the vent - on bilevel support with stiff lungs/poor compliance - significant subcutaneous emphysema, and pneumonmediastinum (with possible left small basilar pneumothorax not seen on repeat CXR) secondary to vent/ pressures required to support oxygenation - IVF d/c'd - Consider Trach/PEG when stable enough for procedure COVID pneumonia - s/p convalescent plasma - remains on IV and inhaled steroids, scheduled nebs, Lovenox, and vent - no longer requires isolation Diabetes mellitus - well controlled with long-acting insulin - on tube feeds I met with the family at the bedside 12/11/2019. They did not want to do any CPR should patient's heart stop. However, they are adamantly opposed to ever doing withdrawl of care. Hoping for a miracle. I did camp head counselor them and gave them questions that they should be thinking about such as what the patient would likely want them to do should she show no recovery over the next few weeks/ months but still remain unweanable and too unstable for trach. dvt prophy - full dose lovenox gi prophy - famotidine per tube code status full overall guarded prognosis
--- NOTE | 2019-12-11 09:28 | PRG ---
DATE OF SERVICE: SUBJECTIVE: This morning, she is sedated on the vent, on Diprivan drip, Levophed drip, day 28 in the hospital. She was made a DNR after Palliative Care spoke to the family that will be arriving today for additional comfort measures. OBJECTIVE: VITAL SIGNS: Pulse 108, blood pressure 125/80, sats 96%. I's and O's consistently even. CHEST: No wheezing. No crackles. CARDIAC: Normal S1, S2. No gallops. ABDOMEN: Soft. LABORATORY DATA: White count 9,000, hemoglobin and hematocrit 8 and 26, platelet count is normal. PO2 is 51, pCO2 is pH 7.41, rate of 18, 11 of PEEP, 65% FiO2. Lytes are normal. ASSESSMENT: De León positive pneumonia, acute respiratory distress syndrome, respiratory failure, persistent shock. She is still on high-dose steroids. Supportive care is antibiotics. At this stage, she is not weanable. We will discuss with family ongoing care, questions. One-half hour of critical time. Job ID: [id number]
[2019-12-11] MEDS: Ascorbic Acid 500 mg Chewable Tablet PO SCH (10:44)
[2019-12-11] MEDS: Aspirin Chewable 81 MG TAB PER TUBE SCH (10:44)
[2019-12-11] MEDS: Enoxaparin Sodium 60 MG/0.6 ML SYRINGE SC SCH ×2 (10:44→20:12)
[2019-12-11] MEDS: Insulin Glargine 24 UNITS in Pre-Filled Syringe 1 EACH SC SCH (10:45)
[2019-12-11] MEDS: Haloperidol Lactate 5 MG/ML VIAL IM SCH ×2 (10:45→20:13)
[2019-12-11] MEDS: Famotidine 20 MG TAB PO SCH ×2 (10:45→20:13)
[2019-12-11] MEDS: methylPREDNISolone Sod Succ 40 MG VIAL IVP SCH ×2 (10:47→20:13)
[2019-12-11] MEDS: Zinc Sulfate 220 MG CAP PO SCH (10:48)
[2019-12-11] MEDS: Vecuronium 10 MG VIAL IV PRN (11:31)
[2019-12-11] MEDS: fentaNYL Citrate/PF 2,000 MCG in Sodium Chloride 0.9% 60 ML IV SCH (13:09)
[2019-12-11] MEDS: Norepinephrine 8 MG/0.9% NS 250 ML IVPB SCH (13:30)
--- NOTE | 2019-12-11 15:39 | PDOC.PALPN ---
Palliative Progress Note - Subjective Intubated, mechanical ventilation, non responsive. - Objective Vital Signs: Vital Signs - Most Recent Temp Pulse Resp BP Pulse Ox 99.4 F 122 H 18 146/84 H 97 12/11/19 12:00 12/11/19 13:53 12/11/19 14:00 12/11/19 02:23 12/11/19 08:00 - Physical Exam Constitutional: encephalitic, ill appearing HEENT: moist MMs Respiratory: diminished lung sound Deviation from normal: intubated, mechanical ventilation Cardiovascular: RRR Deviation from normal: tachycardia Gastrointestinal: soft, non-tender Genitourinary: serna catheter Musculoskeletal: diffuse muscle atrophy Skin: cap refill <2 seconds, no lesions, no rash Deviation from normal: encephalopathic - Assessment (1) Palliative care encounter Code(s): Z51.5 - ENCOUNTER FOR PALLIATIVE CARE Current Visit: Yes Status: Acute (2) Acute respiratory failure with hypoxia Code(s): J96.01 - ACUTE RESPIRATORY FAILURE WITH HYPOXIA Current Visit: Yes Status: Acute (3) COVID-19 virus infection Code(s): U07.1 - COVID-19 Current Visit: Yes Status: Acute (4) Pneumonia due to COVID-19 virus Code(s): U07.1 - COVID-19; J12.89 - OTHER VIRAL PNEUMONIA Current Visit: Yes Status: Acute (5) Sepsis Code(s): A41.9 - SEPSIS, UNSPECIFIED ORGANISM Current Visit: Yes Status: Acute Qualifiers: Sepsis type: sepsis due to unspecified organism Sepsis acute organ dysfunction status: with acute organ dysfunction Severe sepsis acute organ dysfunction type: acute respiratory failure Acute respiratory failure type: with hypoxia Severe sepsis shock status: without septic shock Qualified Code (s): A41.9 - Sepsis, unspecified organism; R65.20 - Severe sepsis without septic shock; J96.01 - Acute respiratory failure with hypoxia (6) Diabetes mellitus Code(s): E11.9 - TYPE 2 DIABETES MELLITUS WITHOUT COMPLICATIONS Current Visit : Yes Status: Chronic Qualifiers: Diabetes mellitus type: type 2 Diabetes mellitus usp insulin use: without lobsterman use - Plan Plan: Family to bedside. Continue with significant emotional support as well as discussion in relation to education of poor prognosis, not able to trach/ dependence on mechanical ventilation. Dr Levi as well as primary RN communicated with family. , Kennedy, confirms that the family wishes for Mrs Frias to remain a DNAR but do not wish to withdraw care. Continue supportive measures. Please also refer to Palliative Care notes in note section [40] minutes spent on this encounter with >50% of the time in counseling and coordination of care. - ROS Non Response: due to endotracheal tube, due to mental status
[2019-12-11] MEDS: HumaLOG 300 UNITS/3 ML VIAL SC PRN ×2 (16:31→20:23)
[2019-12-11 18:15] LABS: SARS-CoV-2 MS2 Positive; SARS-CoV-2 N Gene Positive; SARS-CoV-2 S Gene Positive; SARS-CoV-2 by NAA DETECTED (NotDetected); SARS-CoV-2 orf1ab Negative
[2019-12-11] MEDS: Polyethylene Glycol 3350 17 GM Packet PER TUBE SCH (20:13)
[2019-12-11] MEDS: Insulin Glargine 15 UNITS in Pre-Filled Syringe 1 EACH SC SCH (20:13)
[2019-12-12] MEDS: Propofol 1,000 MG/100 ML VIAL IV PRN ×3 (04:49→20:11)
[2019-12-12] MEDS: fentaNYL Citrate/PF 2,000 MCG in Sodium Chloride 0.9% 60 ML IV SCH ×2 (04:49→20:14)
[2019-12-12] MEDS: Vecuronium 10 MG VIAL IV PRN ×5 (05:18→23:30)
[2019-12-12] MEDS: HumaLOG 300 UNITS/3 ML VIAL SC PRN ×2 (05:30→20:12)
[2019-12-12 06:10] LABS: Band 40 % (5-11); Hemoglobin 8.1 g/dL (12.0-16.0); Hypochromia SLIGHT = 6-15 cells (100X) (0-5/hpf); Lymphocytes 4 % (21-51); MDiff Complete? YES; Mean Corpuscular HGB CONC 31.2 g/dL (32.0-36.0); Mean Corpuscular Hemoglobin 29.7 pg (27.0-31.0); Mean Corpuscular Volume 95.1 fL (78.0-98.0); Mean Platelet Volume 8.9 fL (7.4-10.4); Monocytes 7 % (0-10); Neutrophil 49 % (42-75); Platelet Count 257 thou/uL (130-400); Platelet Morphology Comment Appears Adequate; Red Blood Cell (RBC) Count 2.72 mill/uL (4.20-5.40); White Blood Cell (WBC) Count 8.4 thou/uL (4.8-10.8)
[2019-12-12 06:16] LABS: Anion Gap 11 mmol/L (10-20); BUN (Urea Nitrogen) 20 mg/dL (9.8-20.1); Calc. Creatinine Clearance 119 mL/min (70-130); Calcium 8.7 mg/dL (7.8-10.44); Carbon Dioxide 37 mmol/L (23-31); Chloride 96 mmol/L (98-107); Estimated GFR-MDRD Greater than 90; Glucose 143 mg/dL (80-115); Potassium 4.2 mmol/L (3.5-5.1); Sodium 140 mmol/L (136-145)
[2019-12-12] MEDS: Budesonide 0.5 MG/2 ML NEB NEB SCH ×2 (07:51→18:29)
[2019-12-12] MEDS: Ascorbic Acid 500 mg Chewable Tablet PO SCH (08:40)
[2019-12-12] MEDS: Famotidine 20 MG TAB PO SCH ×2 (08:41→20:11)
[2019-12-12] MEDS: Haloperidol Lactate 5 MG/ML VIAL IM SCH (08:41)
[2019-12-12] MEDS: Aspirin Chewable 81 MG TAB PER TUBE SCH (08:41)
[2019-12-12] MEDS: Enoxaparin Sodium 60 MG/0.6 ML SYRINGE SC SCH ×2 (08:41→20:11)
[2019-12-12] MEDS: Zinc Sulfate 220 MG CAP PO SCH (08:42)
[2019-12-12] MEDS: methylPREDNISolone Sod Succ 40 MG VIAL IVP SCH ×2 (08:42→20:11)
[2019-12-12] MEDS: Insulin Glargine 24 UNITS in Pre-Filled Syringe 1 EACH SC SCH (08:44)
--- NOTE | 2019-12-12 08:51 | PRG ---
DATE OF SERVICE: 12/12/2019 SUBJECTIVE: Reyna Frias was made DNR by family yesterday. OBJECTIVE: VITAL SIGNS: Pulse 94, blood pressure 160/60, sats 90%, respiratory rate 18. GENERAL: She was paralyzed this morning. I's and O's have been consistently even. CHEST: Crackles. CARDIAC: Sinus tach. ABDOMEN: Soft. NEUROLOGIC: She is sedated. LABORATORY DATA: Lab surprisingly is unremarkable. Bicarb is 37. White count is 8000, H and H 8 and 25. She had a repeat coronavirus test after 29 days, it is still positive. IMPRESSION: De León positive pneumonia, acute respiratory distress syndrome, major encephalopathy. PLAN: She is clearly not weanable at this stage. She received all supportive care. I am going to add low dose risperidone to present treatment to help her encephalopathy. Overall, prognosis is grave. One-half hour of critical time. Job ID: [id number]
--- NOTE | 2019-12-12 09:06 | EKG ---
Test Reason : Blood Pressure : / mmHG Vent. Rate : 155 BPM Atrial Rate : 155 BPM P-R Int : 124 ms QRS Dur : 058 ms QT Int : 242 ms P-R-T Axes : 037 -35 181 degrees QTc Int : 388 ms Sinus tachycardia Left axis deviation Abnormal ECG When compared with ECG of 13-NOV-2019 19:51, Vent. rate has increased BY [address] now depressed in Inferior leads ST now depressed in Anterolateral leads T wave inversion now evident in Lateral leads Confirmed by DR. Kamari HODGE ([id number]) on 12/12/2019 9:05:51 AM Referred By: NGA Confirmed By:DR. Kamari HODGE
[2019-12-12] MEDS: risperiDONE 1 MG TAB PO SCH ×2 (09:26→20:11)
--- NOTE | 2019-12-12 09:29 | PDOC.HOSPP ---
- Subjective Encounter Date: 12/12/19 Encounter Time: 11:30 Subjective: Patient unchanged overnight. Still needing some Levophed. Tachycardia has improved a bit. - Objective Vital Signs & Weight: Vital Signs (12 hours) Temp Pulse Resp BP Pulse Ox 12/12/19 07:52 100 12/12/19 06:00 18 12/12/19 04:00 18 12/12/19 02:20 95 130/68 12/12/19 02:19 92 18 98 12/12/19 02:00 18 12/12/19 00:14 94 100/58 L 12/12/19 00:00 98.7 F 18 12/11/19 22:12 96 121/70 12/11/19 22:00 18 Weight Admit Weight 120 lb 13.013 oz Weight 117 lb 3.2 oz Most Recent Monitor Data Heart Rate from ECG 96 NIBP 100/48 NIBP BP-Mean 65 Respiration from ECG 18 SpO2 96 I&O: 12/11/19 12/12/19 12/13/19 06:59 06:59 06:59 Intake Total 1899.6 1825.7 Output Total 1520 1065 425 Balance 379.6 760.7 -425 Result Diagrams: 12/12/19 03:50 12/12/19 03:50 Additional Labs: Accuchecks 12/12/19 12/11/19 12/11/19 05:35 20:29 16:33 POC Glucose 151 H 203 H 181 H 12/11/19 10:51 POC Glucose 113 H Hospitalist ROS - Review of Systems ROS unobtainable: due to endotracheal tube - Medication Medications: Active Medications Generic Name Dose Route Start Last Admin Trade Name Freq PRN Reason Stop Dose Admin Acetaminophen 650 mg 11/13/19 22:50 12/10/19 05:18 Tylenol PO 650 mg Q4H PRN Administration Headache/Fever/Mild Pain (1-3) Albuterol/Ipratropium 3 ml 11/14/19 14:30 12/12/19 07:50 Duoneb NEB 3 ml [id number] MARK Administration Ascorbic Acid 1,000 mg 11/15/19 09:00 12/12/19 08:40 Vitamin C PO 1,000 mg DAILY MARK Administration Aspirin 81 mg 12/02/19 09:00 12/12/19 08:41 Aspirin Chewable PER TUBE 81 mg DAILY MARK Administration Budesonide 0.5 mg 11/14/19 18:30 12/12/19 07:51 Pulmicort Neb Solution NEB 0.5 mg BID-RT MARK Administration Clonidine 0.1 mg 11/13/19 22:50 12/04/19 08:33 Catapres PO 0.1 mg BID PRN Administration SBP > 160 use second Enoxaparin Sodium 50 mg 11/21/19 21:00 12/12/19 08:41 Lovenox SC 50 mg 0900,2100 MARK Administration Famotidine 20 mg 11/30/19 21:00 12/12/19 08:41 Pepcid PO 20 mg BID MARK Administration Haloperidol Lactate 10 mg 11/28/19 21:00 12/12/19 08:41 Haldol IM Not Given Q12HR MARK Hydralazine HCl 10 mg 11/13/19 22:50 12/05/19 02:50 Apresoline SLOW IVP 10 mg Q6H PRN Administration SBP GREATER THAN 160 Norepinephrine Bitartrate 250 mls @ 0 mls/hr 11/14/19 18:43 12/11/19 13:30 Levophed IVPB 250 mls INF MARK Administration Protocol Titrate Insulin Glargine 24 units/ 0.24 mls @ 0 mls/hr 11/20/19 15:49 12/12/19 08:44 Miscellaneous Medication SC 0.24 mls QAM MARK Administration As Directed Insulin Glargine 15 units/ 0.15 mls @ 0 mls/hr 12/06/19 21:00 12/11/19 20:13 Miscellaneous Medication SC 0.15 mls HS MARK Administration Per Protocol Fentanyl Citrate 2,000 mcg/ 100 mls @ 0 mls/hr 12/06/19 19:30 12/12/19 04:49 Sodium Chloride IV 100 mls INF MARK Administration Protocol Per Protocol Insulin Human Lispro 0 units 11/14/19 01:26 12/12/19 05:30 Humalog SC 2 units .MODERATE SLIDING SC PRN Administration Moderate Correctional Scale Lorazepam 2 mg 12/06/19 19:21 12/10/19 10:25 Ativan SLOW IVP 2 mg Q1H PRN Administration Breakthrough agitation Methylprednisolone Sodium Succinate 80 mg 11/30/19 09:00 12/12/19 08:42 Solu-Medrol IVP 80 mg 0900,2100 MARK Administration Morphine Sulfate 2 mg 12/06/19 19:21 12/09/19 18:24 Morphine SLOW IVP 2 mg Q1H PRN Administration Breakthrough Pain/Agitation Ondansetron HCl 4 mg 11/13/19 22:50 11/14/19 03:07 Zofran IVP 4 mg Q6H PRN Administration Nausea/Vomiting use 1st Polyethylene Glycol 17 gm 12/03/19 21:00 12/11/19 20:13 Miralax PER TUBE 17 gm HS MARK Administration Propofol 1,000 mg 11/26/19 18:25 12/12/19 04:49 Diprivan IV 12/26/19 18:25 1,000 mg INF PRN Administration TO ACHIEVE GOAL RASS Protocol Risperidone 1 mg 12/12/19 09:00 12/12/19 09:26 Risperidone PO 1 mg BID MARK Administration Senna/Docusate Sodium 2 tab 11/14/19 12:21 12/07/19 10:45 Senokot S PO 2 tab BIDPRN PRN Administration Constipation Sodium Chloride 10 ml 11/14/19 09:00 12/12/19 08:42 Flush - Normal Saline IVF 10 ml Q12HR MARK Administration Sterile Water 1 ml 11/18/19 11:56 12/01/19 12:01 Bacteriostatic Water FS 1 ml PRN PRN Administration RECONSTITUTION Vecuronium [place] 10 mg 11/21/19 15:48 12/12/19 05:18 Norcuron IV 10 mg Q1H PRN Administration SEDATION/MOVEMENT Zinc Sulfate 220 mg 11/15/19 09:00 12/12/19 08:42 Zinc Sulfate PO 220 mg DAILY MARK Administration - Exam General Appearance: ill appearing General - other findings: unresponsive on the vent, being sedated ENT - other findings: ET tube in place Heart: no murmur, no gallops, no rubs Heart - other findings: tachycardic Respiratory: no wheezes, no rales, no ronchi Respiratory - other findings: shallow low volume breaths from the vent Gastrointestinal: soft, non-distended, normal bowel sounds Psychiatric - other findings: sedated and unresponsive on the vent Hosp A/P (1) Acute respiratory failure with hypoxia Code(s): J96.01 - ACUTE RESPIRATORY FAILURE WITH HYPOXIA Status: Acute (2) Pneumonia due to COVID-19 virus Code(s): U07.1 - COVID-19; J12.89 - OTHER VIRAL PNEUMONIA Status: Acute (3) Pneumomediastinum Code(s): J98.2 - INTERSTITIAL EMPHYSEMA Status: Acute (4) Subcutaneous emphysema Code(s): T79.7XXA - TRAUMATIC SUBCUTANEOUS EMPHYSEMA, INITIAL ENCOUNTER Status : Acute (5) Diabetes mellitus Code(s): E11.9 - TYPE 2 DIABETES MELLITUS WITHOUT COMPLICATIONS Status: Chronic Qualifiers: Diabetes mellitus type: type 2 Diabetes mellitus correction insulin use: without termite treater helper use - Plan Acute resp failure - appreciate Pulmonology directing care - not weanable from the vent - on bilevel support with stiff lungs/poor compliance - significant subcutaneous emphysema, and pneumonmediastinum (with possible left small basilar pneumothorax not seen on repeat CXR) secondary to vent/ pressures required to support oxygenation - IVF d/c'd - Consider Trach/PEG when stable enough for procedure - still on low dose levophed COVID pneumonia - s/p convalescent plasma - remains on IV and inhaled steroids, scheduled nebs, Lovenox, and vent - no longer requires isolation Diabetes mellitus - well controlled with long-acting insulin - on tube feeds I met with the family at the bedside 12/11/2019. They did not want to do any CPR should patient's heart stop. However, they are adamantly opposed to ever doing withdrawl of care. Hoping for a miracle. I did licensed mental health counselor them and gave them questions that they should be thinking about such as what the patient would likely want them to do should she show no recovery over the next few weeks/ months but still remain unweanable and too unstable for trach. dvt prophy - full dose lovenox gi prophy - famotidine per tube code status full overall poor prognosis
[2019-12-12] MEDS ORDERED: Haloperidol Lactate 5 MG/ML VIAL IM PRN (10:56)
[2019-12-12] MEDS: Insulin Glargine 15 UNITS in Pre-Filled Syringe 1 EACH SC SCH (20:11)
[2019-12-12] MEDS: Polyethylene Glycol 3350 17 GM Packet PER TUBE SCH (20:12)
[2019-12-13] MEDS: Lorazepam 2 MG/ML VIAL SLOW IVP PRN (01:22)
[2019-12-13] MEDS: HumaLOG 300 UNITS/3 ML VIAL SC PRN (03:48)
[2019-12-13] MEDS: Vecuronium 10 MG VIAL IV PRN ×3 (03:58→22:40)
[2019-12-13 04:27] LABS: BUN (Urea Nitrogen) 19 mg/dL (9.8-20.1); Calc. Creatinine Clearance 111 mL/min (70-130); Calcium 8.8 mg/dL (7.8-10.44); Estimated GFR-MDRD Greater than 90; Glucose 206 mg/dL (80-115)
[2019-12-13 04:39] LABS: Chloride 96 mmol/L (98-107); Potassium 4.8 mmol/L (3.5-5.1); Sodium 140 mmol/L (136-145)
[2019-12-13 04:41] LABS: Anion Gap 14 mmol/L (10-20); Carbon Dioxide 35 mmol/L (23-31)
[2019-12-13 04:45] LABS: Band 23 % (5-11); Hemoglobin 8.4 g/dL (12.0-16.0); Lymphocytes 11 % (21-51); MDiff Complete? YES; Mean Corpuscular HGB CONC 30.5 g/dL (32.0-36.0); Mean Corpuscular Hemoglobin 29.5 pg (27.0-31.0); Mean Corpuscular Volume 96.9 fL (78.0-98.0); Metamyelocyte 3 % (0-0); Monocytes 5 % (0-10); Neutrophil 58 % (42-75); Platelet Count 340 thou/uL (130-400); Platelet Morphology Comment Appears Adequate; RBC Distribution Width 14.8 % (11.5-14.5); Red Blood Cell (RBC) Count 2.84 mill/uL (4.20-5.40); White Blood Cell (WBC) Count 10.7 thou/uL (4.8-10.8)
[2019-12-13 06:06] VITALS: BMI 27.1
[2019-12-13] MEDS: Budesonide 0.5 MG/2 ML NEB NEB SCH ×2 (07:03→18:31)
[2019-12-13 07:14] LABS: Actual Bicarbonate (HCO3a) 37.8 mEq/L (22-28); Calcium, Ionized (arterial) 1.15 mmol/L (1.12-1.30); Carboxyhemoglobin (COHb) 0.1 gm% (0.0-3.0); Hemoglobin (Hb) 8.5 g/dL (12.0-16.0); O2 Tension (PaO2), arterial 73.4 mmHg (> 80.0); Potassium - ABG Lab 4.47 mmol/L (3.70-5.30); pH, Arterial 7.43 (7.35-7.45)
[2019-12-13 07:15] LABS: Puncture Site RRA
--- NOTE | 2019-12-13 09:04 | PRG ---
DATE OF SERVICE: 12/13/2019 SUBJECTIVE: Reyna Frias remains intubated in the vent, sedated. She has been on high-dose steroids now for over 2 weeks without much improvement in chest x-ray and oxygen level. Family has made a DNR. OBJECTIVE: VITAL SIGNS: Sats 96% on a PEEP of 11, 65% FiO2, blood pressure 112/70, pulse 107, respirations 18, temperature is normal. CHEST: Crackles, rhonchi. CARDIAC: Normal S1, S2. No gallops. ABDOMEN: No masses. LABORATORY DATA: Labs showed white count 10,000, H and H , platelet count 340, pH 7.43. Lytes are normal. IMPRESSION: De León positive pneumonia, acute respiratory distress syndrome, respiratory failure, diabetes. Prognosis remains guarded. She is day #30 in the ICU. Repeat swab test was positive. It is unclear why the family wants a trach and a PEG, that will be discussed in the next day or 2. TIME SPENT: One-half hour of critical care time. Job ID: [id number]
[2019-12-13] MEDS: Famotidine 20 MG TAB PO SCH ×2 (09:16→19:41)
[2019-12-13] MEDS: Ascorbic Acid 500 mg Chewable Tablet PO SCH (09:16)
[2019-12-13] MEDS: Aspirin Chewable 81 MG TAB PER TUBE SCH (09:16)
[2019-12-13] MEDS: Enoxaparin Sodium 60 MG/0.6 ML SYRINGE SC SCH ×2 (09:16→19:41)
[2019-12-13] MEDS: Zinc Sulfate 220 MG CAP PO SCH (09:17)
[2019-12-13] MEDS: methylPREDNISolone Sod Succ 40 MG VIAL IVP SCH ×2 (09:17→19:42)
[2019-12-13] MEDS: Insulin Glargine 24 UNITS in Pre-Filled Syringe 1 EACH SC SCH (09:17)
[2019-12-13] MEDS: risperiDONE 1 MG TAB PO SCH ×2 (09:17→19:41)
--- NOTE | 2019-12-13 09:28 | RAD ---
CHEST 1 VIEW: Date: 12/13/2019 HISTORY: Follow-up pneumonia. COMPARISON: 12/09/2019. FINDINGS: Endotracheal tube and enteric tubes are in place. There is again noted to be very extensive bilateral subcutaneous emphysema with some probable minimal bilateral pneumomediastinum. There is some minimal increased lucency in the apices and it would be difficult to exclude tiny apical pneumothoraces. IMPRESSION: 1. Stable extensive bilateral subcutaneous emphysema. 2. Tiny lucencies in the apices which may just represent overlying emphysema, but it would be diffic ult to exclude tiny pneumothoraces. 3. No significant new process. POS: OFF
[2019-12-13] MEDS: Propofol 1,000 MG/100 ML VIAL IV PRN ×3 (09:31→22:12)
--- NOTE | 2019-12-13 10:20 | PDOC.HOSPP ---
- Subjective Encounter Date: 12/13/19 Encounter Time: 11:00 Subjective: Patient with worsening tachycardia this morning, on propofol and levophed and antianxiety meds added yesterday without improvement. Still 130 bpm when I rounded on her. - Objective Vital Signs & Weight: Vital Signs (12 hours) Temp Pulse Resp BP Pulse Ox 12/13/19 10:00 18 12/13/19 08:00 98.9 F 18 94 L 12/13/19 07:03 103 H 111/58 L 12/13/19 07:01 96 18 99 12/13/19 06:00 18 12/13/19 04:00 97.7 F 18 12/13/19 03:03 120 H 18 99 12/13/19 02:56 122 H 12/13/19 02:00 18 12/13/19 00:17 120 H 12/13/19 00:00 18 12/12/19 23:57 97.7 F Weight Admit Weight 120 lb 13.013 oz Weight 116 lb 12.8 oz Most Recent Monitor Data Heart Rate from ECG 109 NIBP 127/66 NIBP BP-Mean 86 Respiration from ECG 18 SpO2 94 I&O: 12/12/19 12/13/19 12/14/19 06:59 06:59 06:59 Intake Total 1825.7 1727.3 90 Output Total 1065 1125 170 Balance 760.7 602.3 -80 Result Diagrams: 12/13/19 03:29 12/13/19 03:29 Additional Labs: Accuchecks 12/13/19 12/13/19 12/12/19 09:35 03:52 20:19 POC Glucose 103 215 H 169 H 12/12/19 12/12/19 16:32 12:18 POC Glucose 136 H 112 H Hospitalist ROS - Review of Systems ROS unobtainable: due to endotracheal tube - Medication Medications: Active Medications Generic Name Dose Route Start Last Admin Trade Name Freq PRN Reason Stop Dose Admin Acetaminophen 650 mg 11/13/19 22:50 12/10/19 05:18 Tylenol PO 650 mg Q4H PRN Administration Headache/Fever/Mild Pain (1-3) Albuterol/Ipratropium 3 ml 11/14/19 14:30 12/13/19 07:01 Duoneb NEB 3 ml [id number] MARK Administration Ascorbic Acid 1,000 mg 11/15/19 09:00 12/13/19 09:16 Vitamin C PO 1,000 mg DAILY MARK Administration Aspirin 81 mg 12/02/19 09:00 12/13/19 09:16 Aspirin Chewable PER TUBE 81 mg DAILY MARK Administration Budesonide 0.5 mg 11/14/19 18:30 12/13/19 07:03 Pulmicort Neb Solution NEB 0.5 mg BID-RT MARK Administration Clonidine 0.1 mg 11/13/19 22:50 12/04/19 08:33 Catapres PO 0.1 mg BID PRN Administration SBP > 160 use second Enoxaparin Sodium 50 mg 11/21/19 21:00 12/13/19 09:16 Lovenox SC 50 mg 09,2099 MARK Administration Famotidine 20 mg 11/30/19 21:00 12/13/19 09:16 Pepcid PO 20 mg BID MARK Administration Hydralazine HCl 10 mg 11/13/19 22:50 12/05/19 02:50 Apresoline SLOW IVP 10 mg Q6H PRN Administration SBP GREATER THAN 160 Norepinephrine Bitartrate 250 mls @ 0 mls/hr 11/14/19 18:43 12/11/19 13:30 Levophed IVPB 250 mls INF MARK Administration Protocol Titrate Insulin Glargine 24 units/ 0.24 mls @ 0 mls/hr 11/20/19 15:49 12/13/19 09:17 Miscellaneous Medication SC 0.24 mls QAM MARK Administration As Directed Insulin Glargine 15 units/ 0.15 mls @ 0 mls/hr 12/06/19 21:00 12/12/19 20:11 Miscellaneous Medication SC 0.15 mls HS MARK Administration Per Protocol Fentanyl Citrate 2,000 mcg/ 100 mls @ 0 mls/hr 12/06/19 19:30 12/12/19 20:14 Sodium Chloride IV 100 mls INF MARK Administration Protocol Per Protocol Insulin Human Lispro 0 units 11/14/19 01:26 12/13/19 03:48 Humalog SC 4 units .MODERATE SLIDING SC PRN Administration Moderate Correctional Scale Lorazepam 2 mg 12/06/19 19:21 12/13/19 01:22 Ativan SLOW IVP 2 mg Q1H PRN Administration Breakthrough agitation Methylprednisolone Sodium Succinate 40 mg 12/13/19 09:00 12/13/19 09:17 Solu-Medrol IVP 40 mg 0900,2100 MARK Administration Morphine Sulfate 2 mg 12/06/19 19:21 12/09/19 18:24 Morphine SLOW IVP 2 mg Q1H PRN Administration Breakthrough Pain/Agitation Ondansetron HCl 4 mg 11/13/19 22:50 11/14/19 03:07 Zofran IVP 4 mg Q6H PRN Administration Nausea/Vomiting use 1st Polyethylene Glycol 17 gm 12/03/19 21:00 12/12/19 20:12 Miralax PER TUBE 17 gm HS MARK Administration Propofol 1,000 mg 11/26/19 18:25 12/13/19 09:31 Diprivan IV 12/26/19 18:25 1,000 mg INF PRN Administration TO ACHIEVE GOAL RASS Protocol Risperidone 1 mg 12/12/19 09:00 12/13/19 09:17 Risperidone PO 1 mg BID MARK Administration Senna/Docusate Sodium 2 tab 11/14/19 12:21 12/07/19 10:45 Senokot S PO 2 tab BIDPRN PRN Administration Constipation Sodium Chloride 10 ml 11/14/19 09:00 12/13/19 09:17 Flush - Normal Saline IVF 10 ml Q12HR MARK Administration Sterile Water 1 ml 11/18/19 11:56 12/01/19 12:01 Bacteriostatic Water FS 1 ml PRN PRN Administration RECONSTITUTION Vecuronium [place] 10 mg 11/21/19 15:48 12/12/19 23:30 Norcuron IV 10 mg Q1H PRN Administration SEDATION/MOVEMENT Zinc Sulfate 220 mg 11/15/19 09:00 12/13/19 09:17 Zinc Sulfate PO 220 mg DAILY MARK Administration - Exam General Appearance: ill appearing General - other findings: sedated on vent Heart: no murmur, no gallops, no rubs Heart - other findings: tachycardic, regular Respiratory - other findings: very shallow ventilated breaths, poor air movement Gastrointestinal: soft, diminished bowl sounds Skin - other findings: subcutaneous air chest, neck, face, all the way to fingers bilaterally Psychiatric - other findings: unresponsive, sedated on the vent Hosp A/P (1) Acute respiratory failure with hypoxia Code(s): J96.01 - ACUTE RESPIRATORY FAILURE WITH HYPOXIA Status: Acute (2) Pneumonia due to COVID-19 virus Code(s): U07.1 - COVID-19; J12.89 - OTHER VIRAL PNEUMONIA Status: Acute (3) Pneumomediastinum Code(s): J98.2 - INTERSTITIAL EMPHYSEMA Status: Acute (4) Subcutaneous emphysema Code(s): T79.7XXA - TRAUMATIC SUBCUTANEOUS EMPHYSEMA, INITIAL ENCOUNTER Status : Acute (5) Diabetes mellitus Code(s): E11.9 - TYPE 2 DIABETES MELLITUS WITHOUT COMPLICATIONS Status: Chronic Qualifiers: Diabetes mellitus type: type 2 Diabetes mellitus intermediate insulin use: without intermediate use - Plan Acute resp failure - appreciate Pulmonology directing care - not weanable from the vent - on bilevel support with stiff lungs/poor compliance - significant subcutaneous emphysema, and pneumonmediastinum (with possible left small basilar pneumothorax not seen on repeat CXR) secondary to vent/ pressures required to support oxygenation - IVF d/c'd - Not stable enough for Trach/PEG at this time and family refusing to get this done anyway - still on low dose levophed COVID pneumonia - s/p convalescent plasma - remains on IV and inhaled steroids, scheduled nebs, Lovenox, and vent - no longer requires isolation Diabetes mellitus - well controlled with long-acting insulin - on tube feeds I met with the family at the bedside 12/11/2019. They did not want to do any CPR should patient's heart stop. However, they are adamantly opposed to ever doing withdrawl of care. Hoping for a miracle. I did corporate counsel them and gave them questions that they should be thinking about such as what the patient would likely want them to do should she show no recovery over the next few weeks/ months but still remain unweanable and too unstable for trach. Today (12/13/2019) son spoke with nurse with palliative care and expressed that the doesn't feel like he can make the decision for compassionate extubation, but that if the doctor states that we cannot keep on the ventilator any longer without a trach/PEG which the family never wants then they will be ok with compassionate extubation. I called the son and daughter and discussed this with them on the phone. They stated that if the doctors agreed there was no hope for recovery and that the most compassionate thing to do was compassionate extubation to minimize suffering then they are ok with that and will leave it in God's hands about what happens after off the ventilator. We discussed when and they would like to do that tomorrow morning after being on the ventilator for 30 days. Will visit her tonight and want to be at bedside tomorrow for the extubation. dvt prophy - full dose lovenox gi prophy - famotidine per tube code status full grave prognosis, plan for compassionate extubation tomorrow AM
[2019-12-13] MEDS: fentaNYL Citrate/PF 2,000 MCG in Sodium Chloride 0.9% 60 ML IV SCH ×2 (10:35→23:31)
--- NOTE | 2019-12-13 14:26 | PDOC.PALPN ---
Palliative Progress Note - Subjective intubated with mechanical ventilation, cardiac support as well as sedation. - Objective Vital Signs: Vital Signs - Most Recent Temp Pulse Resp BP Pulse Ox 99.3 F 120 H 18 135/80 95 12/13/19 12:00 12/13/19 11:07 12/13/19 12:00 12/13/19 11:07 12/13/19 11:05 - Physical Exam Constitutional: encephalitic, ill appearing HEENT: moist MMs Respiratory: diminished lung sound Deviation from normal: mechanical ventilation Deviation from normal: tachycardia Gastrointestinal: soft, incontinent Genitourinary: serna catheter Musculoskeletal: diffuse muscle atrophy Deviation from normal: no purposeful movement Skin: cap refill <2 seconds, no lesions, no rash Deviation from normal: encephalopathic - Assessment (1) Palliative care encounter Code(s): Z51.5 - ENCOUNTER FOR PALLIATIVE CARE Current Visit: Yes Status: Acute (2) Acute respiratory failure with hypoxia Code(s): J96.01 - ACUTE RESPIRATORY FAILURE WITH HYPOXIA Current Visit: Yes Status: Acute (3) COVID-19 virus infection Code(s): U07.1 - COVID-19 Current Visit: Yes Status: Acute (4) Pneumonia due to COVID-19 virus Code(s): U07.1 - COVID-19; J12.89 - OTHER VIRAL PNEUMONIA Current Visit: Yes Status: Acute (5) Sepsis Code(s): A41.9 - SEPSIS, UNSPECIFIED ORGANISM Current Visit: Yes Status: Acute Qualifiers: Sepsis type: sepsis due to unspecified organism Sepsis acute organ dysfunction status: with acute organ dysfunction Severe sepsis acute organ dysfunction type: acute respiratory failure Acute respiratory failure type: with hypoxia Severe sepsis shock status: without septic shock Qualified Code (s): A41.9 - Sepsis, unspecified organism; R65.20 - Severe sepsis without septic shock; J96.01 - Acute respiratory failure with hypoxia (6) Diabetes mellitus Code(s): E11.9 - TYPE 2 DIABETES MELLITUS WITHOUT COMPLICATIONS Current Visit : Yes Status: Chronic Qualifiers: Diabetes mellitus type: type 2 Diabetes mellitus mcc insulin use: without mcc use - Plan Plan: Dr Rojas and Palliative Care continue to communicate with Davis and his sister. They are understanding of poor prognosis and continued decline with increase need for support to maintain life. Family to plan a visit to bedside this afternoon, Davis, his sister and patient . Then withdraw care 12/13. Emotional Support and Therapeutic listening. Spiritual care and Dr lFores aware of plan [40] minutes spent on this encounter with >50% of the time in counseling and coordination of care. - ROS Non Response: due to endotracheal tube, due to mental status
[2019-12-13] MEDS: Insulin Glargine 15 UNITS in Pre-Filled Syringe 1 EACH SC SCH (19:42)
[2019-12-13] MEDS: Polyethylene Glycol 3350 17 GM Packet PER TUBE SCH (19:42)
[2019-12-14] MEDS: Norepinephrine 8 MG/0.9% NS 250 ML IVPB SCH (03:40)
[2019-12-14] MEDS: Propofol 1,000 MG/100 ML VIAL IV PRN ×2 (03:48→09:22)
[2019-12-14 05:07] LABS: Anion Gap 15 mmol/L (10-20); Carbon Dioxide 34 mmol/L (23-31); Chloride 98 mmol/L (98-107); Potassium 4.5 mmol/L (3.5-5.1); Sodium 142 mmol/L (136-145)
[2019-12-14 05:21] LABS: BUN (Urea Nitrogen) 13 mg/dL (9.8-20.1); Calc. Creatinine Clearance 122 mL/min (70-130); Calcium 8.4 mg/dL (7.8-10.44); Estimated GFR-MDRD Greater than 90; Glucose 88 mg/dL (80-115)
[2019-12-14 06:15] LABS: Band 36 % (5-11); Hemoglobin 8.2 g/dL (12.0-16.0); Lymphocytes 15 % (21-51); MDiff Complete? YES; Mean Corpuscular HGB CONC 30.9 g/dL (32.0-36.0); Mean Corpuscular Hemoglobin 29.4 pg (27.0-31.0); Mean Corpuscular Volume 95.3 fL (78.0-98.0); Mean Platelet Volume 8.8 fL (7.4-10.4); Monocytes 6 % (0-10); Neutrophil 43 % (42-75); Platelet Count 367 thou/uL (130-400); RBC Distribution Width 14.9 % (11.5-14.5); Red Blood Cell (RBC) Count 2.77 mill/uL (4.20-5.40); White Blood Cell (WBC) Count 9.3 thou/uL (4.8-10.8)
[2019-12-14] MEDS: Budesonide 0.5 MG/2 ML NEB NEB SCH (08:04)
[2019-12-14 08:06] VITALS: BP 123/66
--- NOTE | 2019-12-14 09:03 | PDOC.HOSPP ---
- Subjective Encounter Date: 12/14/19 Encounter Time: 11:00 non-verbal Subjective: Patient without any improvement. , son, and another family member at the bedside, and daughter on the phone. I discussed in depth with family about patient's condition, lack of improvement after 30 days on the vent, severe distress/suffering with any attempt to wean sedation, severe lung impairment, unstable cardiac status preventing trach procedure. Educated about the futility of further ventilatory support and how it is prolonging her suffering. I did recommend compassionate extubation. Family in agreement and want to do that later after rest of family able to come by the room and see her. - Objective Vital Signs & Weight: Vital Signs (12 hours) Temp Pulse Resp BP Pulse Ox 12/14/19 08:05 99 123/66 12/14/19 08:02 94 18 99 12/14/19 06:00 18 12/14/19 04:00 98.3 F 18 12/14/19 02:20 95 12/14/19 02:19 93 18 100 12/14/19 02:00 18 12/14/19 00:07 129 H 12/14/19 00:00 99.1 F 18 12/13/19 22:00 18 12/13/19 21:57 108 H 18 97 12/13/19 21:51 100 Weight Admit Weight 120 lb 13.013 oz Weight 117 lb 15.157 oz Most Recent Monitor Data Heart Rate from ECG 94 NIBP 112/69 NIBP BP-Mean 83 Respiration from ECG 18 SpO2 100 I&O: 12/13/19 12/14/19 12/15/19 06:59 06:59 06:59 Intake Total 1727.3 1589.2 Output Total 1125 1785 Balance 602.3 -195.8 Result Diagrams: 12/14/19 04:28 12/14/19 04:28 Additional Labs: Accuchecks 12/13/19 12/13/19 19:44 09:35 POC Glucose 76 103 Hospitalist ROS - Review of Systems ROS unobtainable: due to endotracheal tube - Medication Medications: Active Medications Generic Name Dose Route Start Last Admin Trade Name Freq PRN Reason Stop Dose Admin Acetaminophen 650 mg 11/13/19 22:50 12/10/19 05:18 Tylenol PO 650 mg Q4H PRN Administration Headache/Fever/Mild Pain (1-3) Albuterol/Ipratropium 3 ml 11/14/19 14:30 12/14/19 08:02 Duoneb NEB 3 ml [id number] MARK Administration Ascorbic Acid 1,000 mg 11/15/19 09:00 12/13/19 09:16 Vitamin C PO 1,000 mg DAILY MARK Administration Aspirin 81 mg 12/02/19 09:00 12/13/19 09:16 Aspirin Chewable PER TUBE 81 mg DAILY MARK Administration Budesonide 0.5 mg 11/14/19 18:30 12/14/19 08:04 Pulmicort Neb Solution NEB 0.5 mg BID-RT MARK Administration Clonidine 0.1 mg 11/13/19 22:50 12/04/19 08:33 Catapres PO 0.1 mg BID PRN Administration SBP > 160 use second Enoxaparin Sodium 50 mg 11/21/19 21:00 12/13/19 19:41 Lovenox SC 50 mg 0900,2100 MARK Administration Famotidine 20 mg 11/30/19 21:00 12/13/19 19:41 Pepcid PO 20 mg BID MARK Administration Hydralazine HCl 10 mg 11/13/19 22:50 12/05/19 02:50 Apresoline SLOW IVP 10 mg Q6H PRN Administration SBP GREATER THAN 160 Norepinephrine Bitartrate 250 mls @ 0 mls/hr 11/14/19 18:43 12/14/19 03:40 Levophed IVPB 250 mls INF MARK Administration Protocol Titrate Insulin Glargine 24 units/ 0.24 mls @ 0 mls/hr 11/20/19 15:49 12/13/19 09:17 Miscellaneous Medication SC 0.24 mls QAM MARK Administration As Directed Insulin Glargine 15 units/ 0.15 mls @ 0 mls/hr 12/06/19 21:00 12/13/19 19:42 Miscellaneous Medication SC Not Given HS MARK Per Protocol Fentanyl Citrate 2,000 mcg/ 100 mls @ 0 mls/hr 12/06/19 19:30 12/13/19 23:31 Sodium Chloride IV 100 mls INF MARK Administration Protocol Per Protocol Insulin Human Lispro 0 units 11/14/19 01:26 12/13/19 03:48 Humalog SC 4 units .MODERATE SLIDING SC PRN Administration Moderate Correctional Scale Lorazepam 2 mg 12/06/19 19:21 12/13/19 01:22 Ativan SLOW IVP 2 mg Q1H PRN Administration Breakthrough agitation Methylprednisolone Sodium Succinate 40 mg 12/13/19 09:00 12/13/19 19:42 Solu-Medrol IVP 40 mg 0900,2100 MARK Administration Morphine Sulfate 2 mg 12/06/19 19:21 12/09/19 18:24 Morphine SLOW IVP 2 mg Q1H PRN Administration Breakthrough Pain/Agitation Ondansetron HCl 4 mg 11/13/19 22:50 11/14/19 03:07 Zofran IVP 4 mg Q6H PRN Administration Nausea/Vomiting use 1st Polyethylene Glycol 17 gm 12/03/19 21:00 12/13/19 19:42 Miralax PER TUBE Not Given HS MARK Propofol 1,000 mg 11/26/19 18:25 12/14/19 03:48 Diprivan IV 12/26/19 18:25 1,000 mg INF PRN Administration TO ACHIEVE GOAL RASS Protocol Risperidone 1 mg 12/12/19 09:00 12/13/19 19:41 Risperidone PO 1 mg BID MARK Administration Senna/Docusate Sodium 2 tab 11/14/19 12:21 12/07/19 10:45 Senokot S PO 2 tab BIDPRN PRN Administration Constipation Sodium Chloride 10 ml 11/14/19 09:00 12/13/19 19:42 Flush - Normal Saline IVF 10 ml Q12HR MARK Administration Sterile Water 1 ml 11/18/19 11:56 12/01/19 12:01 Bacteriostatic Water FS 1 ml PRN PRN Administration RECONSTITUTION Vecuronium [place] 10 mg 11/21/19 15:48 12/13/19 22:40 Norcuron IV 10 mg Q1H PRN Administration SEDATION/MOVEMENT Zinc Sulfate 220 mg 11/15/19 09:00 12/13/19 09:17 Zinc Sulfate PO 220 mg DAILY MARK Administration - Exam General Appearance: ill appearing General - other findings: deeply sedated on the vent ENT: moist mucosa Heart: no murmur, no gallops, no rubs Heart - other findings: tachycardic, regular Respiratory - other findings: shallow ventilatory breaths, coarse breath sounds Gastrointestinal: soft, non-distended Skin - other findings: diffuse subcu emphysema neck, chest, upper ext to fingertips Psychiatric - other findings: deeply sedated on the vent Hosp A/P (1) Acute respiratory failure with hypoxia Code(s): J96.01 - ACUTE RESPIRATORY FAILURE WITH HYPOXIA Status: Acute (2) Pneumonia due to COVID-19 virus Code(s): U07.1 - COVID-19; J12.89 - OTHER VIRAL PNEUMONIA Status: Acute (3) Pneumomediastinum Code(s): J98.2 - INTERSTITIAL EMPHYSEMA Status: Acute (4) Subcutaneous emphysema Code(s): T79.7XXA - TRAUMATIC SUBCUTANEOUS EMPHYSEMA, INITIAL ENCOUNTER Status : Acute (5) Diabetes mellitus Code(s): E11.9 - TYPE 2 DIABETES MELLITUS WITHOUT COMPLICATIONS Status: Chronic Qualifiers: Diabetes mellitus type: type 2 Diabetes mellitus termite control representative insulin use: without [facility] use - Plan Compassionate extubation later in the afternoon. certificate to me to be filled out.
[2019-12-14] MEDS: Enoxaparin Sodium 60 MG/0.6 ML SYRINGE SC SCH (09:23)
[2019-12-14] MEDS: Lorazepam 2 MG/ML VIAL SLOW IVP PRN ×2 (09:23→12:37)
[2019-12-14] MEDS: Aspirin Chewable 81 MG TAB PER TUBE SCH (09:24)
[2019-12-14] MEDS: Zinc Sulfate 220 MG CAP PO SCH (09:24)
[2019-12-14] MEDS: Ascorbic Acid 500 mg Chewable Tablet PO SCH (09:24)
[2019-12-14] MEDS: methylPREDNISolone Sod Succ 40 MG VIAL IVP SCH (09:24)
[2019-12-14] MEDS: Famotidine 20 MG TAB PO SCH (09:24)
[2019-12-14] MEDS: risperiDONE 1 MG TAB PO SCH (09:24)
--- NOTE | 2019-12-14 09:27 | PRG ---
DATE OF SERVICE: 12/14/2019 SUBJECTIVE: A 64-year-old female, intubated in the vent, sedated. OBJECTIVE: VITAL SIGNS: Temperature 99, pulse 99, blood pressure 120/66, sats 100% on 60%, PEEP of 11. GENERAL: Sedated, unresponsive. Neurologically, positive values. CHEST: Rhonchi and crackles. CARDIAC: Sinus tach. ABDOMEN: Soft. NEUROLOGIC: Sedated. LABORATORY DATA: White count 9000 platelet count 367. Lytes are normal. X-ray yesterday shows extensive bilateral pulmonary infiltrates. ASSESSMENT AND PLAN: Progressive respiratory failure, acute respiratory distress syndrome, verduzco positive pneumonia, and baseline diabetes. This is day #31 in the hospital. Family is to make a decision today, trach, PEG versus comfort care. Still on high-dose steroids. Supportive care, neb treatments. Prognosis remains guarded. One-half hour of critical care time. Job ID: [id number]
[2019-12-14] MEDS: Insulin Glargine 24 UNITS in Pre-Filled Syringe 1 EACH SC SCH (09:32)
[2019-12-14] MEDS ORDERED: Lorazepam 2 MG/ML VIAL SLOW IVP PRN (11:03)
[2019-12-14] MEDS ORDERED: Morphine 10 MG/ML VIAL SLOW IVP SCH (11:15)
--- NOTE | 2019-12-14 11:29 | PDOC.PALPN ---
Palliative Progress Note - Subjective Intubated day #31, mechanical ventilation with supportive care. Family to bedside - Objective Vital Signs: Vital Signs - Most Recent Temp Pulse Resp BP Pulse Ox 98.2 F 99 18 123/66 99 12/14/19 08:00 12/14/19 08:05 12/14/19 10:00 12/14/19 08:05 12/14/19 08:02 - Physical Exam Constitutional: encephalitic, ill appearing HEENT: moist MMs, sclera anicteric Deviation from normal: Mechanical ventilation, bilaterally adventicious Cardiovascular: RRR Gastrointestinal: soft, non-tender Genitourinary: serna catheter Musculoskeletal: diffuse muscle atrophy Deviation from normal: sedated Skin: cap refill <2 seconds Deviation from normal: encephalopathic - Assessment (1) Palliative care encounter Code(s): Z51.5 - ENCOUNTER FOR PALLIATIVE CARE Current Visit: Yes Status: Acute (2) Acute respiratory failure with hypoxia Code(s): J96.01 - ACUTE RESPIRATORY FAILURE WITH HYPOXIA Current Visit: Yes Status: Acute (3) COVID-19 virus infection Code(s): U07.1 - COVID-19 Current Visit: Yes Status: Acute (4) Pneumonia due to COVID-19 virus Code(s): U07.1 - COVID-19; J12.89 - OTHER VIRAL PNEUMONIA Current Visit: Yes Status: Acute (5) Sepsis Code(s): A41.9 - SEPSIS, UNSPECIFIED ORGANISM Current Visit: Yes Status: Acute Qualifiers: Sepsis type: sepsis due to unspecified organism Sepsis acute organ dysfunction status: with acute organ dysfunction Severe sepsis acute organ dysfunction type: acute respiratory failure Acute respiratory failure type: with hypoxia Severe sepsis shock status: without septic shock Qualified Code (s): A41.9 - Sepsis, unspecified organism; R65.20 - Severe sepsis without septic shock; J96.01 - Acute respiratory failure with hypoxia (6) Diabetes mellitus Code(s): E11.9 - TYPE 2 DIABETES MELLITUS WITHOUT COMPLICATIONS Current Visit : Yes Status: Chronic Qualifiers: Diabetes mellitus type: type 2 Diabetes mellitus skilled nursing insulin use: without skilled nursing use - Plan Plan: Dr Arrieta to bedside with patient son, and grandson. Revisited patient lack of response to therapies and grave prognosis. Reinforced conversation and information that Dr Arrieta relayed. Family to rotate several family members to "say goodbye" and plan to compassionately extubate at 12:30-1. Continued to revisit poor prognosis and lack of meaningful recovery. Continued to answer questions of family as they rotated to bedside. Emotional support and Therapeutic listening. Comfort medications ordered Communicated with Dr Flores. [60] minutes spent on this encounter with >50% of the time in counseling and coordination of care. - ROS Non Response: due to endotracheal tube, due to mental status
[2019-12-14 12:23] VITALS: TEMP 98.3
--- NOTE | 2019-12-15 03:15 | DIS ---
DATE OF ADMISSION: 11/13/2019 DATE OF DISCHARGE: 12/14/2019 SUMMARY: REASON FOR ADMISSION: Shortness of breath from COVID pneumonia. CAUSE OF : COVID pneumonia with adult respiratory distress syndrome, contributing factors diabetes mellitus type 2. SUMMARY OF HOSPITAL COURSE: This is a 64-year-old female with a past medical history of diabetes, who presented to the emergency room with shortness of breath with a history of a positive COVID test. The patient had had nine days or more days of cough and shortness of breath and her shortness of breath began to worsen, she was tested positive for COVID. Her daughter was also COVID positive, but only ever got mild symptoms. When she presented the emergency room, she was breathing at 20 to 30 breaths per minute and that went up on arrival to 50 breaths per minute. She was moved to the critical care unit. She had a prolonged course. Early in the hospital course, she had further respiratory distress and eventually had to be intubated. The patient decompensated further. She was barely able to be ventilated due to very stiff resistant lungs, had a lot of leakage of air subcutaneously covering her face, neck, chest, and all the way down her arms to her fingertips, had to be ventilated with a very small volumes. The patient also had severe problems with tachycardia that has began to get much worse, so she was not completely sedated. The sedation caused her blood pressure to drop. She had to be on pressors, most of the time when she was on the vent. The patient remained on the vent for the rest of the month without any improvement at all. She was never stable enough to get a tracheostomy or PEG tube placed and remained very agitated whenever she was not completely sedated. Eventually, Dr. Flores, myself, and Palliative Care discussed the patient's lack of progress and continued critical status seen after a month of treatment with the family and recommended that we do a palliative or a compassionate extubation. I did discuss this at length with family with the son and daughter translating to the [id number] the patient's because he does not speak [place]ian. Eventually, the family agreed that it would be most compassionate to withdrawal the ventilator due to her continued suffering and futility with no reasonable expectation of recovery or even able to ever get off the ventilator. The patient was extubated and then on December 14, 2019 at 1:02 p.m. in the afternoon. Her body is being discharged to the home. Job ID: [id number]
== END 2019-12-14 14:30 | disposition expired | DRG 870 ==
LOC: ERS 19:33 → 2SW 22:27 → CCU 11-14 01:43
PROVIDERS: ADMIT Internal Medicine; ATTEND Internal Medicine
PROC: 8E0ZXY6 Isolation (ICD-10-PCS; 2019-11-13)
PROC: 5A1955Z Respiratory Ventilation, Greater than 96 Consecutive Hours (ICD-10-PCS; principal; 2019-11-14)
PROC: 06HY33Z Insertion of Infusion Device into Lower Vein, Percutaneous Approach (ICD-10-PCS; 2019-11-14)
PROC: 3E033XZ Introduction of Vasopressor into Peripheral Vein, Percutaneous Approach (ICD-10-PCS; 2019-11-14)
PROC: 0BH17EZ Insertion of Endotracheal Airway into Trachea, Via Natural or Artificial Opening (ICD-10-PCS; 2019-11-14)
PROC: 5A09357 Assistance with Respiratory Ventilation, Less than 24 Consecutive Hours, Continuous Positive Airway Pressure (ICD-10-PCS; 2019-11-14)
PROC: XW13325 Transfusion of Convalescent Plasma (Nonautologous) into Peripheral Vein, Percutaneous Approach, New Technology Group 5 (ICD-10-PCS; 2019-11-19)
DX: A41.89 Other specified sepsis (principal); U07.1 COVID-19; J12.89 Other viral pneumonia; J80 Acute respiratory distress syndrome; R65.21 Severe sepsis with septic shock; E87.2 Acidosis; G93.40 Encephalopathy, unspecified; J93.9 Pneumothorax, unspecified; Z66 Do not resuscitate; Z51.5 Encounter for palliative care; E11.9 Type 2 diabetes mellitus without complications; F41.9 Anxiety disorder, unspecified; R45.1 Restlessness and agitation; J98.2 Interstitial emphysema; I95.9 Hypotension, unspecified; K66.8 Other specified disorders of peritoneum; R00.0 Tachycardia, unspecified; Z79.84 Long term (current) use of oral hypoglycemic drugs
CPT/HCPCS: 36415; 36416; 36430; 36600; 71045; 80048; 80053; 82550; 82728; 82805; 83036; 83605; 83735; 83880; 84484; 85007; 85025; 85027; 85379; 86140; 86850; 86900; 86901; 87040; 87635; 93005; 93010; 94002; 94003; 94640; 94660; 96361; 96365; 96374; 96375; J0171; J0360; J0456; J0692; J0696; J1100; J1630; J1650; J1815; J1940; J2060; J2270; J2405; J2704; J2920; J2930; J3010; J3475; J3480; J3490; J7050; J7070; J7611; J7620; J7626; P9047; S0028; U0003